=== PATIENT | male | born 1935 | race Caucasian/White ===

== ENCOUNTER 2017-04-03 17:17 | Outpatient (CLI) | payer MEDICARE, OTHER | END 2017-04-03 17:18 | disposition critical access hospital (66) | LOC: EMS 17:17 | PROVIDERS: ATTEND Surgery | DX: R06.02 Shortness of breath (principal) | CPT/HCPCS: A0425; A0427 ==

== ENCOUNTER 2017-04-03 17:25 | Inpatient (IN) | payer MEDICARE, OTHER ==
--- NOTE | 2017-04-03 17:50 | ED Physician Documentation ---
PD HPI DYSPNEA - Stated complaint Stated Complaint: SOA - Chief complaint Chief Complaint: Resp - History obtained from History obtained from: Patient - Additional information Additional information: 81yo on home O2 (not for COPD, new in the last few weeks. Hospitalized in [facility] for PNA a couple of months ago. 3 days increasing dyspnea with dry cough. + MERINO. Does have H/O Afib but denies CHF but this dx is on previous discharge summary. No fevers. No chest pain. Decreased lasix dose from 80mg to 40mg about 3 weeks ago. Weight up 5 lbs in the last few days. Review of Systems Ten Systems: 10 systems reviewed and negative Constitutional: denies: Fever, Chills Cardiac: reports: Pedal edema. denies: Chest pain / pressure GI: reports: Abdominal Pain (RLQ pain x 2 mos) PD PAST MEDICAL HISTORY - Past Medical History Past Medical History: Yes Cardiovascular: Congestive heart failure, Hypertension, High cholesterol, SD, Atrial fibrillation, Valve disorder Respiratory: Pneumonia Neuro: None Endocrine/Autoimmune: Type 2 diabetes GI: Diverticulitis, Other : Renal insuffiency HEENT: None Psych: Depression Musculoskeletal: Osteoarthritis, Osteoporosis, Chronic back pain Derm: None - Past Surgical History Past Surgical History: Yes General: Cholecystectomy, Bowel surgery Ortho: Knee replacement, Spine surgery - Present Medications Home Medications: Ambulatory Orders Medication Instructions Recorded Confirmed Digoxin [Lanoxin] 125 mcg PO DAILY 05/06/14 04/03/17 Fluticasone [Flonase] 50 mcg INH BID 05/06/14 04/03/17 Metformin HCl 500 mg PO BIDWM 05/06/14 04/03/17 Metoprolol Tartrate 75 mg PO BID 05/06/14 04/03/17 Morphine Sulfate [Ms Contin] 15 mg PO BID 05/06/14 04/03/17 Polyethylene Glycol 3350 [Miralax] 17 g PO DAILY 05/06/14 04/03/17 Potassium Chloride [Klor-Con 10] 10 meq PO DAILY 05/06/14 04/03/17 Zolpidem [Ambien] 5 - 10 mg PO DAILY 05/06/14 04/03/17 Cyanocobalamin (Vitamin B-12) 1,000 mcg PO DAILY 02/02/15 04/03/17 [Vitamin B-12 (100mcg tab)] Docusate Sodium 100 mg PO BID PRN 02/02/15 04/03/17 Levothyroxine [Synthroid] 100 mcg PO DAILY 02/02/15 04/03/17 Melatonin 3 mg PO QPM PRN 02/02/15 04/03/17 Menthol [Cough Drops] 5.4 mg MM Q2H PRN 02/02/15 04/03/17 Pantoprazole [Protonix] 40 mg PO BIDAC 02/02/15 04/03/17 Petrolat,Wht/Min Oil/Sod Chl 3.5 gm OP Q1H PRN 02/02/15 04/03/17 [Artificial Tear Ointment] Phenol [Chloraseptic] 1 - 2 sprays MM Q3H PRN 02/02/15 04/03/17 Senna [Senokot] 17.2 mg PO QPM 02/02/15 04/03/17 Thiamine [Vitamin B-1] 100 mg PO DAILY 02/02/15 04/03/17 Aspirin 81 mg PO DAILY 02/09/15 04/03/17 Cholecalciferol (Vitamin D3) 2,000 unit PO DAILY 09/16/16 04/03/17 [Vitamin D3] Ferrous Gluconate 324 mg PO DAILY 09/16/16 04/03/17 Furosemide [Lasix] 40 mg PO DAILY #30 09/16/16 04/03/17 Glipizide 5 mg PO DAILY 09/16/16 04/03/17 Losartan [Cozaar] 50 mg PO DAILY 09/16/16 04/03/17 Multivitamin [Multiple Vitamins] 1 each PO DAILY 09/16/16 04/03/17 Tamsulosin [Flomax] 0.4 mg PO QPM 09/16/16 04/03/17 oxyCODONE/ACET 5/325 [Percocet 5 1 tab PO Q6H PRN 09/16/16 04/03/17 mg/325 mg] - Allergies Allergies/Adverse Reactions: Allergies Allergy/AdvReac Type Severity Reaction Status Date / Time No Known Drug Allergies Allergy Verified 09/15/16 13:58 - Social History Does the pt smoke?: No Smoking Status: Never smoker Does the pt drink ETOH?: Yes Does the pt have substance abuse?: No - Immunizations Immunizations are current?: No Immunizations: TDAP >10years/unknown - POLST Patient has POLST: Yes PD ED PE NORMAL - Vitals Vital signs reviewed: Yes - General General: Alert and oriented X 3, Other (labored breathing) - HEENT HEENT: PERRL, EOMI - Neck Neck: Supple, no meningeal sign, No bony TTP, Other (++JVD) - Cardiac Cardiac: Other (irregular) - Respiratory Respiratory: Other (diminished R base rales bilateral) - Abdomen Abdomen: Soft, Non tender - Back Back: No CVA TTP, No spinal TTP - Derm Derm: Normal color, Warm and dry, No rash - Extremities Extremities: Other (mod B pitting pedal edema) - Neuro Neuro: Alert and oriented X 3, Normal speech - Psych Psych: Normal mood, Normal affect Results - Vitals Vitals: Vital Signs - 24 hr 04/03/17 04/03/17 04/03/17 17:24 17:37 18:29 Temperature 36.9 C Heart Rate 106 H 100 92 Respiratory 22 24 18 Rate Blood Pressure 150/92 H 135/88 H 129/81 H O2 Saturation 86 L 92 96 04/03/17 19:39 Temperature Heart Rate 78 Respiratory 18 Rate Blood Pressure 121/71 O2 Saturation 92 Oxygen O2 Source [] Room air O2 Source [] Room air O2 Source Nasal cannula Oxygen Flow Rate 2 - EKG (time done) 1739 Rate: Rate (enter#) (89) Rhythm: Atrial fibrillation Intervals: LBBB Compare to prior EKG: Unchanged from prior EKG (no sig change from 09/15/16) Computer interpretation: Agree with computer - Labs Labs: Laboratory Tests 04/03/17 04/03/17 04/03/17 17:50 17:50 17:50 WBC 6.0 RBC 3.26 L Hgb 10.2 L Hct 30.6 L MCV 93.9 MCH 31.2 H MCHC 33.2 RDW 15.1 H Plt Count 284 MPV 7.5 Neut # 4.3 Lymph # 1.0 L [place] # 0.7 Eos # 0.1 Baso # 0.0 Absolute Nucleated RBC 0.01 Nucleated RBCs 0.1 Sodium 136 Potassium 5.3 H Chloride 100 L Carbon Dioxide 27 Anion Gap 9.0 BUN 47 H Creatinine 1.7 H Estimated GFR (MDRD) 39 L Glucose 250 H Calcium 9.1 Total Bilirubin 0.9 AST 20 ALT 22 Alkaline Phosphatase 125 H B-Natriuretic Peptide 711 H Total Protein 7.3 Albumin 3.8 Globulin 3.5 Albumin/Globulin Ratio 1.1 Lipase 12 L Urine Color Urine Clarity Urine pH Ur Specific [place] Urine Protein Urine Glucose (UA) Urine Ketones Urine Occult Blood Urine Nitrite Urine Bilirubin Urine Urobilinogen Ur Leukocyte Esterase Ur Microscopic Review Urine Culture Comments Last Dose Date UNKNOWN Last Dose Time UNKNOWN Digoxin 1.0 04/03/17 18:50 WBC RBC Hgb Hct MCV MCH MCHC RDW Plt Count MPV Neut # Lymph # [place] # Eos # Baso # Absolute Nucleated RBC Nucleated RBCs Sodium Potassium Chloride Carbon Dioxide Anion Gap BUN Creatinine Estimated GFR (MDRD) Glucose Calcium Total Bilirubin AST ALT Alkaline Phosphatase B-Natriuretic Peptide Total Protein Albumin Globulin Albumin/Globulin Ratio Lipase Urine Color YELLOW Urine Clarity CLEAR Urine pH 5.0 Ur Specific [place] 1.010 Urine Protein NEGATIVE Urine Glucose (UA) NEGATIVE Urine Ketones NEGATIVE Urine Occult Blood NEGATIVE Urine Nitrite NEGATIVE Urine Bilirubin NEGATIVE Urine Urobilinogen 2 H Ur Leukocyte Esterase NEGATIVE Ur Microscopic Review NOT INDICATED Urine Culture Comments NOT INDICATED Last Dose Date Last Dose Time Digoxin - Rads (name of study) 2v chest Radiology: EMP read contemporaneously (Low lung volumes, some edema on the left , chronic right hemidiaphragmatic elevation, mild cardiomegaly, chronic bibasilar opacity) PD MEDICAL DECISION MAKING - ED course ED course: 81-year-old gentleman who presents with acute on chronic heart failure now with hypoxemia despite being on home oxygen. He is administered Lasix and nitro paste here. Spoke with Dr. Brewer for admission at 740 p.m. Departure - Departure Disposition: 66 [facility] DC/Xfer Clinical Impression: Hypoxemia Congestive heart failure Qualifiers: Congestive heart failure type: diastolic Congestive heart failure chronicity: acute on chronic Qualified Code(s): I50.33 - Acute on chronic diastolic ( congestive) heart failure Condition: Serious
[2017-04-03 17:59] LABS: BASOPHILS % (AUTO) 0.6 %; EOSINOPHILS # (AUTO) 0.1 10^3/uL (0.0-0.7); EOSINOPHILS % (AUTO) 0.9 %; HCT - HEMATOCRIT 30.6 % (42.0-52.0); HGB - HEMOGLOBIN 10.2 g/dL (14.0-18.0); LYMPHOCYTES % (AUTO) 15.9 %; MEAN CORPUSCULAR HEMOGLOBIN 31.2 pg (27.0-31.0); MEAN CORPUSCULAR HGB CONC 33.2 g/dL (32.0-36.0); MEAN CORPUSCULAR VOLUME 93.9 fL (80.0-94.0); MEAN PLATELET VOLUME 7.5 fL (7.4-11.4); MONOCYTES # (AUTO) 0.7 10^3/uL (0.0-1.0); NEUTROPHILS # (AUTO) 4.3 10^3/uL (1.5-6.6); NEUTROPHILS % (AUTO) 71.6 %; NUCLEATED RED BLOOD CELLS AUTO 0.1 /100WBC; RED BLOOD COUNT 3.26 10^6/uL (4.70-6.10); RED CELL DISTRIBUTION WIDTH 15.1 % (12.0-15.0)
[2017-04-03 18:16] LABS: ALBUMIN/GLOBULIN RATIO 1.1 (1.0-2.2); BILIRUBIN,TOTAL 0.9 mg/dL (0.2-1.0); BUN - BLOOD UREA NITROGEN 47 mg/dL (6-20); CALCIUM 9.1 mg/dL (8.5-10.3); CARBON DIOXIDE - CO2 27 mmol/L (21-32); CHLORIDE 100 mmol/L (101-111); CREATININE 1.7 mg/dL (0.6-1.2); GFR - MDRD 39 (>89); GLUCOSE 250 mg/dL (70-100); LIPASE 12 U/L (22-51); POTASSIUM 5.3 mmol/L (3.5-5.0); SODIUM 136 mmol/L (135-145); TOTAL PROTEIN 7.3 g/dL (6.7-8.2)
--- NOTE | 2017-04-03 18:41 | XRAY Preliminary Report ---
Exam: XR Chest 2 View PA/LAT IMPRESSION: 1. Mildly low lung volumes with vascular crowding/congestion, possible small amount of asymmetric lorri ma on the left. 2. Stable mild enlarged cardiac silhouette size. 3. Persistent elevation of the right hemidiaphragm. 4. Small amount of bibasilar opacity again noted, which may be on a chronic basis versus recurrent at electasis or pneumonia in the proper settings. [facility] SITE ID: [id number]
--- NOTE | 2017-04-03 18:43 | XRAY Report ---
EXAM: CHEST RADIOGRAPHY EXAM DATE: 04/03/2017 06:26 PM. CLINICAL HISTORY: Dyspnea. COMPARISON: 02/19/2015. TECHNIQUE: 2 views. FINDINGS: Lungs/Pleura: Persistent elevation of the right hemidiaphragm. Mildly low lung volumes with vascular crowding/congestion. Small amount of bibasilar opacity again noted. No definite pleural effusion. No pneumothorax. Mediastinum: Cardiac silhouette size appears mildly enlarged, stable. Atherosclerotic vascular calcif ication. Other: None. IMPRESSION: 1. Mildly low lung volumes with vascular crowding/congestion, possible small amount of asymmetric lorri ma on the left. 2. Stable mild enlarged cardiac silhouette size. 3. Persistent elevation of the right hemidiaphragm. 4. Small amount of bibasilar opacity again noted, which may be on a chronic basis versus recurrent at electasis or pneumonia in the proper settings. [facility] Referring Provider Line: [phone] SITE ID: [id number]
[2017-04-03 19:04] LABS: BILIRUBIN,URINE NEGATIVE (NEGATIVE)
[2017-04-03 19:05] LABS: UA CHARGE (STRIP ONLY) YES; UR CULTURE IF IND NOT INDICATED
[2017-04-03] MEDS ORDERED: FUROSEMIDE 100 MG/10 ML VIAL IVP STA (19:21)
[2017-04-03] MEDS ORDERED: NITROGLYCERIN 2% PASTE TOP STA (19:21)
[2017-04-03] MEDS ORDERED: FUROSEMIDE 40 MG/4 ML VIAL ONE (19:26)
[2017-04-03] MEDS ORDERED: NITROGLYCERIN 2% PASTE TOP ONE (19:26)
[2017-04-03] MEDS ORDERED: SODIUM CHLORIDE FLUSH 0.9% 10 ML SYRINGE IVP PRN (20:15)
[2017-04-03] MEDS ORDERED: MENTHOL MM PRN (20:18)
[2017-04-03] MEDS ORDERED: PHENOL THROAT SPRAY 177 ML MM PRN (20:18)
[2017-04-03] MEDS ORDERED: NON FORMULARY MED (Melatonin [Melatonin] 3 MG) PO PRN (20:18)
[2017-04-03 20:32] LABS: VBG BASE EXCESS -1.4 mmol/L (-2 - +2); VBG OXYGEN SATURATION 47.2 % (60-80); VBG PH 7.306 (7.31-7.41)
[2017-04-03 21:50] LABS: HEMOGLOBIN A1C 0.61 g/dL
[2017-04-03] MEDS: FUROSEMIDE INJ 100mg VIAL 100 MG in SODIUM CHLORIDE 0.9% 100ML 90 ML IV SCH (22:47)
[2017-04-03] MEDS: INSULIN ASPART 300 UNIT/3 ML PEN SUBQ SCH (23:04)
[2017-04-03] MEDS: PANTOPRAZOLE 40 MG TABLET PO SCH (23:05)
[2017-04-03] MEDS: HEPARIN 5,000 UNIT/ML VIAL SUBQ SCH (23:06)
[2017-04-03] MEDS ORDERED: LIDOCAINE 2% URO-JET 5 ML SYRINGE UR ONE (23:42)
[2017-04-04] MEDS: FLUTICASONE NASAL SPRAY NAS SCH ×3 (00:30→21:25)
[2017-04-04] MEDS: MORPHINE ER 15 MG TABLET PO SCH ×3 (00:35→21:23)
[2017-04-04] MEDS: METOPROLOL TARTRATE 25 MG TABLET PO SCH ×3 (00:35→21:22)
[2017-04-04] MEDS: SENNA 8.6 MG TABLET PO SCH ×2 (00:36→21:24)
[2017-04-04] MEDS: TAMSULOSIN 0.4 MG CAPSULE PO SCH ×2 (00:38→22:32)
[2017-04-04] MEDS: HEPARIN 5,000 UNIT/ML VIAL SUBQ SCH ×3 (00:39→21:26)
[2017-04-04] MEDS: INSULIN ASPART 300 UNIT/3 ML PEN SUBQ SCH ×6 (00:40→21:20)
[2017-04-04] MEDS: SODIUM CHLORIDE FLUSH 0.9% 10 ML SYRINGE IVP SCH ×3 (00:41→12:41)
--- NOTE | 2017-04-04 02:33 | HISTORY & PHYSICAL EXAMINATION ---
DATE OF ADMISSION: 04/03/2017 PRIMARY CARE PROVIDER: Delvin Quigley MD. CHIEF COMPLAINT: Increasing shortness of breath and lower extremity edema. HISTORY OF PRESENT ILLNESS: This is an 81-year-old male who I get a history from him, although is not a great historian, but notes that over the past 2 weeks or so he has been noticing increasing lower extremity edema along with increasing shortness of breath. He denies any chest pain. It does, accordi ng to the old records, show he has a history of congestive heart failure with appears to be diastolic dysfunction. He also has a history of chronic kidney disease and had been on Lasix 80 mg p.o. daily according to his account, but was taken off of it because of worsening kidney function about a month ago and he has not been on diuretics since then. His evaluation in the emergency room is significant for a chest x-ray, mildly low lung volumes with vascular crowding congestion, possible small amount o f asymmetric edema on the left, stable mild enlarged cardiac silhouette size, persistent elevation of the right hemidiaphragm, a small amount of basilar opacity again noted, which may be a chronic basis versus recurrent atelectasis or pneumonia in the proper setting. His EKG shows atrial fibrillation, a rate of 89, left bundle branch block present, unchanged from prior EKG. Troponin is 0.04. PAST MEDICAL HISTORY 1. Type 2 diabetes. 2. History of congestive heart failure, thought to be secondary to diastolic dysfunction. 3. History of myocardial infarction. 4. Chronic kidney disease stage III. 5. History of depression. 6. Osteoarthritis. 7. Chronic pain. 8. History of chronic atrial fibrillation, for which he is on ASA. 9. History of hypertension. 10. History of hyperlipidemia. MEDICATIONS UPON ADMISSION 1. Glipizide 5 mg p.o. daily. 2. Metformin 500 mg p.o. b.i.d. 3. KCl 10 mEq p.o. daily. 4. ASA 81 mg p.o. daily. 5. Vitamin D3 at 2000 units p.o. daily. 6. Cyanocobalamin 1000 mcg p.o. daily. 7. Digoxin 125 mcg p.o. daily. 8. Colace 100 mg p.o. b.i.d. 9. Ferrous gluconate 324 mg p.o. daily. 10. Flonase 1 spray to each nostril b.i.d. 11. Levothyroxine 100 mcg p.o. daily. 12. Losartan 50 mg p.o. daily. 13. Melatonin 3 mg p.o. daily. 14. Metoprolol tartrate 75 mg p.o. b.i.d. 15. MS Contin 15 mg p.o. b.i.d. 16. Multiple vitamin 1 tab p.o. daily. 17. Protonix 40 mg p.o. b.i.d. 18. Flomax 0.4 mg p.o. daily. 19. Thiamine 100 mg p.o. daily. 20. Zolpidem 5-10 mg p.o. daily. 21. Percocet 5/325 one tab p.o. q.6h. p.r.n. pain. ALLERGIES: NO KNOWN DRUG ALLERGIES. SOCIAL HISTORY: Lives with . Smoking, none. Alcohol, none. FAMILY MEDICAL HISTORY: Admits to family history of coronary artery disease. REVIEW OF SYSTEMS: Denies any fevers or chills. Denies cough. All other review of systems reviewed an d are negative except for as in HPI. PHYSICAL EXAMINATION VITAL SIGNS: Temperature is afebrile, heart rate is 92, blood pressure 129/81, respiratory rate is 18 , room air saturation is 96%, initially was 86% upon presentation to the emergency room. CONSTITUTIONAL: Elderly man who appears mildly short of breath. HEAD: Normocephalic, atraumatic. EYES: PERRLA-DC, EOMI. MOUTH: No lesions. NECK: No adenopathy. CHEST: Reveals decreased breath sounds at his bases bilaterally with some scant wheezing posteriorly. COR: Regular rate and rhythm, S1, S2 without murmur. ABDOMEN: Soft, nontender. Bowel sounds present. EXTREMITIES: Reveals 1+ bilateral pedal edema. SKIN: Reveals no rashes. PSYCHIATRIC: Mood and affect are appropriate. NEUROLOGIC: He is alert and oriented x3. Motor strength is intact bilaterally. LABORATORY: As above, also to include white count 6.0, hemoglobin 10.2, hematocrit 30.6, MCV 93.9, pl atelets 284 with neutrophils 4.3. Venous blood gas 7.306, pCO2 52, pO2 28.2, bicarbonate 25.4. Sodium 136, potassium 5.3, chloride 100, bicarbonate 27, BUN 47, creatinine 1.7, calculated GFR 39, glucose 250, calcium 9.1, magnesium 1.9, total bilirubin 0.9, AST 20, ALT 22, alkaline phosphatase 125. Trop onin 0.04. BNP 711, total protein 7.3, albumin 3.8, lipase 12. Urine reveals no acute abnormalities, specific gravity 1.010. Digoxin level 1.0. ASSESSMENT AND PLAN 1. Subacute congestive heart failure, present on admission. We will go ahead and start IV Lasix drip. Monitor kidney function. Monitor potassium. Continue with losartan. Continue with his beta-erick, check echocardiogram complete in the a.m. Consider recurrent doses of nitro paste. The patient had on e placed in the emergency room. Check serial troponins. 2. Type 2 diabetes, chronic, present on admission. We will go ahead and continue with his glipizide a nd hold his metformin. Will proceed with placing on subcu insulin protocol. 3. Hypertension, chronic, present on admission. We will go ahead and continue with his antihypertensi ve medication and monitor blood pressures. 4. Hyperlipidemia, chronic, present on admission. We will go ahead and continue with his statin as pr eviously ordered. 5. Chronic kidney disease, present on admission. The patient had a bump in his BUN and creatinine per patient report on higher dose of Lasix. We will go ahead and need to monitor appropriately. 6. Atrial fibrillation, chronic, present on admission. Currently has a controlled rate and will cary nue with ASA. 7. Deep venous thrombosis prophylaxis. We will use SCDs and place on subcutaneous Lovenox. 8. CODE STATUS: Did discuss with the patient, although defers to his who was not present at the time of admission, hence by default is FULL CODE. TIME SPENT: 60 minutes. JOB #: [id number] EXT JOB #:[id number]
[2017-04-04] MEDS: PANTOPRAZOLE 40 MG TABLET PO SCH ×2 (06:59→16:45)
[2017-04-04] MEDS: LEVOTHYROXINE 100 MCG TABLET PO SCH (06:59)
[2017-04-04] MEDS ORDERED: CARBOXYMETHYLCELLULOSE OPHTH DROPS EACHEYE PRN (07:12)
[2017-04-04 08:13] LABS: BASOPHILS % (AUTO) 0.8 %; EOSINOPHILS # (AUTO) 0.1 10^3/uL (0.0-0.7); EOSINOPHILS % (AUTO) 2.1 %; HCT - HEMATOCRIT 26.5 % (42.0-52.0); HGB - HEMOGLOBIN 9.3 g/dL (14.0-18.0); LYMPHOCYTES % (AUTO) 20.5 %; MEAN CORPUSCULAR HEMOGLOBIN 32.4 pg (27.0-31.0); MEAN CORPUSCULAR HGB CONC 35.1 g/dL (32.0-36.0); MEAN CORPUSCULAR VOLUME 92.4 fL (80.0-94.0); MEAN PLATELET VOLUME 6.9 fL (7.4-11.4); MONOCYTES # (AUTO) 0.6 10^3/uL (0.0-1.0); MONOCYTES % (AUTO) 13.5 %; NEUTROPHILS % (AUTO) 63.1 %; RED BLOOD COUNT 2.87 10^6/uL (4.70-6.10); RED CELL DISTRIBUTION WIDTH 14.9 % (12.0-15.0); UNCORRECTED WHITE BLOOD COUNT 4.7 x10^3/uL; WHITE BLOOD COUNT 4.7 x10^3/uL (4.8-10.8)
[2017-04-04 08:27] LABS: CALCIUM 8.9 mg/dL (8.5-10.3); CREATININE 1.5 mg/dL (0.6-1.2); MAGNESIUM 1.7 mg/dL (1.7-2.8); POTASSIUM 4.4 mmol/L (3.5-5.0); TOTAL PROTEIN 6.5 g/dL (6.7-8.2)
--- NOTE | 2017-04-04 08:39 | PROVIDER PROGRESS NOTE ---
Assessment/Plan - Problem List (1) Congestive heart failure Qualifiers: Congestive heart failure type: diastolic Congestive heart failure chronicity: acute on chronic Qualified Code(s): I50.33 - Acute on chronic diastolic (congestive) heart failure Assessment/Plan: Rodo appears to have a mixed sys/diastolic R and L heart failure. For further delineation an Echo will be done today. He has had a 4 liter output from his lasix drip. He still has a lot of leg edema. He uses 2 liters at home and is on that here presently. Will continue the diuresis. (2) Diabetes mellitus type 2, uncontrolled Assessment/Plan: He has A1C of 7.6 and is on insulin here with QID monitoring of BG. Will give additional instruction for at home diet and activity which clearly is muchreduced. - Current Meds Current Meds: Current Medications Generic Name Dose Route Start Last Admin Trade Name Freq PRN Reason Stop Dose Admin Fluticasone Propionate 0 sprays 04/03/17 21:00 04/04/17 00:30 Flonase RAMIN Not Given BID JULES Heparin Sodium (Porcine) 5,000 unit 04/03/17 21:00 04/04/17 00:39 SUBQ Not Given BID JULES Furosemide 100 mg/ Sodium 100 mls @ 5 mls/hr 04/03/17 21:00 04/03/17 22:47 Chloride IV 5 mls/hr .Q20H JULES Administration 5 MG/HR Insulin Aspart 1 - 5 unit 04/03/17 21:00 04/04/17 00:40 Novolog SUBQ 1 unit 0800,1200,1700,2100 JULES Administration Protocol Levothyroxine Sodium 100 mcg 04/04/17 07:00 04/04/17 06:59 Synthroid PO 100 mcg QDAC JULES Administration Metoprolol Tartrate 75 mg 04/03/17 21:00 04/04/17 00:35 Lopressor PO Not Given BID JULES Morphine Sulfate 15 mg 04/03/17 21:00 04/04/17 00:35 PO Not Given BID JULES Pantoprazole Sodium 40 mg 04/03/17 21:00 04/04/17 06:59 Protonix PO 40 mg BIDAC JULES Administration Senna 17.2 mg 04/03/17 21:00 04/04/17 00:36 Senokot PO Not Given QPM JULES Sodium Chloride 10 ml 04/03/17 22:00 04/04/17 07:00 Normal Saline Flush 0.9% IVP 10 ml Q8HR JULES Administration Tamsulosin HCl 0.4 mg 04/03/17 21:00 04/04/17 00:38 Flomax PO Not Given QPM JULES - Lab Result Fish Bone Diagrams: 04/04/17 08:05 04/04/17 08:05 Subjective - Subjective Patient Reports: Feeling Better, Resting Comfortably Nursing Reports: Shortness of Breath Objective Vital Signs: Vital Signs - 24 hr 04/03/17 04/04/17 04/04/17 21:29 00:00 01:48 Temperature 36.8 C Heart Rate 81 Heart Rate [ 84 78 Monitoring electrodes] Respiratory 20 17 13 Rate Blood Pressure 141/88 H Blood Pressure 143/75 H 114/57 L [Right Brachial artery] O2 Saturation 96 94 93 04/04/17 04/04/17 04/04/17 02:00 03:00 04:00 Temperature 36.8 C Heart Rate Heart Rate [ 77 75 71 Monitoring electrodes] Respiratory 12 11 L 11 L Rate Blood Pressure Blood Pressure 108/63 102/61 100/60 [Right Brachial artery] O2 Saturation 95 97 97 04/04/17 04/04/17 04/04/17 05:00 06:00 07:00 Temperature Heart Rate Heart Rate [ 69 71 73 Monitoring electrodes] Respiratory 13 9 L 11 L Rate Blood Pressure Blood Pressure 115/66 106/60 107/65 [Right Brachial artery] O2 Saturation 97 97 97 04/04/17 07:40 Temperature Heart Rate Heart Rate [ 69 Monitoring electrodes] Respiratory 11 L Rate Blood Pressure Blood Pressure 107/65 [Right Brachial artery] O2 Saturation 97 Oxygen O2 Source Nasal cannula I&O (Last 24 Hrs): Intake and Output Totals x24h 04/02/17 04/03/17 04/04/17 23:59 23:59 23:59 Intake Total 160 Output Total 1125 2140 Balance -1124 General: Oriented x3, Cooperative HEENT: PERRLA, EOMI Neck: No JVD, No thyromegaly Neuro: Alert Cardiovascular: Other ( A fib) Respiratory: Chest non-tender, No respiratory distress, Breath sounds nml Abdomen: Normal bowel sounds, Soft (3+ edema bilateral) Extremities: Other (He has 3+ edema) - Results Results: Laboratory Results WBC 4.7 x10^3/uL (4.8-10.8) L 04/04/17 08:05 RBC 2.87 10^6/uL (4.70-6.10) L 04/04/17 08:05 Hgb 9.3 g/dL (14.0-18.0) L 04/04/17 08:05 Hct 26.5 % (42.0-52.0) L 04/04/17 08:05 MCV 92.4 fL (80.0-94.0) 04/04/17 08:05 MCH 32.4 pg (27.0-31.0) H 04/04/17 08:05 MCHC 35.1 g/dL (32.0-36.0) 04/04/17 08:05 RDW 14.9 % (12.0-15.0) 04/04/17 08:05 Plt Count 244 10^3/uL (130-450) 04/04/17 08:05 MPV 6.9 fL (7.4-11.4) L 04/04/17 08:05 Neut # 3.0 10^3/uL (1.5-6.6) 04/04/17 08:05 Lymph # 1.0 10^3/uL (1.5-3.5) L 04/04/17 08:05 [place] # 0.6 10^3/uL (0.0-1.0) 04/04/17 08:05 Eos # 0.1 10^3/uL (0.0-0.7) 04/04/17 08:05 Baso # 0.0 10^3/uL (0.0-0.1) 04/04/17 08:05 Absolute Nucleated RBC 0.00 x10^3/uL 04/04/17 08:05 Nucleated RBCs 0.0 /100WBC 04/04/17 08:05 VBG pH 7.306 (7.31-7.41) L 04/03/17 20:25 VBG pCO2 52.0 mmHg (41-51) H 04/03/17 20:25 VBG pO2 28.2 mmHg (25-47) 04/03/17 20:25 VBG HCO3 25.4 mmol/L (23-28) 04/03/17 20:25 VBG Total CO2 27.0 mmol/L (24-29) 04/03/17 20:25 VBG O2 Saturation 47.2 % (60-80) L 04/03/17 20:25 VBG Base Excess -1.4 mmol/L (-2 - +2) 04/03/17 20:25 Sodium 139 mmol/L (135-145) 04/04/17 08:05 Potassium 4.4 mmol/L (3.5-5.0) 04/04/17 08:05 Chloride 100 mmol/L (101-111) L 04/04/17 08:05 Carbon Dioxide 30 mmol/L (21-32) 04/04/17 08:05 Anion Gap 9.0 (6-13) 04/04/17 08:05 BUN 43 mg/dL (6-20) H 04/04/17 08:05 Creatinine 1.5 mg/dL (0.6-1.2) H 04/04/17 08:05 Estimated GFR (MDRD) 45 (>89) L 04/04/17 08:05 Glucose 114 mg/dL (70-100) H 04/04/17 08:05 Glycated Hemoglobin 7.6 % (4.6-6.2) H 04/03/17 20:50 Estim Average Glucose 171 (70-100) H 04/03/17 20:50 Calcium 8.9 mg/dL (8.5-10.3) 04/04/17 08:05 Magnesium 1.7 mg/dL (1.7-2.8) 04/04/17 08:05 Total Bilirubin 1.0 mg/dL (0.2-1.0) 04/04/17 08:05 AST 18 IU/L (10-42) 04/04/17 08:05 ALT 20 IU/L (10-60) 04/04/17 08:05 Alkaline Phosphatase 113 IU/L (42-121) 04/04/17 08:05 Troponin I 0.04 ng/mL (<0.49) 04/04/17 08:05 B-Natriuretic Peptide 572 pg/mL (5-100) H 04/04/17 08:05 Total Protein 6.5 g/dL (6.7-8.2) L 04/04/17 08:05 Albumin 3.3 g/dL (3.2-5.5) 04/04/17 08:05 Globulin 3.2 g/dL (2.1-4.2) 04/04/17 08:05 Albumin/Globulin Ratio 1.0 (1.0-2.2) 04/04/17 08:05 Lipase 12 U/L (22-51) L 04/03/17 17:50 Urine Color YELLOW 04/03/17 18:50 Urine Clarity CLEAR (CLEAR) 04/03/17 18:50 Urine pH 5.0 PH (5.0-7.5) 04/03/17 18:50 Ur Specific [place] 1.010 (1.002-1.030) 04/03/17 18:50 Urine Protein NEGATIVE mg/dL (NEGATIVE) 04/03/17 18:50 Urine Glucose (UA) NEGATIVE mg/dL (NEGATIVE) 04/03/17 18:50 Urine Ketones NEGATIVE mg/dL (NEGATIVE) 04/03/17 18:50 Urine Occult Blood NEGATIVE (NEGATIVE) 04/03/17 18:50 Urine Nitrite NEGATIVE (NEGATIVE) 04/03/17 18:50 Urine Bilirubin NEGATIVE (NEGATIVE) 04/03/17 18:50 Urine Urobilinogen 2 E.U./dL (NORMAL) H 04/03/17 18:50 Ur Leukocyte Esterase NEGATIVE (NEGATIVE) 04/03/17 18:50 Ur Microscopic Review NOT INDICATED 04/03/17 18:50 Urine Culture Comments NOT INDICATED 04/03/17 18:50 Last Dose Date UNKNOWN 04/03/17 17:50 Last Dose Time UNKNOWN 04/03/17 17:50 Digoxin 1.0 ng/mL 04/03/17 17:50 - Procedures Procedures: Procedures PACKED CELL TRANSFUSION (02/09/15) PARENTERAL INFUSION OF CONCENTRATED NUT. SUBSTANCE (02/09/15) VENOUS CATHETERIZATION NEC (02/09/15)
[2017-04-04] MEDS: MULTIVITAMIN TABLET PO SCH (08:51)
[2017-04-04] MEDS: CHOLECALCIFEROL 1,000 UNIT TABLET PO SCH (08:51)
[2017-04-04] MEDS: FERROUS GLUCONATE 324 MG TABLET PO SCH (08:51)
[2017-04-04] MEDS: CYANOCOBALAMIN 500 MCG TABLET PO SCH (08:51)
[2017-04-04] MEDS: DIGOXIN 125 MCG TABLET PO SCH (08:52)
[2017-04-04] MEDS: THIAMINE 100 MG TABLET PO SCH (08:52)
[2017-04-04] MEDS: POLYETHYLENE GLYCOL 3350 17 GM PACKET PO SCH (08:52)
[2017-04-04] MEDS: LOSARTAN 50 MG TABLET PO SCH (08:56)
[2017-04-04] MEDS ORDERED: ASPIRIN 325 MG TABLET PO SCH (09:00)
[2017-04-04] MEDS ORDERED: POLYETHYLENE GLYCOL 3350 17 GM PACKET PO SCH (09:00)
[2017-04-04] MEDS ORDERED: ZOLPIDEM 5 MG TABLET PO SCH (09:00)
[2017-04-04] MEDS: FUROSEMIDE INJ 100mg VIAL 100 MG in SODIUM CHLORIDE 0.9% 100ML 90 ML IV SCH ×2 (12:05→17:58)
[2017-04-04] MEDS: ZOLPIDEM 5 MG TABLET PO SCH (21:23)
[2017-04-04] MEDS: DOCUSATE SODIUM 100 MG CAPSULE PO PRN (21:38)
[2017-04-04] MEDS: oxyCOD/ACETAMIN 5 MG/325 MG TABLET PO PRN (21:38)
[2017-04-05] MEDS: LEVOTHYROXINE 100 MCG TABLET PO SCH (06:58)
[2017-04-05] MEDS: SODIUM CHLORIDE FLUSH 0.9% 10 ML SYRINGE IVP SCH ×3 (06:58→21:21)
[2017-04-05] MEDS: PANTOPRAZOLE 40 MG TABLET PO SCH ×2 (06:58→16:42)
[2017-04-05 08:06] LABS: BASOPHILS % (AUTO) 0.6 %; EOSINOPHILS # (AUTO) 0.1 10^3/uL (0.0-0.7); HCT - HEMATOCRIT 27.5 % (42.0-52.0); HGB - HEMOGLOBIN 9.6 g/dL (14.0-18.0); LYMPHOCYTES # (AUTO) 0.9 10^3/uL (1.5-3.5); LYMPHOCYTES % (AUTO) 17.1 %; MEAN CORPUSCULAR HEMOGLOBIN 31.9 pg (27.0-31.0); MEAN CORPUSCULAR HGB CONC 34.9 g/dL (32.0-36.0); MEAN CORPUSCULAR VOLUME 91.4 fL (80.0-94.0); MEAN PLATELET VOLUME 6.9 fL (7.4-11.4); MONOCYTES # (AUTO) 0.6 10^3/uL (0.0-1.0); NEUTROPHILS # (AUTO) 3.5 10^3/uL (1.5-6.6); NEUTROPHILS % (AUTO) 68.3 %; RED BLOOD COUNT 3.01 10^6/uL (4.70-6.10); UNCORRECTED WHITE BLOOD COUNT 5.2 x10^3/uL; WHITE BLOOD COUNT 5.2 x10^3/uL (4.8-10.8)
[2017-04-05 08:16] LABS: ALBUMIN/GLOBULIN RATIO 1.1 (1.0-2.2); BILIRUBIN,TOTAL 1.1 mg/dL (0.2-1.0); CALCIUM 9.3 mg/dL (8.5-10.3); CREATININE 1.4 mg/dL (0.6-1.2); MAGNESIUM 1.5 mg/dL (1.7-2.8); POTASSIUM 4.4 mmol/L (3.5-5.0); TOTAL PROTEIN 6.4 g/dL (6.7-8.2)
[2017-04-05] MEDS: INSULIN ASPART 300 UNIT/3 ML PEN SUBQ SCH ×4 (08:25→21:15)
[2017-04-05] MEDS: CYANOCOBALAMIN 500 MCG TABLET PO SCH (08:27)
[2017-04-05] MEDS: LOSARTAN 50 MG TABLET PO SCH (08:28)
[2017-04-05] MEDS: METOPROLOL TARTRATE 25 MG TABLET PO SCH ×2 (08:29→21:17)
[2017-04-05] MEDS: CHOLECALCIFEROL 1,000 UNIT TABLET PO SCH (08:31)
[2017-04-05] MEDS: MORPHINE ER 15 MG TABLET PO SCH ×3 (08:32→20:13)
[2017-04-05] MEDS: THIAMINE 100 MG TABLET PO SCH (08:32)
[2017-04-05] MEDS: DIGOXIN 125 MCG TABLET PO SCH (08:32)
[2017-04-05] MEDS: FERROUS GLUCONATE 324 MG TABLET PO SCH (08:34)
[2017-04-05] MEDS: ASPIRIN CHEW 81 MG TABLET PO SCH (08:35)
[2017-04-05] MEDS: HEPARIN 5,000 UNIT/ML VIAL SUBQ SCH ×2 (08:36→20:11)
[2017-04-05] MEDS: FLUTICASONE NASAL SPRAY NAS SCH ×2 (08:44→21:14)
[2017-04-05] MEDS: POLYETHYLENE GLYCOL 3350 17 GM PACKET PO SCH (09:07)
[2017-04-05] MEDS: MULTIVITAMIN TABLET PO SCH (09:59)
--- NOTE | 2017-04-05 10:06 | PROVIDER PROGRESS NOTE ---
Assessment/Plan - Problem List (1) Congestive heart failure Qualifiers: Congestive heart failure type: diastolic Congestive heart failure chronicity: acute on chronic Qualified Code(s): I50.33 - Acute on chronic diastolic (congestive) heart failure Assessment/Plan: He is breathing better, his FIO2 is down to 2 liters. sat O2 sat low 90s at rest. Will see how he does with PT. (2) Diabetes mellitus type 2, uncontrolled Assessment/Plan: His sugars better controlled here though in the high 100s -- low 200s His weight is down to 89.4 so good diuresis. - Current Meds Current Meds: Current Medications Generic Name Dose Route Start Last Admin Trade Name Freq PRN Reason Stop Dose Admin Aspirin 81 mg 04/05/17 09:00 04/05/17 08:35 [place] Aspirin PO 81 mg DAILY JULES Administration Cholecalciferol 2,000 unit 04/04/17 09:00 04/05/17 08:31 Vitamin D3 PO 2,000 unit DAILY JULES Administration Cyanocobalamin 1,000 mcg 04/04/17 09:00 04/05/17 08:27 Vitamin B-12 PO 1,000 mcg DAILY JULES Administration Digoxin 125 mcg 04/04/17 09:00 04/05/17 08:32 Lanoxin PO 125 mcg DAILY JULES Administration Docusate Sodium 100 mg 04/03/17 20:18 04/04/17 21:38 Colace 100mg Capsule PO 100 mg BID PRN Administration Constipation Ferrous Gluconate 324 mg 04/04/17 09:00 04/05/17 08:34 Fergon PO 324 mg DAILY JULES Administration Fluticasone Propionate 0 sprays 04/03/17 21:00 04/05/17 08:44 Flonase RAMIN 1 spray BID JULES Administration Heparin Sodium (Porcine) 5,000 unit 04/03/17 21:00 04/05/17 08:36 SUBQ 5,000 unit BID JULES Administration Insulin Aspart 1 - 9 unit 04/04/17 21:00 04/05/17 08:25 Novolog SUBQ 3 unit 0800,1200,1700,2100 JULES Administration Protocol Levothyroxine Sodium 100 mcg 04/04/17 07:00 04/05/17 06:58 Synthroid PO 100 mcg QDAC JULES Administration Losartan Potassium 50 mg 04/04/17 09:00 04/05/17 08:28 Cozaar PO 50 mg DAILY JULES Administration Metoprolol Tartrate 75 mg 04/03/17 21:00 04/05/17 08:29 Lopressor PO 75 mg BID JULES Administration Morphine Sulfate 15 mg 04/03/17 21:00 04/05/17 08:32 PO 15 mg BID JULES Administration Multivitamins 1 tab 04/04/17 09:00 04/05/17 09:59 Theragran PO 1 tab DAILY JULES Administration Oxycodone/Acetaminophen 1 tab 04/03/17 20:18 04/04/17 21:38 Percocet 5 Mg/325 Mg PO 1 tab Q6H PRN Administration PAIN Pantoprazole Sodium 40 mg 04/03/17 21:00 04/05/17 06:58 Protonix PO 40 mg BIDAC JULES Administration Polyethylene Glycol 17 gm 04/04/17 09:00 04/05/17 09:07 Miralax PO 17 gm DAILY JULES Administration Senna 17.2 mg 04/03/17 21:00 04/04/17 21:24 Senokot PO 17.2 mg QPM JULES Administration Sodium Chloride 10 ml 04/03/17 22:00 04/05/17 06:58 Normal Saline Flush 0.9% IVP 10 ml Q8HR JULES Administration Tamsulosin HCl 0.4 mg 04/03/17 21:00 04/04/17 22:32 Flomax PO 0.4 mg QPM JULES Administration Thiamine HCl 100 mg 04/04/17 09:00 04/05/17 08:32 Vitamin B-1 PO 100 mg DAILY JULES Administration Zolpidem Tartrate 5 mg 04/04/17 21:00 04/04/17 21:23 Ambien PO 5 mg QPM JULES Administration - Lab Result Fish Bone Diagrams: 04/05/17 07:56 04/05/17 07:56 - Additional Planning My Orders: My Active Orders 04/04/17 21:00 Insulin Aspart [NovoLOG] 1 - 9 unit SUBQ 0800,1200,1700,2100 04/05/17 Evaluate and Treat OT [OT] Routine Evaluate and Treat PT [PT] Routine 04/05/17 08:29 Admit \ Transfer \ Status [RC] ONCE 04/05/17 10:00 Magnesium Sulfate 2 Gram [Magnesium Sulfate] 50 ml IV ONCE 04/06/17 05:00 CBC - COMP BLD CT W/AUTO DIFF [HEME] DAILYLAB COMPREHENSIVE METABOLIC PANEL [CHEM] DAILYLAB MG [MAGNESIUM] [CHEM] DAILYLAB 04/07/17 05:00 CBC - COMP BLD CT W/AUTO DIFF [HEME] DAILYLAB COMPREHENSIVE METABOLIC PANEL [CHEM] DAILYLAB 04/08/17 05:00 CBC - COMP BLD CT W/AUTO DIFF [HEME] DAILYLAB COMPREHENSIVE METABOLIC PANEL [CHEM] DAILYLAB Subjective - Subjective Patient Reports: Feeling Better, Resting Comfortably Nursing Reports: No Complaints Objective Vital Signs: Vital Signs - 24 hr 04/04/17 04/04/17 04/04/17 10:51 12:00 13:00 Temperature Heart Rate [ 80 77 78 Monitoring electrodes] Respiratory 14 12 16 Rate Blood Pressure Blood Pressure 99/56 L 111/64 110/60 [Right Brachial artery] O2 Saturation 99 98 92 04/04/17 04/04/17 04/04/17 14:00 15:00 16:00 Temperature 98 C H Heart Rate [ 85 85 97 Monitoring electrodes] Respiratory 16 16 16 Rate Blood Pressure Blood Pressure 114/71 126/74 121/71 [Right Brachial artery] O2 Saturation 99 96 95 04/04/17 04/04/17 04/04/17 17:00 18:00 19:00 Temperature 98 C H 37.1 C Heart Rate [ 90 85 83 Monitoring electrodes] Respiratory 20 18 14 Rate Blood Pressure Blood Pressure 121/76 117/65 120/65 [Right Brachial artery] O2 Saturation 96 96 98 04/04/17 04/04/17 04/04/17 20:00 21:00 21:22 Temperature 37.1 C Heart Rate [ 88 92 Monitoring electrodes] Respiratory 20 17 Rate Blood Pressure 121/73 Blood Pressure 131/68 H 121/73 [Right Brachial artery] O2 Saturation 95 17 L 04/04/17 04/04/17 04/05/17 22:00 22:58 00:00 Temperature 36.9 C Heart Rate [ 92 91 86 Monitoring electrodes] Respiratory 18 18 14 Rate Blood Pressure Blood Pressure 123/73 133/70 H 128/72 [Right Brachial artery] O2 Saturation 18 L 98 95 04/05/17 04/05/17 04/05/17 01:00 02:00 03:00 Temperature Heart Rate [ 88 76 73 Monitoring electrodes] Respiratory 13 11 L 11 L Rate Blood Pressure Blood Pressure 126/65 119/62 111/53 L [Right Brachial artery] O2 Saturation 91 L 96 96 04/05/17 04/05/17 04/05/17 04:00 05:00 06:00 Temperature Heart Rate [ 67 78 79 Monitoring electrodes] Respiratory 10 L 17 17 Rate Blood Pressure Blood Pressure 112/63 125/75 129/71 [Right Brachial artery] O2 Saturation 95 98 95 04/05/17 04/05/17 04/05/17 07:00 07:45 08:29 Temperature 36.8 C Heart Rate [ 74 80 Monitoring electrodes] Respiratory 12 22 Rate Blood Pressure 128/74 Blood Pressure 119/67 113/70 [Right Brachial artery] O2 Saturation 96 99 04/05/17 04/05/17 08:35 09:44 Temperature Heart Rate [ 97 88 Monitoring electrodes] Respiratory 22 15 Rate Blood Pressure Blood Pressure 128/76 100/57 L [Right Brachial artery] O2 Saturation 95 91 L Oxygen O2 Source Nasal cannula I&O (Last 24 Hrs): Intake and Output Totals x24h 04/03/17 04/04/17 04/05/17 23:59 23:59 23:59 Intake Total 2260 215 Output Total 1127 0539 256 Balance -112 -4845 -2775 General: Alert, Oriented x3, Cooperative HEENT: PERRLA, EOMI Neck: No JVD, No thyromegaly Neuro: Alert, Oriented Times 3 Cardiovascular: Regular rate, Normal S1 Respiratory: Chest non-tender, No respiratory distress, Breath sounds nml Abdomen: Normal bowel sounds, Soft Skin: No rashes, No breakdown - Results Results: Laboratory Results WBC 5.2 x10^3/uL (4.8-10.8) 04/05/17 07:56 RBC 3.01 10^6/uL (4.70-6.10) L 04/05/17 07:56 Hgb 9.6 g/dL (14.0-18.0) L 04/05/17 07:56 Hct 27.5 % (42.0-52.0) L 04/05/17 07:56 MCV 91.4 fL (80.0-94.0) 04/05/17 07:56 MCH 31.9 pg (27.0-31.0) H 04/05/17 07:56 MCHC 34.9 g/dL (32.0-36.0) 04/05/17 07:56 RDW 15.0 % (12.0-15.0) 04/05/17 07:56 Plt Count 250 10^3/uL (130-450) 04/05/17 07:56 MPV 6.9 fL (7.4-11.4) L 04/05/17 07:56 Neut # 3.5 10^3/uL (1.5-6.6) 04/05/17 07:56 Lymph # 0.9 10^3/uL (1.5-3.5) L 04/05/17 07:56 [place] # 0.6 10^3/uL (0.0-1.0) 04/05/17 07:56 Eos # 0.1 10^3/uL (0.0-0.7) 04/05/17 07:56 Baso # 0.0 10^3/uL (0.0-0.1) 04/05/17 07:56 Absolute Nucleated RBC 0.00 x10^3/uL 04/05/17 07:56 Nucleated RBCs 0.0 /100WBC 04/05/17 07:56 VBG pH 7.306 (7.31-7.41) L 04/03/17 20:25 VBG pCO2 52.0 mmHg (41-51) H 04/03/17 20:25 VBG pO2 28.2 mmHg (25-47) 04/03/17 20:25 VBG HCO3 25.4 mmol/L (23-28) 04/03/17 20:25 VBG Total CO2 27.0 mmol/L (24-29) 04/03/17 20:25 VBG O2 Saturation 47.2 % (60-80) L 04/03/17 20:25 VBG Base Excess -1.4 mmol/L (-2 - +2) 04/03/17 20:25 Sodium 137 mmol/L (135-145) 04/05/17 07:56 Potassium 4.4 mmol/L (3.5-5.0) 04/05/17 07:56 Chloride 94 mmol/L (101-111) L 04/05/17 07:56 Carbon Dioxide 34 mmol/L (21-32) H 04/05/17 07:56 Anion Gap 9.0 (6-13) 04/05/17 07:56 BUN 45 mg/dL (6-20) H 04/05/17 07:56 Creatinine 1.4 mg/dL (0.6-1.2) H 04/05/17 07:56 Estimated GFR (MDRD) 49 (>89) L 04/05/17 07:56 Glucose 211 mg/dL (70-100) H 04/05/17 07:56 POC Whole Bld Glucose 200 mg/dL (70 - 100) H 04/05/17 07:43 Glycated Hemoglobin 7.6 % (4.6-6.2) H 04/03/17 20:50 Estim Average Glucose 171 (70-100) H 04/03/17 20:50 Calcium 9.3 mg/dL (8.5-10.3) 04/05/17 07:56 Magnesium 1.5 mg/dL (1.7-2.8) L 04/05/17 07:56 Total Bilirubin 1.1 mg/dL (0.2-1.0) H 04/05/17 07:56 AST 14 IU/L (10-42) 04/05/17 07:56 ALT 18 IU/L (10-60) 04/05/17 07:56 Alkaline Phosphatase 127 IU/L (42-121) H 04/05/17 07:56 Troponin I 0.04 ng/mL (<0.49) 04/04/17 08:05 B-Natriuretic Peptide 572 pg/mL (5-100) H 04/04/17 08:05 Total Protein 6.4 g/dL (6.7-8.2) L 04/05/17 07:56 Albumin 3.4 g/dL (3.2-5.5) 04/05/17 07:56 Globulin 3.0 g/dL (2.1-4.2) 04/05/17 07:56 Albumin/Globulin Ratio 1.1 (1.0-2.2) 04/05/17 07:56 Lipase 12 U/L (22-51) L 04/03/17 17:50 Urine Color YELLOW 04/03/17 18:50 Urine Clarity CLEAR (CLEAR) 04/03/17 18:50 Urine pH 5.0 PH (5.0-7.5) 04/03/17 18:50 Ur Specific [place] 1.010 (1.002-1.030) 04/03/17 18:50 Urine Protein NEGATIVE mg/dL (NEGATIVE) 04/03/17 18:50 Urine Glucose (UA) NEGATIVE mg/dL (NEGATIVE) 04/03/17 18:50 Urine Ketones NEGATIVE mg/dL (NEGATIVE) 04/03/17 18:50 Urine Occult Blood NEGATIVE (NEGATIVE) 04/03/17 18:50 Urine Nitrite NEGATIVE (NEGATIVE) 04/03/17 18:50 Urine Bilirubin NEGATIVE (NEGATIVE) 04/03/17 18:50 Urine Urobilinogen 2 E.U./dL (NORMAL) H 04/03/17 18:50 Ur Leukocyte Esterase NEGATIVE (NEGATIVE) 04/03/17 18:50 Ur Microscopic Review NOT INDICATED 04/03/17 18:50 Urine Culture Comments NOT INDICATED 04/03/17 18:50 Last Dose Date UNK 04/05/17 07:55 Last Dose Time UNK 04/05/17 07:55 Digoxin 0.7 ng/mL 04/05/17 07:55 - Procedures Procedures: Procedures PACKED CELL TRANSFUSION (02/09/15) PARENTERAL INFUSION OF CONCENTRATED NUT. SUBSTANCE (02/09/15) VENOUS CATHETERIZATION NEC (02/09/15)
[2017-04-05] MEDS ORDERED: MAGNESIUM SULFATE 2 GRAM 50 ML IV ONE (10:30)
[2017-04-05] MEDS: ONDANSETRON 4 MG/2 ML VIAL IVP PRN (19:39)
[2017-04-05] MEDS: TAMSULOSIN 0.4 MG CAPSULE PO SCH (20:12)
[2017-04-05] MEDS: SENNA 8.6 MG TABLET PO SCH (20:13)
[2017-04-05] MEDS: ZOLPIDEM 5 MG TABLET PO SCH (21:14)
[2017-04-05] MEDS: oxyCOD/ACETAMIN 5 MG/325 MG TABLET PO PRN (21:14)
[2017-04-06] MEDS: oxyCOD/ACETAMIN 5 MG/325 MG TABLET PO PRN (03:05)
[2017-04-06] MEDS: ONDANSETRON 4 MG/2 ML VIAL IVP PRN (05:44)
[2017-04-06] MEDS: SODIUM CHLORIDE FLUSH 0.9% 10 ML SYRINGE IVP SCH (05:44)
[2017-04-06 06:04] LABS: BASOPHILS % (AUTO) 0.6 %; EOSINOPHILS # (AUTO) 0.1 10^3/uL (0.0-0.7); HCT - HEMATOCRIT 30.7 % (42.0-52.0); HGB - HEMOGLOBIN 10.3 g/dL (14.0-18.0); MEAN CORPUSCULAR HEMOGLOBIN 31.2 pg (27.0-31.0); MEAN CORPUSCULAR HGB CONC 33.6 g/dL (32.0-36.0); MEAN CORPUSCULAR VOLUME 92.8 fL (80.0-94.0); MEAN PLATELET VOLUME 7.2 fL (7.4-11.4); MONOCYTES # (AUTO) 0.7 10^3/uL (0.0-1.0); MONOCYTES % (AUTO) 12.4 %; NEUTROPHILS # (AUTO) 3.5 10^3/uL (1.5-6.6); NUCLEATED RED BLOOD CELLS AUTO 0.1 /100WBC; RED BLOOD COUNT 3.31 10^6/uL (4.70-6.10); RED CELL DISTRIBUTION WIDTH 15.2 % (12.0-15.0); UNCORRECTED WHITE BLOOD COUNT 5.3 x10^3/uL; WHITE BLOOD COUNT 5.3 x10^3/uL (4.8-10.8)
[2017-04-06 06:17] LABS: ALBUMIN/GLOBULIN RATIO 1.1 (1.0-2.2); BILIRUBIN,TOTAL 1.1 mg/dL (0.2-1.0); CALCIUM 9.2 mg/dL (8.5-10.3); CREATININE 1.4 mg/dL (0.6-1.2); MAGNESIUM 1.9 mg/dL (1.7-2.8); POTASSIUM 4.4 mmol/L (3.5-5.0); TOTAL PROTEIN 6.5 g/dL (6.7-8.2)
[2017-04-06] MEDS: PANTOPRAZOLE 40 MG TABLET PO SCH (06:20)
[2017-04-06] MEDS: LEVOTHYROXINE 100 MCG TABLET PO SCH (06:21)
[2017-04-06 08:06] VITALS: BP 125/88
[2017-04-06] MEDS: INSULIN ASPART 300 UNIT/3 ML PEN SUBQ SCH ×2 (08:21→12:52)
[2017-04-06] MEDS: ASPIRIN CHEW 81 MG TABLET PO SCH (08:22)
[2017-04-06] MEDS: FLUTICASONE NASAL SPRAY NAS SCH (08:23)
[2017-04-06] MEDS: DIGOXIN 125 MCG TABLET PO SCH (08:23)
[2017-04-06] MEDS: CHOLECALCIFEROL 1,000 UNIT TABLET PO SCH (08:23)
[2017-04-06] MEDS: CYANOCOBALAMIN 500 MCG TABLET PO SCH (08:23)
[2017-04-06] MEDS: METOPROLOL TARTRATE 25 MG TABLET PO SCH (08:24)
[2017-04-06] MEDS: MULTIVITAMIN TABLET PO SCH (08:25)
[2017-04-06] MEDS: POLYETHYLENE GLYCOL 3350 17 GM PACKET PO SCH (08:25)
[2017-04-06] MEDS: MORPHINE ER 15 MG TABLET PO SCH (08:25)
[2017-04-06] MEDS: DOCUSATE SODIUM 100 MG CAPSULE PO PRN (08:27)
[2017-04-06] MEDS: HEPARIN 5,000 UNIT/ML VIAL SUBQ SCH (08:33)
[2017-04-06] MEDS ORDERED: FUROSEMIDE 40 MG/4 ML VIAL IVP SCH (09:00)
[2017-04-06] MEDS: FERROUS GLUCONATE 324 MG TABLET PO SCH (09:00)
[2017-04-06] MEDS ORDERED: THIAMINE 100 MG TABLET PO SCH (09:00)
[2017-04-06] MEDS ORDERED: LOSARTAN 50 MG TABLET PO SCH (09:00)
--- NOTE | 2017-04-06 10:09 | Discharge Plan ---
Discharge Plan Disposition: 01 Home, Self Care Condition: Good Diet: Diabetic Activity Restrictions: Activity as Tolerated Shower Restrictions: No Driving Restrictions: No Weight Bearing: Full Weight Additional Instructions or Follow Up instructions: Milly Koehler, Please take your medicine as directed. Weigh yourself every morning. If your weight has increased over the previous day by more than 2 pounds take an extra lasix (furosemide) 40 mgs pill in the afternoon that day. If you continue to gain weight then contact Dr. Morales office for advice. If your weight goes below your base weight by more than two pounds then stop the afternoon pill of Lasix (furosemide) Your base weight upon leaving the hospital is !97 pounds. Thank you, Dr. Arnold No Smoking: If you smoke, Please STOP! Call for help. Follow-up with: Delvin Quigley MD [Primary Care Provider] - 1 Week
--- NOTE | 2017-04-09 07:13 | DISCHARGE SUMMARY ---
DATE OF ADMISSION: 04/03/2017 DATE OF DISCHARGE: 04/06/2017 PRIMARY CARE PHYSICIAN: Delvin Quigley MD. ADMISSION DIAGNOSES 1. Subacute congestive heart failure present on admission. 2. Type 2 diabetes, chronic. 3. Hypertension, chronic. 4. Hyperlipidemia, chronic. 5. Chronic kidney disease. DISCHARGE DIAGNOSES 1. Congestive heart failure exacerbation with right heart failure, with improvement after diuresis. 2. Diabetes type 2. 3. Hypertension. 4. Chronic kidney disease. SPECIAL PROCEDURES Echocardiogram, findings: 1. Overall left ventricular systolic function lower limits of normal with ejection fraction of 50-55% . 2. Moderate right ventricular enlargement. 3. Severe increasing left atrial volume index. 4. Severe right atrial enlargement. 5. Trace mild aortic regurgitation. 6. Mild to moderate mitral regurgitation. 7. Severe abnormal right heart pressure. CONSULTATIONS: None. HOSPITAL COURSE AND MANAGEMENT: The patient is an 81-year-old male who has had increasing leg edema a nd also shortness of breath. The patient has a history of chronic kidney disease, diastolic dysfuncti on. The patient also has a history of myocardial infarction in the past. The patient was found to hav e findings consistent with exacerbation of heart failure with hypoxia, 86% [facility]. The patient was started on diuresis with Lasix. His ARB, specific losartan, was co ntinued. His beta-erick was continued. The patient had serial troponins, which were negative. The p atient was placed on subcutaneous insulin. The patient had improvement of his pedal edema, also impro vement of his respiratory status. The O2 saturation, initially had to have 3 liters nasal cannula and an OxyMask at night. Was then titrated off the oxygen. PHYSICAL EXAMINATION ON DAY OF DISCHARGE VITAL SIGNS: The patient had 36.5 temp, 79 pulse, 125/88, 14 and was ambulated without additional nee d for oxygen. ENT: Eyes, EOMI, normal limits, PERRL, nonicteric. MOUTH AND THROAT: Somewhat dry mucous membranes. Otherwise, no pathology of mouth or pharynx. NECK: Supple. Nontender. No lymphadenopathy. CHEST: Chronic atrial fibrillation, rate in the 80s. LUNGS: Clear. Fair air movement. No wheezes, rales, rhonchi at this time. ABDOMEN: Thick abdominal wall, soft, nontender. EXTREMITIES: 1+ edema above the ankles. NEUROLOGIC: Cognitive intact. Cranial nerves intact. Motor normal. LABORATORY DATA: He has a white count of 5.3, 10 and 30 hemoglobin and hematocrit with 271 platelets. Sodium 136, potassium 4.4, chloride 94, CO2 34, BUN 43, creatinine is 1.4, glucose 246, calcium 9.2. are normal. Albumin is 3.4. The patient is discharged home to resume his usual medications. He is on: 1. Onglyza 2.5 daily. 2. Lantus 10 units in the evening. 3. MiraLax 17 grams daily. 4. Morphine ER 15 mg every 8 hours. 5. Ondansetron 4 mg 3 times a day as needed. 6. Iron 324 daily. 7. B12 1000 mcg IM monthly. 8. Amlodipine 5 mg daily. 9. Metoprolol tartrate 75 mg twice a day. 10. Metformin 500 mg b.i.d. 11. Losartan 50 mg daily. 12. Levoxyl 100 mcg daily. 13. Furosemide 40 mg daily. 14. Digoxin 125 mcg daily. 15. Ambien 5 mg q.p.m. 16. Protonix 40 mg twice a day. 17. Multivitamin daily. The patient is to follow up with Dr. Quigley in the next week. Followup issues are his hyperglycemia w ith diabetes to improve control, management of his heart failure, and the monitoring of his CKD. Time spent in collaboration with case management, nursing, respiratory, education of the patient was 40 minutes. The patient was examined on the day of discharge. JOB #: [id number] EXT JOB #:[id number]
== END 2017-04-06 13:25 | disposition home or self-care (01) | DRG 291 ==
LOC: EDBD → EDUNIT# → ED 17:25 → ICU 21:06 → MS 04-05 10:39
PROVIDERS: ADMIT Specialist; ATTEND Internal Medicine
DX: I11.0 Hypertensive heart disease with heart failure (principal); I13.0 Hypertensive heart and chronic kidney disease with heart failure and stage 1 through stage 4 chronic kidney disease, or unspecified chronic kidney disease; I48.91 Unspecified atrial fibrillation; E11.9 Type 2 diabetes mellitus without complications; I50.33 Acute on chronic diastolic (congestive) heart failure; I25.2 Old myocardial infarction; E11.22 Type 2 diabetes mellitus with diabetic chronic kidney disease; G89.29 Other chronic pain; M54.9 Dorsalgia, unspecified; N18.3 Chronic kidney disease, stage 3 (moderate); I48.2 Chronic atrial fibrillation; E11.65 Type 2 diabetes mellitus with hyperglycemia; Z79.82 Long term (current) use of aspirin; Z99.81 Dependence on supplemental oxygen; Z79.84 Long term (current) use of oral hypoglycemic drugs; Z79.4 Long term (current) use of insulin; Z96.659 Presence of unspecified artificial knee joint
CPT/HCPCS: 36415; 71020; 80053; 80162; 81001; 81003; 82803; 83036; 83690; 83735; 83880; 84484; 85025; 87086; 87150; 93005; 93010; 93306; 96374; 99285

== ENCOUNTER 2017-04-18 11:05 | Outpatient (CLI) | payer MEDICARE, OTHER | END 2017-04-18 11:06 | disposition critical access hospital (66) | LOC: EMS 11:05 | PROVIDERS: ATTEND Surgery | DX: R10.9 Unspecified abdominal pain (principal); W01.10XA Fall on same level from slipping, tripping and stumbling with subsequent striking against unspecified object, initial encounter; Y93.89 Activity, other specified; Y92.013 Bedroom of single-family (private) house as the place of occurrence of the external cause | CPT/HCPCS: A0425; A0429 ==

== ENCOUNTER 2017-04-18 11:19 | Emergency (ER) | payer MEDICARE, OTHER ==
--- NOTE | 2017-04-18 12:34 | ED Physician Documentation ---
PD HPI Fall - Stated complaint Stated Complaint: GLF - Chief complaint Chief Complaint: General - History obtained from History obtained from: Patient, EMS - History of Present Illness Mechanism of injury: Lost balance (he walks with walker due to poor leg muscle strength and back pain. He says he lost balance and fell to the right/back. Pain in back more than baseline. No head injury. His could not get him up and EMS called to assist up, and he came to ED for evaluation. Prior back surgery with fusions at several levels. No focal weakness now but generally weak legs feeling similar to baseline.) Fall distance: Standing position Where injury occurred: Home Timing - onset: Today Injury(ies) location: Back, Right Lower Extremity (back of hip hurting right after injury.) Quality of pain: Pain Associated symptoms: No: LOC, AMS, Neck pain, Paresthesias, Nausea / vomiting Worsens with: Movement Contributing factors: No: Anticoagulated Review of Systems Constitutional: denies: Fever, Chills Nose: denies: Rhinorrhea / runny nose, Congestion Throat: denies: Sore throat Cardiac: denies: Chest pain / pressure, Palpitations Respiratory: denies: Dyspnea, Cough, Wheezing GI: denies: Abdominal Pain, Nausea, Vomiting, Diarrhea, Bloody / black stool : denies: Dysuria, Frequency Skin: denies: Laceration (s) Musculoskeletal: reports: Back pain (chronic) Neurologic: reports: Generalized weakness (from deconditioning per patient, and then both leg weakness from prior back surgery.) PD PAST MEDICAL HISTORY - Past Medical History Cardiovascular: Congestive heart failure, Hypertension, High cholesterol, [place], Atrial fibrillation, Valve disorder Respiratory: Pneumonia Neuro: None Endocrine/Autoimmune: Type 2 diabetes GI: Diverticulitis, Other : Renal insuffiency HEENT: None Psych: Depression Musculoskeletal: Osteoarthritis, Osteoporosis, Chronic back pain Derm: None - Past Surgical History Past Surgical History: Yes General: Cholecystectomy, Bowel surgery Ortho: Knee replacement, Spine surgery - Present Medications Home Medications: Ambulatory Orders Medication Instructions Recorded Confirmed Digoxin [Lanoxin] 125 mcg PO DAILY 05/06/14 04/04/17 Metformin HCl 500 mg PO BIDWM 05/06/14 04/04/17 Metoprolol Tartrate 75 mg PO BID 05/06/14 04/04/17 Polyethylene Glycol 3350 [Miralax] 17 g PO DAILY 05/06/14 04/04/17 Zolpidem [Ambien] 5 mg PO QPM 05/06/14 04/04/17 Levothyroxine [Synthroid] 100 mcg PO DAILY 02/02/15 04/04/17 Pantoprazole [Protonix] 40 mg PO BIDAC 02/02/15 04/04/17 Furosemide [Lasix] 40 mg PO DAILY #30 09/16/16 04/04/17 Losartan [Cozaar] 50 mg PO DAILY 09/16/16 04/04/17 Multivitamin [Multiple Vitamins] 1 each PO DAILY 09/16/16 04/03/17 Cyanocobalamin [Vitamin B-12] 1,000 mcg IM Q28D 04/04/17 04/04/17 Ferrous Gluconate 324 mg PO DAILY 04/04/17 04/04/17 Insulin Glargine [Lantus Solostar] 10 units SUBQ QPM 04/04/17 04/04/17 Morphine ER 15 mg PO Q8H 04/04/17 04/04/17 Ondansetron Odt [Zofran Odt] 4 mg PO TID PRN 04/04/17 04/04/17 amLODIPine [Norvasc] 5 mg PO DAILY 04/04/17 04/04/17 Saxagliptin HCl [Onglyza] 2.5 mg PO DAILY 04/06/17 04/06/17 - Allergies Allergies/Adverse Reactions: Allergies Allergy/AdvReac Type Severity Reaction Status Date / Time No Known Drug Allergies Allergy Verified 04/18/17 11:19 - Social History Does the pt smoke?: No Smoking Status: Never smoker Does the pt drink ETOH?: Yes Does the pt have substance abuse?: No - Immunizations Immunizations are current?: No Immunizations: TDAP >10years/unknown - POLST Patient has POLST: Yes PD ED PE NORMAL - Vitals Vital signs reviewed: Yes - General General: Alert and oriented X 3, No acute distress, Well developed/nourished - HEENT HEENT: Atraumatic - Neck Neck: Supple, no meningeal sign, No bony TTP, No adenopathy - Cardiac Cardiac: RRR, No murmur - Respiratory Respiratory: Clear bilaterally - Abdomen Abdomen: Normal bowel sounds, Soft, Non tender, Non distended - Back Back: Other (some tenderness right lower back muscles. Surgical scar noted midline back. ) - Derm Derm: Normal color, Warm and dry - Extremities Extremities: No tenderness to palpate, Normal ROM s pain (not having pain with rotational movement of hips, nor with impaction nor distraction testing. 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, No motor deficit, No sensory deficit, Normal speech Results - Vitals Vitals: Vital Signs - 24 hr 04/18/17 04/18/17 04/18/17 11:15 12:53 15:56 Temperature 36.7 C Heart Rate 84 92 98 Respiratory 18 20 18 Rate Blood Pressure 150/83 H 134/89 H 118/84 H O2 Saturation 92 98 95 Oxygen O2 Source [Without Activity] Room air O2 Source [With Activity] Room air O2 Source Nasal cannula - Labs Labs: Laboratory Tests 04/18/17 13:20 Urine Color YELLOW Urine Clarity CLEAR Urine pH 6.5 Ur Specific [place] 1.010 Urine Protein NEGATIVE Urine Glucose (UA) NEGATIVE Urine Ketones NEGATIVE Urine Occult Blood NEGATIVE Urine Nitrite NEGATIVE Urine Bilirubin NEGATIVE Urine Urobilinogen 2 H Ur Leukocyte Esterase NEGATIVE Ur Microscopic Review NOT INDICATED Urine Culture Comments NOT INDICATED - Rads (name of study) thoracic and lumbar spine films Radiology: Prelim report reviewed (no acute process seen), EMP read contemporaneously PD MEDICAL DECISION MAKING - ED course Complexity details: reviewed results (plain films without obvious acute process. Patient requested not getting CT nor MRI if I felt it not needed. Plain films did not give me concern to want advanced imaging, so I felt okay with that.), re-evaluated patient (he had not taken his usual morning oxycodone , so given Morphine IV here instead and then another dose to supplement for acute exac of pain. He was feeling reasonably comfortable and down to his baseline pain level. Xray did not show acute process and he has normal neuro. Fall seemed mechanical and he did not feel further assessment of that was needed. ), considered differential, d/w patient Departure - Departure Disposition: 01 Home, Self Care Clinical Impression: Exacerbation of chronic back pain Fall from slip, trip, or stumble Qualifiers: Encounter type: initial encounter Qualified Code(s): W01.0XXA - Fall on same level from slipping, tripping and stumbling without subsequent striking against object, initial encounter Low back pain Qualifiers: Chronicity: acute Back pain laterality: bilateral Sciatica presence: without sciatica Qualified Code(s): M54.5 - Low back pain Condition: Stable Record reviewed to determine appropriate education?: Yes Follow-Up: Delvin Quigley MD [Primary Care Provider] - Comments: There is not any obvious new bony injury to the spine on basic xray. Continue your usual medications, and may need to increase your Oxycodone to three times daily for short term if needed. Discharge Date/Time: 04/18/17 16:03
--- NOTE | 2017-04-18 12:34 | ED Physician Documentation ---
PD HPI OPHTHO - Stated complaint Stated Complaint: GLF - Chief complaint Chief Complaint: General PD PAST MEDICAL HISTORY - Past Medical History Cardiovascular: Congestive heart failure, Hypertension, High cholesterol, [place], Atrial fibrillation, Valve disorder Respiratory: Pneumonia Neuro: None Endocrine/Autoimmune: Type 2 diabetes GI: Diverticulitis, Other : Renal insuffiency HEENT: None Psych: Depression Musculoskeletal: Osteoarthritis, Osteoporosis, Chronic back pain Derm: None - Past Surgical History Past Surgical History: Yes General: Cholecystectomy, Bowel surgery Ortho: Knee replacement, Spine surgery - Present Medications Home Medications: Ambulatory Orders Medication Instructions Recorded Confirmed Digoxin [Lanoxin] 125 mcg PO DAILY 05/06/14 04/04/17 Metformin HCl 500 mg PO BIDWM 05/06/14 04/04/17 Metoprolol Tartrate 75 mg PO BID 05/06/14 04/04/17 Polyethylene Glycol 3350 [Miralax] 17 g PO DAILY 05/06/14 04/04/17 Zolpidem [Ambien] 5 mg PO QPM 05/06/14 04/04/17 Levothyroxine [Synthroid] 100 mcg PO DAILY 02/02/15 04/04/17 Pantoprazole [Protonix] 40 mg PO BIDAC 02/02/15 04/04/17 Furosemide [Lasix] 40 mg PO DAILY #30 09/16/16 04/04/17 Losartan [Cozaar] 50 mg PO DAILY 09/16/16 04/04/17 Multivitamin [Multiple Vitamins] 1 each PO DAILY 09/16/16 04/03/17 Cyanocobalamin [Vitamin B-12] 1,000 mcg IM Q28D 04/04/17 04/04/17 Ferrous Gluconate 324 mg PO DAILY 04/04/17 04/04/17 Insulin Glargine [Lantus Solostar] 10 units SUBQ QPM 04/04/17 04/04/17 Morphine ER 15 mg PO Q8H 04/04/17 04/04/17 Ondansetron Odt [Zofran Odt] 4 mg PO TID PRN 04/04/17 04/04/17 amLODIPine [Norvasc] 5 mg PO DAILY 04/04/17 04/04/17 Saxagliptin HCl [Onglyza] 2.5 mg PO DAILY 04/06/17 04/06/17 - Allergies Allergies/Adverse Reactions: Allergies Allergy/AdvReac Type Severity Reaction Status Date / Time No Known Drug Allergies Allergy Verified 04/18/17 11:19 - Social History Does the pt smoke?: No Smoking Status: Never smoker Does the pt drink ETOH?: Yes Does the pt have substance abuse?: No - Immunizations Immunizations are current?: No Immunizations: TDAP >10years/unknown - POLST Patient has POLST: Yes Results - Vitals Vitals: Vital Signs - 24 hr 04/18/17 11:15 Temperature 36.7 C Heart Rate 84 Respiratory 18 Rate Blood Pressure 150/83 H O2 Saturation 92 Oxygen O2 Source [Without Activity] Room air O2 Source [With Activity] Room air O2 Source Room air
[2017-04-18] MEDS ORDERED: MORPHINE 2 MG/ML SYRINGE IVP STA ×2 (12:55→15:35)
[2017-04-18] MEDS ORDERED: ONDANSETRON 4 MG/2 ML VIAL IVP STA (12:56)
[2017-04-18] MEDS ORDERED: MORPHINE 10 MG/ML VIAL ONE ×2 (13:06→15:39)
[2017-04-18] MEDS ORDERED: ONDANSETRON 4 MG/2 ML VIAL ONE (13:06)
[2017-04-18 13:29] LABS: BILIRUBIN,URINE NEGATIVE (NEGATIVE); PH,URINE 6.5 PH (5.0-7.5)
[2017-04-18 13:30] LABS: UA CHARGE (STRIP ONLY) YES; UR CULTURE IF IND NOT INDICATED
--- NOTE | 2017-04-18 15:05 | XRAY Preliminary Report ---
Exam: XR Thoracic Spine 2 View IMPRESSION: Old T12 compression fracture. No acute fracture. [facility] SITE ID: [id number]
--- NOTE | 2017-04-18 15:07 | XRAY Report ---
EXAM: THORACIC SPINE RADIOGRAPHY EXAM DATE: 04/18/2017 02:39 PM. CLINICAL HISTORY: Fall. COMPARISON: 06/02/2013. TECHNIQUE: 2 views. FINDINGS: Alignment: No subluxation or scoliosis. Bones: There is bony remodeling and flattening of the T12 vertebral body which appears without signif icant interval change. Other vertebral bodies appear intact. There is generalized demineralization. Disks: There is moderate disk osteophyte spurring. Soft Tissues: Normal. The visualized lungs and cardiomediastinal silhouette are normal. IMPRESSION: Old T12 compression fracture. No acute fracture. [facility] Referring Provider Line: [phone] SITE ID: [id number]
--- NOTE | 2017-04-18 15:10 | XRAY Preliminary Report ---
Exam: XR Lumbar Spine 2 View IMPRESSION: 1. Previous L2-S1 posterior fusion. Multilevel degenerative disease 2. Individual disk spaces are not well seen, new since 2012 may reflect bony remodeling and findings of developing fusion. 3. Old wedging of L2 appears similar. [facility] SITE ID: [id number]
--- NOTE | 2017-04-18 15:12 | XRAY Report ---
EXAM: LUMBOSACRAL SPINE RADIOGRAPHY EXAM DATE: 04/18/2017 02:39 PM. CLINICAL HISTORY: Fall, prior back surgery. COMPARISONS: 06/02/2013. TECHNIQUE: 2 views. FINDINGS: Alignment: There is scoliotic curvature apex left. There is mild retrolisthesis L2 over L3 appearing without significant interval change. There is anterior wedging of L2 which is unchanged. There is poo r visualization of T12. Bones: Five bmh-dxo-duyygin lumbar vertebral bodies are present. No definite acute fracture, limited by demineralization. There are posterior pedicle screws at L2, L3, L4, L5, and S1. Disks: Disk spaces from L2-L5 are not well seen. Facets: Not seen. Sacroiliac Joints: Unremarkable. Soft Tissues: Normal. The visualized bowel gas pattern is normal. IMPRESSION: 1. Previous L2-S1 posterior fusion. Multilevel degenerative disease 2. Individual disk spaces are not well seen, new since 2012 may reflect bony remodeling and findings of developing fusion. 3. Old wedging of L2 appears similar. [facility] Referring Provider Line: [phone] SITE ID: [id number]
[2017-04-18] MEDS ORDERED: KETOROLAC 60 MG/2 ML VIAL IVP STA (15:35)
[2017-04-18] MEDS ORDERED: KETOROLAC 30 MG/ML VIAL ONE (15:40)
[2017-04-18 16:00] VITALS: BP 118/84
== END 2017-04-18 16:03 | disposition home or self-care (01) ==
LOC: ED 11:19
DX: M54.5 Low back pain (principal); G89.29 Other chronic pain; M25.551 Pain in right hip; W01.0XXA Fall on same level from slipping, tripping and stumbling without subsequent striking against object, initial encounter; Y92.009 Unspecified place in unspecified non-institutional (private) residence as the place of occurrence of the external cause; M19.90 Unspecified osteoarthritis, unspecified site; M81.0 Age-related osteoporosis without current pathological fracture; Z98.1 Arthrodesis status; I11.0 Hypertensive heart disease with heart failure; I50.9 Heart failure, unspecified; E11.9 Type 2 diabetes mellitus without complications; Z79.4 Long term (current) use of insulin
CPT/HCPCS: 72070; 72100; 81001; 81003; 87086; 96374; 96375; 96376; 99284

== ENCOUNTER 2017-07-13 12:28 | Outpatient (CLI) | payer MEDICARE, OTHER ==
[2017-07-13 13:23] LABS: BUN - BLOOD UREA NITROGEN 40 mg/dL (6-20); CALCIUM 9.5 mg/dL (8.5-10.3); CARBON DIOXIDE - CO2 28 mmol/L (21-32); CHLORIDE 93 mmol/L (101-111); CREATININE 1.6 mg/dL (0.6-1.2); GFR - MDRD 42 (>89); GLUCOSE 185 mg/dL (70-100); POTASSIUM 4.5 mmol/L (3.5-5.0); SODIUM 134 mmol/L (135-145)
== END 2017-07-13 12:29 | disposition home or self-care (01) ==
LOC: LAB 12:28
PROVIDERS: ATTEND Internal Medicine Cardiovascular Disease
DX: I71.2 Thoracic aortic aneurysm, without rupture (principal); I50.32 Chronic diastolic (congestive) heart failure; I25.10 Atherosclerotic heart disease of native coronary artery without angina pectoris
CPT/HCPCS: 36415; 80048; 80162; 83880

== ENCOUNTER 2017-08-02 10:36 | Outpatient (CLI) | payer MEDICARE, OTHER ==
[2017-08-02 11:12] LABS: BASOPHILS % (AUTO) 0.5 %; EOSINOPHILS # (AUTO) 0.1 10^3/uL (0.0-0.7); EOSINOPHILS % (AUTO) 2.3 %; HCT - HEMATOCRIT 31.5 % (42.0-52.0); HGB - HEMOGLOBIN 10.7 g/dL (14.0-18.0); LYMPHOCYTES % (AUTO) 19.6 %; MEAN CORPUSCULAR HGB CONC 33.9 g/dL (32.0-36.0); MEAN CORPUSCULAR VOLUME 91.2 fL (80.0-94.0); MEAN PLATELET VOLUME 6.4 fL (7.4-11.4); MONOCYTES # (AUTO) 0.6 10^3/uL (0.0-1.0); MONOCYTES % (AUTO) 11.9 %; NEUTROPHILS # (AUTO) 3.3 10^3/uL (1.5-6.6); NEUTROPHILS % (AUTO) 65.7 %; NUCLEATED RED BLOOD CELLS AUTO 0.1 /100WBC; RED BLOOD COUNT 3.45 10^6/uL (4.70-6.10); RED CELL DISTRIBUTION WIDTH 15.1 % (12.0-15.0); UNCORRECTED WHITE BLOOD COUNT 5.1 x10^3/uL; WHITE BLOOD COUNT 5.1 x10^3/uL (4.8-10.8)
[2017-08-02 11:26] LABS: ALBUMIN/GLOBULIN RATIO 1.3 (1.0-2.2); BILIRUBIN,TOTAL 0.6 mg/dL (0.2-1.0); BUN - BLOOD UREA NITROGEN 39 mg/dL (6-20); CALCIUM 9.5 mg/dL (8.5-10.3); CARBON DIOXIDE - CO2 30 mmol/L (21-32); CHLORIDE 93 mmol/L (101-111); CHOL/HDL RATIO 4.1 (<5.0); CHOLESTEROL 102 mg/dL; CREATININE 1.3 mg/dL (0.6-1.2); GFR - MDRD 53 (>89); GLUCOSE 150 mg/dL (70-100); HDL CHOLESTEROL 25 mg/dL; LDL/HDL RATIO 1.8 (<3.6); POTASSIUM 4.7 mmol/L (3.5-5.0); SODIUM 135 mmol/L (135-145); TOTAL PROTEIN 6.8 g/dL (6.7-8.2); TRIGLYCERIDES 166 mg/dL; VLDL CHOLESTEROL 33 mg/dL
[2017-08-02 11:37] LABS: HEMOGLOBIN A1C 0.6 g/dL
== END 2017-08-02 10:37 | disposition home or self-care (01) ==
LOC: LAB 10:36
PROVIDERS: ATTEND Internal Medicine Cardiovascular Disease
DX: E11.8 Type 2 diabetes mellitus with unspecified complications (principal); C61 Malignant neoplasm of prostate; K31.84 Gastroparesis; E78.5 Hyperlipidemia, unspecified; I50.22 Chronic systolic (congestive) heart failure
CPT/HCPCS: 80053; 80061; 83036; 83880; 84153; 85025

== ENCOUNTER 2017-08-08 14:20 | Outpatient (CLI) | payer MEDICARE, OTHER | END 2017-08-08 14:21 | disposition critical access hospital (66) | LOC: EMS 14:20 | PROVIDERS: ATTEND Surgery | DX: R07.0 Pain in throat (principal); R06.02 Shortness of breath | CPT/HCPCS: A0425; A0429 ==

== ENCOUNTER 2017-08-08 14:29 | Inpatient (IN) | payer MEDICARE, OTHER ==
[2017-08-08] MEDS ORDERED: IPRATROPIUM/ALBUTEROL 3 ML NEB INH STA (15:00)
--- NOTE | 2017-08-08 15:00 | ED Physician Documentation ---
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 He presents by ambulance for sore throat with difficulty swallowing and a productive cough of the days duration. Per the his temperature has been higher than normal, he usually runs about 95 and it has been 97-1/2, although no measured fevers. He also has had 7 pounds of weight gain recently with mildly increased pedal edema.) Review of Systems Ten Systems: 10 systems reviewed and negative Constitutional: reports: Fatigue. denies: Fever, Chills Nose: reports: Rhinorrhea / runny nose, Congestion, Sinus pressure / pain Throat: reports: Sore throat Respiratory: reports: Dyspnea, Cough GI: denies: Abdominal Pain, Vomiting, Diarrhea PD PAST MEDICAL HISTORY - Past Medical History Past Medical History: Yes Cardiovascular: Congestive heart failure, Hypertension, High cholesterol, [place], Atrial fibrillation, Valve disorder Respiratory: Pneumonia Neuro: None Endocrine/Autoimmune: Type 2 diabetes GI: Diverticulitis, Other : Renal insuffiency HEENT: None Psych: Depression Musculoskeletal: Osteoarthritis, Osteoporosis, Chronic back pain Derm: None - Past Surgical History Past Surgical History: Yes General: Cholecystectomy, Bowel surgery Ortho: Knee replacement, Spine surgery - Present Medications Home Medications: Ambulatory Orders Medication Instructions Recorded Confirmed Digoxin [Lanoxin] 125 mcg PO DAILY 05/06/14 08/08/17 Metformin HCl 500 mg PO BIDWM 05/06/14 08/08/17 Metoprolol Tartrate 75 mg PO BID 05/06/14 08/08/17 Polyethylene Glycol 3350 [Miralax] 17 g PO DAILY 05/06/14 08/08/17 Zolpidem [Ambien] 5 mg PO QPM 05/06/14 08/08/17 Levothyroxine [Synthroid] 100 mcg PO DAILY 02/02/15 08/08/17 Pantoprazole [Protonix] 40 mg PO BIDAC 02/02/15 08/08/17 Furosemide [Lasix] 40 mg PO DAILY #30 09/16/16 08/08/17 Losartan [Cozaar] 50 mg PO DAILY 09/16/16 08/08/17 Multivitamin [Multiple Vitamins] 1 each PO DAILY 09/16/16 08/08/17 Cyanocobalamin [Vitamin B-12] 1,000 mcg IM Q28D 04/04/17 08/08/17 Ferrous Gluconate 324 mg PO DAILY 04/04/17 08/08/17 Insulin Glargine [Lantus Solostar] 10 units SUBQ QPM 04/04/17 08/08/17 Morphine ER 15 mg PO Q8H 04/04/17 08/08/17 Ondansetron Odt [Zofran Odt] 4 mg PO TID PRN 04/04/17 08/08/17 Saxagliptin HCl [Onglyza] 2.5 mg PO DAILY 04/06/17 08/08/17 Aspirin 81 mg PO DAILY 08/08/17 08/08/17 Potassium Chloride 10 meq PO DAILY 08/08/17 08/08/17 Sucralfate [Carafate] 1 gm PO BID 08/08/17 08/08/17 - Allergies Allergies/Adverse Reactions: Allergies Allergy/AdvReac Type Severity Reaction Status Date / Time No Known Drug Allergies Allergy Verified 04/18/17 11:19 - Social History Does the pt smoke?: No Smoking Status: Never smoker Does the pt drink ETOH?: Yes Does the pt have substance abuse?: No - Immunizations Immunizations are current?: No Immunizations: TDAP >10years/unknown - POLST Patient has POLST: Yes PD ED PE NORMAL - Vitals Vital signs reviewed: Yes - General General: Alert and oriented X 3, No acute distress - HEENT HEENT: PERRL, EOMI, Pharynx benign (Status post tonsillectomy, no redness) - Neck Neck: Supple, no meningeal sign, No bony TTP - Cardiac Cardiac: Other (Irregularly irregular without murmur) - Respiratory Respiratory: Other (Nonlabored with rhonchi throughout) - Abdomen Abdomen: Soft, Non tender - Back Back: No CVA TTP, No spinal TTP - Derm Derm: Normal color, Warm and dry - Extremities Extremities: No calf tenderness / cord, Other (Moderate pitting pedal edema) - Neuro Neuro: Alert and oriented X 3, Normal speech - Psych Psych: Normal mood, Normal affect Results - Vitals Vitals: Vital Signs - 24 hr 08/08/17 08/08/17 08/08/17 14:34 14:37 15:10 Temperature 36.6 C Heart Rate 117 H 106 H Respiratory 28 H 14 Rate Blood Pressure 134/83 H O2 Saturation 94 08/08/17 08/08/17 08/08/17 15:40 16:24 16:46 Temperature Heart Rate 138 H 154 H 122 H Respiratory 17 22 16 Rate Blood Pressure 143/81 H 134/83 H O2 Saturation 93 92 100 08/08/17 17:26 Temperature Heart Rate 136 H Respiratory 16 Rate Blood Pressure 142/90 H O2 Saturation 92 Oxygen O2 Source [] Room air O2 Source [] Room air O2 Source Nasal cannula Oxygen Flow Rate 2 - EKG (time done) 1445 Rate: Rate (enter#) (111) Rhythm: Atrial fibrillation Intervals: LBBB (atypical LBBB) Ischemia: No: ST elevation c/w ischemia Compare to prior EKG: Unchanged from prior EKG (similar to 04/03/17) Computer interpretation: Agree with computer - Labs Labs: Laboratory Tests 08/08/17 08/08/17 08/08/17 15:11 15:11 15:11 WBC 8.3 RBC 3.25 L Hgb 10.2 L Hct 29.7 L MCV 91.6 MCH 31.5 H MCHC 34.4 RDW 15.4 H Plt Count 228 MPV 6.6 L Neut # 6.9 H Lymph # 0.6 L [place] # 0.7 Eos # 0.0 Baso # 0.0 Absolute Nucleated RBC 0.00 Nucleated RBC % 0.0 Sodium 134 L Potassium 5.0 Chloride 93 L Carbon Dioxide 28 Anion Gap 13.0 BUN 40 H Creatinine 1.5 H Estimated GFR (MDRD) 45 L Glucose 271 H Calcium 9.2 Total Bilirubin 1.0 AST 33 ALT 32 Alkaline Phosphatase 137 H Troponin I < 0.04 B-Natriuretic Peptide Total Protein 7.0 Albumin 3.6 Globulin 3.4 Albumin/Globulin Ratio 1.1 Lipase 13 L Last Dose Date Last Dose Time Digoxin 08/08/17 08/08/17 15:11 15:11 WBC RBC Hgb Hct MCV MCH MCHC RDW Plt Count MPV Neut # Lymph # [place] # Eos # Baso # Absolute Nucleated RBC Nucleated RBC % Sodium Potassium Chloride Carbon Dioxide Anion Gap BUN Creatinine Estimated GFR (MDRD) Glucose Calcium Total Bilirubin AST ALT Alkaline Phosphatase Troponin I B-Natriuretic Peptide 526 H Total Protein Albumin Globulin Albumin/Globulin Ratio Lipase Last Dose Date UNK Last Dose Time UNK Digoxin 0.9 - Rads (name of study) 2v chest Radiology: EMP read contemporaneously (No significant interval change, moderate elevation of the right hemidiaphragm with interstitial densities in the left lung unchanged.) PD MEDICAL DECISION MAKING - ED course ED course: 81-year-old gentleman presents with acute dyspnea in the setting of A. fib. His heart rate climbs throughout the course of his emergency department stay which was initially treated with metoprolol with no effect and followed with IV diltiazem. He does have evidence of bronchitis and is given Rocephin IV. He did have modest improvement in his dyspnea after breathing treatment here. He seems to have a combination of bronchitis and A. fib with RVR causing his dyspnea. Spoke with Dr. Miles for admission at 5:30 PM Departure - Departure Disposition: 66 [facility] DC/Xfer Clinical Impression: Bronchitis, Atrial fibrillation with RVR Atrial fibrillation Qualifiers: Atrial fibrillation type: chronic Qualified Code(s): I48.2 - Chronic atrial fibrillation Condition: Stable
[2017-08-08] MEDS ORDERED: IPRATROPIUM/ALBUTEROL 3 ML NEB INH ONE (15:08)
[2017-08-08 15:18] LABS: BASOPHILS % (AUTO) 0.3 %; EOSINOPHILS % (AUTO) 0.3 %; HCT - HEMATOCRIT 29.7 % (42.0-52.0); HGB - HEMOGLOBIN 10.2 g/dL (14.0-18.0); LYMPHOCYTES # (AUTO) 0.6 10^3/uL (1.5-3.5); LYMPHOCYTES % (AUTO) 7.1 %; MEAN CORPUSCULAR HEMOGLOBIN 31.5 pg (27.0-31.0); MEAN CORPUSCULAR HGB CONC 34.4 g/dL (32.0-36.0); MEAN CORPUSCULAR VOLUME 91.6 fL (80.0-94.0); MEAN PLATELET VOLUME 6.6 fL (7.4-11.4); MONOCYTES # (AUTO) 0.7 10^3/uL (0.0-1.0); MONOCYTES % (AUTO) 8.7 %; NEUTROPHILS # (AUTO) 6.9 10^3/uL (1.5-6.6); NEUTROPHILS % (AUTO) 83.6 %; RED BLOOD COUNT 3.25 10^6/uL (4.70-6.10); RED CELL DISTRIBUTION WIDTH 15.4 % (12.0-15.0); UNCORRECTED WHITE BLOOD COUNT 8.3 x10^3/uL; WHITE BLOOD COUNT 8.3 x10^3/uL (4.8-10.8)
[2017-08-08 15:31] LABS: ALBUMIN/GLOBULIN RATIO 1.1 (1.0-2.2); CALCIUM 9.2 mg/dL (8.5-10.3); CREATININE 1.5 mg/dL (0.6-1.2)
[2017-08-08] MEDS ORDERED: FUROSEMIDE 40 MG/4 ML VIAL IVP STA (16:18)
--- NOTE | 2017-08-08 16:21 | XRAY Preliminary Report ---
Exam: XR Chest 2 View PA/LAT IMPRESSION: No significant interval change. Moderate elevation of right hemidiaphragm with interstiti al densities in the left lung unchanged. [facility] SITE ID: [id number]
--- NOTE | 2017-08-08 16:24 | XRAY Report ---
EXAM: CHEST RADIOGRAPHY EXAM DATE: 08/08/2017 04:05 PM. CLINICAL HISTORY: Dyspnea cough. COMPARISON: 04/03/2017. TECHNIQUE: 2 views. FINDINGS: Lungs/Pleura: There is moderate elevation of the right hemidiaphragm. There are mild to moderate inte rstitial densities throughout the left lung. These findings appear without significant change. No def inite pleural effusion, limited by hypoventilation. Negative for a pneumothorax. Mediastinum: The heart size is unchanged. There is [id number] aortic atherosclerotic calcificat ion. There is kyphosis at the thoracolumbar junction of the spine. Other: None. IMPRESSION: No significant interval change. Moderate elevation of right hemidiaphragm with interstiti al densities in the left lung unchanged. [facility] Referring Provider Line: [phone] SITE ID: [id number]
[2017-08-08] MEDS ORDERED: METOPROLOL 5 MG/5 ML VIAL IVP STA (16:27)
[2017-08-08] MEDS ORDERED: METOPROLOL 5 MG/5 ML VIAL IVP ONE (16:40)
[2017-08-08] MEDS ORDERED: SODIUM CHLORIDE FLUSH 0.9% 10 ML SYRINGE IVP ONE (16:40)
[2017-08-08] MEDS ORDERED: FUROSEMIDE 40 MG/4 ML VIAL ONE ×2 (16:40→16:43)
[2017-08-08] MEDS ORDERED: diltiaZEM INJ 5 MG/ML VIAL IVP STA (17:29)
[2017-08-08] MEDS ORDERED: cefTRIAXone 1 GM in SODIUM CHLORIDE 0.9% MINIBAG 100 ML IV STA (17:29)
[2017-08-08 17:33] LABS: BILIRUBIN,URINE NEGATIVE (NEGATIVE); PH,URINE 5.5 PH (5.0-7.5); UA CHARGE (STRIP ONLY) YES; UR CULTURE IF IND NOT INDICATED
[2017-08-08] MEDS ORDERED: cefTRIAXone 1 GM VIAL ONE (17:45)
[2017-08-08] MEDS ORDERED: diltiaZEM INJ 5 MG/ML VIAL ONE (17:45)
[2017-08-08] MEDS ORDERED: HYDROmorphone 1 MG/ML CARPUJECT IVP STA (18:15)
[2017-08-08] MEDS ORDERED: HYDROmorphone 1 MG/ML CARPUJECT ONE (18:31)
[2017-08-08] MEDS ORDERED: MORPHINE ER 15 MG TABLET PO SCH (21:00)
[2017-08-08] MEDS ORDERED: ZOLPIDEM 5 MG TABLET PO SCH (21:00)
[2017-08-08] MEDS ORDERED: SUCRALFATE 1 GM PO SCH (21:00)
[2017-08-08] MEDS ORDERED: INSULIN GLARGINE 300 UNIT/3 ML PEN SUBQ SCH (21:00)
[2017-08-08] MEDS ORDERED: METOPROLOL TARTRATE 75 MG PO SCH (21:00)
[2017-08-08] MEDS ORDERED: PROCHLORPERAZINE 10 MG/2 ML VIAL IVP PRN ×2 (21:02→21:14)
[2017-08-08] MEDS ORDERED: ACETAMINOPHEN 325 MG TABLET PO PRN ×2 (21:02→21:14)
[2017-08-08] MEDS ORDERED: oxyCODONE 5 MG TABLET PO PRN ×3 (21:02→21:14)
[2017-08-08] MEDS ORDERED: ONDANSETRON ODT 4 MG TABLET TL PRN ×2 (21:02→21:14)
[2017-08-08] MEDS ORDERED: SODIUM CHLORIDE FLUSH 0.9% 10 ML SYRINGE IVP PRN (21:02)
[2017-08-08] MEDS ORDERED: HYDROmorphone 1 MG/ML CARPUJECT IVP PRN (21:02)
[2017-08-08] MEDS ORDERED: IPRATROPIUM/ALBUTEROL 3 ML NEB INH PRN (21:07)
[2017-08-08] MEDS: SODIUM CHLORIDE FLUSH 0.9% 10 ML SYRINGE IVP SCH (21:46)
[2017-08-08] MEDS: ZOLPIDEM 5 MG TABLET PO SCH (21:50)
[2017-08-08] MEDS: MORPHINE ER 15 MG TABLET PO SCH (21:51)
[2017-08-08] MEDS ORDERED: AZITHROMYCIN 250 MG TABLET PO SCH (22:00)
[2017-08-08] MEDS ORDERED: SODIUM CHLORIDE FLUSH 0.9% 10 ML SYRINGE IVP SCH (22:00)
[2017-08-08] MEDS: oxyCODONE 5 MG TABLET PO PRN (23:52)
[2017-08-09] MEDS: ZOLPIDEM 5 MG TABLET PO SCH ×2 (01:03→22:02)
--- NOTE | 2017-08-09 02:07 | HISTORY & PHYSICAL EXAMINATION ---
Chief Complaint - Chief Complaint Chief Complaint: Shortness of air History of Present Illness - Admitted From Admitted From:: Emergency department - History Obtained From Records Reviewed: Yes History obtained from: Patient and his Exam Limitations: Patient memory is poor and therefore helped a lot in providing history - History of Present Illness HPI Comment/Other: Patient is an 81-year-old gentleman with a past medical history significant for type 2 diabetes, diastolic heart failure on home O2, CKD stage III, depression, osteoarthritis, chronic pain, chronic atrial fibrillation on aspirin, hypertension and hyperlipidemia who presented to the emergency department with a chief complaint of shortness of air. The patient states that over the last 3 days he has noticed that he has had increasing shortness of air, orthopnea, cough, mucus production and wheezing. The patient states that his symptoms initially started with what he thinks was a sinus infection about a week and a half ago he states that that seemed to be improving but then he developed some cough, sore throat and eventually became increasingly short of air. The patient states that he did see his supervisor varnish about 3 weeks ago at which time his Lasix dose was decreased from 80 mg to 40 mg due to worsening kidney function. The patient's notes that the patient has put on 6-7 pounds from his dry weight since that time. The patient also states that about 3 days ago he started noticing that he was having some trouble swallowing and over the last 3 days he has had to bump his home oxygen dose from 2 L up to 3-1/2 L. The patient also admits to increased lower extremity swelling. The patient denies any headaches, blurred vision, runny nose, chest pain, palpitations, abdominal pain, nausea, vomiting, diarrhea, constipation, dysuria , increased urinary urgency, frequency, muscle aches, patient does have chronic back pain but denies any neck stiffness or focal neurologic deficits. On presentation to the emergency department the patient was afebrile, mildly hypertensive and appeared to be quite short of breath. The patient was saturating at 96% on 3 L of oxygen. On examination the patient was found to have crackles, bilateral lower extremity pitting edema and a mildly elevated JVD. The patient's lab work did reveal a BNP of 526 which was not far from his baseline. Patient's troponin was negative and his creatinine was elevated at 1.5 which is near his baseline. The patient's UA was negative he did not have any leukocytosis. The patient's chest x-ray showed no significant interval change. With moderate elevation of the right hemidiaphragm with interstitial densities in the left lung. The patient's heart rate was initially in the 130s with A. fib RVR. The patient did receive some IV metoprolol in the emergency department with which the rate did improve however it continued to be in the 110 -120 range. The patient was admitted to the hospital for CHF exacerbation. History - Past Medical History Cardiovascular: reports: Congestive heart failure (Low normal EF of 50-55%), Hypertension, High cholesterol, [place], Atrial fibrillation (On aspirin for the last 7 years, previously on Coumadin which was stopped due to risk of patient cutting himself and bleeding), Valve disorder (Mitral valve regurgitation) Respiratory: reports: Pneumonia Neuro: reports: None Endocrine/Autoimmune: reports: Type 2 diabetes GI: reports: Diverticulitis, Other : reports: Renal insuffiency (CKD stage III) HEENT: reports: Chronic vision loss, Chronic hearing loss Psych: reports: Depression Musculoskeletal: reports: Osteoarthritis, Osteoporosis, Chronic back pain Derm: reports: None MRSA Hx?: Yes - Past Surgical History General: reports: Cholecystectomy, Bowel surgery Ortho: reports: Knee replacement, Spine surgery - Family & Social History Family History: Mother: , Father: , CAD, Brother: Diabetes, Type 2 Living arrangement: At home Living Situation: With spouse/s.o. Social History Notes: The patient was born in [place], [place]. He moved to [facility] with his and they now live in [place]. They have been for 40 years. They have 5 children. They spend their glover in [facility] however this is become more and more difficult for them to do and they are cutting back on the amount of time they spent in [place]. The patient does not smoke, he rarely drinks alcohol but he does use marijuana at night to help with pain and to help him sleep. - Substance History Use: Uses substance without health or social issues: NONE Abuse: Recurrent use of substance despite neg consequences: NONE Dependence: Experiences withdrawal or developed tolerances: NONE - POLST Patient has POLST: Yes POLST Status: Full Code Meds/Allgy - Home Medications Home Medications: Ambulatory Orders Medication Instructions Recorded Confirmed Digoxin [Lanoxin] 125 mcg PO DAILY 05/06/14 08/08/17 Metformin HCl 500 mg PO BIDWM 05/06/14 08/08/17 Metoprolol Tartrate 75 mg PO BID 05/06/14 08/08/17 Polyethylene Glycol 3350 [Miralax] 17 g PO DAILY 05/06/14 08/08/17 Zolpidem [Ambien] 5 mg PO QPM 05/06/14 08/08/17 Levothyroxine [Synthroid] 100 mcg PO DAILY 02/02/15 08/08/17 Pantoprazole [Protonix] 40 mg PO BIDAC 02/02/15 08/08/17 Furosemide [Lasix] 40 mg PO DAILY #30 09/16/16 08/08/17 Losartan [Cozaar] 50 mg PO DAILY 09/16/16 08/08/17 Multivitamin [Multiple Vitamins] 1 each PO DAILY 09/16/16 08/08/17 Cyanocobalamin [Vitamin B-12] 1,000 mcg IM Q28D 04/04/17 08/08/17 Ferrous Gluconate 324 mg PO DAILY 04/04/17 08/08/17 Insulin Glargine [Lantus Solostar] 10 units SUBQ QPM 04/04/17 08/08/17 Morphine ER 15 mg PO Q8H 04/04/17 08/08/17 Ondansetron Odt [Zofran Odt] 4 mg PO TID PRN 04/04/17 08/08/17 Saxagliptin HCl [Onglyza] 2.5 mg PO DAILY 04/06/17 08/08/17 Aspirin 81 mg PO DAILY 08/08/17 08/08/17 Potassium Chloride 10 meq PO DAILY 08/08/17 08/08/17 Sucralfate [Carafate] 1 gm PO BID 08/08/17 08/08/17 - Allergies Allergies/Adverse Reactions: Allergies Allergy/AdvReac Type Severity Reaction Status Date / Time No Known Drug Allergies Allergy Verified 04/18/17 11:19 Review of Systems - Other Findings Other Findings: A comprehensive review of systems was performed the pertinent positives and negatives are stated above in the HPI and the remainder of the review of systems is negative. Exam - Vital Signs Reviewed Vital Signs: Yes Vital Signs: Vital Signs x48h Temp Pulse Pulse Resp BP Pulse Ox 08/08/17 23:38 37.3 C 96 20 118/76 94 08/08/17 22:39 37.5 C 98 18 141/72 H 96 - Physical Exam General Appearance: positive: Alert, Mild distress (Dyspnea), Other (Poor memory ) Eyes Bilateral: positive: Normal inspection, PERRL, EOMI, No lid inflammation, Conjunctivae nml, No scleral icterus ENT: positive: ENT inspection nml, Pharynx nml, No signs of dehydration. negative: Purulent nasal drainage, Pharyngeal erythema, Oral lesions Neck: positive: Nml inspection, Thyroid nml, Trachea midline, Other (Mildly elevated JVD). negative: Thyromegaly, Lymphadenopathy (R), Lymphadenopathy (L) Respiratory: positive: Chest non-tender, Wheezes (Upper airways), Rales ( Bilateral heard throughout both lung inman, scattered.) Cardiovascular: positive: No murmur, No gallop, Irregularly irregular, Tachycardia Peripheral Pulses: positive: 2+ Abdomen: positive: Non-tender, No organomegaly, Nml bowel sounds, No distention. negative: Guarding, Rebound, Hepatomegaly Back: positive: Nml inspection. negative: CVA tenderness (R), CVA tenderness (L ) Skin: positive: Color nml, No rash, Dry. negative: Cyanosis, Pallor Extremities: positive: Non-tender, Full ROM, Nml appearance, Pedal edema ( Bilateral 3+ pitting edema up to the knees) Neurologic/Psychiatric: positive: CN's nml (2-12), Motor nml, Sensation nml, Mood/affect nml, Disoriented to time Conclusion/Plan - Problem List (1) CHF exacerbation Conclusion/Plan: Patient presents with typical symptoms of CHF exacerbation. Patient had increasing shortness of breath, orthopnea with 6-7 pound weight gain. Patient also had increased oxygen requirement at home. This all occurred after the patient's Lasix dose was decreased to 40 mg daily. The patient is also been having symptoms of bronchitis with cough, sputum production and sore throat. The patient's chest x-ray did appear to show some congestion, he did have crackles on examination and mildly elevated JVD. Patient was given IV Lasix in the emergency department which did help to improve his symptoms but the patient remained hypoxic and was admitted for CHF exacerbation. Looking at patient's echocardiogram from March 2017 the patient had a ejection fraction of 50-55% with moderate right ventricular enlargement moderate mitral regurgitation and severely abnormal right heart pressures suggestive diastolic heart failure. Etiology of patient's congestive heart failure is likely secondary to decreased dose of Lasix, atrial fibrillation with RVR, poorly controlled hypertension and poor compliance with diet. Plan: Place patient on 40 mg IV Lasix twice daily 1800 mL fluid restriction Continue rate control of atrial fibrillation and control of hypertension Daily weights and strict I's and O's Telemetry Supplemental oxygen Qualifiers: Congestive heart failure type: diastolic Qualified Code(s): I50.33 - Acute on chronic diastolic (congestive) heart failure (2) Atrial fibrillation with RVR Conclusion/Plan: Patient has history of chronic atrial fibrillation and is on metoprolol and digoxin for rate control. The patient is also on aspirin but not on any anticoagulation. The patient was previously on anticoagulation but this was stopped 7 or 8 years ago. The patient states that it was stopped because the patient was considered high risk for possible bleeding. On presentation to the emergency department the patient was in atrial fibrillation with RVR heart rate was in the 130s. Patient was given IV metoprolol in the emergency department with which the rate was better controlled. Patient's heart rate remained in the 110-120 range prior to admission. Etiology of patient's CHF exacerbation is likely multifactorial including from A. fib with RVR. Plan: Patient will be continued on home dose of metoprolol and digoxin Patient be placed on telemetry We will monitor his heart rate if patient's heart rate continues to be elevated we will need to make adjustments to his metoprolol dose. Patient's aspirin will be continued (3) Diabetes Conclusion/Plan: Patient has history of diabetes he is on glipizide, metformin and Lantus 10 units at home. On presentation to the emergency department the patient's blood glucose was elevated at 271. Plan: Patient will be continued on home dose of Lantus at 10 units subcu q. nightly Patient be placed on sliding scale insulin Patient will be placed on diabetic diet We will monitor blood glucose before meals at bedtime Qualifiers: Diabetes mellitus type: type 2 Diabetes mellitus complication status: with kidney complications Diabetes mellitus complication detail: with chronic kidney disease Chronic kidney disease stage: stage 3 (moderate) (4) Bronchitis Conclusion/Plan: Patient has been having coughing with sputum production and sore throat for the last several days. The patient does appear to have a bronchitis. In the emergency room the patient was treated with IV ceftriaxone. Plan: Patient will be placed on azithromycin and DuoNeb's while he is hospitalized to treat his bronchitis. (5) Hypertension Conclusion/Plan: Patient's blood pressure was mildly elevated on presentation to the emergency department. Patient has diastolic heart failure and presented with CHF exacerbation. It is possible that the patient's blood pressure likely played a role in his exacerbation. We will need to make sure that blood pressure is well controlled while he is hospitalized. Plan: We will continue his home antihypertensive medications Monitor blood pressure closely Titrate blood pressure medications as needed Qualifiers: Hypertension type: essential hypertension Qualified Code(s): I10 - Essential (primary) hypertension (6) Hypothyroidism Conclusion/Plan: Patient has history of hypothyroidism Continue home dose of Synthroid Stable Check TSH (7) Chronic pain Conclusion/Plan: Patient has history of chronic back pain. The patient uses MS Contin and oxycodone at home. He also uses marijuana at night. Plan: We will continue the patient's home dose of MS Contin and oxycodone. He will also be given Dilaudid as needed for pain (8) Prophylactic use of low molecular weight heparin for venous thromboembolism (VTE) Conclusion/Plan: Patient was placed on Lovenox for DVT prophylaxis. - Lab Results Lab results reviewed: Yes Fish Bones: 08/08/17 15:11 08/08/17 15:11 Other Lab Results: Laboratory Results WBC 8.3 x10^3/uL (4.8-10.8) 08/08/17 15:11 RBC 3.25 10^6/uL (4.70-6.10) L 08/08/17 15:11 Hgb 10.2 g/dL (14.0-18.0) L 08/08/17 15:11 Hct 29.7 % (42.0-52.0) L 08/08/17 15:11 MCV 91.6 fL (80.0-94.0) 08/08/17 15:11 MCH 31.5 pg (27.0-31.0) H 08/08/17 15:11 MCHC 34.4 g/dL (32.0-36.0) 08/08/17 15:11 RDW 15.4 % (12.0-15.0) H 08/08/17 15:11 Plt Count 228 10^3/uL (130-450) 08/08/17 15:11 MPV 6.6 fL (7.4-11.4) L 08/08/17 15:11 Neut # 6.9 10^3/uL (1.5-6.6) H 08/08/17 15:11 Lymph # 0.6 10^3/uL (1.5-3.5) L 08/08/17 15:11 [place] # 0.7 10^3/uL (0.0-1.0) 08/08/17 15:11 Eos # 0.0 10^3/uL (0.0-0.7) 08/08/17 15:11 Baso # 0.0 10^3/uL (0.0-0.1) 08/08/17 15:11 Absolute Nucleated RBC 0.00 x10^3/uL 08/08/17 15:11 Nucleated RBC % 0.0 /100WBC 08/08/17 15:11 Sodium 134 mmol/L (135-145) L 08/08/17 15:11 Potassium 5.0 mmol/L (3.5-5.0) 08/08/17 15:11 Chloride 93 mmol/L (101-111) L 08/08/17 15:11 Carbon Dioxide 28 mmol/L (21-32) 08/08/17 15:11 Anion Gap 13.0 (6-13) 08/08/17 15:11 BUN 40 mg/dL (6-20) H 08/08/17 15:11 Creatinine 1.5 mg/dL (0.6-1.2) H 08/08/17 15:11 Estimated GFR (MDRD) 45 (>89) L 08/08/17 15:11 Glucose 271 mg/dL (70-100) H 08/08/17 15:11 Calcium 9.2 mg/dL (8.5-10.3) 08/08/17 15:11 Total Bilirubin 1.0 mg/dL (0.2-1.0) 08/08/17 15:11 AST 33 IU/L (10-42) 08/08/17 15:11 ALT 32 IU/L (10-60) 08/08/17 15:11 Alkaline Phosphatase 137 IU/L (42-121) H 08/08/17 15:11 Troponin I < 0.04 ng/mL (<0.49) 08/08/17 15:11 B-Natriuretic Peptide 526 pg/mL (5-100) H 08/08/17 15:11 Total Protein 7.0 g/dL (6.7-8.2) 08/08/17 15:11 Albumin 3.6 g/dL (3.2-5.5) 08/08/17 15:11 Globulin 3.4 g/dL (2.1-4.2) 08/08/17 15:11 Albumin/Globulin Ratio 1.1 (1.0-2.2) 08/08/17 15:11 Lipase 13 U/L (22-51) L 08/08/17 15:11 Urine Color YELLOW 08/08/17 16:45 Urine Clarity CLEAR (CLEAR) 08/08/17 16:45 Urine pH 5.5 PH (5.0-7.5) 08/08/17 16:45 Ur Specific [place] 1.010 (1.002-1.030) 08/08/17 16:45 Urine Protein NEGATIVE mg/dL (NEGATIVE) 08/08/17 16:45 Urine Glucose (UA) NEGATIVE mg/dL (NEGATIVE) 08/08/17 16:45 Urine Ketones NEGATIVE mg/dL (NEGATIVE) 08/08/17 16:45 Urine Occult Blood NEGATIVE (NEGATIVE) 08/08/17 16:45 Urine Nitrite NEGATIVE (NEGATIVE) 08/08/17 16:45 Urine Bilirubin NEGATIVE (NEGATIVE) 08/08/17 16:45 Urine Urobilinogen 2 E.U./dL (NORMAL) H 08/08/17 16:45 Ur Leukocyte Esterase NEGATIVE (NEGATIVE) 08/08/17 16:45 Ur Microscopic Review NOT INDICATED 08/08/17 16:45 Urine Culture Comments NOT INDICATED 08/08/17 16:45 Last Dose Date UNK 08/08/17 15:11 Last Dose Time UNK 08/08/17 15:11 Digoxin 0.9 ng/mL 08/08/17 15:11 - Diagnostic Imaging Results Diagnostic Imaging Results: positive: Final report reviewed Diagnostic Imaging Results Comments: Chest x-ray impression: No significant interval change. Moderate elevation of the right and hemidiaphragm with interstitial densities in the left lung unchanged. - EKG Results EKG Interpreted Independently: Yes EKG Findings: Atrial fibrillation with rapid ventricular rate. Issues/Core Measures - Anticipated LOS Anticipated Stay Length: 2 or more midnights - DVT/VTE - Prophylaxis VTE/DVT Device ordered at admit?: Yes
[2017-08-09] MEDS: SODIUM CHLORIDE FLUSH 0.9% 10 ML SYRINGE IVP SCH ×3 (02:57→20:55)
[2017-08-09] MEDS: HYDROmorphone 1 MG/ML CARPUJECT IVP PRN ×2 (02:57→05:06)
[2017-08-09] MEDS: SODIUM CHLORIDE FLUSH 0.9% 10 ML SYRINGE IVP PRN ×2 (05:07→20:47)
[2017-08-09 05:47] LABS: HCT - HEMATOCRIT 27.6 % (42.0-52.0); HGB - HEMOGLOBIN 9.3 g/dL (14.0-18.0); MEAN CORPUSCULAR HEMOGLOBIN 30.9 pg (27.0-31.0); MEAN CORPUSCULAR HGB CONC 33.7 g/dL (32.0-36.0); MEAN CORPUSCULAR VOLUME 91.6 fL (80.0-94.0); MEAN PLATELET VOLUME 6.7 fL (7.4-11.4); RED BLOOD COUNT 3.01 10^6/uL (4.70-6.10); RED CELL DISTRIBUTION WIDTH 15.2 % (12.0-15.0); WHITE BLOOD COUNT 8.9 x10^3/uL (4.8-10.8)
[2017-08-09 06:00] LABS: ALBUMIN/GLOBULIN RATIO 1.1 (1.0-2.2); BUN - BLOOD UREA NITROGEN 37 mg/dL (6-20); CALCIUM 8.7 mg/dL (8.5-10.3); CARBON DIOXIDE - CO2 32 mmol/L (21-32); CHLORIDE 94 mmol/L (101-111); CREATININE 1.4 mg/dL (0.6-1.2); GFR - MDRD 49 (>89); GLUCOSE 186 mg/dL (70-100); MAGNESIUM 1.8 mg/dL (1.7-2.8); POTASSIUM 4.1 mmol/L (3.5-5.0); SODIUM 136 mmol/L (135-145); TOTAL PROTEIN 6.4 g/dL (6.7-8.2)
[2017-08-09] MEDS: LEVOTHYROXINE 100 MCG TABLET PO SCH (06:22)
[2017-08-09] MEDS: PANTOPRAZOLE 40 MG TABLET PO SCH (06:22)
[2017-08-09] MEDS: MORPHINE ER 15 MG TABLET PO SCH ×3 (06:22→22:02)
[2017-08-09] MEDS ORDERED: PANTOPRAZOLE 40 MG TABLET PO SCH (07:00)
[2017-08-09] MEDS: IPRATROPIUM/ALBUTEROL 3 ML NEB INH PRN ×2 (07:25→11:20)
[2017-08-09] MEDS: AZITHROMYCIN 250 MG TABLET PO SCH (08:34)
[2017-08-09] MEDS: MULTIVITAMIN TABLET PO SCH (08:34)
[2017-08-09] MEDS: DIGOXIN 125 MCG TABLET PO SCH (08:34)
[2017-08-09] MEDS: FUROSEMIDE 40 MG/4 ML VIAL IVP SCH ×2 (08:35→20:47)
[2017-08-09] MEDS: METOPROLOL TARTRATE 25 MG TABLET PO SCH ×2 (08:35→20:48)
[2017-08-09] MEDS: ASPIRIN CHEW 81 MG TABLET PO SCH (08:35)
[2017-08-09] MEDS: SUCRALFATE 1 GM/10 ML UDC PO SCH ×2 (08:35→20:51)
[2017-08-09] MEDS: LOSARTAN 50 MG TABLET PO SCH (08:35)
[2017-08-09] MEDS: POTASSIUM CHLORIDE 10 MEQ CAPSULE PO SCH (08:36)
[2017-08-09] MEDS: POLYETHYLENE GLYCOL 3350 17 GM PACKET PO SCH (08:36)
[2017-08-09] MEDS: ENOXAPARIN 40 MG/0.4 ML SYRINGE SUBQ SCH (08:38)
[2017-08-09] MEDS: FERROUS GLUCONATE 324 MG TABLET PO SCH (09:00)
[2017-08-09] MEDS ORDERED: LEVOTHYROXINE 100 MCG TABLET PO SCH (09:00)
[2017-08-09] MEDS ORDERED: ASPIRIN CHEW 81 MG TABLET PO SCH (09:00)
[2017-08-09] MEDS ORDERED: MULTIVITAMIN PO SCH (09:00)
[2017-08-09] MEDS ORDERED: FUROSEMIDE 40 MG/4 ML VIAL IVP SCH (09:00)
[2017-08-09] MEDS ORDERED: ENOXAPARIN 40 MG/0.4 ML SYRINGE SUBQ SCH (09:00)
[2017-08-09] MEDS ORDERED: POLYETHYLENE GLYCOL 3350 17 GM PACKET PO SCH (09:00)
[2017-08-09] MEDS ORDERED: LOSARTAN 50 MG TABLET PO SCH (09:00)
[2017-08-09] MEDS ORDERED: DIGOXIN 125 MCG PO SCH (09:00)
[2017-08-09] MEDS ORDERED: POTASSIUM CHLORIDE 10 MEQ CAPSULE PO SCH (09:00)
[2017-08-09] MEDS ORDERED: FERROUS GLUCONATE 324 MG PO SCH (09:00)
[2017-08-09 09:45] LABS: HEMOGLOBIN A1C 0.51 g/dL
[2017-08-09] MEDS: INSULIN ASPART 300 UNIT/3 ML PEN SUBQ SCH ×3 (11:52→21:32)
--- NOTE | 2017-08-09 13:21 | PROVIDER PROGRESS NOTE ---
Subjective - Prog Note Date Prog Note Date: 08/09/17 - Subjective Pt reports feeling: Improved Objective - Vital Signs/Intake & Output Vital Signs: Vital Signs x48h Temp Pulse Pulse Resp BP Pulse Ox 08/09/17 11:44 36.7 C 63 16 117/76 94 08/09/17 11:20 93 18 08/09/17 07:48 36.9 C 78 12 115/64 91 L 08/09/17 07:25 88 18 08/09/17 06:28 36.4 C L 98 18 107/61 98 Intake & Output: Intake & Output 08/06/17 08/07/17 08/08/17 08/09/17 23:59 23:59 23:59 23:59 Intake Total 236 Output Total 375 1000 Balance -203 -414 - Lab Results Fish Bones: 08/09/17 05:30 08/09/17 05:30 Other Labs: Lab Results x24hrs 08/09/17 08/09/17 08/09/17 Range/Units 05:30 05:30 05:30 WBC (4.8-10.8) x10^3/uL RBC (4.70-6.10) 10^6/uL Hgb (14.0-18.0) g/dL Hct (42.0-52.0) % MCV (80.0-94.0) fL MCH (27.0-31.0) pg MCHC (32.0-36.0) g/dL RDW (12.0-15.0) % Plt Count (130-450) 10^3/uL MPV (7.4-11.4) fL Sodium (135-145) mmol/L Potassium (3.5-5.0) mmol/L Chloride (101-111) mmol/L Carbon Dioxide (21-32) mmol/L Anion Gap (6-13) BUN (6-20) mg/dL Creatinine (0.6-1.2) mg/dL Estimated GFR (MDRD) (>89) Glucose (70-100) mg/dL Glycated Hemoglobin 7.2 H (4.6-6.2) % Estim Average Glucose 160 H (70-100) Calcium (8.5-10.3) mg/dL Ionized Calcium Phosphorus (2.5-4.6) mg/dL Magnesium (1.7-2.8) mg/dL Total Bilirubin (0.2-1.0) mg/dL AST (10-42) IU/L ALT (10-60) IU/L Alkaline Phosphatase (42-121) IU/L B-Natriuretic Peptide 430 H (5-100) pg/mL Total Protein (6.7-8.2) g/dL Albumin (3.2-5.5) g/dL Globulin (2.1-4.2) g/dL Albumin/Globulin Ratio (1.0-2.2) TSH 1.29 (0.34-5.60) uIU/mL 08/09/17 08/09/17 Range/Units 05:30 05:30 WBC 8.9 (4.8-10.8) x10^3/uL RBC 3.01 L (4.70-6.10) 10^6/uL Hgb 9.3 L (14.0-18.0) g/dL Hct 27.6 L (42.0-52.0) % MCV 91.6 (80.0-94.0) fL MCH 30.9 (27.0-31.0) pg MCHC 33.7 (32.0-36.0) g/dL RDW 15.2 H (12.0-15.0) % Plt Count 228 (130-450) 10^3/uL MPV 6.7 L (7.4-11.4) fL Sodium 136 (135-145) mmol/L Potassium 4.1 (3.5-5.0) mmol/L Chloride 94 L (101-111) mmol/L Carbon Dioxide 32 (21-32) mmol/L Anion Gap 10.0 (6-13) BUN 37 H (6-20) mg/dL Creatinine 1.4 H (0.6-1.2) mg/dL Estimated GFR (MDRD) 49 L (>89) Glucose 186 H (70-100) mg/dL Glycated Hemoglobin (4.6-6.2) % Estim Average Glucose (70-100) Calcium 8.7 (8.5-10.3) mg/dL Ionized Calcium NO Phosphorus 5.0 H (2.5-4.6) mg/dL Magnesium 1.8 (1.7-2.8) mg/dL Total Bilirubin 1.0 (0.2-1.0) mg/dL AST 25 (10-42) IU/L ALT 29 (10-60) IU/L Alkaline Phosphatase 143 H (42-121) IU/L B-Natriuretic Peptide (5-100) pg/mL Total Protein 6.4 L (6.7-8.2) g/dL Albumin 3.3 (3.2-5.5) g/dL Globulin 3.1 (2.1-4.2) g/dL Albumin/Globulin Ratio 1.1 (1.0-2.2) TSH (0.34-5.60) uIU/mL Assessment/Plan - Problem List (1) Acute exacerbation of CHF (congestive heart failure) Impression: (1) CHF exacerbation Pt report he feel much better, BNP down from 526 to 430 continue 40 mg IV Lasix twice daily, daily lab test to monitor electrolytic, correct as needed 1800 mL fluid restriction Continue rate control of atrial fibrillation and control of hypertension Daily weights and strict I's and O's Telemetry Supplemental oxygen Qualifiers: Congestive heart failure type: diastolic Qualified Code(s): I50.33 - Acute on chronic diastolic (congestive) heart failure (2) Atrial fibrillation with RVR Conclusion/Plan: pt's heart rate is good controlled now around 70 continue metoprolol and digoxin Patient be placed on telemetry aspirin be continued (3) Diabetes Conclusion/Plan: hold metformin, add slide scale as needed for insulin Plan: Patient will be continued on home dose of Lantus at 10 units subcu q. nightly Patient be placed on sliding scale insulin Patient will be placed on diabetic diet We will monitor blood glucose before meals at bedtime Qualifiers: Diabetes mellitus type: type 2 Diabetes mellitus complication status: with kidney complications Diabetes mellitus complication detail: with chronic kidney disease Chronic kidney disease stage: stage 3 (moderate) (4) Bronchitis Conclusion/Plan: stable, reduced cough, continue azithromycin and DuoNeb's while he is hospitalized to treat his bronchitis. (5) Hypertension Conclusion/Plan: stable, continue his home antihypertensive medications Monitor blood pressure closely Titrate blood pressure medications as needed Qualifiers: Hypertension type: essential hypertension Qualified Code(s): I10 - Essential (primary) hypertension (6) Hypothyroidism Conclusion/Plan: TSH is normal, continue synthroid Patient has history of hypothyroidism Continue home dose of Synthroid Stable Check TSH (7) Chronic pain Conclusion/Plan: Patient has history of chronic back pain. The patient uses MS Contin and oxycodone at home. He also uses marijuana at night. Plan: We will continue the patient's home dose of MS Contin and oxycodone. He will also be given Dilaudid as needed for pain
[2017-08-09] MEDS: BENZOCAINE/MENTHOL LOZENGE MM PRN (20:50)
[2017-08-09] MEDS: oxyCODONE 5 MG TABLET PO PRN (21:03)
[2017-08-09] MEDS: INSULIN GLARGINE 300 UNIT/3 ML PEN SUBQ SCH (21:31)
[2017-08-10] MEDS: ZOLPIDEM 5 MG TABLET PO SCH ×2 (00:33→21:58)
[2017-08-10] MEDS: oxyCODONE 5 MG TABLET PO PRN (00:33)
[2017-08-10] MEDS: LEVOTHYROXINE 100 MCG TABLET PO SCH (06:08)
[2017-08-10] MEDS: SODIUM CHLORIDE FLUSH 0.9% 10 ML SYRINGE IVP SCH ×3 (06:08→21:58)
[2017-08-10] MEDS: BENZOCAINE/MENTHOL LOZENGE MM PRN ×4 (06:08→22:38)
[2017-08-10] MEDS: PANTOPRAZOLE 40 MG TABLET PO SCH (06:08)
[2017-08-10] MEDS: MORPHINE ER 15 MG TABLET PO SCH ×3 (06:08→23:50)
[2017-08-10 06:27] LABS: HCT - HEMATOCRIT 26.4 % (42.0-52.0); MEAN CORPUSCULAR HEMOGLOBIN 31.1 pg (27.0-31.0); MEAN CORPUSCULAR HGB CONC 34.1 g/dL (32.0-36.0); MEAN CORPUSCULAR VOLUME 91.2 fL (80.0-94.0); MEAN PLATELET VOLUME 6.8 fL (7.4-11.4); RED BLOOD COUNT 2.89 10^6/uL (4.70-6.10); WHITE BLOOD COUNT 6.1 x10^3/uL (4.8-10.8)
[2017-08-10 06:36] LABS: BILIRUBIN,TOTAL 0.9 mg/dL (0.2-1.0); BUN - BLOOD UREA NITROGEN 38 mg/dL (6-20); CARBON DIOXIDE - CO2 33 mmol/L (21-32); CHLORIDE 91 mmol/L (101-111); CREATININE 1.5 mg/dL (0.6-1.2); GFR - MDRD 45 (>89); GLUCOSE 199 mg/dL (70-100); MAGNESIUM 1.9 mg/dL (1.7-2.8); POTASSIUM 4.1 mmol/L (3.5-5.0); SODIUM 135 mmol/L (135-145); TOTAL PROTEIN 6.3 g/dL (6.7-8.2)
[2017-08-10] MEDS: INSULIN ASPART 300 UNIT/3 ML PEN SUBQ SCH ×4 (08:17→22:10)
[2017-08-10] MEDS: FUROSEMIDE 40 MG/4 ML VIAL IVP SCH ×2 (08:44→21:57)
[2017-08-10] MEDS: SODIUM CHLORIDE FLUSH 0.9% 10 ML SYRINGE IVP PRN ×2 (08:47→21:58)
[2017-08-10] MEDS: MULTIVITAMIN TABLET PO SCH (08:47)
[2017-08-10] MEDS: LOSARTAN 50 MG TABLET PO SCH (08:48)
[2017-08-10] MEDS: POLYETHYLENE GLYCOL 3350 17 GM PACKET PO SCH (08:53)
[2017-08-10] MEDS: POTASSIUM CHLORIDE 10 MEQ CAPSULE PO SCH (08:53)
[2017-08-10] MEDS: ASPIRIN CHEW 81 MG TABLET PO SCH (08:54)
[2017-08-10] MEDS: AZITHROMYCIN 250 MG TABLET PO SCH (08:55)
[2017-08-10] MEDS: SUCRALFATE 1 GM/10 ML UDC PO SCH ×2 (08:56→21:57)
[2017-08-10] MEDS: DIGOXIN 125 MCG TABLET PO SCH (08:58)
[2017-08-10] MEDS: METOPROLOL TARTRATE 25 MG TABLET PO SCH ×2 (08:59→21:57)
[2017-08-10] MEDS: ENOXAPARIN 40 MG/0.4 ML SYRINGE SUBQ SCH (09:01)
[2017-08-10] MEDS: FERROUS GLUCONATE 324 MG TABLET PO SCH (09:04)
--- NOTE | 2017-08-10 15:18 | PROVIDER PROGRESS NOTE ---
Subjective - Prog Note Date Prog Note Date: 08/10/17 - Subjective Pt reports feeling: Improved Subjective: pt report he feel better. 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 pt denies chest pain, abdominal pain, nausea, vomiting, diarrhea, fever, chill. Current Medications - Current Medications Current Medications: Active Medications Acetaminophen (Tylenol) 650 mg PO Q4HR PRN PRN Reason: Pain 1 to 4 Albuterol/Ipratropium (Duoneb) 3 ml INH Q4HR PRN PRN Reason: Wheezing Last Admin: 08/09/17 11:20 Dose: 3 ml Aspirin ([place] Aspirin) 81 mg PO DAILY [facility] Last Admin: 08/10/17 08:54 Dose: 81 mg Azithromycin (Zithromax) 250 mg PO DAILY [facility] Last Admin: 08/10/17 08:55 Dose: 250 mg Cyanocobalamin (Vitamin B-12) 1,000 mcg IM Q28D [facility] Digoxin (Lanoxin) 125 mcg PO DAILY [facility] Last Admin: 08/10/17 08:58 Dose: 125 mcg Enoxaparin Sodium (Lovenox) 40 mg SUBQ DAILY [facility] Last Admin: 08/10/17 09:01 Dose: 40 mg Ferrous Gluconate (Fergon) 324 mg PO DAILYWM [facility] Last Admin: 08/10/17 09:04 Dose: 324 mg Furosemide (Lasix Inj 40 Mg Vial) 40 mg IVP BID [facility] Last Admin: 08/10/17 08:44 Dose: 40 mg Hydromorphone HCl (Dilaudid Inj Carp) 1 mg IVP Q2HR PRN PRN Reason: Pain 8 to 10 Last Admin: 08/09/17 05:06 Dose: 1 mg Insulin Aspart (Novolog) 1 - 9 unit SUBQ 0800,1200,1700,2100 [facility] PRN Reason: Protocol Last Admin: 08/10/17 08:17 Dose: 3 unit Insulin Glargine (Lantus Solostar) 10 unit SUBQ QPM [facility] Last Admin: 08/09/17 21:31 Dose: 10 unit Levothyroxine Sodium (Synthroid) 100 mcg PO QDAC [facility] Last Admin: 08/10/17 06:08 Dose: 100 mcg Losartan Potassium (Cozaar) 50 mg PO DAILY [facility] Last Admin: 08/10/17 08:48 Dose: 50 mg Metoprolol Tartrate (Lopressor) 75 mg PO BID [facility] Last Admin: 08/10/17 08:59 Dose: 75 mg Morphine Sulfate () 15 mg PO Q8H [facility] Last Admin: 08/10/17 06:08 Dose: 15 mg Multivitamins (Theragran) 1 tab PO DAILYWM [facility] Last Admin: 08/10/17 08:47 Dose: 1 tab Ondansetron HCl (Zofran Odt) 4 mg TL Q6HR PRN PRN Reason: Nausea / Vomiting Oxycodone HCl (Roxicodone) 5 mg PO Q4HR PRN PRN Reason: Pain 5 to 7 Oxycodone HCl (Roxicodone) 10 mg PO Q4HR PRN PRN Reason: Pain 8 to 10 Last Admin: 08/10/17 00:33 Dose: 10 mg Pantoprazole Sodium (Protonix) 40 mg PO QDAC [facility] Last Admin: 08/10/17 06:08 Dose: 40 mg Polyethylene Glycol (Miralax) 17 gm PO DAILY [facility] Last Admin: 08/10/17 08:53 Dose: 17 gm Potassium Chloride (Micro-K) 10 meq PO DAILY [facility] Last Admin: 08/10/17 08:53 Dose: 10 meq Prochlorperazine Edisylate (Compazine Inj) 10 mg IVP Q6HR PRN PRN Reason: Nausea / Vomiting Sitagliptin Phosphate (Januvia) 100 mg PO DAILY [facility] Sodium Chloride (Normal Saline Flush 0.9%) 10 ml IVP PRN PRN PRN Reason: NEEDED PER PROVIDER ORDERS Last Admin: 08/10/17 08:47 Dose: 10 ml Sodium Chloride (Normal Saline Flush 0.9%) 10 ml IVP Q8HR [facility] Last Admin: 08/10/17 06:08 Dose: 10 ml Sucralfate (Carafate) 1 gm PO BID [facility] Last Admin: 08/10/17 08:56 Dose: 1 gm Throat Lozenges (Cepacol) 1 lozenge MM Q2HR PRN PRN Reason: Mouth Sore Pain Last Admin: 08/10/17 16:06 Dose: 1 lozenge Zolpidem Tartrate (Ambien) 5 mg PO QPM [facility] Last Admin: 08/09/17 22:02 Dose: 5 mg Zolpidem Tartrate (Ambien) 5 mg PO 0100 [facility] Last Admin: 08/10/17 00:33 Dose: 5 mg Digoxin [Lanoxin] 125 mcg PO DAILY 05/06/14 Metformin HCl 500 mg PO BIDWM 05/06/14 Metoprolol Tartrate 75 mg PO BID 05/06/14 Polyethylene Glycol 3350 [Miralax] 17 g PO DAILY 05/06/14 Zolpidem [Ambien] 5 mg PO QPM 05/06/14 Levothyroxine [Synthroid] 100 mcg PO DAILY 02/02/15 Pantoprazole [Protonix] 40 mg PO BIDAC 02/02/15 Losartan [Cozaar] 50 mg PO DAILY 09/16/16 Multivitamin [Multiple Vitamins] 1 each PO DAILY 09/16/16 Cyanocobalamin [Vitamin B-12] 1,000 mcg IM Q28D 04/04/17 Ferrous Gluconate 324 mg PO DAILY 04/04/17 Insulin Glargine [Lantus Solostar] 10 units SUBQ QPM 04/04/17 Morphine ER 15 mg PO Q8H 04/04/17 Ondansetron Odt [Zofran Odt] 4 mg PO TID PRN 04/04/17 Saxagliptin HCl [Onglyza] 2.5 mg PO DAILY 04/06/17 Aspirin 81 mg PO DAILY 08/08/17 Potassium Chloride 10 meq PO DAILY 08/08/17 Sucralfate [Carafate] 1 gm PO BID 08/08/17 Objective - Vital Signs/Intake & Output Reviewed Vital Signs: Yes Vital Signs: Vital Signs x48h Temp Pulse Resp BP BP Pulse Ox 08/10/17 08:59 125/82 H 08/10/17 08:24 36.5 C 73 18 125/82 H 97 Intake & Output: Intake & Output 08/07/17 08/08/17 08/09/17 08/10/17 23:59 23:59 23:59 23:59 Intake Total 836 590 Output Total 375 1100 350 Balance -375 -264 240 - Objective General Appearance: positive: No acute distress, Alert. negative: Lethargic Eyes Bilateral: positive: Normal inspection, PERRL, EOMI, No lid inflammation, Conjunctivae nml ENT: positive: ENT inspection nml, Pharynx nml, No signs of dehydration. negative: Purulent nasal drainage, Pharyngeal erythema, Oral lesions Neck: positive: Nml inspection, Thyroid nml, Trachea midline. negative: Thyromegaly, Lymphadenopathy (R), Lymphadenopathy (L), Stiff neck, Swelling/ bruising, Tracheal deviation Respiratory: positive: Chest non-tender, No respiratory distress, Wheezes, Rales , Other (crackes at bilateral lung, improved conpared with yesterday.) Cardiovascular: positive: Regular rate & rhythm, No murmur, No gallop. negative : Irregularly irregular, Extrasystoles, Tachycardia, Bradycardia, Systolic murmur, Diastolic murmur Peripheral Pulses: 2+ Radial (R), 2+ Radial (L), 2+ Dorsalis pedis (R), 2+ Dorsalis pedis (L) Abdomen: positive: Non-tender, No organomegaly, Nml bowel sounds, No distention. negative: Tenderness, Guarding, Rebound Back: positive: Nml inspection. negative: CVA tenderness (R), CVA tenderness (L ) Skin: positive: Color nml, No rash, Warm, Dry. negative: Cyanosis, Diaphoresis , Pallor, Skin rash Extremities: positive: Non-tender, Full ROM, Nml appearance. negative: Calf tenderness, Arvind's sign/cords Neurologic/Psychiatric: positive: Oriented x3, Motor nml, Sensation nml, Mood/ affect nml. negative: Sensory loss, Facial droop, Slurred/abnml speech, Depressed mood/affect - Lab Results Fish Bones: 08/10/17 06:03 08/10/17 06:03 Other Labs: Lab Results x24hrs 08/10/17 08/10/17 08/10/17 Range/Units 06:03 06:03 06:03 WBC 6.1 (4.8-10.8) x10^3/uL RBC 2.89 L (4.70-6.10) 10^6/uL Hgb 9.0 L (14.0-18.0) g/dL Hct 26.4 L (42.0-52.0) % MCV 91.2 (80.0-94.0) fL MCH 31.1 H (27.0-31.0) pg MCHC 34.1 (32.0-36.0) g/dL RDW 15.0 (12.0-15.0) % Plt Count 227 (130-450) 10^3/uL MPV 6.8 L (7.4-11.4) fL Sodium 135 (135-145) mmol/L Potassium 4.1 (3.5-5.0) mmol/L Chloride 91 L (101-111) mmol/L Carbon Dioxide 33 H (21-32) mmol/L Anion Gap 11.0 (6-13) BUN 38 H (6-20) mg/dL Creatinine 1.5 H (0.6-1.2) mg/dL Estimated GFR (MDRD) 45 L (>89) Glucose 199 H (70-100) mg/dL Calcium 9.0 (8.5-10.3) mg/dL Ionized Calcium NO Phosphorus 5.0 H (2.5-4.6) mg/dL Magnesium 1.9 (1.7-2.8) mg/dL Total Bilirubin 0.9 (0.2-1.0) mg/dL AST 16 (10-42) IU/L ALT 24 (10-60) IU/L Alkaline Phosphatase 127 H (42-121) IU/L B-Natriuretic Peptide 918 H (5-100) pg/mL Total Protein 6.3 L (6.7-8.2) g/dL Albumin 3.2 (3.2-5.5) g/dL Globulin 3.1 (2.1-4.2) g/dL Albumin/Globulin Ratio 1.0 (1.0-2.2) Assessment/Plan - Problem List (1) Acute exacerbation of CHF (congestive heart failure) Impression: 1) CHF exacerbation Pt report he feel much better, but BNP went up 913 from 430 discuss with team and nurse, restrict I/O to 1400 continue 40 mg IV Lasix twice daily, daily lab test to monitor electrolytic, correct as needed 1800 mL fluid restriction Continue rate control of atrial fibrillation and control of hypertension Daily weights and strict I's and O's Telemetry Supplemental oxygen Qualifiers: Congestive heart failure type: diastolic Qualified Code(s): I50.33 - Acute on chronic diastolic (congestive) heart failure (2) Atrial fibrillation with RVR Conclusion/Plan: stable pt's heart rate is good controlled now around 70 continue metoprolol and digoxin Patient be placed on telemetry aspirin be continued (3) Diabetes Conclusion/Plan: stable, continue current treatment hold metformin, add slide scale as needed for insulin Plan: Patient will be continued on home dose of Lantus at 10 units subcu q. nightly Patient be placed on sliding scale insulin Patient will be placed on diabetic diet We will monitor blood glucose before meals at bedtime Qualifiers: Diabetes mellitus type: type 2 Diabetes mellitus complication status: with kidney complications Diabetes mellitus complication detail: with chronic kidney disease Chronic kidney disease stage: stage 3 (moderate) (4) Bronchitis Conclusion/Plan: stable, reduced cough, pt is on PO azithyomycin continue azithromycin and DuoNeb's while he is hospitalized to treat his bronchitis. (5) Hypertension Conclusion/Plan: stable, continue his home antihypertensive medications Monitor blood pressure closely Titrate blood pressure medications as needed Qualifiers: Hypertension type: essential hypertension Qualified Code(s): I10 - Essential (primary) hypertension (6) Hypothyroidism Conclusion/Plan: TSH is normal, continue synthroid Patient has history of hypothyroidism Continue home dose of Synthroid Stable Check TSH (7) Chronic pain Conclusion/Plan: pain is well controlled, no new pain complaints. Patient has history of chronic back pain. The patient uses MS Contin and oxycodone at home. He also uses marijuana at night.
[2017-08-10] MEDS ORDERED: CYANOCOBALAMIN 1,000 MCG/ML VIAL IM SCH (16:00)
[2017-08-10] MEDS: INSULIN GLARGINE 300 UNIT/3 ML PEN SUBQ SCH (22:11)
[2017-08-10] MEDS ORDERED: PHENOL THROAT SPRAY 177 ML MM PRN (23:43)
[2017-08-11] MEDS: oxyCODONE 5 MG TABLET PO PRN (00:18)
[2017-08-11] MEDS: ZOLPIDEM 5 MG TABLET PO SCH (00:18)
[2017-08-11] MEDS: SODIUM CHLORIDE FLUSH 0.9% 10 ML SYRINGE IVP SCH (02:10)
[2017-08-11] MEDS: HYDROmorphone 1 MG/ML CARPUJECT IVP PRN (02:10)
[2017-08-11 05:49] LABS: HCT - HEMATOCRIT 28.9 % (42.0-52.0); MEAN CORPUSCULAR HEMOGLOBIN 31.4 pg (27.0-31.0); MEAN CORPUSCULAR HGB CONC 34.4 g/dL (32.0-36.0); MEAN CORPUSCULAR VOLUME 91.3 fL (80.0-94.0); RED BLOOD COUNT 3.17 10^6/uL (4.70-6.10); RED CELL DISTRIBUTION WIDTH 14.5 % (12.0-15.0); WHITE BLOOD COUNT 4.9 x10^3/uL (4.8-10.8)
[2017-08-11 06:04] LABS: BUN - BLOOD UREA NITROGEN 38 mg/dL (6-20); CALCIUM 8.8 mg/dL (8.5-10.3); CARBON DIOXIDE - CO2 33 mmol/L (21-32); CHLORIDE 91 mmol/L (101-111); CREATININE 1.2 mg/dL (0.6-1.2); GFR - MDRD 58 (>89); GLUCOSE 219 mg/dL (70-100); MAGNESIUM 1.8 mg/dL (1.7-2.8); PHOSPHORUS 4.3 mg/dL (2.5-4.6); SODIUM 135 mmol/L (135-145); TOTAL PROTEIN 6.6 g/dL (6.7-8.2)
[2017-08-11] MEDS: LEVOTHYROXINE 100 MCG TABLET PO SCH (06:40)
[2017-08-11] MEDS: MORPHINE ER 15 MG TABLET PO SCH (06:41)
[2017-08-11] MEDS: PANTOPRAZOLE 40 MG TABLET PO SCH (06:41)
[2017-08-11] MEDS: INSULIN ASPART 300 UNIT/3 ML PEN SUBQ SCH ×2 (08:01→12:04)
[2017-08-11 08:18] VITALS: BP 137/86
[2017-08-11] MEDS: POLYETHYLENE GLYCOL 3350 17 GM PACKET PO SCH (08:19)
[2017-08-11] MEDS: METOPROLOL TARTRATE 25 MG TABLET PO SCH (08:19)
[2017-08-11] MEDS: POTASSIUM CHLORIDE 10 MEQ CAPSULE PO SCH (08:20)
[2017-08-11] MEDS: ASPIRIN CHEW 81 MG TABLET PO SCH (08:20)
[2017-08-11] MEDS: MULTIVITAMIN TABLET PO SCH (08:20)
[2017-08-11] MEDS: AZITHROMYCIN 250 MG TABLET PO SCH (08:21)
[2017-08-11] MEDS: DIGOXIN 125 MCG TABLET PO SCH (08:21)
[2017-08-11] MEDS: FERROUS GLUCONATE 324 MG TABLET PO SCH (08:21)
[2017-08-11] MEDS: ENOXAPARIN 40 MG/0.4 ML SYRINGE SUBQ SCH (08:22)
[2017-08-11] MEDS: SUCRALFATE 1 GM/10 ML UDC PO SCH (08:22)
[2017-08-11] MEDS: LOSARTAN 50 MG TABLET PO SCH (08:22)
[2017-08-11] MEDS: SODIUM CHLORIDE FLUSH 0.9% 10 ML SYRINGE IVP PRN (08:23)
[2017-08-11] MEDS: FUROSEMIDE 40 MG/4 ML VIAL IVP SCH (08:23)
--- NOTE | 2017-08-11 09:29 | Discharge Plan ---
Discharge Plan Disposition: 01 Home, Self Care Condition: Stable Prescriptions: Azithromycin 250 mg PO DAILY #3 tablet Diet: Diabetic Activity Restrictions: Activity as Tolerated Shower Restrictions: No Weight Bearing: Full Weight Additional Instructions or Follow Up instructions: May see PCP in one week, and mobile architect in two weeks [facility] Care: [facility], [facility], [facility] No Smoking: If you smoke, Please STOP! Call for help. Follow-up with: Raulito Vines MD [Primary Care Provider] -
--- NOTE | 2017-08-11 10:14 | DISCHARGE SUMMARY ---
Discharge Summary Admit Date: 08/08/17 Discharge Date: 08/11/17 Discharging Provider: JURADO Primary Care Provider: Raulito Llanes Code Status: Attempt Resuscitation Condition at Discharge: Stable Discharge Disposition: 01 Home, Self Care Discharge Facility Name: home - DIAGNOSES Admission Diagnoses: (1) CHF exacerbation (2) Atrial fibrillation with RVR (3) Diabetes (4) Bronchitis (5) Hypertension (6) Hypothyroidism (7) Chronic pain Discharge Diagnoses with Status of Each Condition: (1) CHF exacerbation great improved, managed by PCP and tablet tester. pt state he feel much better, he is ready to go to home. Pt's BNP from 900 down to 300. pt is O2-dependent at home (2) Atrial fibrillation with RVR stable, HR is around middle of 70 (3) Diabetes stable (4) Bronchitis controlled, continue to finish the antibiotics course (5) Hypertension stable (6) Hypothyroidism stable (7) Chronic pain pain is better controlled - HPI History of Present Illness: please refer from Miriam Kendrick's HPI on 08/09/17 as the following: Patient is an 81-year-old gentleman with a past medical history significant for type 2 diabetes, diastolic heart failure on home O2, CKD stage III, depression, osteoarthritis, chronic pain, chronic atrial fibrillation on aspirin, hypertension and hyperlipidemia who presented to the emergency department with a chief complaint of shortness of air. The patient states that over the last 3 days he has noticed that he has had increasing shortness of air, orthopnea, cough, mucus production and wheezing. The patient states that his symptoms initially started with what he thinks was a sinus infection about a week and a half ago he states that that seemed to be improving but then he developed some cough, sore throat and eventually became increasingly short of air. The patient states that he did see his tablet tester about 3 weeks ago at which time his Lasix dose was decreased from 80 mg to 40 mg due to worsening kidney function. The patient's notes that the patient has put on 6-7 pounds from his dry weight since that time. The patient also states that about 3 days ago he started noticing that he was having some trouble swallowing and over the last 3 days he has had to bump his home oxygen dose from 2 L up to 3-1/2 L. The patient also admits to increased lower extremity swelling. The patient denies any headaches, blurred vision, runny nose, chest pain, palpitations, abdominal pain, nausea, vomiting, diarrhea, constipation, dysuria , increased urinary urgency, frequency, muscle aches, patient does have chronic back pain but denies any neck stiffness or focal neurologic deficits. On presentation to the emergency department the patient was afebrile, mildly hypertensive and appeared to be quite short of breath. The patient was saturating at 96% on 3 L of oxygen. On examination the patient was found to have crackles, bilateral lower extremity pitting edema and a mildly elevated JVD. The patient's lab work did reveal a BNP of 526 which was not far from his baseline. Patient's troponin was negative and his creatinine was elevated at 1.5 which is near his baseline. The patient's UA was negative he did not have any leukocytosis. The patient's chest x-ray showed no significant interval change. With moderate elevation of the right hemidiaphragm with interstitial densities in the left lung. The patient's heart rate was initially in the 130s with A. fib RVR. The patient did receive some IV metoprolol in the emergency department with which the rate did improve however it continued to be in the 110 -120 range. The patient was admitted to the hospital for CHF exacerbation. - HOSPITAL COURSE Hospital Course: Pt was admitted for CHF exacerbation, afib with RVR and shortness of breathing. After treatment with IV lasix, breathing treatment, antibiotics for his bronchitis, pt report he feel much better. Pt's BNP is down to 300, SO2 98% on 2 liter O2, Afib RVR is controlled to HR at middle of 70. Pt is O2-dependent at home. - ALLERGIES Allergies/Adverse Reactions: Allergies Allergy/AdvReac Type Severity Reaction Status Date / Time No Known Drug Allergies Allergy Verified 04/18/17 11:19 - MEDICATIONS Home Medications: Ambulatory Orders Medication Instructions Recorded Confirmed Digoxin [Lanoxin] 125 mcg PO DAILY 05/06/14 08/08/17 Metformin HCl 500 mg PO BIDWM 05/06/14 08/08/17 Metoprolol Tartrate 75 mg PO BID 05/06/14 08/08/17 Polyethylene Glycol 3350 [Miralax] 17 g PO DAILY 05/06/14 08/08/17 Zolpidem [Ambien] 5 mg PO QPM 05/06/14 08/08/17 Levothyroxine [Synthroid] 100 mcg PO DAILY 02/02/15 08/08/17 Pantoprazole [Protonix] 40 mg PO BIDAC 02/02/15 08/08/17 Furosemide [Lasix] 40 mg PO DAILY #30 09/16/16 08/08/17 Losartan [Cozaar] 50 mg PO DAILY 09/16/16 08/08/17 Multivitamin [Multiple Vitamins] 1 each PO DAILY 09/16/16 08/08/17 Cyanocobalamin [Vitamin B-12] 1,000 mcg IM Q28D 04/04/17 08/08/17 Ferrous Gluconate 324 mg PO DAILY 04/04/17 08/08/17 Insulin Glargine [Lantus Solostar] 10 units SUBQ QPM 04/04/17 08/08/17 Morphine ER 15 mg PO Q8H 04/04/17 08/08/17 Ondansetron Odt [Zofran Odt] 4 mg PO TID PRN 04/04/17 08/08/17 Saxagliptin HCl [Onglyza] 2.5 mg PO DAILY 04/06/17 08/08/17 Aspirin 81 mg PO DAILY 08/08/17 08/08/17 Potassium Chloride 10 meq PO DAILY 08/08/17 08/08/17 Sucralfate [Carafate] 1 gm PO BID 08/08/17 08/08/17 Azithromycin 250 mg PO DAILY #3 tablet 08/11/17 - PHYSICAL EXAM AT DISCHARGE General Appearance: positive: No acute distress, Alert. negative: Lethargic Eyes Bilateral: positive: Normal inspection, PERRL, EOMI, No lid inflammation, Conjunctivae nml ENT: positive: ENT inspection nml, Pharynx nml, No signs of dehydration. negative: Purulent nasal drainage, Pharyngeal erythema, Oral lesions Neck: positive: Nml inspection, Thyroid nml, Trachea midline. negative: Thyromegaly, Lymphadenopathy (R), Lymphadenopathy (L), Stiff neck, Swelling/ bruising, Tracheal deviation Respiratory: positive: Chest non-tender, No respiratory distress. negative: Wheezes, Rales, Rhonchi Cardiovascular: positive: Regular rate & rhythm, No murmur, JVD present. negative: Irregularly irregular, Extrasystoles, Tachycardia, Bradycardia Peripheral Pulses: positive: 2+ Abdomen: positive: Non-tender, Nml bowel sounds, No distention. negative: Tenderness, Guarding, Rebound Back: positive: Nml inspection. negative: CVA tenderness (R), CVA tenderness (L ) Skin: positive: Color nml, No rash, Warm, Dry. negative: Cyanosis, Diaphoresis , Pallor, Decubitus Extremities: positive: Non-tender, Full ROM, Nml appearance. negative: Calf tenderness, Arvind's sign/cords Neurologic/Psychiatric: positive: Oriented x3, Motor nml, Sensation nml, Mood/ affect nml. negative: Sensory loss, Facial droop, Slurred/abnml speech, Depressed mood/affect - LABS Result Diagrams: 08/11/17 05:23 08/11/17 05:23 - FOLLOW UP Follow Up: pt is advised to follow up PCP in one week, and tablet tester in two weeks. pt is prescribed antibiotics for finishing the antibiotics course.
== END 2017-08-11 13:01 | disposition home or self-care (01) | DRG 291 ==
LOC: EDUNIT# → ED 14:29 → MS3 21:02 → ED 21:08
PROVIDERS: ADMIT Internal Medicine; ATTEND Nurse Practitioner Gerontology
DX: I13.0 Hypertensive heart and chronic kidney disease with heart failure and stage 1 through stage 4 chronic kidney disease, or unspecified chronic kidney disease (principal); I50.33 Acute on chronic diastolic (congestive) heart failure; I38 Endocarditis, valve unspecified; I50.9 Heart failure, unspecified; E78.00 Pure hypercholesterolemia, unspecified; E11.22 Type 2 diabetes mellitus with diabetic chronic kidney disease; N18.3 Chronic kidney disease, stage 3 (moderate); N28.9 Disorder of kidney and ureter, unspecified; I48.2 Chronic atrial fibrillation; E11.9 Type 2 diabetes mellitus without complications; J40 Bronchitis, not specified as acute or chronic; E03.9 Hypothyroidism, unspecified; M54.9 Dorsalgia, unspecified; G89.29 Other chronic pain; Z99.81 Dependence on supplemental oxygen; F32.9 Major depressive disorder, single episode, unspecified; E78.5 Hyperlipidemia, unspecified; M19.90 Unspecified osteoarthritis, unspecified site; M81.0 Age-related osteoporosis without current pathological fracture; I34.0 Nonrheumatic mitral (valve) insufficiency; Z91.11 Patient's noncompliance with dietary regimen; Z96.659 Presence of unspecified artificial knee joint; Z87.01 Personal history of pneumonia (recurrent); I25.2 Old myocardial infarction; Z79.4 Long term (current) use of insulin; Z79.891 Long term (current) use of opiate analgesic; Z79.82 Long term (current) use of aspirin; Z79.899 Other long term (current) drug therapy; Z79.84 Long term (current) use of oral hypoglycemic drugs
CPT/HCPCS: 36415; 71020; 80053; 80162; 81001; 81003; 83036; 83690; 83735; 83880; 84100; 84443; 84484; 85025; 87086; 94640; 94664; 96374; 96375; 99285

== ENCOUNTER 2017-09-07 15:48 | Outpatient (CLI) | payer MEDICARE, OTHER ==
[2017-09-07 16:24] LABS: BASOPHILS % (AUTO) 0.6 %; EOSINOPHILS # (AUTO) 0.1 10^3/uL (0.0-0.7); EOSINOPHILS % (AUTO) 2.2 %; HCT - HEMATOCRIT 35.1 % (42.0-52.0); HGB - HEMOGLOBIN 12.3 g/dL (14.0-18.0); LYMPHOCYTES # (AUTO) 1.3 10^3/uL (1.5-3.5); LYMPHOCYTES % (AUTO) 21.1 %; MEAN CORPUSCULAR HEMOGLOBIN 31.9 pg (27.0-31.0); MEAN CORPUSCULAR VOLUME 91.1 fL (80.0-94.0); MEAN PLATELET VOLUME 6.6 fL (7.4-11.4); MONOCYTES # (AUTO) 0.7 10^3/uL (0.0-1.0); MONOCYTES % (AUTO) 10.4 %; NEUTROPHILS # (AUTO) 4.2 10^3/uL (1.5-6.6); NEUTROPHILS % (AUTO) 65.7 %; RED BLOOD COUNT 3.85 10^6/uL (4.70-6.10); RED CELL DISTRIBUTION WIDTH 15.6 % (12.0-15.0); UNCORRECTED WHITE BLOOD COUNT 6.4 x10^3/uL; WHITE BLOOD COUNT 6.4 x10^3/uL (4.8-10.8)
[2017-09-07 16:30] LABS: PT - PROTHROMBIN TIME 11.2 secs (9.9-12.6)
== END 2017-09-07 15:49 | disposition home or self-care (01) ==
LOC: LAB 15:48
PROVIDERS: ATTEND Orthopaedic Surgery
DX: Z01.818 Encounter for other preprocedural examination (principal); I50.22 Chronic systolic (congestive) heart failure
CPT/HCPCS: 36415; 85025; 85610

== ENCOUNTER 2018-05-10 13:56 | Outpatient (CLI) | payer MEDICARE, OTHER | END 2018-05-10 13:57 | disposition home or self-care (01) | LOC: DI 13:56 | PROVIDERS: ATTEND Internal Medicine Cardiovascular Disease | DX: I48.2 Chronic atrial fibrillation (principal); I51.7 Cardiomegaly; I34.0 Nonrheumatic mitral (valve) insufficiency; I50.9 Heart failure, unspecified | CPT/HCPCS: 93306 ==

== ENCOUNTER 2018-09-16 12:27 | Outpatient (CLI) | payer MEDICARE, OTHER ==
[2018-09-16 13:09] LABS: CREATININE 1.4 mg/dL (0.6-1.2)
== END 2018-09-16 12:28 | disposition home or self-care (01) ==
LOC: LAB 12:27
PROVIDERS: ATTEND Internal Medicine Cardiovascular Disease
DX: I50.9 Heart failure, unspecified (principal)
CPT/HCPCS: 36415; 80048

== ENCOUNTER 2018-10-09 16:37 | Outpatient (CLI) | payer MEDICARE, OTHER ==
[2018-10-09 17:24] LABS: CALCIUM 9.1 mg/dL (8.5-10.3); CREATININE 1.4 mg/dL (0.6-1.2)
[2018-10-09 18:28] LABS: PSA FREE 0.65 ng/mL (0.16-2.81)
[2018-10-09 18:29] LABS: PSA TOTAL 7.07 ng/mL (0.000-2.000)
== END 2018-10-09 16:38 | disposition home or self-care (01) ==
LOC: LAB 16:37
PROVIDERS: ATTEND Internal Medicine Cardiovascular Disease
DX: C61 Malignant neoplasm of prostate (principal); I50.9 Heart failure, unspecified; I15.9 Secondary hypertension, unspecified
CPT/HCPCS: 36415; 80048; 84153; 84154

== ENCOUNTER 2019-04-08 09:04 | Outpatient (CLI) | payer MEDICARE, OTHER | END 2019-04-08 09:05 | disposition EMS.NT | LOC: EMS 09:04 | PROVIDERS: ATTEND Surgery | DX: Z03.89 Encounter for observation for other suspected diseases and conditions ruled out (principal) ==

== ENCOUNTER 2019-05-22 14:21 | Outpatient (CLI) | payer MEDICARE, OTHER ==
[2019-05-22 15:19] LABS: BASOPHILS % (AUTO) 0.7 %; EOSINOPHILS # (AUTO) 0.1 10^3/uL (0.0-0.7); EOSINOPHILS % (AUTO) 1.3 %; HGB - HEMOGLOBIN 11.3 g/dL (14.0-18.0); LYMPHOCYTES # (AUTO) 1.6 10^3/uL (1.5-3.5); MEAN CORPUSCULAR HEMOGLOBIN 32.6 pg (27.0-31.0); MEAN CORPUSCULAR HGB CONC 34.1 g/dL (32.0-36.0); MEAN CORPUSCULAR VOLUME 95.4 fL (80.0-94.0); MEAN PLATELET VOLUME 8.5 fL (7.4-11.4); MONOCYTES # (AUTO) 0.7 10^3/uL (0.0-1.0); MONOCYTES % (AUTO) 11.3 %; NEUTROPHILS # (AUTO) 3.6 10^3/uL (1.5-6.6); NEUTROPHILS % (AUTO) 59.5 %; PLT - PLATELET COUNT 234 10^3/uL (130-450); RED BLOOD COUNT 3.47 10^6/uL (4.70-6.10); RED CELL DISTRIBUTION WIDTH 13.9 % (12.0-15.0)
[2019-05-22 15:21] LABS: ALBUMIN 4.1 g/dL (3.2-5.5); ALBUMIN/GLOBULIN RATIO 1.4 (1.0-2.2); ALKALINE PHOSPHATASE 96 IU/L (42-121); ALT ALANINE AMINOTRANSFERASE 18 IU/L (10-60); AST ASPARTATE AMINOTRANSFERASE 21 IU/L (10-42); BILIRUBIN,TOTAL 1.2 mg/dL (0.2-1.0); BUN - BLOOD UREA NITROGEN 34 mg/dL (6-20); CALCIUM 9.6 mg/dL (8.5-10.3); CARBON DIOXIDE - CO2 30 mmol/L (21-32); CHLORIDE 89 mmol/L (101-111); CREATININE 1.7 mg/dL (0.6-1.2); DIGOXIN 1.2 ng/mL; GFR - MDRD 39 (>89); GLUCOSE 138 mg/dL (70-100); SODIUM 135 mmol/L (135-145); TOTAL PROTEIN 7.1 g/dL (6.7-8.2)
[2019-05-22 20:21] LABS: PSA FREE 0.79 ng/mL (0.16-2.81)
[2019-05-22 20:23] LABS: PSA TOTAL 8.07 ng/mL (0.000-2.000)
== END 2019-05-22 14:22 | disposition home or self-care (01) ==
LOC: LAB 14:21
PROVIDERS: ATTEND Internal Medicine Cardiovascular Disease
DX: I50.9 Heart failure, unspecified (principal); R35.1 Nocturia
CPT/HCPCS: 36415; 80053; 80162; 84153; 84154; 85025

== ENCOUNTER 2019-07-23 13:45 | Outpatient (CLI) | payer MEDICARE, OTHER ==
[2019-07-23 14:38] LABS: CALCIUM 9.4 mg/dL (8.5-10.3); CREATININE 1.6 mg/dL (0.6-1.2)
== END 2019-07-23 13:46 | disposition home or self-care (01) ==
LOC: LAB 13:45
PROVIDERS: ATTEND Internal Medicine Cardiovascular Disease
DX: I48.2 Chronic atrial fibrillation (principal)
CPT/HCPCS: 36415; 80048

== ENCOUNTER 2019-11-14 12:30 | Outpatient (CLI) | payer MEDICARE, OTHER ==
[2019-11-14 13:16] LABS: BASOPHILS % (AUTO) 0.5 %; EOSINOPHILS # (AUTO) 0.1 10^3/uL (0.0-0.7); EOSINOPHILS % (AUTO) 1.5 %; HGB - HEMOGLOBIN 10.8 g/dL (14.0-18.0); LYMPHOCYTES # (AUTO) 1.1 10^3/uL (1.5-3.5); LYMPHOCYTES % (AUTO) 16.2 %; MEAN CORPUSCULAR HEMOGLOBIN 31.6 pg (27.0-31.0); MEAN CORPUSCULAR HGB CONC 33.3 g/dL (32.0-36.0); MEAN CORPUSCULAR VOLUME 94.7 fL (80.0-94.0); MEAN PLATELET VOLUME 9.6 fL (7.4-11.4); MONOCYTES # (AUTO) 0.8 10^3/uL (0.0-1.0); MONOCYTES % (AUTO) 12.5 %; NEUTROPHILS # (AUTO) 4.5 10^3/uL (1.5-6.6); NEUTROPHILS % (AUTO) 68.7 %; PLT - PLATELET COUNT 173 10^3/uL (130-450); RED BLOOD COUNT 3.42 10^6/uL (4.70-6.10); RED CELL DISTRIBUTION WIDTH 13.8 % (12.0-15.0); WHITE BLOOD COUNT 6.5 x10^3/uL (4.8-10.8)
[2019-11-14 13:45] LABS: ALBUMIN/GLOBULIN RATIO 1.3 (1.0-2.2); BILIRUBIN,TOTAL 1.5 mg/dL (0.2-1.0); CALCIUM 8.9 mg/dL (8.5-10.3); CREATININE 1.9 mg/dL (0.6-1.2); TOTAL PROTEIN 7.1 g/dL (6.7-8.2)
[2019-11-14 13:55] LABS: THYROID STIMULATING HORMONE 1.84 uIU/mL (0.34-5.60)
[2019-11-14 14:01] LABS: FERRITIN 94.4 ng/mL (23.9-336.2)
[2019-11-14 14:04] LABS: PSA FREE 1.42 ng/mL (0.16-2.81)
[2019-11-14 14:05] LABS: PSA TOTAL 8.65 ng/mL (0.000-2.000)
== END 2019-11-14 12:31 | disposition home or self-care (01) ==
LOC: LAB 12:30
PROVIDERS: ATTEND Internal Medicine Cardiovascular Disease
DX: R53.83 Other fatigue (principal); I42.8 Other cardiomyopathies; C61 Malignant neoplasm of prostate
CPT/HCPCS: 36415; 80053; 82607; 82728; 83540; 84153; 84154; 84443; 84466; 85025

== ENCOUNTER 2019-12-02 11:49 | Outpatient (CLI) | payer MEDICARE, OTHER ==
[2019-12-02 12:47] LABS: DIGOXIN 1.4 ng/mL
== END 2019-12-02 11:50 | disposition home or self-care (01) ==
LOC: LAB 11:49
PROVIDERS: ATTEND Internal Medicine Cardiovascular Disease
DX: I48.21 Permanent atrial fibrillation (principal)
CPT/HCPCS: 36415; 80162

== ENCOUNTER 2020-02-16 19:49 | Outpatient (CLI) | payer MEDICARE, OTHER | END 2020-02-16 19:50 | disposition critical access hospital (66) | LOC: EMS 19:49 | PROVIDERS: ATTEND Surgery | DX: R50.9 Fever, unspecified (principal); R53.1 Weakness; R11.0 Nausea; R19.7 Diarrhea, unspecified | CPT/HCPCS: A0425; A0429 ==

== ENCOUNTER 2020-02-16 20:02 | Emergency (ER) | payer MEDICARE, OTHER ==
--- NOTE | 2020-02-16 20:24 | ED Physician Documentation ---
History of Present Illness - Stated complaint Stated Complaint: WEAKNESS/ SOA - History obtained from History obtained from: Patient, EMS - History of Present Illness Pain level max: 0 Pain level now: 0 - Additonal information Additional information: Patient lives at home with his , his is normally on 2 L of oxygen at home. Patient is a very poor historian is unclear as to why he is here. He states he is always short of breath. Per EMS he is more short of breath than usual and weaker than usual. His doctor recently increased his Lasix. He denies any chest pain. No coughing. No fevers. Worse with walking and better with rest. No abdominal pain. No nausea or vomiting. Review of Systems Ten Systems: 10 systems reviewed and negative Constitutional: denies: Fever, Chills Ears: denies: Ear pain Nose: denies: Rhinorrhea / runny nose, Congestion Throat: denies: Sore throat Cardiac: denies: Chest pain / pressure Respiratory: reports: Dyspnea. denies: Cough GI: denies: Vomiting, Diarrhea : denies: Dysuria Skin: denies: Rash Musculoskeletal: denies: Neck pain, Back pain Neurologic: denies: Headache PD PAST MEDICAL HISTORY - Past Medical History Cardiovascular: Congestive heart failure, Hypertension, High cholesterol, [place], Atrial fibrillation, Valve disorder Respiratory: Pneumonia Endocrine/Autoimmune: Type 2 diabetes GI: Diverticulitis, Other : Renal insuffiency HEENT: Chronic vision loss, Chronic hearing loss Psych: Depression Musculoskeletal: Osteoarthritis, Osteoporosis, Chronic back pain Derm: None - Past Surgical History Past Surgical History: Yes General: Cholecystectomy, Bowel surgery Ortho: Knee replacement, Spine surgery, Other - Present Medications Home Medications: Ambulatory Orders Medication Instructions Recorded Confirmed Digoxin [Lanoxin] 125 mcg PO DAILY 05/06/14 07/12/18 Metformin HCl 500 mg PO BIDWM 05/06/14 07/12/18 Metoprolol Tartrate 75 mg PO BID 05/06/14 07/12/18 Zolpidem [Ambien] 5 mg PO QPM 05/06/14 07/12/18 polyethylene glycoL 3350 [Miralax] 17 g PO DAILY 05/06/14 07/12/18 Levothyroxine [Synthroid] 100 mcg PO DAILY 02/02/15 07/12/18 Pantoprazole [Protonix] 40 mg PO BIDAC 02/02/15 07/12/18 Furosemide [Lasix] 40 mg PO DAILY #30 09/16/16 07/12/18 Losartan [Cozaar] 50 mg PO DAILY 09/16/16 07/12/18 Multivitamin [Multiple Vitamins] 1 each PO DAILY 09/16/16 07/12/18 Cyanocobalamin [Vitamin B-12] 1,000 mcg IM Q28D 04/04/17 07/12/18 Ferrous Gluconate 324 mg PO DAILY 04/04/17 07/12/18 Morphine ER 15 mg PO Q8H 04/04/17 07/12/18 Ondansetron Odt [Zofran Odt] 4 mg PO TID PRN 04/04/17 07/12/18 Aspirin 81 mg PO DAILY 08/08/17 07/12/18 Potassium Chloride 10 meq PO DAILY 08/08/17 07/12/18 Sucralfate [Carafate] 1 gm PO BID 08/08/17 07/12/18 Docusate Sodium [Dulcolax Stool 100 mg PO BID 07/12/18 07/12/18 Softener] Fluticasone [Flonase] 1 spray RAMIN BID 07/12/18 07/12/18 Insulin Glargine [Lantus Solostar] 10 units SQ DAILY PM 07/12/18 07/12/18 Lactobacillus Acidophilus 1 cap PO DAILY 07/12/18 07/12/18 [Digestive Probiotic] Miconazole Nitrate [Micro-Guard] 85 gm TP BID 07/12/18 07/12/18 Mineral Oil/Petrolatum,White 1 applic EACHEYE Q1HR PRN 07/12/18 07/12/18 [Artificial Tears Eye Ointment] Senna [Senokot] 2 tab PO DAILY PM 07/12/18 07/12/18 Thiamine [Vitamin B-1] 1 tab PO DAILY 07/12/18 07/12/18 Vitamin E (Dl,Tocopheryl Acet) 1 cap PO DAILY 07/12/18 07/12/18 [Vitamin E-200] oxyCODONE/ACET 5/325 [Percocet 5 1 - 2 tab PO Q4HR PRN 07/12/18 07/12/18 mg/325 mg] - Allergies Allergies/Adverse Reactions: Allergies Allergy/AdvReac Type Severity Reaction Status Date / Time clonidine Allergy Unknown Verified 07/12/18 13:10 diltiazem Allergy Unknown Verified 07/12/18 13:10 - Social History Does the pt smoke?: No Smoking Status: Never smoker Does the pt drink ETOH?: Yes Does the pt have substance abuse?: No - Immunizations Immunizations are current?: No Immunizations: TDAP >10years/unknown - POLST Patient has POLST: Yes POLST Status: Full Code PD ED PE NORMAL - Vitals Vital signs reviewed: Yes - General General: Alert and oriented X 3, No acute distress, Well developed/nourished - HEENT HEENT: Moist mucous membranes - Neck Neck: Supple, no meningeal sign - Cardiac Cardiac: RRR, Strong equal pulses - Respiratory Respiratory: No respiratory distress, Other (Crackles bilaterally) - Abdomen Abdomen: Soft, Non tender, Non distended - Derm Derm: Warm and dry - Extremities Extremities: Other (2+ pitting edema bilaterally to the mid shins) - Neuro Neuro: Alert and oriented X 3 - Psych Psych: Normal mood, Normal affect Results - Vitals Vitals: Vital Signs - 24 hr 02/16/20 02/16/20 20:45 20:48 Temperature 36.8 C Heart Rate 90 103 H Respiratory 18 20 Rate Blood Pressure 137/85 H O2 Saturation 93 98 Oxygen O2 Source [] Room air O2 Source [] Room air O2 Source Room air - EKG (time done) 2020 Rate: Rate (enter#) (99) Rhythm: Atrial fibrillation Intervals: LBBB Compare to prior EKG: Unchanged from prior EKG - Labs Labs: Laboratory Tests 02/16/20 02/16/20 02/16/20 20:30 20:30 20:30 WBC 6.4 RBC 3.15 L Hgb 9.8 L Hct 29.8 L MCV 94.6 H MCH 31.1 H MCHC 32.9 RDW 13.7 Plt Count 127 L MPV 10.7 Neut # (Auto) 4.6 Lymph # (Auto) 0.8 L [place] # (Auto) 0.8 Eos # (Auto) 0.2 Baso # (Auto) 0.0 Absolute Nucleated RBC 0.00 Nucleated RBC % 0.0 Sodium 127 L Potassium 4.1 Chloride 90 L Carbon Dioxide 28 Anion Gap 9.0 BUN 53 H Creatinine 2.0 H Estimated GFR (MDRD) 32 L Glucose 165 H Calcium 8.6 Phosphorus Magnesium Total Bilirubin 1.7 H AST 20 ALT 18 Alkaline Phosphatase 172 H Troponin I High Sens 24.1 H* B-Natriuretic Peptide Total Protein 7.3 Albumin 3.7 Globulin 3.6 Albumin/Globulin Ratio 1.0 Lipase 18 L Last Dose Date Last Dose Time Digoxin 02/16/20 02/16/20 20:30 20:30 WBC RBC Hgb Hct MCV MCH MCHC RDW Plt Count MPV Neut # (Auto) Lymph # (Auto) [place] # (Auto) Eos # (Auto) Baso # (Auto) Absolute Nucleated RBC Nucleated RBC % Sodium Potassium Chloride Carbon Dioxide Anion Gap BUN Creatinine Estimated GFR (MDRD) Glucose Calcium Phosphorus 3.6 Magnesium 2.0 Total Bilirubin AST ALT Alkaline Phosphatase Troponin I High Sens B-Natriuretic Peptide 307 H Total Protein Albumin Globulin Albumin/Globulin Ratio Lipase Last Dose Date Not Reportable Last Dose Time Not Reportable Digoxin 0.8 - Rads (name of study) cxr Radiology: Prelim report reviewed, EMP read contemporaneously, See rad report (Findings most consistent with chronic pulmonary edema. No focal opacity) PD MEDICAL DECISION MAKING - ED course Complexity details: reviewed results, re-evaluated patient, considered differential, d/w patient ED course: 84-year-old male with what appears to be mild overdiuresis. Given IV fluids here. Mild hyponatremia. His BN P is actually lower than usual. High- sensitivity troponin is not significantly elevated. No evidence of acute coronary syndrome. EKG is unchanged. We will have him resume his normal home dose of Lasix, his doctor apparently increased this about a week ago. Patient is not requiring any more oxygen than usual. He is 98% on his normal home O2 of 2L. Patient counseled regarding signs and symptoms for which I believe and urgent re-evaluation would be necessary. Patient with good understanding of and agreement to plan and is comfortable going home at this time This document was made in part using voice recognition software. While efforts are made to proofread this document, sound alike and grammatical errors may occur. Departure - Departure Disposition: 01 Home, Self Care Clinical Impression: Dehydration, Hyponatremia Atrial fibrillation Qualifiers: Atrial fibrillation type: unspecified Qualified Code(s): I48.91 - Unspecified atrial fibrillation Anemia Qualifiers: Anemia type: unspecified type Qualified Code(s): D64.9 - Anemia, unspecified Condition: Good Instructions: ED Afib, ED CHF General Follow-Up: Clay Figueredo MD [Primary Care Provider] - Within 1 week Comments: Please resume your normal Lasix dose at home. Return if he worsens. Follow-up with your doctor for further care.
[2020-02-16 20:41] LABS: BASOPHILS % (AUTO) 0.3 %; EOSINOPHILS # (AUTO) 0.2 10^3/uL (0.0-0.7); EOSINOPHILS % (AUTO) 2.5 %; HGB - HEMOGLOBIN 9.8 g/dL (14.0-18.0); LYMPHOCYTES # (AUTO) 0.8 10^3/uL (1.5-3.5); LYMPHOCYTES % (AUTO) 13.2 %; MEAN CORPUSCULAR HEMOGLOBIN 31.1 pg (27.0-31.0); MEAN CORPUSCULAR HGB CONC 32.9 g/dL (32.0-36.0); MEAN CORPUSCULAR VOLUME 94.6 fL (80.0-94.0); MEAN PLATELET VOLUME 10.7 fL (7.4-11.4); MONOCYTES # (AUTO) 0.8 10^3/uL (0.0-1.0); MONOCYTES % (AUTO) 12.1 %; NEUTROPHILS # (AUTO) 4.6 10^3/uL (1.5-6.6); NEUTROPHILS % (AUTO) 71.7 %; PLT - PLATELET COUNT 127 10^3/uL (130-450); RED BLOOD COUNT 3.15 10^6/uL (4.70-6.10); RED CELL DISTRIBUTION WIDTH 13.7 % (12.0-15.0); WHITE BLOOD COUNT 6.4 x10^3/uL (4.8-10.8)
[2020-02-16 20:57] LABS: ALBUMIN 3.7 g/dL (3.2-5.5); BILIRUBIN,TOTAL 1.7 mg/dL (0.2-1.0); CALCIUM 8.6 mg/dL (8.5-10.3); TOTAL PROTEIN 7.3 g/dL (6.7-8.2)
[2020-02-16] MEDS ORDERED: FUROSEMIDE 40 MG/4 ML VIAL IVP STA (21:01)
[2020-02-16 21:04] LABS: DIGOXIN 0.8 ng/mL; PHOSPHORUS 3.6 mg/dL (2.5-4.6)
--- NOTE | 2020-02-16 21:13 | XRAY Report ---
Reason: dyspnea Procedure Date: 02/16/2020 Accession Number: [id number] / [id number] Procedure: XR - Chest 1 View X-Ray CPT Code: 04197 Final Report FULL RESULT: EXAM: CHEST RADIOGRAPHY EXAM DATE: 02/16/2020 08:43 PM. CLINICAL HISTORY: Dyspnea. COMPARISON: CHEST 2 VIEW PA/LAT 08/08/2017 3:39 PM. TECHNIQUE: 1 view. FINDINGS: Lungs/Pleura: Prominent bilateral perihilar vascularity and interstitium, most consistent with chronic pulmonary edema. No focal opacities evident. No pleural effusion. No pneumothorax. Mediastinum: Within exam limitations, the cardiomediastinal contour is normal. Other: None. IMPRESSION: Findings most consistent with chronic pulmonary edema. No focal opacity. RADIA
[2020-02-16] MEDS ORDERED: SODIUM CHLORIDE 0.9% 500 ML IV ONE (21:20)
[2020-02-16 21:45] LABS: BILIRUBIN,URINE NEGATIVE (NEGATIVE); GLUCOSE, URINE (UA) NEGATIVE (NEGATIVE); KETONES,URINE (UA) NEGATIVE (NEGATIVE); LEUKOCYTE ESTERASE, URINE NEGATIVE (NEGATIVE); NITRITE,URINE NEGATIVE (NEGATIVE); OCCULT BLOOD,URINE NEGATIVE (NEGATIVE); PH,URINE 5.5 PH (5.0-7.5); PROTEIN,URINE NEGATIVE (NEGATIVE); UROBILINOGEN,URINE 1 (NORMAL) E.U./dL (NORMAL)
[2020-02-16 21:46] LABS: CLARITY,URINE CLEAR (CLEAR)
[2020-02-16 22:26] VITALS: BP 124/78
== END 2020-02-16 22:24 | disposition home or self-care (01) ==
LOC: EDUNIT# → ED 20:02
DX: E86.0 Dehydration (principal); E87.0 Hyperosmolality and hypernatremia; I48.91 Unspecified atrial fibrillation; D64.9 Anemia, unspecified; I10 Essential (primary) hypertension; E11.9 Type 2 diabetes mellitus without complications; Z79.4 Long term (current) use of insulin
CPT/HCPCS: 36415; 71045; 80053; 80162; 81001; 81003; 83690; 83735; 83880; 84100; 84484; 85025; 87086; 93005; 96374; 99284

== ENCOUNTER 2020-02-29 17:26 | Outpatient (CLI) | payer MEDICARE, OTHER | END 2020-02-29 17:27 | disposition critical access hospital (66) | LOC: EMS 17:26 | PROVIDERS: ATTEND Surgery | DX: R07.9 Chest pain, unspecified (principal); R06.09 Other forms of dyspnea; R53.1 Weakness; R53.83 Other fatigue; M54.5 Low back pain | CPT/HCPCS: A0425; A0429 ==

== ENCOUNTER 2020-02-29 17:33 | Inpatient (IN) | payer MEDICARE, OTHER ==
--- NOTE | 2020-02-29 17:52 | ED Physician Documentation ---
History of Present Illness - Stated complaint Stated Complaint: WEAKNESS - Chief complaint Chief Complaint: General - History obtained from History obtained from: Patient, EMS - History of Present Illness Timing: Other (84-year-old gentleman with history of atrial fibrillation presents the emergency department with about a day and a half of intermittent chest pains. He is a vague historian and seems somewhat disoriented. He was seen here a little over 2 weeks ago with mild exacerbation of CHF with worsening renal failure and modest hyponatremia.) Associated symptoms: Further history obtained from the who arrived at the bedside a little later. He has been really complaining of chest pain more today. He is currently on 80 mg of Lasix. He had been on 80 earlier this month and then we dropped it. He was having more problems so was increased about 5 days ago. Despite that there is really no change in his lower extremity edema. Maybe the left is a little better, but the right is not better. He is a little more confused than normal. He has not been ambulatory for the last 2 weeks independently. Prior to that he was ambulatory with a walker and for the most part managed his ADLs despite his underlying dementia. Now he is completely dependent. - Additonal information Additional information: Last echocardiogram on our chart was from April 2018. At that time he was in A. fib with an EF of 40 to 45%. Mild global hypokinesis. Mild RV enlargement. Mild to moderate mitral regurgitation. Mild tricuspid regurgitation Review of Systems Unable to obtain: Confused PD PAST MEDICAL HISTORY - Past Medical History Cardiovascular: Congestive heart failure, Hypertension, High cholesterol, [place], Atrial fibrillation, Valve disorder Respiratory: Pneumonia Endocrine/Autoimmune: Type 2 diabetes GI: Diverticulitis, Other : Renal insuffiency HEENT: Chronic vision loss, Chronic hearing loss Psych: Depression Musculoskeletal: Osteoarthritis, Osteoporosis, Chronic back pain Derm: None - Past Surgical History Past Surgical History: Yes General: Cholecystectomy, Bowel surgery Ortho: Knee replacement, Spine surgery, Other - Present Medications Home Medications: Ambulatory Orders Medication Instructions Recorded Confirmed Digoxin [Lanoxin] 125 mcg PO DAILY 05/06/14 07/12/18 Metformin HCl 500 mg PO BIDWM 05/06/14 07/12/18 Metoprolol Tartrate 75 mg PO BID 05/06/14 07/12/18 Zolpidem [Ambien] 5 mg PO QPM 05/06/14 07/12/18 polyethylene glycoL 3350 [Miralax] 17 g PO DAILY 05/06/14 07/12/18 Levothyroxine [Synthroid] 100 mcg PO DAILY 02/02/15 07/12/18 Pantoprazole [Protonix] 40 mg PO BIDAC 02/02/15 07/12/18 Furosemide [Lasix] 40 mg PO DAILY #30 09/16/16 07/12/18 Losartan [Cozaar] 50 mg PO DAILY 09/16/16 07/12/18 Multivitamin [Multiple Vitamins] 1 each PO DAILY 09/16/16 07/12/18 Cyanocobalamin [Vitamin B-12] 1,000 mcg IM Q28D 04/04/17 07/12/18 Ferrous Gluconate 324 mg PO DAILY 04/04/17 07/12/18 Morphine ER 15 mg PO Q8H 04/04/17 07/12/18 Ondansetron Odt [Zofran Odt] 4 mg PO TID PRN 04/04/17 07/12/18 Aspirin 81 mg PO DAILY 08/08/17 07/12/18 Potassium Chloride 10 meq PO DAILY 08/08/17 07/12/18 Sucralfate [Carafate] 1 gm PO BID 08/08/17 07/12/18 Docusate Sodium [Dulcolax Stool 100 mg PO BID 07/12/18 07/12/18 Softener] Fluticasone [Flonase] 1 spray RAMIN BID 07/12/18 07/12/18 Insulin Glargine [Lantus Solostar] 10 units SQ DAILY PM 07/12/18 07/12/18 Lactobacillus Acidophilus 1 cap PO DAILY 07/12/18 07/12/18 [Digestive Probiotic] Miconazole Nitrate [Micro-Guard] 85 gm TP BID 07/12/18 07/12/18 Mineral Oil/Petrolatum,White 1 applic EACHEYE Q1HR PRN 07/12/18 07/12/18 [Artificial Tears Eye Ointment] Senna [Senokot] 2 tab PO DAILY PM 07/12/18 07/12/18 Thiamine [Vitamin B-1] 1 tab PO DAILY 07/12/18 07/12/18 Vitamin E (Dl,Tocopheryl Acet) 1 cap PO DAILY 07/12/18 07/12/18 [Vitamin E-200] oxyCODONE/ACET 5/325 [Percocet 5 1 - 2 tab PO Q4HR PRN 07/12/18 07/12/18 mg/325 mg] - Allergies Allergies/Adverse Reactions: Allergies Allergy/AdvReac Type Severity Reaction Status Date / Time clonidine Allergy Unknown Verified 02/29/20 17:43 diltiazem Allergy Unknown Verified 02/29/20 17:43 - Social History Does the pt smoke?: No Smoking Status: Never smoker Does the pt drink ETOH?: Yes Does the pt have substance abuse?: No - Immunizations Immunizations are current?: No Immunizations: TDAP >10years/unknown - POLST Patient has POLST: Yes POLST Status: Full Code PD ED PE NORMAL - Vitals Vital signs reviewed: Yes - General General: Other (He is alert and oriented to person and place but not time or events. He cannot come up with the year. He can state his address.) - HEENT HEENT: PERRL, EOMI - Neck Neck: Supple, no meningeal sign, No bony TTP - Cardiac Cardiac: Other (Irregularly irregular without murmur) - Respiratory Respiratory: Other (Diminished at the right base and with rales mcfp up) - Abdomen Abdomen: Soft, Non tender - Back Back: No CVA TTP, No spinal TTP - Derm Derm: Normal color, Warm and dry - Extremities Extremities: Other (Significant bilateral pitting pedal edema, somewhat worse on the right without calf tenderness.) - Neuro Neuro: No motor deficit, No sensory deficit Eye Opening: Spontaneous Motor: Obeys Commands Verbal: Confused GCS Score: 14 Results - Vitals Vitals: Vital Signs - 24 hr 02/29/20 02/29/20 17:44 18:57 Temperature 36.8 C Heart Rate 78 78 Respiratory 15 16 Rate Blood Pressure 148/80 H 139/78 H O2 Saturation 98 98 Oxygen O2 Source [Without Activity] Room air O2 Source [With Activity] Room air O2 Source Nasal cannula Oxygen Flow Rate 2 - EKG (time done) 2525 Rate: Rate (enter#) (89) Rhythm: Atrial fibrillation Intervals: LBBB Compare to prior EKG: Changed from prior EKG (Compared with the last EKG done on the sixth of this month, he has less ST depression now in V5 and V6 but that certainly could be due to lead placement.) - Labs Labs: Laboratory Tests 02/29/20 02/29/20 02/29/20 17:50 17:50 17:50 WBC 7.7 RBC 2.90 L Hgb 8.9 L Hct 27.3 L MCV 94.1 H MCH 30.7 MCHC 32.6 RDW 13.3 Plt Count 199 MPV 10.4 Neut # (Auto) 5.3 Lymph # (Auto) 1.0 L [place] # (Auto) 0.9 Eos # (Auto) 0.4 Baso # (Auto) 0.0 Absolute Nucleated RBC 0.00 Nucleated RBC % 0.0 Sodium 128 L Potassium 4.6 Chloride 83 L Carbon Dioxide 34 H Anion Gap 11.0 BUN 46 H Creatinine 1.5 H Estimated GFR (MDRD) 45 L Glucose 121 H Calcium 8.6 Total Bilirubin 1.7 H AST 26 ALT 27 Alkaline Phosphatase 205 H Troponin I High Sens 33.9 H* B-Natriuretic Peptide Total Protein 6.5 L Albumin 3.0 L Globulin 3.5 Albumin/Globulin Ratio 0.9 L Lipase 20 L Last Dose Date Last Dose Time Digoxin Blood Type Antibody Screen Crossmatch IS Only 02/29/20 02/29/20 02/29/20 17:50 17:50 18:45 WBC RBC Hgb Hct MCV MCH MCHC RDW Plt Count MPV Neut # (Auto) Lymph # (Auto) [place] # (Auto) Eos # (Auto) Baso # (Auto) Absolute Nucleated RBC Nucleated RBC % Sodium Potassium Chloride Carbon Dioxide Anion Gap BUN Creatinine Estimated GFR (MDRD) Glucose Calcium Total Bilirubin AST ALT Alkaline Phosphatase Troponin I High Sens B-Natriuretic Peptide 442 H Total Protein Albumin Globulin Albumin/Globulin Ratio Lipase Last Dose Date UNKNOWN Last Dose Time UNKNOWN Digoxin 1.6 Blood Type A POSITIVE Antibody Screen NEGATIVE Crossmatch IS Only See Detail - Rads (name of study) 1v chest Radiology: EMP read contemporaneously (Right hemidiaphragm elevation, increased pulmonary edema.) PD MEDICAL DECISION MAKING - ED course ED course: 84-year-old gentleman with an acute exacerbation of chronic heart failure, he is symptomatic at rest. His BNP has increased. His renal function has improved rizzo ggesting now he is under diuresed. Troponin only modestly elevated. EKG nonischemic. Dr. Murphy will admit for further diuresis. Blood was readied given worsening symptomatic anemia and borderline functional status and he was given 160 mg of Lasix IV and some Nitropaste in the department. Departure - Departure Disposition: 66 [facility] DC/Xfer Clinical Impression: CHF (NYHA class IV, ACC/AHA stage D) Anemia Qualifiers: Anemia type: unspecified type Qualified Code(s): D64.9 - Anemia, unspecified Fluid overload Qualifiers: Hypervolemia type: unspecified Qualified Code(s): E87.70 - Fluid overload, unspecified Condition: Serious Discharge Date/Time: 02/29/20 20:35
[2020-02-29 17:55] LABS: BASOPHILS % (AUTO) 0.5 %; EOSINOPHILS # (AUTO) 0.4 10^3/uL (0.0-0.7); EOSINOPHILS % (AUTO) 5.3 %; HGB - HEMOGLOBIN 8.9 g/dL (14.0-18.0); LYMPHOCYTES % (AUTO) 13.4 %; MEAN CORPUSCULAR HEMOGLOBIN 30.7 pg (27.0-31.0); MEAN CORPUSCULAR HGB CONC 32.6 g/dL (32.0-36.0); MEAN CORPUSCULAR VOLUME 94.1 fL (80.0-94.0); MEAN PLATELET VOLUME 10.4 fL (7.4-11.4); MONOCYTES # (AUTO) 0.9 10^3/uL (0.0-1.0); MONOCYTES % (AUTO) 11.4 %; NEUTROPHILS # (AUTO) 5.3 10^3/uL (1.5-6.6); NEUTROPHILS % (AUTO) 68.8 %; PLT - PLATELET COUNT 199 10^3/uL (130-450); RED CELL DISTRIBUTION WIDTH 13.3 % (12.0-15.0); WHITE BLOOD COUNT 7.7 x10^3/uL (4.8-10.8)
[2020-02-29 18:10] LABS: ALBUMIN/GLOBULIN RATIO 0.9 (1.0-2.2); BILIRUBIN,TOTAL 1.7 mg/dL (0.2-1.0); CALCIUM 8.6 mg/dL (8.5-10.3); CREATININE 1.5 mg/dL (0.6-1.2); TOTAL PROTEIN 6.5 g/dL (6.7-8.2)
[2020-02-29 18:14] LABS: DIGOXIN 1.6 ng/mL
--- NOTE | 2020-02-29 18:18 | XRAY Report ---
Reason: chest pain Procedure Date: 02/29/2020 Accession Number: [id number] / [id number] Procedure: XR - Chest 1 View X-Ray CPT Code: 38002 Final Report FULL RESULT: EXAM: CHEST RADIOGRAPHY EXAM DATE: 02/29/2020 05:39 PM. CLINICAL HISTORY: Chest pain. COMPARISON: CHEST 1 VIEW 02/16/2020 8:24 PM. TECHNIQUE: 1 view. FINDINGS IMPRESSION: Unchanged elevation of the right hemidiaphragm. Stable heart size. There are increased bilateral hazy pulmonary opacities with interstitial prominence, suspicious for edema. No focal consolidation. No pleural effusion or pneumothorax visualized.
[2020-02-29] MEDS ORDERED: FUROSEMIDE 100 MG/10 ML VIAL IVP STA (18:23)
[2020-02-29] MEDS ORDERED: ASPIRIN CHEW 81 MG TABLET PO STA (18:24)
[2020-02-29] MEDS ORDERED: NITROGLYCERIN 2% PASTE TOP STA (18:25)
[2020-02-29] MEDS ORDERED: SODIUM CHLORIDE FLUSH 0.9% 10 ML SYRINGE IVP PRN (19:51)
[2020-02-29] MEDS ORDERED: MORPHINE 2 MG/ML CARPUJECT IVP PRN (19:51)
[2020-02-29] MEDS ORDERED: ACETAMINOPHEN 325 MG TABLET PO PRN (19:51)
[2020-02-29] MEDS ORDERED: MINERAL OIL/PETROLAT OPHTH OINT EACHEYE PRN (19:59)
[2020-02-29] MEDS ORDERED: ONDANSETRON ODT 4 MG TABLET PO PRN (19:59)
[2020-02-29] MEDS ORDERED: CYANOCOBALAMIN 1,000 MCG/ML VIAL IM SCH (20:00)
--- NOTE | 2020-02-29 20:26 | Ultrasound Report ---
Reason: R > L edema Procedure Date: 02/29/2020 Accession Number: [id number] / [id number] Procedure: US - Duplex Ext Veins Bilateral CPT Code: Final Report FULL RESULT: EXAM: BILATERAL LOWER EXTREMITY VENOUS ULTRASOUND EXAM DATE: 02/29/2020 07:51 PM. CLINICAL HISTORY: R L edema. COMPARISON: None. TECHNIQUE: Real-time sonographic vascular imaging was performed by the lean manufacturing engineer through the lower extremities utilizing both color-flow and Doppler spectral analysis. Multiple public service representative static images were saved for review. FINDINGS: Right: Common Femoral Vein (CFV): Normal. CFV-GSV Junction: Normal. Profunda Femoral Vein (PFV): Normal. Femoral Vein (FV) Prox: Normal. Femoral Vein (FV) Mid: Normal. Femoral Vein (FV) Dist: Normal. Popliteal Vein: Normal. Posterior Tibial Veins: Normal. Peroneal Veins: Normal. Left: Common Femoral Vein (CFV): Normal. CFV-GSV Junction: Normal. Profunda Femoral Vein (PFV): Normal. Femoral Vein (FV) Prox: Normal. Femoral Vein (FV) Mid: Normal. Femoral Vein (FV) Dist: Normal. Popliteal Vein: Normal. Posterior Tibial Veins: Normal. Peroneal Veins: Normal. Other: Bilateral subcutaneous lower extremity edema, right great than left. IMPRESSION: No DVT in either lower extremity. Bilateral subcutaneous lower extremity edema, right great than left. RADIA
--- NOTE | 2020-02-29 20:49 | HISTORY & PHYSICAL EXAMINATION ---
Chief Complaint - Chief Complaint Chief Complaint: Weakness, leg swelling History of Present Illness - Admitted From Admitted From:: ED - History Obtained From Records Reviewed: ED, clinic notes, and previous hospital stays History obtained from: Patient, , ED physician Exam Limitations: None - History of Present Illness HPI Comment/Other: Mr. Nieves is an 84-year-old male with a known past medical history consisti ng of CHF, atrial fibrillation, type 2 diabetes on insulin, chronic pain secondary to osteoarthritis of the spine and status post bilateral knee replacement who presents to the emergency room after complaining of 2 weeks duration of progressive dyspnea on exertion, bilateral lower extremity edema, a nd profound weakness. He is also had on and off episodes of chest pain that seem to be without any precipitating factors and are self-limiting. In addition, he adds that he has been having profuse night sweats for the last several nights, waking up soaking. He adds a history of anosmia over the last 2 weeks. Patient was in the emergency room approximately 2 weeks ago On 02/16/2020, and at the time he presented with dyspnea on exertion. He had previously been on 40 mg of p.o. Lasix but prior to the ED visit had been increased to 80 mg daily, and in the ER it was decided he was likely being over diuresed and so his discharge plan was to reduce his dose back to 40 mg of Lasix p.o. Since then, he has had a phone visit as well as a actual clinic visit with his flake drier.Apparently he was told to increase his dose of Lasix to 80 mg again. In the emergency department, he was evaluated with labs and x-rays.He initially presented with dyspnea, bilateral lower extremity edema, and a 2 L oxygen requirement which is apparently his home oxygen requirement. His labs showed A mild hyponatremia, mild ROSA with BUN of 46 and creatinine of 1.5.His BNP was slightly increased from the last ER visit at 442 compared to 307. His troponin was only mildly elevated at 33.9. At the time of exam, he was denying any chest pain.Chest x-ray showedBilateral hazy pulmonary opacities with interstitial prominence with suspicion for edema without pleural effusion or pneumothorax. There is also no focal consolidation. This is relatively stable from the previous ER visit. In addition, a right lower extremity Doppler was performed to rule out a DVT given that the patient was complaining of asymmetric swelling of the right leg versus the left leg. Ultrasound is negative for DVT. History - Past Medical History Cardiovascular: reports: Congestive heart failure, Hypertension, High cholesterol, [place], Atrial fibrillation, Valve disorder Respiratory: reports: Pneumonia Endocrine/Autoimmune: reports: Type 2 diabetes GI: reports: Diverticulitis, Other : reports: Renal insuffiency HEENT: reports: Chronic vision loss, Chronic hearing loss Psych: reports: Depression Musculoskeletal: reports: Osteoarthritis, Osteoporosis, Chronic back pain Derm: reports: None MRSA Hx?: No - Past Surgical History General: reports: Cholecystectomy, Bowel surgery Ortho: reports: Knee replacement, Spine surgery, Other - Family & Social History Family History Comment/Other: Family history is non-contributory Living arrangement: At home Living Situation: With spouse/s.o. Social History Notes: The patient was born in [place], [place]. He moved to [facility] with his and they now live in [place]. They have been for 40 years. They have 5 children. They spend their glover in [facility] however this is become more and more difficult for them to do and they are cutting back on the amount of time they spent in [place]. The patient does not smoke, he rarely drinks alcohol but he does use marijuana at night to help with pain and to help him sleep. - Substance History Use: Uses substance without health or social issues: NONE Abuse: Recurrent use of substance despite neg consequences: NONE Dependence: Experiences withdrawal or developed tolerances: NONE - POLST Patient has POLST: Yes POLST Status: Full Code Meds/Allgy - Home Medications Home Medications: Ambulatory Orders Medication Instructions Recorded Confirmed Digoxin [Lanoxin] 125 mcg PO DAILY 05/06/14 07/12/18 Metformin HCl 500 mg PO BIDWM 05/06/14 07/12/18 Metoprolol Tartrate 75 mg PO BID 05/06/14 07/12/18 Zolpidem [Ambien] 5 mg PO QPM 05/06/14 07/12/18 polyethylene glycoL 3350 [Miralax] 17 g PO DAILY 05/06/14 07/12/18 Levothyroxine [Synthroid] 100 mcg PO DAILY 02/02/15 07/12/18 Pantoprazole [Protonix] 40 mg PO BIDAC 02/02/15 07/12/18 Furosemide [Lasix] 40 mg PO DAILY #30 09/16/16 07/12/18 Losartan [Cozaar] 50 mg PO DAILY 09/16/16 07/12/18 Multivitamin [Multiple Vitamins] 1 each PO DAILY 09/16/16 07/12/18 Cyanocobalamin [Vitamin B-12] 1,000 mcg IM Q28D 04/04/17 07/12/18 Ferrous Gluconate 324 mg PO DAILY 04/04/17 07/12/18 Morphine ER 15 mg PO Q8H 04/04/17 07/12/18 Ondansetron Odt [Zofran Odt] 4 mg PO TID PRN 04/04/17 07/12/18 Aspirin 81 mg PO DAILY 08/08/17 07/12/18 Potassium Chloride 10 meq PO DAILY 08/08/17 07/12/18 Sucralfate [Carafate] 1 gm PO BID 08/08/17 07/12/18 Docusate Sodium [Dulcolax Stool 100 mg PO BID 07/12/18 07/12/18 Softener] Fluticasone [Flonase] 1 spray RAMIN BID 07/12/18 07/12/18 Insulin Glargine [Lantus Solostar] 10 units SQ DAILY PM 07/12/18 07/12/18 Lactobacillus Acidophilus 1 cap PO DAILY 07/12/18 07/12/18 [Digestive Probiotic] Miconazole Nitrate [Micro-Guard] 85 gm TP BID 07/12/18 07/12/18 Mineral Oil/Petrolatum,White 1 applic EACHEYE Q1HR PRN 07/12/18 07/12/18 [Artificial Tears Eye Ointment] Senna [Senokot] 2 tab PO DAILY PM 07/12/18 07/12/18 Thiamine [Vitamin B-1] 1 tab PO DAILY 07/12/18 07/12/18 Vitamin E (Dl,Tocopheryl Acet) 1 cap PO DAILY 07/12/18 07/12/18 [Vitamin E-200] oxyCODONE/ACET 5/325 [Percocet 5 1 - 2 tab PO Q4HR PRN 07/12/18 07/12/18 mg/325 mg] - Allergies Allergies/Adverse Reactions: Allergies Allergy/AdvReac Type Severity Reaction Status Date / Time clonidine Allergy Unknown Verified 04/19/20 17:43 diltiazem Allergy Unknown Verified 02/29/20 17:43 Review of Systems - Constitutional Constitutional: reports: Fatigue, Fever, Chills, Malaise, Weakness, Poor appetite, Diaphoresis, Night sweats, Weight loss. denies: Weight gain - Ears, Nose & Throat Ears, Nose & Throat: reports: Nasal discharge, Nasal congestion, Postnasal drainage. denies: Nasal obstruction - Cardiovascular Cariovascular: reports: Irregular heart rate, Chest pain, Edema - Respiratory Respiratory: reports: Cough, Sputum production, Hemoptysis (Tiny trace blood after coughing x 1). denies: Wheezing - Gastrointestinal Gastrointestinal: denies: Abdominal pain, Abdominal distention, Constipation - Genitourinary Genitourinary: reports: Frequency. denies: Dysuria - Musculoskeletal Musculoskeletal: reports: Back pain - Neurological Neurological: reports: General weakness. denies: Focal weakness - All Other Systems All Other Systems: reports: Reviewed and negative Prior Level of Functionality: Patient lives alone with his and typically is able to ambulate relatively well with a walker but over the last 2 weeks has declined and is now unable to even go a short distance from bed to bathroom without help. Exam - Vital Signs Reviewed Vital Signs: Yes Vital Signs: Vital Signs x48h Temp Pulse Resp BP Pulse Ox 02/29/20 20:20 77 18 141/87 H 100 02/29/20 18:57 78 16 139/78 H 98 02/29/20 17:44 36.8 C 78 15 148/80 H 98 - Physical Exam General Appearance: positive: No acute distress Eyes Bilateral: positive: Normal inspection ENT: positive: ENT inspection nml, Pharynx nml, No signs of dehydration Neck: positive: Nml inspection, Thyroid nml, No JVD Respiratory: positive: No respiratory distress, Breath sounds nml (Breath sounds are diminished bilateral). negative: Chest non-tender, Wheezes Cardiovascular: positive: Irregularly irregular, Systolic murmur. negative: Tachycardia, PMI displaced laterally, JVD present, Friction rub Abdomen: positive: Non-tender, No organomegaly, Nml bowel sounds, No distention Skin: positive: Color nml Extremities: positive: Pedal edema (Bilateral pedal edema, right worse than left. The right is +4-5 up to the proximal tibia, left is +3 up to the mid tibia) Neurologic/Psychiatric: positive: Oriented x3, CN's nml (2-12) Sepsis Event Note (H) - Evaluation Current Stage of Sepsis: Ruled out Conclusion/Plan - Problem List (1) Acute exacerbation of CHF (congestive heart failure) Conclusion/Plan: Patient presents with clinical signs and symptoms suggestive of an acute exacerbation of congestive heart failure. This includes bilateral pedal edema, on and off chest pain, dyspnea on exertion, generalized weakness as well as elevated BNP and troponin level. What is not quite as clear is that he apparently has not put on any weight and according to his , he is actually been losing weight. In addition, symptoms did not improve after increasing the dose of his Lasix. So definitive diagnosis of CHF exacerbation at least as the underlying etiology, is not yet clear. We will trial him on increased doses of Lasix, starting at 60 mg IV twice daily and following clinically. Will obtain an echocardiogram as the last 1 was done in 2018. Monitor clinical response and adjust accordingly. (2) Generalized weakness Conclusion/Plan: Given the symptoms laid out above, in addition including anosmia, weight loss rather than weight gain, decreased appetite, profound generalized weakness, night sweats, and a single episode of subjective fever, cannot rule out a novel coronavirus infection. Although his presentation is not classic presentation for this, chest x-ray findings also do not show pleural effusion, which I would have expected with a CHF exacerbation, and again given that he did not improve with increasing Lasix, I think it is warranted to obtain a swab and rule out at least.Patient will be placed on isolation airborne precautions. In addition, I have ordered PT and OT evaluations as patient will not do well home alone in his current state. (3) Anosmia Conclusion/Plan: See above, possibe Covid-19 infection (4) Night sweats Conclusion/Plan: See above, possible Covid-19 infection (5) Pedal edema Conclusion/Plan: Likely 2/2 to CHF, start Lasix 60 mg BID. In addition, may be related to decreased ambulation from weakness, which itself may be related to either CHF exacerbation alone, versus viral illness. (6) Type 2 diabetes mellitus with insulin therapy Conclusion/Plan: Unclear if his diabetes is controlled, hold metformin, start with Lantus 10 units per home medication and provide corrective per sliding scale. (7) Atrial fibrillation Conclusion/Plan: Currently he is rate controlled. Patient does not appear to be anticoagulated, so for now we will start with DVT prophylaxis with Lovenox, And if ambulation improves decreasing the fall risk, could consider anticoagulation prior to discharge. Qualifiers: Atrial fibrillation type: paroxysmal Qualified Code(s): I48.0 - Paroxysmal atrial fibrillation (8) Hypothyroidism Conclusion/Plan: We will add TSH to a.m. labs, continue current home dose of levothyroxine - Lab Results Lab results reviewed: Yes Pancho Bones: 02/29/20 17:50 02/29/20 17:50 - Diagnostic Imaging Results Diagnostic Imaging Results: positive: Final report reviewed - EKG Results EKG Interpreted Independently: Yes Core Measures - Anticipated LOS I expect patient to be DC'd or transferred within 96 hours.: Yes - DVT/VTE - Prophylaxis VTE/DVT Device ordered at admit?: Yes
[2020-02-29] MEDS: SENNA 8.6 MG TABLET PO SCH ×2 (21:10→21:14)
[2020-02-29] MEDS: SODIUM CHLORIDE FLUSH 0.9% 10 ML SYRINGE IVP SCH (21:10)
[2020-02-29] MEDS: MORPHINE ER 15 MG TABLET PO SCH (21:11)
[2020-02-29] MEDS: ZOLPIDEM 5 MG TABLET PO SCH (21:11)
[2020-02-29] MEDS: DOCUSATE SODIUM 100 MG CAPSULE PO SCH (21:11)
[2020-02-29] MEDS: FLUTICASONE NASAL SPRAY NAS SCH (21:12)
[2020-02-29] MEDS: METOPROLOL TARTRATE 25 MG TABLET PO SCH (21:12)
[2020-02-29] MEDS: INSULIN GLARGINE 300 UNIT/3 ML PEN SUBQ SCH (21:21)
[2020-02-29] MEDS: SUCRALFATE 1 GM/10 ML UDC PO SCH (21:21)
[2020-02-29] MEDS: PANTOPRAZOLE 40 MG TABLET PO SCH (21:21)
[2020-02-29] MEDS: MICONAZOLE CREAM 118 ML TUBE TOP SCH (21:22)
[2020-02-29 21:49] LABS: INR 1.3 (0.8-1.2); PT - PROTHROMBIN TIME 14.2 secs (9.9-12.6)
[2020-03-01] MEDS: SODIUM CHLORIDE FLUSH 0.9% 10 ML SYRINGE IVP SCH ×3 (00:52→16:58)
[2020-03-01] MEDS: HYDROcod/ACETAM 5/325 MG TABLET PO PRN (01:10)
[2020-03-01 05:06] LABS: HGB - HEMOGLOBIN 8.6 g/dL (14.0-18.0); MEAN CORPUSCULAR HEMOGLOBIN 30.4 pg (27.0-31.0); MEAN CORPUSCULAR HGB CONC 32.5 g/dL (32.0-36.0); MEAN CORPUSCULAR VOLUME 93.6 fL (80.0-94.0); MEAN PLATELET VOLUME 11.3 fL (7.4-11.4); RED BLOOD COUNT 2.83 10^6/uL (4.70-6.10); RED CELL DISTRIBUTION WIDTH 13.4 % (12.0-15.0); WHITE BLOOD COUNT 7.4 x10^3/uL (4.8-10.8)
[2020-03-01 05:14] LABS: CALCIUM 8.4 mg/dL (8.5-10.3); CREATININE 1.5 mg/dL (0.6-1.2)
[2020-03-01] MEDS: MORPHINE ER 15 MG TABLET PO SCH ×3 (05:25→21:34)
[2020-03-01 05:35] LABS: THYROID STIMULATING HORMONE 0.28 uIU/mL (0.34-5.60)
[2020-03-01 05:37] LABS: FREE T4 (FREE THYROXINE) 1.31 ng/dL (0.58-1.64)
[2020-03-01 05:39] LABS: HB2 TOTAL 9.1 g/dL; HEMOGLOBIN A1C 0.44 g/dL; HEMOGLOBIN A1C % 6.6 % (4.6-6.2)
[2020-03-01] MEDS: PANTOPRAZOLE 40 MG TABLET PO SCH ×2 (06:23→16:58)
[2020-03-01] MEDS ORDERED: ENOXAPARIN 40 MG/0.4 ML SYRINGE SUBQ SCH (09:00)
[2020-03-01] MEDS ORDERED: LEVOTHYROXINE 100 MCG TABLET PO SCH (09:00)
[2020-03-01] MEDS ORDERED: TOCOPHERYL 400 UNIT CAPSULE PO SCH (09:00)
--- NOTE | 2020-03-01 09:17 | PROVIDER PROGRESS NOTE ---
Assessment/Plan - Problem List (1) Acute exacerbation of CHF (congestive heart failure) Assessment/Plan: 2D echocardiogram done today March 09, 2020 showed an ejection fraction of 65 to 70% with overall normal left ventricular systolic function. Right heart pressures were moderately abnormal. While this does not directly support an acute exacerbation of CHF, in light of patient's significant lower extremity edema, generalized weakness and history of CHF will continue aggressive diuresis with Lasix 60 mg IV twice daily. Patient is on metoprolol tartrate 75 mg p.o. twice daily. Continue losartan 50 mg p.o. daily (2) Generalized weakness Assessment/Plan: Likely multifactorial. Secondary to underlying medical conditions which include CHF and de-conditioning. PT/OT consulted to evaluate and treat. Patient would likely need to go to a rehab facility upon discharge. Also ruling out COVID-19 infection (3) Pedal edema Assessment/Plan: Likely related to CHF. Patient being diuresed with Lasix 60 mg twice daily (4) Diabetes mellitus type 2, uncontrolled Assessment/Plan: On Aijgde48 units subcu nightly. Sliding scale insulin. Accu-Cheks. (5) Atrial fibrillation Qualifiers: Atrial fibrillation type: paroxysmal Qualified Code(s): I48.0 - Paroxysmal atrial fibrillation Assessment/Plan: Currently rate controlled. On metoprolol tartrate 75 mg p.o. twice daily. Patient is not on an anticoagulant. It is unclear the reason for no anticoagulation to this point. However he currently is a significant fall risk. (6) Hypothyroidism Assessment/Plan: Continue levothyroxine 100 mcg daily. (7) Thrombocytopenia Assessment/Plan: Patient's platelet dropped from 1 99-87. Etiology is undetermined at the moment. However Lovenox has been discontinued. Will recheck CBC in the morning. If any further drop will do a work-up to include d-dimer, fibrinogen level, PT/INR, PTT. - Current Meds Current Meds: Current Medications Generic Name Dose Route Start Last Admin Trade Name Freq PRN Reason Stop Dose Admin Hydrocodone Bitart/Acetaminophen 1 tab 02/29/20 19:51 03/01/20 01:10 Carter 5/325 PO 1 tab Q4HR PRN Administration Pain 5 to 7 Cyanocobalamin 1,000 mcg 02/29/20 20:00 02/29/20 21:10 Vitamin B-12 IM 1,000 mcg Q28D JULES Administration Docusate Sodium 100 mg 02/29/20 21:00 02/29/20 21:11 Colace 100mg Capsule PO 100 mg BID JULES Administration Fluticasone Propionate 1 sprays 02/29/20 21:00 02/29/20 21:12 Flonase RAMIN 1 applic BID JULES Administration Insulin Glargine 10 unit 02/29/20 21:00 02/29/20 21:21 Lantus Solostar SUBQ 10 unit HS JULES Administration Metoprolol Tartrate 75 mg 02/29/20 21:00 02/29/20 21:12 Lopressor PO 75 mg BID JULES Administration Miconazole Nitrate 1 applic 02/29/20 21:00 02/29/20 21:22 Remedy Antifungal TOP Not Given BID JULES Morphine Sulfate 15 mg 02/29/20 20:00 03/01/20 05:25 PO 15 mg Q8H JULES Administration Pantoprazole Sodium 40 mg 02/29/20 21:00 03/01/20 06:23 Protonix PO 40 mg BIDAC JULES Administration Senna 17.2 mg 02/29/20 20:00 02/29/20 21:14 Senokot PO Not Given HS JULES Sodium Chloride 10 ml 03/01/20 01:00 03/01/20 00:52 Normal Saline Flush 0.9% IVP 10 ml 0100,0900,1700 JULES Administration Sucralfate 1 gm 02/29/20 22:00 02/29/20 21:21 Carafate PO 1 gm BID JULES Administration Zolpidem Tartrate 5 mg 02/29/20 21:00 02/29/20 21:11 Ambien PO 5 mg QPM JULES Administration - Lab Result Fish Bone Diagrams: 03/01/20 04:51 03/01/20 04:51 - Additional Planning Condition/Complexity: Stable My Orders: My Active Orders 03/01/20 09:13 TROPONIN I HIGH SENSITIVITY [IAI] Stat Consult/Specialty: OT, PT Plan Discussed with:: Patient Time Spent: 15-30 minutes Subjective - Subjective Patient Reports: Other (Patient seen and examined this morning. He was awake and appeared to be comfortable in bed. He appears significantly weak. He expla ins that his weakness has been progressing over the past 2 weeks. He used to be able to ambulate to the bathroom on his own. However currently he requires a walker and the assistance of his . It is becoming more difficult for him to feed himself. His helps with grooming as well. He denies chest pain, dyspnea, abdominal pain nausea, vomiting, fever or chills.) Objective Vital Signs: Vital Signs - 24 hr 02/29/20 02/29/20 02/29/20 17:44 18:57 20:20 Temperature 36.8 C Heart Rate 78 78 77 Heart Rate [ Brachial] Respiratory 15 16 18 Rate Blood Pressure 148/80 H 139/78 H 141/87 H Blood Pressure [Right Brachial artery] O2 Saturation 98 98 100 02/29/20 02/29/20 03/01/20 21:00 21:12 01:00 Temperature 37.0 C 36.6 C Heart Rate Heart Rate [ 63 96 Brachial] Respiratory 17 18 Rate Blood Pressure 143/73 H Blood Pressure 143/73 H 128/60 [Right Brachial artery] O2 Saturation 97 96 03/01/20 03/01/20 03/01/20 05:00 07:58 08:16 Temperature 36.6 C 36.5 C Heart Rate Heart Rate [ 71 81 Brachial] Respiratory 24 16 Rate Blood Pressure Blood Pressure 134/72 H 121/66 [Right Brachial artery] O2 Saturation 99 100 Oxygen O2 Source [Without Activity] Room air O2 Source [With Activity] Room air O2 Source Room air Oxygen Flow Rate 2 I&O (Last 24 Hrs): Intake and Output Totals x24h 02/28/20 02/29/20 03/01/20 23:59 23:59 23:59 Intake Total 850 Output Total 1300 1200 Balance -1300 -350 General: Alert, Oriented x3, Other (very weak/ deconditioned) HEENT: Atraumatic, PERRLA, EOMI Neck: Supple, No JVD Neuro: Alert, Oriented Times 3 Cardiovascular: Other (irregular rhythm. regulare rate) Respiratory: Chest non-tender, No respiratory distress, Other (coarse breath sounds) Abdomen: Normal bowel sounds, Soft, No tenderness Extremities: Other (3+ bilateral lower extremity edema) Skin: No rashes - Results Results: Laboratory Results WBC 7.4 x10^3/uL (4.8-10.8) 03/01/20 04:51 RBC 2.83 10^6/uL (4.70-6.10) L 03/01/20 04:51 Hgb 8.6 g/dL (14.0-18.0) L 03/01/20 04:51 Hct 26.5 % (42.0-52.0) L 03/01/20 04:51 MCV 93.6 fL (80.0-94.0) 03/01/20 04:51 MCH 30.4 pg (27.0-31.0) 03/01/20 04:51 MCHC 32.5 g/dL (32.0-36.0) 03/01/20 04:51 RDW 13.4 % (12.0-15.0) 03/01/20 04:51 Plt Count 87 10^3/uL (130-450) L 03/01/20 04:51 MPV 11.3 fL (7.4-11.4) 03/01/20 04:51 Neut # (Auto) 5.3 10^3/uL (1.5-6.6) 02/29/20 17:50 Lymph # (Auto) 1.0 10^3/uL (1.5-3.5) L 02/29/20 17:50 Dupage # (Auto) 0.9 10^3/uL (0.0-1.0) 02/29/20 17:50 Eos # (Auto) 0.4 10^3/uL (0.0-0.7) 02/29/20 17:50 Baso # (Auto) 0.0 10^3/uL (0.0-0.1) 02/29/20 17:50 Absolute Nucleated RBC 0.00 x10^3/uL 02/29/20 17:50 Nucleated RBC % 0.0 /100WBC 02/29/20 17:50 PT 14.2 secs (9.9-12.6) H 02/29/20 17:50 INR 1.3 (0.8-1.2) H 02/29/20 17:50 Sodium 130 mmol/L (135-145) L 03/01/20 04:51 Potassium 3.7 mmol/L (3.5-5.0) 03/01/20 04:51 Chloride 84 mmol/L (101-111) L 03/01/20 04:51 Carbon Dioxide 36 mmol/L (21-32) H 03/01/20 04:51 Anion Gap 10.0 (6-13) 03/01/20 04:51 BUN 45 mg/dL (6-20) H 03/01/20 04:51 Creatinine 1.5 mg/dL (0.6-1.2) H 03/01/20 04:51 Estimated GFR (MDRD) 45 (>89) L 03/01/20 04:51 Glucose 146 mg/dL (70-100) H 03/01/20 04:51 Glycated Hemoglobin 6.6 % (4.6-6.2) H 03/01/20 04:51 Estim Average Glucose 143 (70-100) H 03/01/20 04:51 Calcium 8.4 mg/dL (8.5-10.3) L 03/01/20 04:51 Total Bilirubin 1.7 mg/dL (0.2-1.0) H 02/29/20 17:50 AST 26 IU/L (10-42) 02/29/20 17:50 ALT 27 IU/L (10-60) 02/29/20 17:50 Alkaline Phosphatase 205 IU/L (42-121) H 02/29/20 17:50 Troponin I High Sens 33.9 ng/L (2.3-19.7) H* 02/29/20 17:50 B-Natriuretic Peptide 442 pg/mL (5-100) H 02/29/20 17:50 Total Protein 6.5 g/dL (6.7-8.2) L 02/29/20 17:50 Albumin 3.0 g/dL (3.2-5.5) L 02/29/20 17:50 Globulin 3.5 g/dL (2.1-4.2) 02/29/20 17:50 Albumin/Globulin Ratio 0.9 (1.0-2.2) L 02/29/20 17:50 Lipase 20 U/L (22-51) L 02/29/20 17:50 TSH 0.28 uIU/mL (0.34-5.60) L 03/01/20 04:51 Free T4 1.31 ng/dL (0.58-1.64) 03/01/20 04:51 Last Dose Date UNKNOWN 02/29/20 17:50 Last Dose Time UNKNOWN 02/29/20 17:50 Digoxin 1.6 ng/mL 02/29/20 17:50 Blood Type A POSITIVE 02/29/20 18:45 Antibody Screen NEGATIVE 02/29/20 18:45 Crossmatch IS Only See Detail 02/29/20 18:45 - Procedures Procedures: Procedures PACKED CELL TRANSFUSION (02/09/15) PARENTERAL INFUSION OF CONCENTRATED NUT. SUBSTANCE (02/09/15) VENOUS CATHETERIZATION NEC (02/09/15) Sepsis Event Note (H) - Evaluation Current Stage of Sepsis: Ruled out
[2020-03-01] MEDS: SUCRALFATE 1 GM/10 ML UDC PO SCH ×2 (09:20→21:35)
[2020-03-01] MEDS: MULTIVITAMIN TABLET PO SCH (09:22)
[2020-03-01] MEDS: FERROUS GLUCONATE 324 MG TABLET PO SCH (09:22)
[2020-03-01] MEDS: DIGOXIN 125 MCG TABLET PO SCH (09:22)
[2020-03-01] MEDS: METOPROLOL TARTRATE 25 MG TABLET PO SCH ×2 (09:22→21:34)
[2020-03-01] MEDS: DOCUSATE SODIUM 100 MG CAPSULE PO SCH ×2 (09:22→21:34)
[2020-03-01] MEDS: polyethylene glycoL 3350 17 GM PACKET PO SCH (09:23)
[2020-03-01] MEDS: FUROSEMIDE 40 MG/4 ML VIAL IVP SCH ×2 (09:23→21:33)
[2020-03-01] MEDS: LOSARTAN 50 MG TABLET PO SCH (09:23)
[2020-03-01] MEDS: LACTOBACILLUS RHAMNOSUS GG CAPSULE PO SCH (09:23)
[2020-03-01] MEDS: POTASSIUM CHLORIDE 10 MEQ CAPSULE PO SCH (09:23)
[2020-03-01] MEDS: THIAMINE 100 MG TABLET PO SCH (09:23)
[2020-03-01] MEDS: MICONAZOLE CREAM 118 ML TUBE TOP SCH ×2 (09:30→21:42)
[2020-03-01] MEDS: FLUTICASONE NASAL SPRAY NAS SCH ×2 (09:30→21:42)
[2020-03-01] MEDS: ASPIRIN CHEW 81 MG TABLET PO SCH (12:07)
[2020-03-01] MEDS: SENNA 8.6 MG TABLET PO SCH (21:33)
[2020-03-01] MEDS: ZOLPIDEM 5 MG TABLET PO SCH (21:34)
[2020-03-01] MEDS: INSULIN GLARGINE 300 UNIT/3 ML PEN SUBQ SCH (21:35)
[2020-03-02] MEDS: SODIUM CHLORIDE FLUSH 0.9% 10 ML SYRINGE IVP SCH ×3 (04:23→17:28)
[2020-03-02] MEDS: MORPHINE ER 15 MG TABLET PO SCH ×3 (04:34→20:56)
[2020-03-02 06:03] LABS: MEAN CORPUSCULAR HEMOGLOBIN 30.6 pg (27.0-31.0); MEAN CORPUSCULAR HGB CONC 32.6 g/dL (32.0-36.0); MEAN CORPUSCULAR VOLUME 93.9 fL (80.0-94.0); MEAN PLATELET VOLUME 11.5 fL (7.4-11.4); RED BLOOD COUNT 2.94 10^6/uL (4.70-6.10); RED CELL DISTRIBUTION WIDTH 13.3 % (12.0-15.0); WHITE BLOOD COUNT 7.6 x10^3/uL (4.8-10.8)
[2020-03-02 06:20] LABS: CALCIUM 8.4 mg/dL (8.5-10.3); CREATININE 1.5 mg/dL (0.6-1.2)
[2020-03-02] MEDS: HYDROcod/ACETAM 5/325 MG TABLET PO PRN ×2 (06:27→10:30)
[2020-03-02] MEDS: PANTOPRAZOLE 40 MG TABLET PO SCH (06:28)
[2020-03-02] MEDS: polyethylene glycoL 3350 17 GM PACKET PO SCH (08:30)
[2020-03-02] MEDS: POTASSIUM CHLORIDE 10 MEQ CAPSULE PO SCH (08:31)
[2020-03-02] MEDS: METOPROLOL TARTRATE 25 MG TABLET PO SCH ×2 (08:31→20:57)
[2020-03-02] MEDS: SUCRALFATE 1 GM/10 ML UDC PO SCH (08:31)
[2020-03-02] MEDS: ASPIRIN CHEW 81 MG TABLET PO SCH (08:32)
[2020-03-02] MEDS: LOSARTAN 50 MG TABLET PO SCH (08:32)
[2020-03-02] MEDS: DOCUSATE SODIUM 100 MG CAPSULE PO SCH (08:32)
[2020-03-02] MEDS: FERROUS GLUCONATE 324 MG TABLET PO SCH ×2 (08:32→17:28)
[2020-03-02] MEDS: DIGOXIN 125 MCG TABLET PO SCH (08:32)
[2020-03-02] MEDS: LACTOBACILLUS RHAMNOSUS GG CAPSULE PO SCH (08:32)
[2020-03-02] MEDS: THIAMINE 100 MG TABLET PO SCH (08:32)
[2020-03-02] MEDS: MICONAZOLE CREAM 118 ML TUBE TOP SCH ×2 (08:33→20:55)
[2020-03-02] MEDS: MULTIVITAMIN TABLET PO SCH (08:33)
[2020-03-02] MEDS: FLUTICASONE NASAL SPRAY NAS SCH ×2 (08:33→20:55)
[2020-03-02] MEDS ORDERED: oxyCODONE 5 MG TABLET PO PRN (10:09)
[2020-03-02] MEDS: FUROSEMIDE 40 MG/4 ML VIAL IVP SCH ×2 (10:30→20:54)
--- NOTE | 2020-03-02 11:31 | PHARMACY PROGRESS NOTE ---
- Best Possible Medication History Admit Date and Time: 02/29/201950 Processed by: Pharmacy Medication History completed: Yes Patient Interview: Completed Secondary Source(s): Caregiver, Insurance records (PATIENT'S BRE IS HIS CAREGIVER, SHE HAS DETAILS ON THE SPECIF MEDICATIONS) As the person ultimately responsible for medication therapy, providers are able to order a medication from an existing home medication list in [facility] via the "Reconcile Routine" prior to Confirmation of that medication by production support developer. Such practice is discouraged except when the physician, in their clinical judgment, deems that a medical need exists for a medication without regard to previous use.
[2020-03-02] MEDS ORDERED: DOCUSATE SODIUM 100 MG CAPSULE PO PRN (11:47)
[2020-03-02] MEDS: INSULIN ASPART 300 UNIT/3 ML PEN SUBQ SCH ×3 (11:53→20:58)
--- NOTE | 2020-03-02 14:22 | PROVIDER PROGRESS NOTE ---
Subjective - Prog Note Date Prog Note Date: 03/02/20 - Subjective Pt reports feeling: Improved Subjective: pt report he feel better today. pt report to eat about 50% of his diet. he denies fever, chill, chest pain, shortness of breath. but he is still bed-bound and weakness. Encourage pt ambulate out-of bed safely Current Medications - Current Medications Current Medications: Active Medications Acetaminophen (Tylenol) 650 mg PO Q4HR PRN PRN Reason: Pain 1 to 4 Aspirin ([place] Chase Aspirin) 81 mg PO DAILY [facility] Last Admin: 03/02/20 08:32 Dose: 81 mg Cyanocobalamin (Vitamin B-12) 1,000 mcg IM Q28D [facility] Last Admin: 02/29/20 21:10 Dose: 1,000 mcg Digoxin (Lanoxin) 125 mcg PO DAILY [facility] Last Admin: 03/02/20 08:32 Dose: 125 mcg Docusate Sodium (Colace 100mg Capsule) 100 mg PO BID PRN PRN Reason: Bowel Protocol Duloxetine HCl (Cymbalta) 30 mg PO QPM [facility] Ferrous Gluconate (Fergon) 324 mg PO BIDWM [facility] Fluticasone Propionate (Flonase) 1 sprays RAMIN BID [facility] Last Admin: 03/02/20 08:33 Dose: 1 applic Furosemide (Lasix Inj 40 Mg Vial) 60 mg IVP BID [facility] Last Admin: 03/02/20 10:30 Dose: 60 mg Insulin Aspart (Novolog) 1 - 5 unit SUBQ 0800,1200,1700,2100 [facility]; Protocol Last Admin: 03/02/20 11:53 Dose: Not Given Insulin Glargine (Lantus Solostar) 10 unit SUBQ HS [facility] Last Admin: 03/01/20 21:35 Dose: 10 unit Lactobacillus Rhamnosus (Culturelle) 1 cap PO DAILY [facility] Last Admin: 03/02/20 08:32 Dose: 1 cap Levothyroxine Sodium (Synthroid) 88 mcg PO QDAC [facility] Losartan Potassium (Cozaar) 25 mg PO DAILY [facility] Metoprolol Tartrate (Lopressor) 50 mg PO BID [facility] Miconazole Nitrate (Remedy Antifungal) 1 applic TOP BID [facility] Last Admin: 03/02/20 08:33 Dose: 1 applic Morphine Sulfate () 15 mg PO Q8H [facility] Last Admin: 03/02/20 11:52 Dose: 15 mg Multi-Ingred Cream/Lotion/Oil/Oint (Lubrifresh Pm Ophth Oint) 1 applic EACHEYE Q1HR PRN PRN Reason: Dry Eye Multivitamins (Theragran) 1 tab PO DAILYWM [facility] Last Admin: 03/02/20 08:33 Dose: 1 tab Ondansetron HCl (Zofran Odt) 4 mg TL Q6HR PRN PRN Reason: Nausea / Vomiting Oxycodone HCl (Roxicodone) 5 - 10 mg PO Q6HR PRN PRN Reason: PAIN Pantoprazole Sodium (Protonix) 40 mg PO DAILY [facility] Polyethylene Glycol (Miralax) 17 gm PO DAILY [facility] Last Admin: 03/02/20 08:30 Dose: 17 gm Potassium Chloride (Micro-K) 10 meq PO DAILY [facility] Last Admin: 03/02/20 08:31 Dose: 10 meq Senna (Senokot) 8.6 mg PO HS [facility] Sodium Chloride (Normal Saline Flush 0.9%) 10 ml IVP PRN PRN PRN Reason: NEEDED PER PROVIDER ORDERS Sodium Chloride (Normal Saline Flush 0.9%) 10 ml IVP 0100,0900,1700 [facility] Last Admin: 03/02/20 08:33 Dose: Not Given Tamsulosin HCl (Flomax) 0.4 mg PO Q24H [facility] Zolpidem Tartrate (Ambien) 5 mg PO QPM [facility] Last Admin: 03/01/20 21:34 Dose: 5 mg Zolpidem [Ambien] 5 mg PO QPM PRN 05/06/14 polyethylene glycoL 3350 [Miralax] 17 g PO DAILY 05/06/14 Levothyroxine [Synthroid] 100 mcg PO DAILY 02/02/15 Pantoprazole [Protonix] 40 mg PO DAILY 02/02/15 Losartan [Cozaar] 25 mg PO DAILY 09/16/16 Ferrous Gluconate 324 mg PO BIDWM 04/04/17 Morphine ER 15 mg PO BID 04/04/17 Ondansetron Odt [Zofran Odt] 4 mg PO TID PRN 04/04/17 Aspirin 81 mg PO DAILY 08/08/17 Potassium Chloride 10 meq PO DAILY 08/08/17 Docusate Sodium [Dulcolax Stool Softener] 100 mg PO BID PRN 07/12/18 Fluticasone [Flonase] 1 spray RAMIN BID 07/12/18 Insulin Glargine [Lantus Solostar] 10 units SQ DAILY PM 07/12/18 Miconazole Nitrate [Micro-Guard] 85 gm TP BID 07/12/18 Senna [Senokot] 1 tab PO DAILY PM 07/12/18 oxyCODONE/ACET 5/325 [Percocet 5 mg/325 mg] 2 tab PO Q6H PRN 07/12/18 Cyanocobalamin (Vitamin B-12) [Vitamin B-12] 1,000 mcg PO DAILY 03/02/20 DULoxetine [Cymbalta] 30 mg PO QPM 03/02/20 Digoxin 125 mcg PO DAILY 03/02/20 Hydrochlorothiazide 12.5 mg PO DAILY 03/02/20 Metoprolol Tartrate 50 mg PO BID 03/02/20 Mupirocin 2% Oint [Bactroban 2% Oint] 1 applic TOP BID 03/02/20 Objective - Vital Signs/Intake & Output Vital Signs: Vital Signs x48h Temp Pulse Resp BP BP Pulse Ox 03/02/20 13:00 36.7 C 80 18 112/62 95 03/02/20 08:31 140/80 H 03/02/20 08:29 36.9 C 91 16 140/80 H 98 Intake & Output: Intake & Output 02/28/20 02/29/20 03/01/20 03/02/20 23:59 23:59 23:59 23:59 Intake Total 1830 250 Output Total 1300 5295 1850 Balance -0307 -945 1600 - Objective General Appearance: positive: No acute distress, Alert. negative: Lethargic Eyes Bilateral: positive: Normal inspection, PERRL, No lid inflammation ENT: positive: ENT inspection nml, No signs of dehydration. negative: Purulent nasal drainage Neck: positive: Nml inspection, Thyroid nml, No JVD, Trachea midline. negative: Thyromegaly, Stiff neck, Tracheal deviation Respiratory: positive: Chest non-tender, No respiratory distress. negative: Wheezes, Rales, Rhonchi Cardiovascular: positive: No murmur, No gallop, Irregularly irregular. negative: Regular rate & rhythm, Extrasystoles, Tachycardia, Bradycardia, JVD present, Systolic murmur, Diastolic murmur Peripheral Pulses: 2+ Radial (R), 2+ Radial (L) Abdomen: positive: Non-tender, No organomegaly, Nml bowel sounds, No distention. negative: Tenderness, Guarding, Rebound Back: positive: Nml inspection. negative: CVA tenderness (R), CVA tenderness (L) Skin: positive: Color nml, No rash, Warm, Dry. negative: Cyanosis, Diaphoresis, Pallor Extremities: positive: Non-tender, Nml appearance. negative: Calf tenderness, Arvind's sign/cords Neurologic/Psychiatric: positive: Oriented x3, Sensation nml. negative: Weakness, Sensory loss, Facial droop, Slurred/abnml speech - Lab Results Fish Bones: 03/02/20 05:48 03/02/20 05:48 Other Labs: Lab Results x24hrs 03/02/20 03/02/20 03/02/20 Range/Units 05:48 05:48 05:48 WBC 7.6 (4.8-10.8) x10^3/uL RBC 2.94 L (4.70-6.10) 10^6/uL Hgb 9.0 L (14.0-18.0) g/dL Hct 27.6 L (42.0-52.0) % MCV 93.9 (80.0-94.0) fL MCH 30.6 (27.0-31.0) pg MCHC 32.6 (32.0-36.0) g/dL RDW 13.3 (12.0-15.0) % Plt Count 131 (130-450) 10^3/uL MPV 11.5 H (7.4-11.4) fL Sodium 133 L (135-145) mmol/L Potassium 3.8 (3.5-5.0) mmol/L Chloride 82 L (101-111) mmol/L Carbon Dioxide 37 H (21-32) mmol/L Anion Gap 14.0 H (6-13) BUN 41 H (6-20) mg/dL Creatinine 1.5 H (0.6-1.2) mg/dL Estimated GFR (MDRD) 45 L (>89) Glucose 116 H (70-100) mg/dL Calcium 8.4 L (8.5-10.3) mg/dL B-Natriuretic Peptide 492 H (5-100) pg/mL Coronavirus (PCR) 02/29/20 Range/Units 21:15 WBC (4.8-10.8) x10^3/uL RBC (4.70-6.10) 10^6/uL Hgb (14.0-18.0) g/dL Hct (42.0-52.0) % MCV (80.0-94.0) fL MCH (27.0-31.0) pg MCHC (32.0-36.0) g/dL RDW (12.0-15.0) % Plt Count (130-450) 10^3/uL MPV (7.4-11.4) fL Sodium (135-145) mmol/L Potassium (3.5-5.0) mmol/L Chloride (101-111) mmol/L Carbon Dioxide (21-32) mmol/L Anion Gap (6-13) BUN (6-20) mg/dL Creatinine (0.6-1.2) mg/dL Estimated GFR (MDRD) (>89) Glucose (70-100) mg/dL Calcium (8.5-10.3) mg/dL B-Natriuretic Peptide (5-100) pg/mL Coronavirus (PCR) NEGATIVE ABX Reporting Has patient been on IV antibiotics over the past 48 hours?: No Sepsis Event Note (H) - Evaluation Current Stage of Sepsis: Ruled out Assessment/Plan - Problem List (1) Acute exacerbation of CHF (congestive heart failure) Impression: 03/02 pt has 98% on 2 liter of O2, improved. BNP is still elevated. ECHO reveals diastolic moderate CHF. fluid restrict, continue daily weight, lower sodium diet continue Lasix, lab monitor (2) Generalized weakness Conclusion/Plan: pt still present generalized weakness, his HGB is 9.0 today. it is likely from pt's physical deconditioning. continue PT/OT evaluation and treatment (3) Anosmia Conclusion/Plan: pt report he is better, Covid-19 infection is negative (4) Night sweats Conclusion/Plan: stable/better, and no more night sweats in hospital (5) Pedal edema Conclusion/Plan: 03/02 significant improved. continue Lasix (6) Type 2 diabetes mellitus with insulin therapy Conclusion/Plan: A1C is 6.6, continue on Lantus 10 units per home medication and provide corrective per sliding scale. (7) Atrial fibrillation Conclusion/Plan: stable and Currently he is rate controlled. Patient did not have anticoagulated in his home meds. we will continue Aspirin, lovenox of DVT (8) Hypothyroidism Conclusion/Plan: 03/02 pt's TSH is low, reduced Levothyroxine to 88 mcg from 100 mcg daily We will add TSH to a.m. labs, continue current home dose of levothyroxine
[2020-03-02] MEDS: TAMSULOSIN 0.4 MG CAPSULE PO SCH (17:28)
[2020-03-02] MEDS: SENNA 8.6 MG TABLET PO SCH (20:55)
[2020-03-02] MEDS: ZOLPIDEM 5 MG TABLET PO SCH (20:56)
[2020-03-02] MEDS: DULoxetine 30 MG CAPSULE PO SCH (20:56)
[2020-03-02] MEDS: INSULIN GLARGINE 300 UNIT/3 ML PEN SUBQ SCH (20:58)
[2020-03-02] MEDS: ONDANSETRON ODT 4 MG TABLET TL PRN (22:59)
[2020-03-03] MEDS: SODIUM CHLORIDE FLUSH 0.9% 10 ML SYRINGE IVP SCH ×3 (00:05→17:13)
[2020-03-03] MEDS: MORPHINE ER 15 MG TABLET PO SCH ×3 (04:38→20:30)
[2020-03-03 04:55] LABS: HGB - HEMOGLOBIN 9.2 g/dL (14.0-18.0); MEAN CORPUSCULAR HEMOGLOBIN 30.1 pg (27.0-31.0); MEAN CORPUSCULAR HGB CONC 31.5 g/dL (32.0-36.0); MEAN CORPUSCULAR VOLUME 95.4 fL (80.0-94.0); MEAN PLATELET VOLUME 12.1 fL (7.4-11.4); RED BLOOD COUNT 3.06 10^6/uL (4.70-6.10); RED CELL DISTRIBUTION WIDTH 13.5 % (12.0-15.0)
[2020-03-03 05:06] LABS: CALCIUM 8.9 mg/dL (8.5-10.3); CREATININE 1.4 mg/dL (0.6-1.2)
[2020-03-03] MEDS: LEVOTHYROXINE 88 MCG TABLET PO SCH (06:38)
[2020-03-03] MEDS: LACTOBACILLUS RHAMNOSUS GG CAPSULE PO SCH (08:03)
[2020-03-03] MEDS: MULTIVITAMIN TABLET PO SCH (08:04)
[2020-03-03] MEDS: DIGOXIN 125 MCG TABLET PO SCH (08:04)
[2020-03-03] MEDS: ASPIRIN CHEW 81 MG TABLET PO SCH (08:04)
[2020-03-03] MEDS: FUROSEMIDE 40 MG/4 ML VIAL IVP SCH (08:05)
[2020-03-03] MEDS: POTASSIUM CHLORIDE 10 MEQ CAPSULE PO SCH (08:05)
[2020-03-03] MEDS: FERROUS GLUCONATE 324 MG TABLET PO SCH ×2 (08:05→17:12)
[2020-03-03] MEDS: PANTOPRAZOLE 40 MG TABLET PO SCH (08:05)
[2020-03-03] MEDS: polyethylene glycoL 3350 17 GM PACKET PO SCH (08:06)
[2020-03-03] MEDS: FLUTICASONE NASAL SPRAY NAS SCH ×2 (08:06→20:31)
[2020-03-03] MEDS: LOSARTAN 50 MG TABLET PO SCH (08:14)
[2020-03-03] MEDS: INSULIN ASPART 300 UNIT/3 ML PEN SUBQ SCH ×4 (08:48→20:37)
[2020-03-03 09:15] LABS: ABG HCO3 42.4 mmol/L (22.0-26.0); ABG OXYGEN SATURATION 97 % (94-98); ABG PH 7.45 (7.35-7.45); ABG PO2 88 mmHg (80-100)
[2020-03-03 09:16] LABS: ALLEN TEST POSITIVE
[2020-03-03 09:20] LABS: ABG PCO2 63 mmHg (34-45); ABG TCO2 44.3 MMOL/L (21.0-29.0)
--- NOTE | 2020-03-03 11:15 | PROVIDER PROGRESS NOTE ---
Subjective - Prog Note Date Prog Note Date: 03/03/20 - Subjective Pt reports feeling: Improved Subjective: pt is alert and oriented today. he report he feel better than yesterday. he report he took 2 liter of O2 at home. he denies fever, chill, chest pain. I encourage pt ambulate safely and hope he could enhance his appetite. pt agree to do that. lab test reveals pt has high serum CO2. ABG reveal normal pH, and normal PO2, but high serum CO2 and high HCO3. 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 it is likely the side effect of overly diuretics. Current Medications - Current Medications Current Medications: Active Medications Acetaminophen (Tylenol) 650 mg PO Q4HR PRN PRN Reason: Pain 1 to 4 Aspirin (St Chase Aspirin) 81 mg PO DAILY [facility] Last Admin: 03/03/20 08:04 Dose: 81 mg Cyanocobalamin (Vitamin B-12) 1,000 mcg IM Q28D [facility] Last Admin: 02/29/20 21:10 Dose: 1,000 mcg Digoxin (Lanoxin) 125 mcg PO DAILY [facility] Last Admin: 03/03/20 08:04 Dose: 125 mcg Docusate Sodium (Colace 100mg Capsule) 100 mg PO BID PRN PRN Reason: Bowel Protocol Duloxetine HCl (Cymbalta) 30 mg PO QPM [facility] Last Admin: 03/02/20 20:56 Dose: 30 mg Ferrous Gluconate (Fergon) 324 mg PO BIDWM [facility] Last Admin: 03/03/20 08:05 Dose: 324 mg Fluticasone Propionate (Flonase) 1 sprays RAMIN BID [facility] Last Admin: 03/03/20 08:06 Dose: 1 applic Furosemide (Lasix Inj 40 Mg Vial) 20 mg IVP BID [facility] Insulin Aspart (Novolog) 1 - 5 unit SUBQ 0800,1200,1700,2100 [facility]; Protocol Last Admin: 03/03/20 08:48 Dose: 1 unit Insulin Glargine (Lantus Solostar) 10 unit SUBQ HS [facility] Last Admin: 03/02/20 20:58 Dose: 10 unit Lactobacillus Rhamnosus (Culturelle) 1 cap PO DAILY [facility] Last Admin: 03/03/20 08:03 Dose: 1 cap Levothyroxine Sodium (Synthroid) 88 mcg PO QDAC [facility] Last Admin: 03/03/20 06:38 Dose: 88 mcg Losartan Potassium (Cozaar) 25 mg PO DAILY [facility] Last Admin: 03/03/20 08:14 Dose: 25 mg Metoprolol Tartrate (Lopressor) 50 mg PO BID [facility] Last Admin: 03/02/20 20:57 Dose: 50 mg Miconazole Nitrate (Remedy Antifungal) 1 applic TOP BID [facility] Last Admin: 03/02/20 20:55 Dose: 1 applic Morphine Sulfate () 15 mg PO Q8H [facility] Last Admin: 03/03/20 04:38 Dose: 15 mg Multi-Ingred Cream/Lotion/Oil/Oint (Lubrifresh Pm Ophth Oint) 1 applic EACHEYE Q1HR PRN PRN Reason: Dry Eye Multivitamins (Theragran) 1 tab PO DAILYWM [facility] Last Admin: 03/03/20 08:04 Dose: 1 tab Ondansetron HCl (Zofran Odt) 4 mg TL Q6HR PRN PRN Reason: Nausea / Vomiting Last Admin: 03/02/20 22:59 Dose: 4 mg Oxycodone HCl (Roxicodone) 5 - 10 mg PO Q6HR PRN PRN Reason: PAIN Pantoprazole Sodium (Protonix) 40 mg PO DAILY [facility] Last Admin: 03/03/20 08:05 Dose: 40 mg Polyethylene Glycol (Miralax) 17 gm PO DAILY [facility] Last Admin: 03/03/20 08:06 Dose: Not Given Potassium Chloride (Micro-K) 10 meq PO DAILY [facility] Last Admin: 03/03/20 08:05 Dose: 10 meq Senna (Senokot) 8.6 mg PO HS [facility] Last Admin: 03/02/20 20:55 Dose: 8.6 mg Sodium Chloride (Normal Saline Flush 0.9%) 10 ml IVP PRN PRN PRN Reason: NEEDED PER PROVIDER ORDERS Sodium Chloride (Normal Saline Flush 0.9%) 10 ml IVP 0100,0900,1700 [facility] Last Admin: 03/03/20 08:07 Dose: 10 ml Tamsulosin HCl (Flomax) 0.4 mg PO Q24H [facility] Last Admin: 03/02/20 17:28 Dose: 0.4 mg Zolpidem Tartrate (Ambien) 5 mg PO QPM [facility] Last Admin: 03/02/20 20:56 Dose: 5 mg Zolpidem [Ambien] 5 mg PO QPM PRN 05/06/14 polyethylene glycoL 3350 [Miralax] 17 g PO DAILY 05/06/14 Levothyroxine [Synthroid] 100 mcg PO DAILY 02/02/15 Pantoprazole [Protonix] 40 mg PO DAILY 02/02/15 Losartan [Cozaar] 25 mg PO DAILY 09/16/16 Ferrous Gluconate 324 mg PO BIDWM 04/04/17 Morphine ER 15 mg PO BID 04/04/17 Ondansetron Odt [Zofran Odt] 4 mg PO TID PRN 04/04/17 Aspirin 81 mg PO DAILY 08/08/17 Potassium Chloride 10 meq PO DAILY 08/08/17 Docusate Sodium [Dulcolax Stool Softener] 100 mg PO BID PRN 07/12/18 Fluticasone [Flonase] 1 spray RAMIN BID 07/12/18 Insulin Glargine [Lantus Solostar] 10 units SQ DAILY PM 07/12/18 Miconazole Nitrate [Micro-Guard] 85 gm TP BID 07/12/18 Senna [Senokot] 1 tab PO DAILY PM 07/12/18 oxyCODONE/ACET 5/325 [Percocet 5 mg/325 mg] 2 tab PO Q6H PRN 07/12/18 Cyanocobalamin (Vitamin B-12) [Vitamin B-12] 1,000 mcg PO DAILY 03/02/20 DULoxetine [Cymbalta] 30 mg PO QPM 03/02/20 Digoxin 125 mcg PO DAILY 03/02/20 Hydrochlorothiazide 12.5 mg PO DAILY 03/02/20 Metoprolol Tartrate 50 mg PO BID 03/02/20 Mupirocin 2% Oint [Bactroban 2% Oint] 1 applic TOP BID 03/02/20 Objective - Vital Signs/Intake & Output Vital Signs: Vital Signs x48h Temp Pulse Resp BP BP Pulse Ox 03/03/20 08:19 86 108/61 03/03/20 07:25 36.9 C 97 20 125/80 95 03/03/20 05:20 95 03/03/20 05:19 16 93 03/03/20 04:50 36.5 C 91 16 112/57 L 100 Intake & Output: Intake & Output 02/29/20 03/01/20 03/02/20 03/03/20 23:59 23:59 23:59 23:59 Intake Total 1830 724 100 Output Total 0454 0298 3780 300 [facility] -0798 -945 -3056 -200 - Objective General Appearance: positive: No acute distress, Alert. negative: Lethargic Eyes Bilateral: positive: Normal inspection, PERRL, No lid inflammation ENT: positive: ENT inspection nml, No signs of dehydration. negative: Purulent nasal drainage Neck: positive: Nml inspection, Thyroid nml, No JVD, Trachea midline. negative: Thyromegaly, Lymphadenopathy (R), Lymphadenopathy (L), Stiff neck, Tracheal deviation Respiratory: positive: Chest non-tender, No respiratory distress. negative: Wheezes, Rales Cardiovascular: positive: No murmur, No gallop, Irregularly irregular. negative: Extrasystoles, Tachycardia, Bradycardia, Systolic murmur, Diastolic murmur Peripheral Pulses: 2+ Radial (R), 2+ Radial (L) Abdomen: positive: Non-tender, No organomegaly, Nml bowel sounds, No distention. negative: Tenderness, Guarding, Rebound Back: positive: Nml inspection. negative: CVA tenderness (R), CVA tenderness (L) Skin: positive: Color nml, No rash, Warm, Dry. negative: Cyanosis, Diaphoresis, Pallor Extremities: positive: Non-tender, Nml appearance. negative: Calf tenderness, Arvind's sign/cords Neurologic/Psychiatric: positive: Oriented x3, Sensation nml, Mood/affect nml. negative: Weakness, Sensory loss, Facial droop, Slurred/abnml speech, Depressed mood/affect - Lab Results Fish Bones: 03/03/20 04:35 03/03/20 04:35 Other Labs: Lab Results x24hrs 03/03/20 03/03/20 03/03/20 Range/Units 09:10 07:30 04:35 WBC (4.8-10.8) x10^3/uL RBC (4.70-6.10) 10^6/uL Hgb (14.0-18.0) g/dL Hct (42.0-52.0) % MCV (80.0-94.0) fL MCH (27.0-31.0) pg MCHC (32.0-36.0) g/dL RDW (12.0-15.0) % Plt Count (130-450) 10^3/uL MPV (7.4-11.4) fL Bld Gas Analysis Time 09:10 Sample Site LEFT RADIAL ABG pH 7.45 (7.35-7.45) ABG pCO2 63 H* (34-45) mmHg ABG pO2 88 (80-100) mmHg ABG HCO3 42.4 H (22.0-26.0) mmol/L ABG Total CO2 44.3 H* (21.0-29.0) MMOL/L ABG O2 Saturation 97 (94-98) % ABG Base Excess 16.0 H (-2.0-3.0) mmol/L Ruddy Test POSITIVE O2 Delivery Device NASAL CANNULA O2 Liters/Min 2.00 LPM Sodium (135-145) mmol/L Potassium (3.5-5.0) mmol/L Chloride (101-111) mmol/L Carbon Dioxide (21-32) mmol/L Anion Gap (6-13) BUN (6-20) mg/dL Creatinine (0.6-1.2) mg/dL Estimated GFR (MDRD) (>89) Glucose (70-100) mg/dL POC Whole Bld Glucose 158 H (70 - 100) mg/dL Calcium (8.5-10.3) mg/dL B-Natriuretic Peptide 467 H (5-100) pg/mL Coronavirus (PCR) 03/03/20 03/03/20 03/03/20 Range/Units 04:35 04:35 01:57 WBC 7.0 (4.8-10.8) x10^3/uL RBC 3.06 L (4.70-6.10) 10^6/uL Hgb 9.2 L (14.0-18.0) g/dL Hct 29.2 L (42.0-52.0) % MCV 95.4 H (80.0-94.0) fL MCH 30.1 (27.0-31.0) pg MCHC 31.5 L (32.0-36.0) g/dL RDW 13.5 (12.0-15.0) % Plt Count 89 L (130-450) 10^3/uL MPV 12.1 H (7.4-11.4) fL Bld Gas Analysis Time Sample Site ABG pH (7.35-7.45) ABG pCO2 (34-45) mmHg ABG pO2 (80-100) mmHg ABG HCO3 (22.0-26.0) mmol/L ABG Total CO2 (21.0-29.0) MMOL/L ABG O2 Saturation (94-98) % ABG Base Excess (-2.0-3.0) mmol/L Ruddy Test O2 Delivery Device O2 Liters/Min LPM Sodium 136 (135-145) mmol/L Potassium 3.7 (3.5-5.0) mmol/L Chloride 83 L (101-111) mmol/L Carbon Dioxide 43 H* (21-32) mmol/L Anion Gap 10.0 (6-13) BUN 41 H (6-20) mg/dL Creatinine 1.4 H (0.6-1.2) mg/dL Estimated GFR (MDRD) 48 L (>89) Glucose 153 H (70-100) mg/dL POC Whole Bld Glucose 152 H (70 - 100) mg/dL Calcium 8.9 (8.5-10.3) mg/dL B-Natriuretic Peptide (5-100) pg/mL Coronavirus (PCR) 03/02/20 03/02/20 03/02/20 Range/Units 20:30 16:37 11:42 WBC (4.8-10.8) x10^3/uL RBC (4.70-6.10) 10^6/uL Hgb (14.0-18.0) g/dL Hct (42.0-52.0) % MCV (80.0-94.0) fL MCH (27.0-31.0) pg MCHC (32.0-36.0) g/dL RDW (12.0-15.0) % Plt Count (130-450) 10^3/uL MPV (7.4-11.4) fL Bld Gas Analysis Time Sample Site ABG pH (7.35-7.45) ABG pCO2 (34-45) mmHg ABG pO2 (80-100) mmHg ABG HCO3 (22.0-26.0) mmol/L ABG Total CO2 (21.0-29.0) MMOL/L ABG O2 Saturation (94-98) % ABG Base Excess (-2.0-3.0) mmol/L Ruddy Test O2 Delivery Device O2 Liters/Min LPM Sodium (135-145) mmol/L Potassium (3.5-5.0) mmol/L Chloride (101-111) mmol/L Carbon Dioxide (21-32) mmol/L Anion Gap (6-13) BUN (6-20) mg/dL Creatinine (0.6-1.2) mg/dL Estimated GFR (MDRD) (>89) Glucose (70-100) mg/dL POC Whole Bld Glucose 170 H 110 H 124 H (70 - 100) mg/dL Calcium (8.5-10.3) mg/dL B-Natriuretic Peptide (5-100) pg/mL Coronavirus (PCR) 03/02/20 03/01/20 03/01/20 Range/Units 07:51 20:42 16:43 WBC (4.8-10.8) x10^3/uL RBC (4.70-6.10) 10^6/uL Hgb (14.0-18.0) g/dL Hct (42.0-52.0) % MCV (80.0-94.0) fL MCH (27.0-31.0) pg MCHC (32.0-36.0) g/dL RDW (12.0-15.0) % Plt Count (130-450) 10^3/uL MPV (7.4-11.4) fL Bld Gas Analysis Time Sample Site ABG pH (7.35-7.45) ABG pCO2 (34-45) mmHg ABG pO2 (80-100) mmHg ABG HCO3 (22.0-26.0) mmol/L ABG Total CO2 (21.0-29.0) MMOL/L ABG O2 Saturation (94-98) % ABG Base Excess (-2.0-3.0) mmol/L Ruddy Test O2 Delivery Device O2 Liters/Min LPM Sodium (135-145) mmol/L Potassium (3.5-5.0) mmol/L Chloride (101-111) mmol/L Carbon Dioxide (21-32) mmol/L Anion Gap (6-13) BUN (6-20) mg/dL Creatinine (0.6-1.2) mg/dL Estimated GFR (MDRD) (>89) Glucose (70-100) mg/dL POC Whole Bld Glucose 102 H 202 H 149 H (70 - 100) mg/dL Calcium (8.5-10.3) mg/dL B-Natriuretic Peptide (5-100) pg/mL Coronavirus (PCR) 03/01/20 03/01/20 02/29/20 Range/Units 11:52 07:54 21:15 WBC (4.8-10.8) x10^3/uL RBC (4.70-6.10) 10^6/uL Hgb (14.0-18.0) g/dL Hct (42.0-52.0) % MCV (80.0-94.0) fL MCH (27.0-31.0) pg MCHC (32.0-36.0) g/dL RDW (12.0-15.0) % Plt Count (130-450) 10^3/uL MPV (7.4-11.4) fL Bld Gas Analysis Time Sample Site ABG pH (7.35-7.45) ABG pCO2 (34-45) mmHg ABG pO2 (80-100) mmHg ABG HCO3 (22.0-26.0) mmol/L ABG Total CO2 (21.0-29.0) MMOL/L ABG O2 Saturation (94-98) % ABG Base Excess (-2.0-3.0) mmol/L Ruddy Test O2 Delivery Device O2 Liters/Min LPM Sodium (135-145) mmol/L Potassium (3.5-5.0) mmol/L Chloride (101-111) mmol/L Carbon Dioxide (21-32) mmol/L Anion Gap (6-13) BUN (6-20) mg/dL Creatinine (0.6-1.2) mg/dL Estimated GFR (MDRD) (>89) Glucose (70-100) mg/dL POC Whole Bld Glucose 178 H 136 H (70 - 100) mg/dL Calcium (8.5-10.3) mg/dL B-Natriuretic Peptide (5-100) pg/mL Coronavirus (PCR) NEGATIVE ABX Reporting Has patient been on IV antibiotics over the past 48 hours?: No Sepsis Event Note (H) - Evaluation Current Stage of Sepsis: Ruled out Assessment/Plan - Problem List (1) Hypercapnia Impression: 03/03 lab test reveals pt has high serum CO2. ABG reveal normal pH, and normal PO2, but high serum CO2 and high HCO3. 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 it is likely the side effect of overly diuretics. reduce Lasix 60 bid to 20 bid, hold fluid restriction now, lab monitor pt is alert and oriented now. neuro check pt's mental status because of hy percapnia. (2) Acute exacerbation of CHF (congestive heart failure) Impression: 03/03 pt's BNP is slight down, and pt has 95% sat on 0.5 liter of O2, and he is b maya. reduce lasix dosage, and lab and vital monitor 03/02 pt has 98% on 2 liter of O2, improved. BNP is still elevated. ECHO reveals diastolic moderate CHF. fluid restrict, continue daily weight, lower sodium diet continue Lasix, lab monitor (2) Generalized weakness Conclusion/Plan: 03/03 slight better, HGB is 9.2 today. continue PT/OT evaluation and treatment. pt still present generalized weakness, his HGB is 9.0 today. it is likely from pt's physical deconditioning. continue PT/OT evaluation and treatment (3) Anosmia Conclusion/Plan: pt report he is better, Covid-19 infection is negative (4) Night sweats Conclusion/Plan: stable/better, and no more night sweats in hospital (5) Pedal edema Conclusion/Plan: 03/03 improved, and reduced pedal edema. 03/02 significant improved. continue Lasix (6) Type 2 diabetes mellitus with insulin therapy Conclusion/Plan: A1C is 6.6, continue on Lantus 10 units per home medication and provide corrective per sliding scale. (7) Atrial fibrillation Conclusion/Plan: stable and Currently he is rate controlled. Patient did not have anticoagulated in his home meds. we will continue Aspirin, lovenox of DVT (8) Hypothyroidism Conclusion/Plan: 03/02 pt's TSH is low, reduced Levothyroxine to 88 mcg from 100 mcg daily We will add TSH to a.m. labs, continue current home dose of levothyroxine
[2020-03-03] MEDS: METOPROLOL TARTRATE 25 MG TABLET PO SCH ×2 (11:47→20:30)
[2020-03-03] MEDS: MICONAZOLE CREAM 118 ML TUBE TOP SCH ×2 (11:49→20:31)
--- NOTE | 2020-03-03 14:46 | ADVANCE CARE PLANNING NOTE ---
Advance Care Planning - Planning Encounter Date: 03/03/20 Time: 14:45 Purpose: advance care plan for pt Parties in Attendance: pt, pt's , and me Decisional Capacity of the Patient: pt is alert and oriented. pt has capacity to make his own decision. - Encounter Subjective/Patient's Story: Patient lives alone with his . pt's report he was able to ambulate relatively well with a walker before. But over the last 2 weeks pt has declined and is now unable to even go a short distance from bed to bathroom without help. he is very weak. she called pt's PCP in telemedicine because of Covid 19, and change pt's meds. pt developed edema on bilateral lower extremities. now the edema is resolved. Discussed with pt and his about the quality of life, the code status, explain the meaning of Full Code and DNR/DNI. pt persist as he told to another provider, he want everything to be done including, but not limited, he need CPR and incubation. Objective/Medical Story: pt has a past medical history significant for consisting of CHF, atrial fibrillation, type 2 diabetes on insulin, chronic pain secondary to osteoarthritis of the spine and status post bilateral knee replacement, 2 weeks duration of progressive dyspnea on exertion, bilateral lower extremity edema, and profound weakness. Goals of Care: stable and improved his medical conditions Plan: continue treatment in hospital, continue keep full code status Code Status: Attempt Resuscitation Time spent on advance care plannin
[2020-03-03] MEDS: ONDANSETRON ODT 4 MG TABLET TL PRN (17:12)
[2020-03-03] MEDS: TAMSULOSIN 0.4 MG CAPSULE PO SCH (17:12)
[2020-03-03] MEDS ORDERED: METOPROLOL 5 MG/5 ML VIAL IVP PRN (17:15)
[2020-03-03 18:11] LABS: MAGNESIUM 1.8 mg/dL (1.7-2.8); PHOSPHORUS 4.9 mg/dL (2.5-4.6)
[2020-03-03] MEDS: DULoxetine 30 MG CAPSULE PO SCH (20:30)
[2020-03-03] MEDS: INSULIN GLARGINE 300 UNIT/3 ML PEN SUBQ SCH (20:38)
[2020-03-03] MEDS: HEPARIN 5,000 UNIT/ML VIAL SUBQ SCH (20:40)
[2020-03-03] MEDS ORDERED: FUROSEMIDE 40 MG/4 ML VIAL IVP SCH ×2 (21:00)
[2020-03-03] MEDS: SENNA 8.6 MG TABLET PO SCH (22:21)
[2020-03-03] MEDS: ZOLPIDEM 5 MG TABLET PO SCH (22:21)
[2020-03-04] MEDS: SODIUM CHLORIDE FLUSH 0.9% 10 ML SYRINGE IVP SCH ×3 (00:05→17:07)
[2020-03-04 05:35] LABS: BASOPHILS % (AUTO) 0.4 %; EOSINOPHILS # (AUTO) 0.2 10^3/uL (0.0-0.7); EOSINOPHILS % (AUTO) 3.2 %; LYMPHOCYTES # (AUTO) 1.2 10^3/uL (1.5-3.5); LYMPHOCYTES % (AUTO) 15.8 %; MEAN CORPUSCULAR HEMOGLOBIN 29.2 pg (27.0-31.0); MEAN CORPUSCULAR HGB CONC 30.5 g/dL (32.0-36.0); MEAN CORPUSCULAR VOLUME 95.8 fL (80.0-94.0); MEAN PLATELET VOLUME 10.8 fL (7.4-11.4); MONOCYTES # (AUTO) 0.9 10^3/uL (0.0-1.0); MONOCYTES % (AUTO) 11.9 %; NEUTROPHILS # (AUTO) 5.1 10^3/uL (1.5-6.6); PLT - PLATELET COUNT 173 10^3/uL (130-450); RED BLOOD COUNT 3.08 10^6/uL (4.70-6.10); RED CELL DISTRIBUTION WIDTH 13.7 % (12.0-15.0); WHITE BLOOD COUNT 7.6 x10^3/uL (4.8-10.8)
[2020-03-04 05:44] LABS: CALCIUM 8.9 mg/dL (8.5-10.3); CREATININE 1.7 mg/dL (0.6-1.2); MAGNESIUM 1.9 mg/dL (1.7-2.8); PHOSPHORUS 4.4 mg/dL (2.5-4.6)
[2020-03-04] MEDS: LEVOTHYROXINE 88 MCG TABLET PO SCH (06:43)
[2020-03-04] MEDS: polyethylene glycoL 3350 17 GM PACKET PO SCH (09:01)
[2020-03-04] MEDS: POTASSIUM CHLORIDE 10 MEQ CAPSULE PO SCH (09:02)
[2020-03-04] MEDS: LOSARTAN 50 MG TABLET PO SCH (09:02)
[2020-03-04] MEDS: MULTIVITAMIN TABLET PO SCH (09:03)
[2020-03-04] MEDS: ASPIRIN CHEW 81 MG TABLET PO SCH (09:03)
[2020-03-04] MEDS: MORPHINE ER 15 MG TABLET PO SCH ×2 (09:03→21:28)
[2020-03-04] MEDS: FERROUS GLUCONATE 324 MG TABLET PO SCH ×2 (09:03→17:06)
[2020-03-04] MEDS: PANTOPRAZOLE 40 MG TABLET PO SCH (09:03)
[2020-03-04] MEDS: DIGOXIN 125 MCG TABLET PO SCH (09:03)
[2020-03-04] MEDS: LACTOBACILLUS RHAMNOSUS GG CAPSULE PO SCH (09:04)
[2020-03-04] MEDS: METOPROLOL TARTRATE 25 MG TABLET PO SCH ×2 (09:04→21:27)
[2020-03-04] MEDS: HEPARIN 5,000 UNIT/ML VIAL SUBQ SCH ×2 (09:05→21:36)
[2020-03-04] MEDS: INSULIN ASPART 300 UNIT/3 ML PEN SUBQ SCH ×4 (09:07→21:33)
[2020-03-04] MEDS: FLUTICASONE NASAL SPRAY NAS SCH ×2 (09:10→21:28)
[2020-03-04] MEDS: MICONAZOLE CREAM 118 ML TUBE TOP SCH ×2 (09:12→21:29)
[2020-03-04] MEDS ORDERED: FUROSEMIDE 20 MG TABLET PO SCH (14:00)
[2020-03-04 14:51] LABS: CALCIUM 9.2 mg/dL (8.5-10.3); CREATININE 1.7 mg/dL (0.6-1.2)
--- NOTE | 2020-03-04 15:24 | PROVIDER PROGRESS NOTE ---
Subjective - Prog Note Date Prog Note Date: 03/04/20 - Subjective Pt reports feeling: Improved Subjective: pt want to go home but pt's chrolide, carbon dioxide and BUN continue to rise. I called Dr. Rosenberg Acid Mixer. he recommend to hold Lasix and lab monitor pt, then followup him after discharged. pt agree to stay hospital to be monitored overnight. pt also report he has some nausea but it is better now. Current Medications - Current Medications Current Medications: Active Medications Acetaminophen (Tylenol) 650 mg PO Q4HR PRN PRN Reason: Pain 1 to 4 Aspirin ([place] Aspirin) 81 mg PO DAILY [facility] Last Admin: 03/04/20 09:03 Dose: 81 mg Cyanocobalamin (Vitamin B-12) 1,000 mcg IM Q28D [facility] Last Admin: 02/29/20 21:10 Dose: 1,000 mcg Digoxin (Lanoxin) 125 mcg PO DAILY [facility] Last Admin: 03/04/20 09:03 Dose: 125 mcg Docusate Sodium (Colace 100mg Capsule) 100 mg PO BID PRN PRN Reason: Bowel Protocol Duloxetine HCl (Cymbalta) 30 mg PO QPM [facility] Last Admin: 03/03/20 20:30 Dose: 30 mg Ferrous Gluconate (Fergon) 324 mg PO BIDWM [facility] Last Admin: 03/04/20 09:03 Dose: 324 mg Fluticasone Propionate (Flonase) 1 sprays RAMIN BID [facility] Last Admin: 03/04/20 09:10 Dose: 1 applic Heparin Sodium (Porcine) () 5,000 unit SUBQ BID [facility] Last Admin: 03/04/20 09:05 Dose: 5,000 unit Insulin Aspart (Novolog) 1 - 5 unit SUBQ 0800,1200,1700,2100 [facility]; Protocol Last Admin: 03/04/20 12:42 Dose: 2 unit Insulin Glargine (Lantus Solostar) 10 unit SUBQ HS [facility] Last Admin: 03/03/20 20:38 Dose: 10 unit Lactobacillus Rhamnosus (Culturelle) 1 cap PO DAILY [facility] Last Admin: 03/04/20 09:04 Dose: 1 cap Levothyroxine Sodium (Synthroid) 88 mcg PO QDAC [facility] Last Admin: 03/04/20 06:43 Dose: 88 mcg Losartan Potassium (Cozaar) 25 mg PO DAILY [facility] Last Admin: 03/04/20 09:02 Dose: 25 mg Metoprolol Tartrate (Lopressor) 75 mg PO BID [facility] Last Admin: 03/04/20 09:04 Dose: 75 mg Metoprolol Tartrate (Lopressor Inj) 5 mg IVP Q6H PRN PRN Reason: Tachycardia Miconazole Nitrate (Remedy Antifungal) 1 applic TOP BID [facility] Last Admin: 03/04/20 09:12 Dose: 1 applic Morphine Sulfate () 15 mg PO BID [facility] Last Admin: 03/04/20 09:03 Dose: 15 mg Multi-Ingred Cream/Lotion/Oil/Oint (Lubrifresh Pm Ophth Oint) 1 applic EACHEYE Q1HR PRN PRN Reason: Dry Eye Multivitamins (Theragran) 1 tab PO DAILYWM [facility] Last Admin: 03/04/20 09:03 Dose: 1 tab Ondansetron HCl (Zofran Odt) 4 mg TL Q6HR PRN PRN Reason: Nausea / Vomiting Last Admin: 03/03/20 17:12 Dose: 4 mg Oxycodone HCl (Roxicodone) 5 - 10 mg PO Q6HR PRN PRN Reason: PAIN Pantoprazole Sodium (Protonix) 40 mg PO DAILY [facility] Last Admin: 03/04/20 09:03 Dose: 40 mg Polyethylene Glycol (Miralax) 17 gm PO DAILY [facility] Last Admin: 03/04/20 09:01 Dose: 17 gm Potassium Chloride (Micro-K) 10 meq PO DAILY [facility] Last Admin: 03/04/20 09:02 Dose: 10 meq Senna (Senokot) 8.6 mg PO HS [facility] Last Admin: 03/03/20 22:21 Dose: Not Given Sodium Chloride (Normal Saline Flush 0.9%) 10 ml IVP PRN PRN PRN Reason: NEEDED PER PROVIDER ORDERS Sodium Chloride (Normal Saline Flush 0.9%) 10 ml IVP 0100,0900,1700 [facility] Last Admin: 03/04/20 09:10 Dose: 10 ml Tamsulosin HCl (Flomax) 0.4 mg PO Q24H [facility] Last Admin: 03/03/20 17:12 Dose: 0.4 mg Zolpidem Tartrate (Ambien) 5 mg PO QPM [facility] Last Admin: 03/03/20 22:21 Dose: 5 mg Zolpidem [Ambien] 5 mg PO QPM PRN 05/06/14 polyethylene glycoL 3350 [Miralax] 17 g PO DAILY 05/06/14 Levothyroxine [Synthroid] 100 mcg PO DAILY 02/02/15 Pantoprazole [Protonix] 40 mg PO DAILY 02/02/15 Losartan [Cozaar] 25 mg PO DAILY 09/16/16 Ferrous Gluconate 324 mg PO BIDWM 04/04/17 Morphine ER 15 mg PO BID 04/04/17 Ondansetron Odt [Zofran Odt] 4 mg PO TID PRN 04/04/17 Aspirin 81 mg PO DAILY 08/08/17 Potassium Chloride 10 meq PO DAILY 08/08/17 Docusate Sodium [Dulcolax Stool Softener] 100 mg PO BID PRN 07/12/18 Fluticasone [Flonase] 1 spray RAMIN BID 07/12/18 Insulin Glargine [Lantus Solostar] 10 units SQ DAILY PM 07/12/18 Miconazole Nitrate [Micro-Guard] 85 gm TP BID 07/12/18 Senna [Senokot] 1 tab PO DAILY PM 07/12/18 oxyCODONE/ACET 5/325 [Percocet 5 mg/325 mg] 2 tab PO Q6H PRN 07/12/18 Cyanocobalamin (Vitamin B-12) [Vitamin B-12] 1,000 mcg PO DAILY 03/02/20 DULoxetine [Cymbalta] 30 mg PO QPM 03/02/20 Digoxin 125 mcg PO DAILY 03/02/20 Hydrochlorothiazide 12.5 mg PO DAILY 03/02/20 Metoprolol Tartrate 50 mg PO BID 03/02/20 Mupirocin 2% Oint [Bactroban 2% Oint] 1 applic TOP BID 03/02/20 Objective - Vital Signs/Intake & Output Vital Signs: Vital Signs x48h Temp Pulse Resp BP BP Pulse Ox 03/04/20 13:00 36.8 C 73 17 104/54 L 99 03/04/20 09:04 113/55 L 03/04/20 07:41 36.8 C 75 16 113/55 L 98 Intake & Output: Intake & Output 03/01/20 03/02/20 03/03/20 03/04/20 23:59 23:59 23:59 23:59 Intake Total 1830 724 670 590 Output Total 2775 3780 1275 400 [facility] [phone] 190 - Objective General Appearance: positive: No acute distress, Alert. negative: Lethargic Eyes Bilateral: positive: Normal inspection, PERRL, No lid inflammation ENT: positive: ENT inspection nml, Pharynx nml. negative: Purulent nasal dr ainage Neck: positive: Nml inspection, Thyroid nml, No JVD, Trachea midline. negative: Thyromegaly, Lymphadenopathy (R), Lymphadenopathy (L), Stiff neck Respiratory: positive: Chest non-tender, No respiratory distress, Breath sounds nml. negative: Wheezes, Rales Cardiovascular: positive: No murmur, No gallop, Irregularly irregular. negative: Extrasystoles, Tachycardia, Bradycardia, JVD present, Systolic murmur, Diastolic murmur Peripheral Pulses: 2+ Radial (R), 2+ Radial (L) Abdomen: positive: Non-tender, No organomegaly, Nml bowel sounds, No distention. negative: Tenderness, Guarding, Rebound Back: positive: Nml inspection. negative: CVA tenderness (R), CVA tenderness (L) Skin: positive: No rash, Warm, Dry. negative: Cyanosis, Diaphoresis, Pallor Extremities: positive: Non-tender, Nml appearance. negative: Calf tenderness, Arvind's sign/cords Neurologic/Psychiatric: positive: Oriented x3, Sensation nml. negative: Weakness, Sensory loss, Facial droop, Slurred/abnml speech - Lab Results Fish Bones: 03/04/20 04:55 03/04/20 14:28 Other Labs: Lab Results x24hrs 03/04/20 03/04/20 03/04/20 Range/Units 14:28 11:32 07:34 WBC (4.8-10.8) x10^3/uL RBC (4.70-6.10) 10^6/uL Hgb (14.0-18.0) g/dL Hct (42.0-52.0) % MCV (80.0-94.0) fL MCH (27.0-31.0) pg MCHC (32.0-36.0) g/dL RDW (12.0-15.0) % Plt Count (130-450) 10^3/uL MPV (7.4-11.4) fL Neut # (Auto) (1.5-6.6) 10^3/uL Lymph # (Auto) (1.5-3.5) 10^3/uL [place] # (Auto) (0.0-1.0) 10^3/uL Eos # (Auto) (0.0-0.7) 10^3/uL Baso # (Auto) (0.0-0.1) 10^3/uL Absolute Nucleated RBC x10^3/uL Nucleated RBC % /100WBC D-Dimer (200.0-255.0) ng/mL Sodium 134 L (135-145) mmol/L Potassium 4.8 (3.5-5.0) mmol/L Chloride 80 L* (101-111) mmol/L Carbon Dioxide 41 H* (21-32) mmol/L Anion Gap 13.0 (6-13) BUN 55 H (6-20) mg/dL Creatinine 1.7 H (0.6-1.2) mg/dL Estimated GFR (MDRD) 39 L (>89) Glucose 168 H (70-100) mg/dL POC Whole Bld Glucose 181 H 130 H (70 - 100) mg/dL Calcium 9.2 (8.5-10.3) mg/dL Phosphorus (2.5-4.6) mg/dL Magnesium (1.7-2.8) mg/dL Troponin I High Sens (2.3-19.7) ng/L B-Natriuretic Peptide (5-100) pg/mL Crossmatch IS Only 03/04/20 03/04/20 03/04/20 Range/Units 04:55 04:55 04:55 WBC 7.6 (4.8-10.8) x10^3/uL RBC 3.08 L (4.70-6.10) 10^6/uL Hgb 9.0 L (14.0-18.0) g/dL Hct 29.5 L (42.0-52.0) % MCV 95.8 H (80.0-94.0) fL MCH 29.2 (27.0-31.0) pg MCHC 30.5 L (32.0-36.0) g/dL RDW 13.7 (12.0-15.0) % Plt Count 173 (130-450) 10^3/uL MPV 10.8 (7.4-11.4) fL Neut # (Auto) 5.1 (1.5-6.6) 10^3/uL Lymph # (Auto) 1.2 L (1.5-3.5) 10^3/uL [place] # (Auto) 0.9 (0.0-1.0) 10^3/uL Eos # (Auto) 0.2 (0.0-0.7) 10^3/uL Baso # (Auto) 0.0 (0.0-0.1) 10^3/uL Absolute Nucleated RBC 0.00 x10^3/uL Nucleated RBC % 0.0 /100WBC D-Dimer (200.0-255.0) ng/mL Sodium 134 L (135-145) mmol/L Potassium 4.4 (3.5-5.0) mmol/L Chloride 82 L (101-111) mmol/L Carbon Dioxide 42 H* (21-32) mmol/L Anion Gap 10.0 (6-13) BUN 48 H (6-20) mg/dL Creatinine 1.7 H (0.6-1.2) mg/dL Estimated GFR (MDRD) 39 L (>89) Glucose 142 H (70-100) mg/dL POC Whole Bld Glucose (70 - 100) mg/dL Calcium 8.9 (8.5-10.3) mg/dL Phosphorus 4.4 (2.5-4.6) mg/dL Magnesium 1.9 (1.7-2.8) mg/dL Troponin I High Sens (2.3-19.7) ng/L B-Natriuretic Peptide 340 H (5-100) pg/mL Crossmatch IS Only 03/03/20 03/03/20 03/03/20 Range/Units 20:21 18:51 17:45 WBC (4.8-10.8) x10^3/uL RBC (4.70-6.10) 10^6/uL Hgb (14.0-18.0) g/dL Hct (42.0-52.0) % MCV (80.0-94.0) fL MCH (27.0-31.0) pg MCHC (32.0-36.0) g/dL RDW (12.0-15.0) % Plt Count (130-450) 10^3/uL MPV (7.4-11.4) fL Neut # (Auto) (1.5-6.6) 10^3/uL Lymph # (Auto) (1.5-3.5) 10^3/uL [place] # (Auto) (0.0-1.0) 10^3/uL Eos # (Auto) (0.0-0.7) 10^3/uL Baso # (Auto) (0.0-0.1) 10^3/uL Absolute Nucleated RBC x10^3/uL Nucleated RBC % /100WBC D-Dimer 800.5 H (200.0-255.0) ng/mL Sodium (135-145) mmol/L Potassium (3.5-5.0) mmol/L Chloride (101-111) mmol/L Carbon Dioxide (21-32) mmol/L Anion Gap (6-13) BUN (6-20) mg/dL Creatinine (0.6-1.2) mg/dL Estimated GFR (MDRD) (>89) Glucose (70-100) mg/dL POC Whole Bld Glucose 227 H (70 - 100) mg/dL Calcium (8.5-10.3) mg/dL Phosphorus 4.9 H (2.5-4.6) mg/dL Magnesium 1.8 (1.7-2.8) mg/dL Troponin I High Sens (2.3-19.7) ng/L B-Natriuretic Peptide (5-100) pg/mL Crossmatch IS Only 03/03/20 03/03/20 02/29/20 Range/Units 17:45 16:48 18:45 WBC (4.8-10.8) x10^3/uL RBC (4.70-6.10) 10^6/uL Hgb (14.0-18.0) g/dL Hct (42.0-52.0) % MCV (80.0-94.0) fL MCH (27.0-31.0) pg MCHC (32.0-36.0) g/dL RDW (12.0-15.0) % Plt Count (130-450) 10^3/uL MPV (7.4-11.4) fL Neut # (Auto) (1.5-6.6) 10^3/uL Lymph # (Auto) (1.5-3.5) 10^3/uL [place] # (Auto) (0.0-1.0) 10^3/uL Eos # (Auto) (0.0-0.7) 10^3/uL Baso # (Auto) (0.0-0.1) 10^3/uL Absolute Nucleated RBC x10^3/uL Nucleated RBC % /100WBC D-Dimer (200.0-255.0) ng/mL Sodium (135-145) mmol/L Potassium (3.5-5.0) mmol/L Chloride (101-111) mmol/L Carbon Dioxide (21-32) mmol/L Anion Gap (6-13) BUN (6-20) mg/dL Creatinine (0.6-1.2) mg/dL Estimated GFR (MDRD) (>89) Glucose (70-100) mg/dL POC Whole Bld Glucose 155 H (70 - 100) mg/dL Calcium (8.5-10.3) mg/dL Phosphorus (2.5-4.6) mg/dL Magnesium (1.7-2.8) mg/dL Troponin I High Sens 38.8 H* (2.3-19.7) ng/L B-Natriuretic Peptide (5-100) pg/mL Crossmatch IS Only See Detail ABX Reporting Has patient been on IV antibiotics over the past 48 hours?: No Sepsis Event Note (H) - Evaluation Current Stage of Sepsis: Ruled out Assessment/Plan - Problem List (1) Hypercapnia Impression: 03/04 slight improved to 41 from 43. called piano instructor, recommend to hold Lasix, continue lab monitor, it is likely over-dry by Lasix per piano instructor's advise. hold Lasix, continue regular diet without fluid restriction 03/03 lab test reveals pt has high serum CO2. ABG reveal normal pH, and normal PO2, but high serum CO2 and high HCO3. 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 it is likely the side effect of overly diuretics. reduce Lasix 60 bid to 20 bid, hold fluid restriction now, lab monitor pt is alert and oriented now. neuro check pt's mental status because of hypercapnia. (2) hypochloremia pt has 80 chloride lower. t is likely over-dry by Lasix per piano instructor's advise. hold Lasix, continue regular diet without fluid restriction (3) Acute exacerbation of CHF (congestive heart failure) Impression: 03/04 improved. BNP is down to 300. continue tele and lab monitor 03/03 pt's BNP is slight down, and pt has 95% sat on 0.5 liter of O2, and he is better. reduce lasix dosage, and lab and vital monitor 03/02 pt has 98% on 2 liter of O2, improved. BNP is still elevated. ECHO reveals diastolic moderate CHF. fluid restrict, continue daily weight, lower sodium diet continue Lasix, lab monitor (4) Generalized weakness Conclusion/Plan: 03/04, improved. pt state he feel better. 03/03 slight better, HGB is 9.2 today. continue PT/OT evaluation and treatment. pt still present generalized weakness, his HGB is 9.0 today. it is likely from pt's physical deconditioning. continue PT/OT evaluation and treatment (5) Anosmia Conclusion/Plan: pt report he is better, Covid-19 infection is negative (6) Night sweats Conclusion/Plan: stable/better, and no more night sweats in hospital (7) Pedal edema Conclusion/Plan: 03/04 resolved 03/03 improved, and reduced pedal edema. 03/02 significant improved. continue Lasix (8) Type 2 diabetes mellitus with insulin therapy Conclusion/Plan: A1C is 6.6, continue on Lantus 10 units per home medication and provide corrective per sliding scale. (9) Atrial fibrillation Conclusion/Plan: stable and Currently he is rate controlled. Patient did not have anticoagulated in his home meds. we will continue Aspirin, lovenox of DVT (10) Hypothyroidism Conclusion/Plan: 03/02 pt's TSH is low, reduced Levothyroxine to 88 mcg from 100 mcg daily We will add TSH to a.m. labs, continue current home dose of levothyroxine
[2020-03-04] MEDS: TAMSULOSIN 0.4 MG CAPSULE PO SCH (17:06)
[2020-03-04] MEDS: ONDANSETRON ODT 4 MG TABLET TL PRN (17:08)
[2020-03-04] MEDS ORDERED: MIN OIL/DIMETHICON/COCONUT OIL 92 GM TUBE TOP PRN (19:24)
[2020-03-04] MEDS: oxyCODONE 5 MG TABLET PO PRN (20:43)
[2020-03-04] MEDS: SENNA 8.6 MG TABLET PO SCH (21:28)
[2020-03-04] MEDS: DULoxetine 30 MG CAPSULE PO SCH (21:28)
[2020-03-04] MEDS: ZOLPIDEM 5 MG TABLET PO SCH (21:28)
[2020-03-04] MEDS: INSULIN GLARGINE 300 UNIT/3 ML PEN SUBQ SCH (21:34)
[2020-03-05] MEDS: SODIUM CHLORIDE FLUSH 0.9% 10 ML SYRINGE IVP SCH ×2 (00:35→09:08)
[2020-03-05] MEDS: oxyCODONE 5 MG TABLET PO PRN (00:46)
[2020-03-05 05:34] LABS: BASOPHILS % (AUTO) 0.5 %; EOSINOPHILS # (AUTO) 0.4 10^3/uL (0.0-0.7); EOSINOPHILS % (AUTO) 5.8 %; HGB - HEMOGLOBIN 8.7 g/dL (14.0-18.0); MEAN CORPUSCULAR HGB CONC 31.6 g/dL (32.0-36.0); MEAN CORPUSCULAR VOLUME 94.8 fL (80.0-94.0); MEAN PLATELET VOLUME 12.1 fL (7.4-11.4); MONOCYTES # (AUTO) 0.7 10^3/uL (0.0-1.0); MONOCYTES % (AUTO) 10.9 %; NEUTROPHILS # (AUTO) 4.4 10^3/uL (1.5-6.6); NEUTROPHILS % (AUTO) 67.3 %; PLT - PLATELET COUNT 81 10^3/uL (130-450); RED CELL DISTRIBUTION WIDTH 13.5 % (12.0-15.0); WHITE BLOOD COUNT 6.5 x10^3/uL (4.8-10.8)
[2020-03-05 05:50] LABS: CALCIUM 8.8 mg/dL (8.5-10.3); CREATININE 1.6 mg/dL (0.6-1.2)
[2020-03-05] MEDS: LEVOTHYROXINE 88 MCG TABLET PO SCH (06:29)
[2020-03-05] MEDS: PANTOPRAZOLE 40 MG TABLET PO SCH (09:02)
[2020-03-05] MEDS: LACTOBACILLUS RHAMNOSUS GG CAPSULE PO SCH (09:02)
[2020-03-05] MEDS: POTASSIUM CHLORIDE 10 MEQ CAPSULE PO SCH (09:02)
[2020-03-05] MEDS: ASPIRIN CHEW 81 MG TABLET PO SCH (09:02)
[2020-03-05] MEDS: FERROUS GLUCONATE 324 MG TABLET PO SCH (09:02)
[2020-03-05] MEDS: METOPROLOL TARTRATE 25 MG TABLET PO SCH (09:02)
[2020-03-05] MEDS: DIGOXIN 125 MCG TABLET PO SCH (09:02)
[2020-03-05] MEDS: MULTIVITAMIN TABLET PO SCH (09:02)
[2020-03-05] MEDS: INSULIN ASPART 300 UNIT/3 ML PEN SUBQ SCH ×2 (09:03→12:04)
[2020-03-05] MEDS: HEPARIN 5,000 UNIT/ML VIAL SUBQ SCH (09:03)
[2020-03-05] MEDS: LOSARTAN 50 MG TABLET PO SCH (09:04)
[2020-03-05] MEDS: polyethylene glycoL 3350 17 GM PACKET PO SCH (09:04)
[2020-03-05 09:07] VITALS: BP 117/65
[2020-03-05] MEDS: FLUTICASONE NASAL SPRAY NAS SCH (09:07)
[2020-03-05] MEDS: MORPHINE ER 15 MG TABLET PO SCH (09:07)
[2020-03-05] MEDS: MICONAZOLE CREAM 118 ML TUBE TOP SCH (09:07)
--- NOTE | 2020-03-05 12:55 | Discharge Plan ---
Discharge Plan Problem Reviewed?: Yes Disposition: Home Health Service Condition: Poor Prescriptions: Levothyroxine [Synthroid] 88 mcg PO QDAC #10 tablet Metoprolol Tartrate [Lopressor] 75 mg PO BID #20 tablet Diet: Diabetic Activity Restrictions: Activity as Tolerated Shower Restrictions: No (fall precaution, caregiver closely monitor) Instruction Topics: Levothyroxine tablets, Metoprolol tablets, Heart Failure, Heart Failure Diet Changes, Injury Acute Kidney Dc, Diet Low Salt Dc, Atrial Fibrillation Health Concerns: heart failure, CKD. Plan of Treatment: New ECHO reveals you have moderate diastolic heart failure with moderate pulmonary hypertension, your Metoprolol is slightly increased to your previous dosage 75 mg bid, your HCTZ is hold because of hyponatremia at the admission. You may followup your human machine interface engineer in one to two weeks as out-pt. Your Levothyroxine dosage is slightly decreased to 88 mcg daily due to low TSH value. Your kidney function is stable for chronic kidney disease. you may followup DR. Schulte, iv therapy nurse, at [phone] as out-pt. Care Goals: stabilization and improvement of your medical conditions Assessment: discussed with you and your for care plan, you and your understood and agreed. Additional Instructions or Follow Up instructions: You may followup your PCP in one week, followup your human machine interface engineer in one to two weeks, followup Dr Schulte iv therapy nurse, at [phone], as out-pt. Should your symptoms return or worsen, you may present ER or call 911 for help. Follow-Up Care: Home Health - PT, Home Health - OT No Smoking: If you smoke, Please STOP! Call for help.
--- NOTE | 2020-03-05 13:34 | DISCHARGE SUMMARY ---
Discharge Summary Admit Date: 02/29/20 Discharge Date: 03/05/20 Discharging Provider: Delfino Blanco Primary Care Provider: Clay Anderson Condition at Discharge: Poor Discharge Disposition: Home Health Service Discharge Facility Name: home - DIAGNOSES Admission Diagnoses: (1) Acute exacerbation of CHF (congestive heart failure) (2) Generalized weakness (3) Anosmia (4) Night sweats (5) Pedal edema (6) Type 2 diabetes mellitus with insulin therapy (7) Atrial fibrillation (8) Hypothyroidism Discharge Diagnoses with Status of Each Condition: (1) Hypercapnia chronic. pt is alert and oriented. pt is clinic O2 usage and has hx of chronic elevated CO2 level but it is compensated and his pH is normal. (2) hypochloremia improved. advise pt followup leather tooler. pt is given Dr Schulte, leather tooler information for him to followup (3) Acute exacerbation of CHF (congestive heart failure) stable, BNP is stable and BNP is down. pt has 100% sats on 1 liter of O2. pt's metoprolol resume his previous 75 mg bid. pt had twice 8 beats and 13 beats VT in hospital, but pt was asymptomatic, VT was not persistent. now it is resolved. I discussed this medical condition,twice VT, with Pt and pt's , explained the risk to them and advise pt followup aquatics coordinator closely. They state understanding and agree to the care plan. (4) profound weakness pt is arranged to have home health PT/OT for continuing training (5) Anosmia Conclusion/Plan: resolved, Covid-19 infection is negative (6) Night sweats Conclusion/Plan: resolved (7) Pedal edema Conclusion/Plan: resolved (8) Type 2 diabetes mellitus with insulin therapy Conclusion/Plan: stable (9) Atrial fibrillation stable. pt's metoprolol is resume as his previous dosage 75mg bid. pt has no anticoagulation meds in his home meds list. pt's state it was removed by his PCP. she agreed to be removed in the previous. she understood the benefit and risk of without anticoagulation meds (10) Hypothyroidism TSH is low, home levothyroxine is reduced to 88mcg daily. (11) hyponatremia resolved. pt's home meds HCTZ is hold now (12)BPH pt is prescribed Flomax - HPI History of Present Illness: refer from 's HPI on 02/29/2020 Mr. 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 He is also had on and off episodes of chest pain that seem to be without any precipitating factors and are self-limiting. In addition, he adds that he has been having profuse night sweats for the last several nights, waking up soaking. He adds a history of anosmia over the last 2 weeks. Patient was in the emergency room approximately 2 weeks ago On 02/16/2020, and at the time he presented with dyspnea on exertion. He had previously been on 40 mg of p.o. Lasix but prior to the ED visit had been increased to 80 mg daily, and in the ER it was decided he was likely being over diuresed and so his discharge plan was to reduce his dose back to 40 mg of Lasix p.o. Since then, he has had a phone visit as well as a actual clinic visit with his aquatics coordinator.Apparently he was told to increase his dose of Lasix to 80 mg again. In the emergency department, he was evaluated with labs and x-rays.He initially presented with dyspnea, bilateral lower extremity edema, and a 2 L oxygen requirement which is apparently his home oxygen requirement. His labs showed A mild hyponatremia, mild ROSA with BUN of 46 and creatinine of 1.5.His BNP was slightly increased from the last ER visit at 442 compared to 307. His troponin was only mildly elevated at 33.9. At the time of exam, he was denying any chest pain.Chest x-ray showedBilateral hazy pulmonary opacities with interstitial prominence with suspicion for edema without pleural effusion or pneumothorax. There is also no focal consolidation. This is relatively stable from the previous ER visit. In addition, a right lower extremity Doppler was performed to rule out a DVT given that the patient was complaining of asymmetric swelling of the right leg versus the left leg. Ultrasound is negative for DVT. - HOSPITAL COURSE Hospital Course: pt was admitted for profound weakness and bilateral leg edema. pt was found to have CHF exacerbation and diastolic heart failure. pt was treated with diuretics. after treatment, pt's leg edema is resolved. pt has 100% sat on one liter of O2. pt usually took 2 liter of O2 at home. pt had PT/OT evaluation and treatment in hospital. The home health PT/OT was arranged. The detail hospital course is as the below. (1) Hypercapnia chronic. pt is alert and oriented. pt is clinic O2 usage and has hx of chronic elevated CO2 level but it is compensated and his pH is normal. (2) hypochloremia improved. advise pt followup leather tooler. pt is given Dr Schulte, leather tooler information for him to followup (3) Acute exacerbation of CHF (congestive heart failure) stable, BNP is stable and BNP is down. pt has 100% sats on 1 liter of O2. pt's metoprolol resume his previous 75 mg bid. pt had twice 8 beats and 13 beats VT in hospital, but pt was asymptomatic, VT was not persistent. now it is resolved. I discussed this medical condition,twice VT, with Pt and pt's , explained the risk to them and advise pt followup aquatics coordinator closely. They state understanding and agree to the care plan. (4) profound weakness pt is arranged to have home health PT/OT for continuing training (5) Anosmia Conclusion/Plan: resolved, Covid-19 infection is negative (6) Night sweats Conclusion/Plan: resolved (7) Pedal edema Conclusion/Plan: resolved (8) Type 2 diabetes mellitus with insulin therapy Conclusion/Plan: stable (9) Atrial fibrillation stable. pt's metoprolol is resume as his previous dosage 75mg bid. pt has no anticoagulation meds in his home meds list. pt's state it was removed by his PCP. she agreed to be removed in the previous. she understood the benefit and risk of without anticoagulation meds (10) Hypothyroidism TSH is low, home levothyroxine is reduced to 88mcg daily. (11) hyponatremia resolved. pt's home meds HCTZ is hold now (12)BPH pt is prescribed Flomax - ALLERGIES Allergies/Adverse Reactions: Allergies Allergy/AdvReac Type Severity Reaction Status Date / Time clonidine Allergy Unknown Verified 02/29/20 17:43 diltiazem Allergy Unknown Verified 02/29/20 17:43 - MEDICATIONS Home Medications: Ambulatory Orders Medication Instructions Recorded Confirmed Zolpidem [Ambien] 5 mg PO QPM PRN 05/06/14 03/02/20 polyethylene glycoL 3350 [Miralax] 17 g PO DAILY 05/06/14 03/02/20 Pantoprazole [Protonix] 40 mg PO DAILY 02/02/15 03/02/20 Furosemide [Lasix] 40 mg PO DAILY #30 09/16/16 03/02/20 Losartan [Cozaar] 25 mg PO DAILY 09/16/16 03/02/20 Ferrous Gluconate 324 mg PO BIDWM 04/04/17 03/02/20 Morphine ER 15 mg PO BID 04/04/17 03/02/20 Ondansetron Odt [Zofran Odt] 4 mg PO TID PRN 04/04/17 03/02/20 Aspirin 81 mg PO DAILY 08/08/17 03/02/20 Potassium Chloride 10 meq PO DAILY 08/08/17 03/02/20 Docusate Sodium [Dulcolax Stool 100 mg PO BID PRN 07/12/18 03/02/20 Softener] Fluticasone [Flonase] 1 spray RAMIN BID 07/12/18 03/02/20 Insulin Glargine [Lantus Solostar] 10 units SQ DAILY PM 07/12/18 03/02/20 Miconazole Nitrate [Micro-Guard] 85 gm TP BID 07/12/18 03/02/20 Senna [Senokot] 1 tab PO DAILY PM 07/12/18 03/02/20 oxyCODONE/ACET 5/325 [Percocet 5 2 tab PO Q6H PRN 07/12/18 03/02/20 mg/325 mg] Cyanocobalamin (Vitamin B-12) 1,000 mcg PO DAILY 03/02/20 03/02/20 [Vitamin B-12] DULoxetine [Cymbalta] 30 mg PO QPM 03/02/20 03/02/20 Digoxin 125 mcg PO DAILY 03/02/20 03/02/20 Mupirocin 2% Oint [Bactroban 2% 1 applic TOP BID 03/02/20 03/02/20 Oint] Levothyroxine [Synthroid] 88 mcg PO QDAC #10 tablet 03/05/20 Metoprolol Tartrate [Lopressor] 75 mg PO BID #20 tablet 03/05/20 Tamsulosin [Flomax] 0.4 mg PO DAILY #10 capsule 03/05/20 - PHYSICAL EXAM AT DISCHARGE General Appearance: positive: No acute distress, Alert. negative: Lethargic Eyes Bilateral: positive: Normal inspection, PERRL, No lid inflammation ENT: positive: ENT inspection nml, Pharynx nml, No signs of dehydration. negative: Purulent nasal drainage Neck: positive: Nml inspection, Thyroid nml, No JVD, Trachea midline. negative: Thyromegaly, Stiff neck, Tracheal deviation Respiratory: positive: Chest non-tender, No respiratory distress. negative: Wheezes, Rales, Rhonchi Cardiovascular: positive: No murmur, No gallop, Irregularly irregular. negative: Extrasystoles, Tachycardia, Bradycardia, Systolic murmur, Diastolic murmur Peripheral Pulses: positive: 2+ Abdomen: positive: Non-tender, No organomegaly, Nml bowel sounds, No distention. negative: Tenderness, Guarding, Rebound Back: positive: Nml inspection. negative: CVA tenderness (R), CVA tenderness (L) Skin: positive: Color nml, No rash, Warm, Dry. negative: Cyanosis, Diaphoresis, Pallor Extremities: positive: Non-tender, Nml appearance. negative: Calf tenderness, Arvind's sign/cords Neurologic/Psychiatric: positive: Oriented x3, Sensation nml. negative: Weakness, Sensory loss, Facial droop, Slurred/abnml speech - LABS Result Diagrams: 03/05/20 05:10 03/05/20 05:10 - SEPSIS Current Stage of Sepsis: Ruled out - FOLLOW UP Follow Up: New ECHO reveals you have moderate diastolic heart failure with moderate pulmonary hypertension, your Metoprolol is slightly increased to your previous dosage 75 mg bid, your HCTZ is hold because of hyponatremia at the admission. You may followup your aquatics coordinator in one to two weeks as out-pt. Your Levothyroxine dosage is slightly decreased to 88 mcg daily due to low TSH value. Your kidney function is stable for chronic kidney disease. you may followup DR. Schulte, leather tooler, at [phone] as out-pt. You may followup your PCP in one week, followup your aquatics coordinator in one to two weeks, followup Dr Schulte, leather tooler, at [phone], as out-pt. Should your symptoms return or worsen, you may present ER or call 911 for help. - TIME SPENT Time Spent in Discharge (Minutes): 40
== END 2020-03-05 15:24 | disposition home health service (06) | DRG 291 ==
LOC: EDUNIT# → ED 17:33 → MS2 19:51
PROVIDERS: ADMIT Family Medicine Sports Medicine; ATTEND Nurse Practitioner Gerontology
DX: I13.0 Hypertensive heart and chronic kidney disease with heart failure and stage 1 through stage 4 chronic kidney disease, or unspecified chronic kidney disease (principal); I50.9 Heart failure, unspecified; D64.9 Anemia, unspecified; I50.31 Acute diastolic (congestive) heart failure; N17.9 Acute kidney failure, unspecified; I48.91 Unspecified atrial fibrillation; F03.90 Unspecified dementia, unspecified severity, without behavioral disturbance, psychotic disturbance, mood disturbance, and anxiety; I08.1 Rheumatic disorders of both mitral and tricuspid valves; E87.1 Hypo-osmolality and hyponatremia; I47.2 Ventricular tachycardia; E11.22 Type 2 diabetes mellitus with diabetic chronic kidney disease; N18.9 Chronic kidney disease, unspecified; I48.0 Paroxysmal atrial fibrillation; E03.9 Hypothyroidism, unspecified; D69.6 Thrombocytopenia, unspecified; R43.0 Anosmia; R06.89 Other abnormalities of breathing; T50.2X5A Adverse effect of carbonic-anhydrase inhibitors, benzothiadiazides and other diuretics, initial encounter; Y92.009 Unspecified place in unspecified non-institutional (private) residence as the place of occurrence of the external cause; E87.8 Other disorders of electrolyte and fluid balance, not elsewhere classified; E78.00 Pure hypercholesterolemia, unspecified; R53.1 Weakness; R63.4 Abnormal weight loss; Z68.21 Body mass index [BMI] 21.0-21.9, adult; M81.0 Age-related osteoporosis without current pathological fracture; R61 Generalized hyperhidrosis; M19.90 Unspecified osteoarthritis, unspecified site; G89.29 Other chronic pain; M54.9 Dorsalgia, unspecified; N40.0 Benign prostatic hyperplasia without lower urinary tract symptoms; H54.7 Unspecified visual loss; H91.90 Unspecified hearing loss, unspecified ear; Z99.81 Dependence on supplemental oxygen; Z79.891 Long term (current) use of opiate analgesic; Z79.82 Long term (current) use of aspirin; Z79.4 Long term (current) use of insulin; I25.2 Old myocardial infarction; Z96.653 Presence of artificial knee joint, bilateral; Z87.01 Personal history of pneumonia (recurrent); Z72.89 Other problems related to lifestyle
CPT/HCPCS: 36415; 36600; 51702; 71045; 80048; 80053; 80162; 82803; 83036; 83690; 83735; 83880; 84100; 84439; 84443; 84484; 85025; 85027; 85379; 85610; 86850; 86900; 86901; 86920; 93005; 93306; 93970; 96374; 97161; 97166; 97530; 99285; A6250; A9270; J1650; J1815; J1940; Q0162; U0002; 81599

== ENCOUNTER 2020-03-23 13:09 | Outpatient (CLI) | payer MEDICARE, OTHER ==
--- NOTE | 2020-03-24 09:51 | Ultrasound Report ---
Reason: BLADDER NECK OBSTRUCTION, CHRONIC KIDNEY DIS Procedure Date: 03/23/2020 Accession Number: [id number] / [id number] Procedure: US - Retroperitoneal CPT Code: Final Report FULL RESULT: EXAM: RENAL ULTRASOUND EXAM DATE: 03/23/2020 02:13 PM. CLINICAL HISTORY: Bladder neck obstruction, chronic kidney disease. COMPARISON: ABDOMEN/PELVIS W/ 09/15/2016. TECHNIQUE: Real-time scanning was performed with static images obtained. FINDINGS: Right Kidney: 9.8 cm. Scattered cysts are seen, the largest measuring 1.5 x 1.5 x 1.5 cm in the midpole. No hydronephrosis or nephrolithiasis detected. Left Kidney: 11.1 cm. Midpole cyst measuring 1.1 x 1.4 x 1.5 cm. No hydronephrosis or nephrolithiasis detected. Bladder: Bilateral jets seen. The prevoid bladder volume was 217 cc. The postvoid bladder volume was 70 cc. Other: None. IMPRESSION: No hydronephrosis identified. Moderate postvoid residual. RADIA
== END 2020-03-23 13:10 | disposition home or self-care (01) ==
LOC: DI 13:09
PROVIDERS: ATTEND Internal Medicine Nephrology
DX: N18.3 Chronic kidney disease, stage 3 (moderate) (principal); N32.0 Bladder-neck obstruction; N17.9 Acute kidney failure, unspecified; D70.9 Neutropenia, unspecified; D63.1 Anemia in chronic kidney disease; D50.0 Iron deficiency anemia secondary to blood loss (chronic); D64.9 Anemia, unspecified
CPT/HCPCS: 36415; 76770; 80048; 82607; 82728; 82746; 83540; 84466; 85027

== ENCOUNTER 2020-03-23 14:16 | Outpatient (CLI) | payer MEDICARE, OTHER ==
[2020-03-23 14:42] LABS: HGB - HEMOGLOBIN 9.3 g/dL (14.0-18.0); MEAN CORPUSCULAR HEMOGLOBIN 30.5 pg (27.0-31.0); MEAN CORPUSCULAR HGB CONC 33.9 g/dL (32.0-36.0); MEAN CORPUSCULAR VOLUME 89.8 fL (80.0-94.0); MEAN PLATELET VOLUME 11.4 fL (7.4-11.4); RED BLOOD COUNT 3.05 10^6/uL (4.70-6.10); RED CELL DISTRIBUTION WIDTH 14.6 % (12.0-15.0); WHITE BLOOD COUNT 7.1 x10^3/uL (4.8-10.8)
[2020-03-23 15:00] LABS: CALCIUM 8.7 mg/dL (8.5-10.3); CREATININE 1.4 mg/dL (0.6-1.2)
[2020-03-23 15:18] LABS: FERRITIN 130.4 ng/mL (23.9-336.2)
[2020-03-23 15:22] LABS: FOLATE 11.6 ng/mL (5.90 - >24.8)
== END 2020-03-23 14:17 | disposition home or self-care (01) ==
LOC: LAB 14:16
PROVIDERS: ATTEND Internal Medicine Nephrology
DX: N05.9 Unspecified nephritic syndrome with unspecified morphologic changes (principal); D70.9 Neutropenia, unspecified; D63.1 Anemia in chronic kidney disease; D50.0 Iron deficiency anemia secondary to blood loss (chronic); D64.9 Anemia, unspecified
CPT/HCPCS: 36415; 80048; 82607; 82728; 82746; 83540; 84466; 85027

== ENCOUNTER 2020-04-30 15:54 | Outpatient (CLI) | payer MEDICARE, OTHER ==
[2020-04-30 16:15] LABS: BASOPHILS % (AUTO) 0.5 %; EOSINOPHILS # (AUTO) 0.1 10^3/uL (0.0-0.7); EOSINOPHILS % (AUTO) 2.1 %; HGB - HEMOGLOBIN 9.3 g/dL (14.0-18.0); LYMPHOCYTES # (AUTO) 1.3 10^3/uL (1.5-3.5); LYMPHOCYTES % (AUTO) 23.1 %; MEAN CORPUSCULAR HEMOGLOBIN 30.4 pg (27.0-31.0); MEAN CORPUSCULAR VOLUME 92.2 fL (80.0-94.0); MONOCYTES # (AUTO) 0.7 10^3/uL (0.0-1.0); MONOCYTES % (AUTO) 12.4 %; NEUTROPHILS # (AUTO) 3.6 10^3/uL (1.5-6.6); NEUTROPHILS % (AUTO) 61.4 %; PLT - PLATELET COUNT 75 10^3/uL (130-450); RED BLOOD COUNT 3.06 10^6/uL (4.70-6.10); RED CELL DISTRIBUTION WIDTH 15.7 % (12.0-15.0); WHITE BLOOD COUNT 5.8 x10^3/uL (4.8-10.8)
[2020-04-30 16:21] LABS: CALCIUM 8.9 mg/dL (8.5-10.3); CREATININE 1.6 mg/dL (0.6-1.2)
== END 2020-04-30 15:55 | disposition home or self-care (01) ==
LOC: LAB 15:54
PROVIDERS: ATTEND Internal Medicine Nephrology
DX: N05.9 Unspecified nephritic syndrome with unspecified morphologic changes (principal); D70.9 Neutropenia, unspecified; D63.1 Anemia in chronic kidney disease
CPT/HCPCS: 36415; 80048; 85025

== ENCOUNTER 2020-05-27 13:17 | Outpatient (CLI) | payer MEDICARE, OTHER ==
[2020-05-27 13:31] LABS: BASOPHILS % (AUTO) 0.5 %; EOSINOPHILS # (AUTO) 0.1 10^3/uL (0.0-0.7); EOSINOPHILS % (AUTO) 2.1 %; HGB - HEMOGLOBIN 10.1 g/dL (14.0-18.0); LYMPHOCYTES # (AUTO) 1.4 10^3/uL (1.5-3.5); LYMPHOCYTES % (AUTO) 22.3 %; MEAN CORPUSCULAR HEMOGLOBIN 30.6 pg (27.0-31.0); MEAN CORPUSCULAR HGB CONC 32.7 g/dL (32.0-36.0); MEAN CORPUSCULAR VOLUME 93.6 fL (80.0-94.0); MEAN PLATELET VOLUME 11.8 fL (7.4-11.4); MONOCYTES # (AUTO) 0.7 10^3/uL (0.0-1.0); MONOCYTES % (AUTO) 10.8 %; NEUTROPHILS # (AUTO) 3.9 10^3/uL (1.5-6.6); NEUTROPHILS % (AUTO) 63.8 %; PLT - PLATELET COUNT 60 10^3/uL (130-450); RED CELL DISTRIBUTION WIDTH 14.8 % (12.0-15.0); WHITE BLOOD COUNT 6.2 x10^3/uL (4.8-10.8)
[2020-05-27 13:41] LABS: CALCIUM 8.9 mg/dL (8.5-10.3); CREATININE 1.5 mg/dL (0.6-1.2)
== END 2020-05-27 13:18 | disposition home or self-care (01) ==
LOC: LAB 13:17
PROVIDERS: ATTEND Internal Medicine Nephrology
DX: N05.9 Unspecified nephritic syndrome with unspecified morphologic changes (principal); D70.9 Neutropenia, unspecified; D63.1 Anemia in chronic kidney disease
CPT/HCPCS: 36415; 80048; 85025

== ENCOUNTER 2020-06-21 14:25 | Outpatient (CLI) | payer MEDICARE, OTHER ==
[2020-06-21 14:51] LABS: CALCIUM 9.2 mg/dL (8.5-10.3); CREATININE 1.7 mg/dL (0.6-1.2)
== END 2020-06-21 14:26 | disposition home or self-care (01) ==
LOC: LAB 14:25
PROVIDERS: ATTEND Internal Medicine Cardiovascular Disease
DX: I50.813 Acute on chronic right heart failure (principal)
CPT/HCPCS: 36415; 80048

== ENCOUNTER 2020-11-15 16:09 | Outpatient (CLI) | payer MEDICARE, OTHER | END 2020-11-15 16:10 | disposition critical access hospital (66) | LOC: EMS 16:09 | PROVIDERS: ATTEND Surgery | DX: R53.1 Weakness (principal) | CPT/HCPCS: A0425; A0429 ==

== ENCOUNTER 2020-11-15 16:19 | Inpatient (IN) | payer MEDICARE, OTHER ==
--- NOTE | 2020-11-15 16:38 | ED Physician Documentation ---
History of Present Illness - Stated complaint Stated Complaint: WEAKNESS - Chief complaint Chief Complaint: General - History obtained from History obtained from: Patient, EMS - Additonal information Additional information: This is an 81-year-old gentleman with history of atrial fibrillation, not anticoagulated. Also history of chronic renal insufficiency, type 2 diabetes. He presents by ambulance today, patient is a vague historian and much of the history initially is from the paramedics. I did call the shortly after my initial evaluation and she is on her way to the hospital to get further history. Reportedly maybe for 5 days ago slipped and fell. He says he just caught his foot on the rug and went down. Reportedly a lift assist was done at the time but was not evaluated otherwise. Since then he has developed anasarca despite increasing doses of Lasix, was on 80 mg in the morning, now 80 mg in the morning and 40 at night. Recently discontinued metoprolol due to hypotension. Patient denies any new pain. Says he is always in pain but his baseline pain is not worse than normal. Also there is a report that a couple of days ago developed brown urine, without specific evaluation he was called in a prescription for Bactrim for same. He has been on that for about 2 days. Review of Systems Ten Systems: 10 systems reviewed and negative Constitutional: reports: Reviewed and negative Nose: reports: Reviewed and negative Throat: reports: Reviewed and negative Cardiac: reports: Reviewed and negative Respiratory: reports: Reviewed and negative PD PAST MEDICAL HISTORY - Past Medical History Cardiovascular: Congestive heart failure, Hypertension, High cholesterol, MS, Atrial fibrillation, Valve disorder Respiratory: Pneumonia Endocrine/Autoimmune: Type 2 diabetes GI: Diverticulitis, Other : Renal insuffiency HEENT: Chronic vision loss, Chronic hearing loss Psych: Depression Musculoskeletal: Osteoarthritis, Osteoporosis, Chronic back pain Derm: None - Past Surgical History Past Surgical History: Yes General: Cholecystectomy, Bowel surgery Ortho: Knee replacement, Spine surgery, Other - Present Medications Home Medications: Ambulatory Orders Medication Instructions Recorded Confirmed Zolpidem [Ambien] 5 mg PO QPM PRN 05/06/14 03/02/20 polyethylene glycoL 3350 [Miralax] 17 g PO DAILY 05/06/14 03/02/20 Pantoprazole [Protonix] 40 mg PO DAILY 02/02/15 03/02/20 Furosemide [Lasix] 40 mg PO DAILY #30 09/16/16 03/02/20 Losartan [Cozaar] 25 mg PO DAILY 09/16/16 03/02/20 Ferrous Gluconate 324 mg PO BIDWM 04/04/17 03/02/20 Morphine ER 15 mg PO BID 04/04/17 03/02/20 Ondansetron Odt [Zofran Odt] 4 mg PO TID PRN 04/04/17 03/02/20 Aspirin 81 mg PO DAILY 08/08/17 03/02/20 Potassium Chloride 10 meq PO DAILY 08/08/17 03/02/20 Docusate Sodium [Dulcolax Stool 100 mg PO BID PRN 07/12/18 03/02/20 Softener] Fluticasone [Flonase] 1 spray RAMIN BID 07/12/18 03/02/20 Insulin Glargine [Lantus Solostar] 10 units SQ DAILY PM 07/12/18 03/02/20 Miconazole Nitrate [Micro-Guard] 85 gm TP BID 07/12/18 03/02/20 Senna [Senokot] 1 tab PO DAILY PM 07/12/18 03/02/20 oxyCODONE/ACET 5/325 [Percocet 5 2 tab PO Q6H PRN 07/12/18 03/02/20 mg/325 mg] Cyanocobalamin (Vitamin B-12) 1,000 mcg PO DAILY 03/02/20 03/02/20 [Vitamin B-12] DULoxetine [Cymbalta] 30 mg PO QPM 03/02/20 03/02/20 Digoxin 125 mcg PO DAILY 03/02/20 03/02/20 Mupirocin 2% Oint [Bactroban 2% 1 applic TOP BID 03/02/20 03/02/20 Oint] Levothyroxine [Synthroid] 88 mcg PO QDAC #10 tablet 03/05/20 Metoprolol Tartrate [Lopressor] 75 mg PO BID #20 tablet 03/05/20 Tamsulosin [Flomax] 0.4 mg PO DAILY #10 capsule 03/05/20 - Allergies Allergies/Adverse Reactions: Allergies Allergy/AdvReac Type Severity Reaction Status Date / Time clonidine Allergy Unknown Verified 02/29/20 17:43 diltiazem Allergy Unknown Verified 02/29/20 17:43 - Social History Does the pt smoke?: No Smoking Status: Never smoker Does the pt drink ETOH?: Yes Does the pt have substance abuse?: No - Immunizations Immunizations are current?: No Immunizations: TDAP >10years/unknown - POLST Patient has POLST: Yes POLST Status: Full Code PD ED PE NORMAL - Vitals Vital signs reviewed: Yes - General General: No acute distress, Well developed/nourished, Other (He is alert and oriented to person and place but not time, very vague on events.) - HEENT HEENT: PERRL, EOMI - Neck Neck: Supple, no meningeal sign, No bony TTP - Cardiac Cardiac: Other (Irregularly irregular without murmur) - Respiratory Respiratory: No respiratory distress, Clear bilaterally - Abdomen Abdomen: Normal bowel sounds, Soft, Non tender - Back Back: No spinal TTP (With significant scoliosis) - Extremities Extremities: Other (4+ pitting pedal edema with CHON hose on, symmetric, nontender) - Neuro Neuro: shredding machine tender 2-12 intact, No motor deficit, No sensory deficit Eye Opening: Spontaneous Motor: Obeys Commands Verbal: Confused GCS Score: 14 Results - Vitals Vitals: Vital Signs - 24 hr 11/15/20 11/15/20 16:20 17:15 Temperature 37.4 C Heart Rate 111 H 86 Respiratory 18 18 Rate Blood Pressure 109/72 103/76 O2 Saturation 100 99 Oxygen O2 Source [] Room air O2 Source [] Room air O2 Source Room air - EKG (time done) 1640 Rate: Rate (enter#) (90) Rhythm: NSR (with v freq pvcs) [place]: Normal Intervals: LBBB Computer interpretation: Agree with computer - Labs Labs: Laboratory Tests 11/15/20 11/15/20 11/15/20 16:50 17:35 17:35 WBC 6.3 RBC 2.97 L Hgb 8.7 L Hct 27.2 L MCV 91.6 MCH 29.3 MCHC 32.0 RDW 13.9 Plt Count 86 L MPV 13.9 H Neut # (Auto) 4.4 Lymph # (Auto) 1.3 L [place] # (Auto) 0.5 Eos # (Auto) 0.0 Baso # (Auto) 0.0 Absolute Nucleated RBC 0.00 Nucleated RBC % 0.0 PT 12.3 INR 1.1 Sodium Potassium Chloride Carbon Dioxide Anion Gap BUN Creatinine Estimated GFR (MDRD) Glucose Calcium Magnesium Total Bilirubin AST ALT Alkaline Phosphatase Troponin I High Sens B-Natriuretic Peptide Total Protein Albumin Globulin Albumin/Globulin Ratio Urine Color YELLOW Urine Clarity CLEAR Urine pH 6.0 Ur Specific [place] 1.010 Urine Protein NEGATIVE Urine Glucose (UA) NEGATIVE Urine Ketones NEGATIVE Urine Occult Blood NEGATIVE Urine Nitrite NEGATIVE Urine Bilirubin NEGATIVE Urine Urobilinogen 2 H Ur Leukocyte Esterase NEGATIVE Ur Microscopic Review NOT INDICATED Urine Culture Comments NOT INDICATED Last Dose Date Last Dose Time Digoxin 11/15/20 11/15/20 11/15/20 17:35 17:35 17:35 WBC RBC Hgb Hct MCV MCH MCHC RDW Plt Count MPV Neut # (Auto) Lymph # (Auto) [place] # (Auto) Eos # (Auto) Baso # (Auto) Absolute Nucleated RBC Nucleated RBC % PT INR Sodium 127 L Potassium 4.9 Chloride 80 L* Carbon Dioxide 30 Anion Gap 17.0 H BUN 41 H Creatinine 1.8 H Estimated GFR (MDRD) 36 L Glucose 128 H Calcium 8.5 Magnesium 1.4 L Total Bilirubin 0.8 AST 20 ALT 16 Alkaline Phosphatase 186 H Troponin I High Sens 24.8 H* B-Natriuretic Peptide 321 H Total Protein 5.8 L Albumin 2.7 L Globulin 3.1 Albumin/Globulin Ratio 0.9 L Urine Color Urine Clarity Urine pH Ur Specific [place] Urine Protein Urine Glucose (UA) Urine Ketones Urine Occult Blood Urine Nitrite Urine Bilirubin Urine Urobilinogen Ur Leukocyte Esterase Ur Microscopic Review Urine Culture Comments Last Dose Date UNKNOWN Last Dose Time UNKNOWN Digoxin 1.4 PD MEDICAL DECISION MAKING - ED course ED course: This is an 85-year-old gentleman with history of atrial fibrillation, CHF who presents with anasarca and worsening generalized weakness of a week or 2's duration resulting in a fall a few days ago without injury and today his now at the bedside said he cannot get up cannot ambulate. He does appear to have anasarca and mild confusion. Work-up notable for H&H close to his baseline, chemistries most notable for worse than normal hyponatremia, significant hypochloremia, creatinine is at his baseline, but BUN is lower than his baseline. Troponin is borderline. BNP is generally lower than he usually runs. Digoxin level therapeutic. This constellation of findings suggests under diuresis despite the fact that he has already increased his Lasix from 80 mg a day to 80 mg in the day and 40 mg at night recently. Spoke with Dr. Frye for admit at 756 for admission. Departure - Departure Disposition: [facility] DC/Xfer Clinical Impression: Hyponatremia Anemia Qualifiers: Anemia type: unspecified type Qualified Code(s): D64.9 - Anemia, unspecified Atrial fibrillation Qualifiers: Atrial fibrillation type: permanent Qualified Code(s): I48.21 - Permanent atrial fibrillation Fluid overload Qualifiers: Hypervolemia type: other Qualified Code(s): E87.79 - Other fluid overload Condition: Serious
[2020-11-15 17:12] LABS: BILIRUBIN,URINE NEGATIVE (NEGATIVE); GLUCOSE, URINE (UA) NEGATIVE (NEGATIVE); KETONES,URINE (UA) NEGATIVE (NEGATIVE); LEUKOCYTE ESTERASE, URINE NEGATIVE (NEGATIVE); NITRITE,URINE NEGATIVE (NEGATIVE); OCCULT BLOOD,URINE NEGATIVE (NEGATIVE); PROTEIN,URINE NEGATIVE (NEGATIVE); UROBILINOGEN,URINE 2 E.U./dL (NORMAL)
[2020-11-15 17:14] LABS: CLARITY,URINE CLEAR (CLEAR)
[2020-11-15 17:44] LABS: BASOPHILS % (AUTO) 0.3 %; EOSINOPHILS % (AUTO) 0.5 %; HGB - HEMOGLOBIN 8.7 g/dL (14.0-18.0); LYMPHOCYTES # (AUTO) 1.3 10^3/uL (1.5-3.5); LYMPHOCYTES % (AUTO) 20.6 %; MEAN CORPUSCULAR HEMOGLOBIN 29.3 pg (27.0-31.0); MEAN CORPUSCULAR VOLUME 91.6 fL (80.0-94.0); MEAN PLATELET VOLUME 13.9 fL (7.4-11.4); MONOCYTES # (AUTO) 0.5 10^3/uL (0.0-1.0); MONOCYTES % (AUTO) 7.4 %; NEUTROPHILS # (AUTO) 4.4 10^3/uL (1.5-6.6); NEUTROPHILS % (AUTO) 70.7 %; PLT - PLATELET COUNT 86 10^3/uL (130-450); RED BLOOD COUNT 2.97 10^6/uL (4.70-6.10); RED CELL DISTRIBUTION WIDTH 13.9 % (12.0-15.0); WHITE BLOOD COUNT 6.3 x10^3/uL (4.8-10.8)
[2020-11-15 17:47] LABS: INR 1.1 (0.8-1.2); PT - PROTHROMBIN TIME 12.3 secs (9.9-12.6)
[2020-11-15 18:02] LABS: ALBUMIN 2.7 g/dL (3.2-5.5); ALBUMIN/GLOBULIN RATIO 0.9 (1.0-2.2); ALKALINE PHOSPHATASE 186 IU/L (42-121); ALT ALANINE AMINOTRANSFERASE 16 IU/L (10-60); AST ASPARTATE AMINOTRANSFERASE 20 IU/L (10-42); BILIRUBIN,TOTAL 0.8 mg/dL (0.2-1.0); BUN - BLOOD UREA NITROGEN 41 mg/dL (6-20); CALCIUM 8.5 mg/dL (8.5-10.3); CARBON DIOXIDE - CO2 30 mmol/L (21-32); CREATININE 1.8 mg/dL (0.6-1.2); DIGOXIN 1.4 ng/mL; GLUCOSE 128 mg/dL (70-100); MAGNESIUM 1.4 mg/dL (1.7-2.8); SODIUM 127 mmol/L (135-145); TOTAL PROTEIN 5.8 g/dL (6.7-8.2)
[2020-11-15 18:03] LABS: CHLORIDE 80 mmol/L (101-111)
[2020-11-15] MEDS ORDERED: FUROSEMIDE 100 MG/10 ML VIAL IVP STA (18:15)
--- NOTE | 2020-11-15 20:04 | HISTORY & PHYSICAL EXAMINATION ---
Chief Complaint - Chief Complaint Chief Complaint: anasarca History of Present Illness - Admitted From Admitted From:: [facility] ED - History Obtained From Records Reviewed: yes History obtained from: ED physician and patient Exam Limitations: patient is not a very good historian - History of Present Illness HPI Comment/Other: Patient is 85-year-old male with history significant for atrial fibrillation not anticoagulated, CHF and diabetes mellitus who presented to the ED with complaint of worsening generalized weakness and anasarca. He normally gets around with the aid of a walker. About 5 days ago he fell and required a lift assist. Despite that his has been able to assist him with ambulation however today he was unable to get up or ambulate due to his weakness as a result he was brought to the ED for evaluation. On evaluation in the ED his sodium level was 123 with a chloride of 80. He was thought to have anasarca as well. Consequently he was presented for admission for further treatment. He was given 100 mg Lasix IV x1 in the ED. At bedside he is resting comfortably. He is not a very reliable historian. However subjectively he denies chest pain, dyspnea, abdominal pain, nausea, vomiting, fever or chills. He has significant bruising on his upper extremities. History - Past Medical History Cardiovascular: reports: Congestive heart failure, Hypertension, High cholesterol, [place], Atrial fibrillation, Valve disorder Respiratory: reports: Pneumonia Endocrine/Autoimmune: reports: Type 2 diabetes GI: reports: Diverticulitis, Other : reports: Renal insuffiency HEENT: reports: Chronic vision loss, Chronic hearing loss Psych: reports: Depression Musculoskeletal: reports: Osteoarthritis, Osteoporosis, Chronic back pain Derm: reports: None MRSA Hx?: No - Past Surgical History General: reports: Cholecystectomy, Bowel surgery Ortho: reports: Knee replacement, Spine surgery, Other - Family & Social History Family History Comment/Other: Family history is non-contributory Social History Notes: The patient was born in [place], [place]. He moved to [facility] with his and they now live in [place]. They have been for 40 years. They have 5 children. They spend their glover in [facility] however this is become more and more difficult for them to do and they are cutting back on the amount of time they spent in [place]. The patient does not smoke, he rarely drinks alcohol but he does use marijuana at night to help with pain and to help him sleep. - Substance History Use: Uses substance without health or social issues: NONE - POLST Patient has POLST: Yes POLST Status: Full Code Meds/Allgy - Home Medications Home Medications: Ambulatory Orders Medication Instructions Recorded Confirmed Zolpidem [Ambien] 5 mg PO QPM PRN 05/06/14 03/02/20 polyethylene glycoL 3350 [Miralax] 17 g PO DAILY 05/06/14 03/02/20 Pantoprazole [Protonix] 40 mg PO DAILY 02/02/15 03/02/20 Furosemide [Lasix] 40 mg PO DAILY #30 09/16/16 03/02/20 Losartan [Cozaar] 25 mg PO DAILY 09/16/16 03/02/20 Ferrous Gluconate 324 mg PO BIDWM 04/04/17 03/02/20 Morphine ER 15 mg PO BID 04/04/17 03/02/20 Ondansetron Odt [Zofran Odt] 4 mg PO TID PRN 04/04/17 03/02/20 Aspirin 81 mg PO DAILY 08/08/17 03/02/20 Potassium Chloride 10 meq PO DAILY 08/08/17 03/02/20 Docusate Sodium [Dulcolax Stool 100 mg PO BID PRN 07/12/18 03/02/20 Softener] Fluticasone [Flonase] 1 spray RAMIN BID 07/12/18 03/02/20 Insulin Glargine [Lantus Solostar] 10 units SQ DAILY PM 07/12/18 03/02/20 Miconazole Nitrate [Micro-Guard] 85 gm TP BID 07/12/18 03/02/20 Senna [Senokot] 1 tab PO DAILY PM 07/12/18 03/02/20 oxyCODONE/ACET 5/325 [Percocet 5 2 tab PO Q6H PRN 07/12/18 03/02/20 mg/325 mg] Cyanocobalamin (Vitamin B-12) 1,000 mcg PO DAILY 03/02/20 03/02/20 [Vitamin B-12] DULoxetine [Cymbalta] 30 mg PO QPM 03/02/20 03/02/20 Digoxin 125 mcg PO DAILY 03/02/20 03/02/20 Mupirocin 2% Oint [Bactroban 2% 1 applic TOP BID 03/02/20 03/02/20 Oint] Levothyroxine [Synthroid] 88 mcg PO QDAC #10 tablet 03/05/20 Metoprolol Tartrate [Lopressor] 75 mg PO BID #20 tablet 03/05/20 Tamsulosin [Flomax] 0.4 mg PO DAILY #10 capsule 03/05/20 - Allergies Allergies/Adverse Reactions: Allergies Allergy/AdvReac Type Severity Reaction Status Date / Time clonidine Allergy Unknown Verified 02/29/20 17:43 diltiazem Allergy Unknown Verified 02/29/20 17:43 Review of Systems - Constitutional Constitutional: reports: Fatigue, Weakness. denies: Fever, Chills - Eyes Eyes: denies: Pain, Vision loss, Dipolpia - Ears, Nose & Throat Ears, Nose & Throat: denies: Ear pain, Sore throat - Cardiovascular Cariovascular: reports: Irregular heart rate, Edema (+1). denies: Chest pain, Exertional dyspnea - Respiratory Respiratory: denies: Cough, Wheezing, SOB at rest, SOB with exertion - Gastrointestinal Gastrointestinal: denies: Abdominal pain, Abdominal distention, Nausea, Vomiting, Reflux/heartburn - Genitourinary Genitourinary: denies: Dysuria, Frequency, Urgency, Hematuria, Incontinence, Flank pain - Musculoskeletal Musculoskeletal: reports: Back pain. denies: Muscle pain - Integumentary Integumentary: denies: Rash, Pruritis - Neurological Neurological: reports: General weakness. denies: Focal weakness, Headache - Psychiatric Psychiatric: denies: Depression, Anxiety - Endocrine Endocrine: denies: Polyuria, Polydypsia - Hematologic/Lymphatic Hematologic/Lymphatic: reports: Bruising. denies: Anemia, Petechiae Prior Level of Functionality: Patient normally gets around using a walker with some assistance from his . However lately he has become progressively weaker and is not able to ambulate Exam - Vital Signs Vital Signs: Vital Signs x48h Temp Pulse Resp BP Pulse Ox 11/15/20 17:15 86 18 103/76 99 11/15/20 16:20 37.4 C 111 H 18 109/72 100 - Physical Exam General Appearance: positive: No acute distress, Alert Eyes Bilateral: positive: PERRL, EOMI ENT: positive: No signs of dehydration Neck: positive: No JVD, Trachea midline Respiratory: positive: Chest non-tender, No respiratory distress, Breath sounds nml. negative: Wheezes, Rales, Rhonchi Cardiovascular: positive: Regular rate & rhythm, No murmur Abdomen: positive: Non-tender, No organomegaly, Nml bowel sounds, No distention. negative: Guarding, Rebound Back: positive: Nml inspection Skin: positive: Warm, Dry, Other (bruises on upper extremities) Extremities: positive: Pedal edema (+1) Neurologic/Psychiatric: positive: Oriented x3, Mood/affect nml Conclusion/Plan - Problem List (1) Fluid overload Conclusion/Plan: Mainly lower extremity edema. Patient was given Lasix 100 mg IV x1 in the ED. Patient's sodium level was 123 with chloride of 80. We will reevaluate electrolytes in the morning . Qualifiers: Hypervolemia type: other Qualified Code(s): E87.79 - Other fluid overload (2) Congestive heart failure Conclusion/Plan: Not in exacerbation. Patient's BNP was 321 which is the lowest it has been. Patient is currently on Lasix 80 mg p.o. in the morning and 40 mg every afternoon at home. Patient was given Lasix 100 mg IV x1 in the ED. We will reevaluate patient's electrolytes in the morning. Patient's metoprolol had been held recently by his because she reported an episode of hypotension. We will resume his metoprolol tartrate 75 mg p.o. twice daily once verified. Continue losartan 25 mg p.o. daily. Continue digoxin. Qualifiers: Qualified Code(s): I50.33 - Acute on chronic diastolic (congestive) heart failure (3) Atrial fibrillation Conclusion/Plan: Not anticoagulated. Patient has a platelet count of 86. Patient is on digoxin. Will continue. Digoxin levels are therapeutic currently. Continue metoprolol tartrate 75 mg p.o. twice daily. Qualifiers: Atrial fibrillation type: permanent Qualified Code(s): I48.21 - Permanent atrial fibrillation (4) Chronic renal disease Conclusion/Plan: Patient's renal function is at baseline with a creatinine of 1.8 and estimated GFR of 36. (5) Diabetes Qualifiers: Diabetes mellitus type: type 2 Diabetes mellitus complication status: with kidney complications Diabetes mellitus complication detail: with chronic kidney disease Chronic kidney disease stage: stage 3 (moderate) (6) Generalized weakness Conclusion/Plan: Possibly secondary to patient's chronic illnesses. Will work on correcting patient's electrolyte imbalances. PT OT to evaluate And treat patient. Also give further recommendations. (7) Hypertension Qualifiers: Hypertension type: essential hypertension Qualified Code(s): I10 - Essential (primary) hypertension (8) Hypothyroidism Conclusion/Plan: On Synthroid 88 mcg p.o. every morning. Will continue. We will also check TSH level. - Lab Results Fish Bones: 11/15/20 17:35 11/15/20 17:35 Core Measures - Anticipated LOS I expect patient to be DC'd or transferred within 96 hours.: Yes - DVT/VTE - Prophylaxis VTE/DVT Device ordered at admit?: Yes VTE/DVT Prophylaxis med ordered at admit?: Yes
[2020-11-16] MEDS: SODIUM CHLORIDE FLUSH 0.9% 10 ML SYRINGE IVP SCH ×3 (00:08→17:10)
[2020-11-16] MEDS: MIN OIL/DIMETHICON/COCONUT OIL 92 GM TUBE TOP PRN ×2 (00:14→17:11)
[2020-11-16 05:48] LABS: BASOPHILS % (AUTO) 0.2 %; EOSINOPHILS # (AUTO) 0.1 10^3/uL (0.0-0.7); EOSINOPHILS % (AUTO) 1.1 %; LYMPHOCYTES # (AUTO) 1.3 10^3/uL (1.5-3.5); MEAN CORPUSCULAR HEMOGLOBIN 30.4 pg (27.0-31.0); MEAN CORPUSCULAR HGB CONC 33.5 g/dL (32.0-36.0); MEAN CORPUSCULAR VOLUME 90.9 fL (80.0-94.0); MEAN PLATELET VOLUME 12.3 fL (7.4-11.4); MONOCYTES # (AUTO) 0.6 10^3/uL (0.0-1.0); MONOCYTES % (AUTO) 10.4 %; NEUTROPHILS # (AUTO) 3.6 10^3/uL (1.5-6.6); NEUTROPHILS % (AUTO) 65.1 %; PLT - PLATELET COUNT 64 10^3/uL (130-450); RED BLOOD COUNT 2.96 10^6/uL (4.70-6.10); RED CELL DISTRIBUTION WIDTH 13.7 % (12.0-15.0); WHITE BLOOD COUNT 5.5 x10^3/uL (4.8-10.8)
[2020-11-16 05:58] LABS: CALCIUM 8.4 mg/dL (8.5-10.3); CREATININE 1.7 mg/dL (0.6-1.2)
[2020-11-16] MEDS ORDERED: FUROSEMIDE 40 MG/4 ML VIAL IVP SCH ×2 (06:00)
[2020-11-16] MEDS: PANTOPRAZOLE 40 MG TABLET PO SCH (06:55)
[2020-11-16] MEDS ORDERED: MAGNESIUM SULFATE 2 GRAM 2 GM/50 ML BAG IV ONE (08:45)
[2020-11-16] MEDS ORDERED: ENOXAPARIN 40 MG/0.4 ML SYRINGE SUBQ SCH (09:00)
[2020-11-16] MEDS ORDERED: METOPROLOL TARTRATE 50 MG TABLET PO SCH (09:20)
[2020-11-16] MEDS: INSULIN ASPART 300 UNIT/3 ML PEN SUBQ SCH ×4 (09:39→21:09)
[2020-11-16] MEDS: DIGOXIN 125 MCG TABLET PO SCH (10:24)
[2020-11-16] MEDS: FUROSEMIDE 40 MG/4 ML VIAL IVP SCH ×2 (10:24→13:47)
[2020-11-16] MEDS: ASPIRIN CHEW 81 MG TABLET PO SCH (10:25)
[2020-11-16 14:03] LABS: HEMOGLOBIN A1c% 6.2 % (4.27-6.07)
--- NOTE | 2020-11-16 16:07 | PROVIDER PROGRESS NOTE ---
Assessment/Plan - Problem List (1) Acute on chronic diastolic heart failure Assessment/Plan: Patient feels slightly better. Patient Echo show preserved EF with diastolic heart failure, elevated BNP. 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 (2) edema, lower extremities Conclusion/Plan: Improved. Sodium 129 today slightly increases from 127. Acute on chronic, likely combination of patient diastolic heart failure with chronic kidney disease, (3) Atrial fibrillation Heart rate is controlled, Resume home digoxin and Metoprolol, Continue telemetry. Patient is full code. Patient had slightly elevated heart rate In the beginning, after the resume patient home medication digoxin and metoprolol, his heart rate is controlled. Patient has no anticoagulation medication at home medication list. [place] [id number] today, Skin has bruise in many location. Patient had Baby aspirin in home medication, Will resume now. We will closely monitor. (4) Chronic renal disease Conclusion/Plan: Slightly elevated, creatinine 1.7 today. Patient's renal function is at baseline with a creatinine of 1.8 and estimated GFR of 36. (5) Diabetes Patient has A1c 6.2. Sugar is good control. We will stop Lantus in the night. Continue sliding-scale on tomorrow. If sugar continues stable we may stop glucose check and start Slide scale (6) Generalized weakness Possibly secondary to patient's chronic illnesses. Will work on correcting patient's electrolyte imbalances. PT/OT to evaluate And treat patient. Follow-up recommendation. Patient might need SNF. (7) Hypothyroidism Conclusion/Plan: TSH is normal, we will continue home Synthroid 88 mcg p.o. (8)hyponatremia Improved. Sodium 129 today slightly improved from 127. It is likely hypervolumia with hyponatremia. 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 - Current Meds Current Meds: Current Medications Generic Name Dose Route Start Last Admin Trade Name Freq PRN Reason Stop Dose Admin Aspirin 81 mg 11/16/20 09:00 11/16/20 10:25 Aspirin Chew 81 Mg Tablet PO 81 mg DAILY JULES Administration Digoxin 125 mcg 11/16/20 09:00 11/16/20 10:24 Digoxin 125 Mcg Tablet PO 125 mcg DAILY JULES Administration Furosemide 40 mg 11/16/20 08:00 11/16/20 13:47 Furosemide 40 Mg/4 Ml Vial IVP 40 mg BIDDIURETIC JULES Administration Insulin Aspart 1 - 5 unit 11/16/20 08:00 11/16/20 13:18 Insulin Aspart 300 Unit/3 Ml Pen SUBQ Not Given 0800,1200,1700,2100 [facility] Protocol Mineral Oil 1 applic 11/15/20 21:25 11/16/20 00:14 Min Oil/Dimethicon/Coconut Oil 92 Gm Tube TOP 1 applic PRN PRN Administration Skin Care Pantoprazole Sodium 40 mg 11/16/20 07:00 11/16/20 06:55 Pantoprazole 40 Mg Tablet PO 40 mg QDAC JULES Administration Sodium Chloride 10 ml 11/16/20 01:00 11/16/20 10:24 Sodium Chloride Flush 0.9% 10 Ml Syringe IVP 10 ml 0100,0900,1700 [facility] Administration - Lab Result Fish Bone Diagrams: 11/16/20 05:15 11/16/20 05:15 - Additional Planning My Orders: My Active Orders 11/16/20 08:23 Echo Transthoracic Complete [ECHO] Routine 11/16/20 09:00 Aspirin Chewable [[place] Aspirin] 81 mg PO DAILY Digoxin [Lanoxin] 125 mcg PO DAILY 11/16/20 09:18 Telemetry- [RC] Q4HR 11/16/20 09:22 Out of bed 3+ hours today [RC] TID 11/16/20 21:00 Metoprolol Tartrate [Lopressor] 25 mg PO BID 11/17/20 05:00 BNP - B-NATRIURETIC PEPTIDE [IAI] DAILYLAB CMP [COMPREHENSIVE METABOLIC PANEL] [CHEM] DAILYLAB MAGNESIUM [CHEM] DAILYLAB 11/17/20 08:00 Magnesium Oxide [Mag Ox] 400 mg PO DAILYWM 11/18/20 05:00 BNP - B-NATRIURETIC PEPTIDE [IAI] DAILYLAB CMP [COMPREHENSIVE METABOLIC PANEL] [CHEM] DAILYLAB MAGNESIUM [CHEM] DAILYLAB 11/19/20 05:00 BNP - B-NATRIURETIC PEPTIDE [IAI] DAILYLAB CMP [COMPREHENSIVE METABOLIC PANEL] [CHEM] DAILYLAB 11/20/20 05:00 BNP - B-NATRIURETIC PEPTIDE [IAI] DAILYLAB CMP [COMPREHENSIVE METABOLIC PANEL] [CHEM] DAILYLAB 11/21/20 05:00 BNP - B-NATRIURETIC PEPTIDE [IAI] DAILYLAB CMP [COMPREHENSIVE METABOLIC PANEL] [CHEM] DAILYLAB Subjective - Subjective Patient Reports: Feeling Better Objective Vital Signs: Vital Signs - 24 hr 11/15/20 11/15/20 11/15/20 16:20 17:15 19:00 Temperature 37.4 C Heart Rate 111 H 86 102 H Heart Rate [ Brachial] Heart Rate [ Sitting] Heart Rate [ Supine] Respiratory 18 18 18 Rate Blood Pressure 109/72 103/76 118/70 Blood Pressure [Right Brachial artery] Blood Pressure [Sitting] Blood Pressure [Supine] O2 Saturation 100 99 96 11/15/20 11/15/20 11/15/20 19:30 20:00 21:02 Temperature 36.3 C L Heart Rate 90 89 Heart Rate [ 89 Brachial] Heart Rate [ Sitting] Heart Rate [ Supine] Respiratory 18 16 17 Rate Blood Pressure 102/64 105/57 L Blood Pressure 114/72 [Right Brachial artery] Blood Pressure [Sitting] Blood Pressure [Supine] O2 Saturation 100 100 100 11/16/20 11/16/20 11/16/20 00:20 07:30 10:25 Temperature 36.6 C 36.7 C Heart Rate Heart Rate [ 86 96 Brachial] Heart Rate [ Sitting] Heart Rate [ Supine] Respiratory 18 Rate Blood Pressure 105/58 L Blood Pressure 130/86 H 110/59 L [Right Brachial artery] Blood Pressure [Sitting] Blood Pressure [Supine] O2 Saturation 100 98 11/16/20 11/16/20 11/16/20 11:08 11:25 11:30 Temperature 36.9 C Heart Rate Heart Rate [ 94 Brachial] Heart Rate [ 87 87 Sitting] Heart Rate [ 62 62 Supine] Respiratory 18 Rate Blood Pressure Blood Pressure 105/62 [Right Brachial artery] Blood Pressure 103/55 L 103/55 L [Sitting] Blood Pressure 96/49 L 96/49 L [Supine] O2 Saturation 100 11/16/20 15:44 Temperature 36.6 C Heart Rate Heart Rate [ 85 Brachial] Heart Rate [ Sitting] Heart Rate [ Supine] Respiratory 16 Rate Blood Pressure Blood Pressure 107/57 L [Right Brachial artery] Blood Pressure [Sitting] Blood Pressure [Supine] O2 Saturation 99 Oxygen O2 Source [Without Activity] Room air O2 Source [With Activity] Room air O2 Source Nasal cannula I&O (Last 24 Hrs): Intake and Output Totals x24h 11/14/20 11/15/20 11/16/20 23:59 23:59 23:59 Intake Total 2030 Output Total 250 2350 Balance -250 -320 General: Alert, Oriented x3, Cooperative, No acute distress HEENT: Atraumatic Neck: Supple Lymphatic: no adenopathy Neuro: Alert, Non Focal, Oriented Times 3 Cardiovascular: Regular rate, Normal S1, Normal S2 Respiratory: Chest non-tender, No respiratory distress Abdomen: Normal bowel sounds, Soft, No tenderness Extremities: Normal pulses - Results Results: Laboratory Results WBC 5.5 x10^3/uL (4.8-10.8) 11/16/20 05:15 RBC 2.96 10^6/uL (4.70-6.10) L 11/16/20 05:15 Hgb 9.0 g/dL (14.0-18.0) L 11/16/20 05:15 Hct 26.9 % (42.0-52.0) L 11/16/20 05:15 MCV 90.9 fL (80.0-94.0) 11/16/20 05:15 MCH 30.4 pg (27.0-31.0) 11/16/20 05:15 MCHC 33.5 g/dL (32.0-36.0) 11/16/20 05:15 RDW 13.7 % (12.0-15.0) 11/16/20 05:15 Plt Count 64 10^3/uL (130-450) L 11/16/20 05:15 MPV 12.3 fL (7.4-11.4) H 11/16/20 05:15 Neut # (Auto) 3.6 10^3/uL (1.5-6.6) 11/16/20 05:15 Lymph # (Auto) 1.3 10^3/uL (1.5-3.5) L 11/16/20 05:15 [place] # (Auto) 0.6 10^3/uL (0.0-1.0) 11/16/20 05:15 Eos # (Auto) 0.1 10^3/uL (0.0-0.7) 11/16/20 05:15 Baso # (Auto) 0.0 10^3/uL (0.0-0.1) 11/16/20 05:15 Absolute Nucleated RBC 0.00 x10^3/uL 11/16/20 05:15 Nucleated RBC % 0.0 /100WBC 11/16/20 05:15 PT 12.3 secs (9.9-12.6) 11/15/20 17:35 INR 1.1 (0.8-1.2) 11/15/20 17:35 Sodium 129 mmol/L (135-145) L 11/16/20 05:15 Potassium 4.0 mmol/L (3.5-5.0) 11/16/20 05:15 Chloride 86 mmol/L (101-111) L 11/16/20 05:15 Carbon Dioxide 31 mmol/L (21-32) 11/16/20 05:15 Anion Gap 12.0 (6-13) 11/16/20 05:15 BUN 40 mg/dL (6-20) H 11/16/20 05:15 Creatinine 1.7 mg/dL (0.6-1.2) H 11/16/20 05:15 Estimated GFR (MDRD) 38 (>89) L 11/16/20 05:15 Glucose 104 mg/dL (70-100) H 11/16/20 05:15 POC Whole Bld Glucose 118 mg/dL (70 - 100) H 11/16/20 11:08 Estimat Average Glucose 131 mg/dL (70-100) H 11/15/20 17:35 Hemoglobin A1c % 6.2 % (4.27-6.07) H 11/15/20 17:35 Calcium 8.4 mg/dL (8.5-10.3) L 11/16/20 05:15 Magnesium 1.4 mg/dL (1.7-2.8) L 11/15/20 17:35 Total Bilirubin 0.8 mg/dL (0.2-1.0) 11/15/20 17:35 AST 20 IU/L (10-42) 11/15/20 17:35 ALT 16 IU/L (10-60) 11/15/20 17:35 Alkaline Phosphatase 186 IU/L (42-121) H 11/15/20 17:35 Troponin I High Sens 24.8 ng/L (2.3-19.7) H* 11/15/20 17:35 B-Natriuretic Peptide 335 pg/mL (5-100) H 11/16/20 05:15 Total Protein 5.8 g/dL (6.7-8.2) L 11/15/20 17:35 Albumin 2.7 g/dL (3.2-5.5) L 11/15/20 17:35 Globulin 3.1 g/dL (2.1-4.2) 11/15/20 17:35 Albumin/Globulin Ratio 0.9 (1.0-2.2) L 11/15/20 17:35 TSH 1.03 uIU/mL (0.34-5.60) 11/16/20 05:15 Urine Color YELLOW 11/15/20 16:50 Urine Clarity CLEAR (CLEAR) 11/15/20 16:50 Urine pH 6.0 PH (5.0-7.5) 11/15/20 16:50 Ur Specific [place] 1.010 (1.002-1.030) 11/15/20 16:50 Urine Protein NEGATIVE mg/dL (NEGATIVE) 11/15/20 16:50 Urine Glucose (UA) NEGATIVE mg/dL (NEGATIVE) 11/15/20 16:50 Urine Ketones NEGATIVE mg/dL (NEGATIVE) 11/15/20 16:50 Urine Occult Blood NEGATIVE (NEGATIVE) 11/15/20 16:50 Urine Nitrite NEGATIVE (NEGATIVE) 11/15/20 16:50 Urine Bilirubin NEGATIVE (NEGATIVE) 11/15/20 16:50 Urine Urobilinogen 2 E.U./dL (NORMAL) H 11/15/20 16:50 Ur Leukocyte Esterase NEGATIVE (NEGATIVE) 11/15/20 16:50 Ur Microscopic Review NOT INDICATED 11/15/20 16:50 Urine Culture Comments NOT INDICATED 11/15/20 16:50 Last Dose Date UNKNOWN 11/15/20 17:35 Last Dose Time UNKNOWN 11/15/20 17:35 Digoxin 1.4 ng/mL 11/15/20 17:35 - Procedures Procedures: Procedures PACKED CELL TRANSFUSION (02/09/15) PARENTERAL INFUSION OF CONCENTRATED NUT. SUBSTANCE (02/09/15) VENOUS CATHETERIZATION NEC (02/09/15) Sepsis Event Note (H) - Evaluation Current Stage of Sepsis: Ruled out ABX Reporting Has patient been on IV antibiotics over the past 48 hours?: No Current Medications - Current Medications Current Medications: Active Medications Aspirin (Aspirin Chew 81 Mg Tablet) 81 mg PO DAILY [facility] Last Admin: 11/16/20 10:25 Dose: 81 mg Documented by: Digoxin (Digoxin 125 Mcg Tablet) 125 mcg PO DAILY [facility] Last Admin: 11/16/20 10:24 Dose: 125 mcg Documented by: Furosemide (Furosemide 40 Mg/4 Ml Vial) 40 mg IVP BIDDIURETIC [facility] Last Admin: 11/16/20 13:47 Dose: 40 mg Documented by: Insulin Aspart (Insulin Aspart 300 Unit/3 Ml Pen) 1 - 5 unit SUBQ 0800,1200,1700,2100 [facility]; Protocol Last Admin: 11/16/20 16:55 Dose: Not Given Documented by: Lidocaine (Lidocaine Patch 5%) 1 patch TOP DAILY PRN PRN Reason: PAIN Last Admin: 11/16/20 20:00 Dose: 1 patch Documented by: Magnesium Oxide (Magnesium Oxide 400 Mg Tablet) 400 mg PO DAILYWM [facility] Metoprolol Tartrate (Metoprolol Tartrate 50 Mg Tablet) 25 mg PO BID [facility] Mineral Oil (Min Oil/Dimethicon/Coconut Oil 92 Gm Tube) 1 applic TOP PRN PRN PRN Reason: Skin Care Last Admin: 11/16/20 17:11 Dose: 1 applic Documented by: Pantoprazole Sodium (Pantoprazole 40 Mg Tablet) 40 mg PO QDAC [facility] Last Admin: 11/16/20 06:55 Dose: 40 mg Documented by: Sodium Chloride (Sodium Chloride Flush 0.9% 10 Ml Syringe) 10 ml IVP PRN PRN PRN Reason: NEEDED PER PROVIDER ORDERS Sodium Chloride (Sodium Chloride Flush 0.9% 10 Ml Syringe) 10 ml IVP 0100,0900,1700 [facility] Last Admin: 11/16/20 17:10 Dose: 10 ml Documented by: polyethylene glycoL 3350 [Miralax] 17 g PO DAILY PRN 05/06/14 Pantoprazole [Protonix] 40 mg PO DAILY 02/02/15 Ferrous Gluconate 324 mg PO BIDWM 04/04/17 Morphine ER 15 mg PO BID 04/04/17 Ondansetron Odt [Zofran Odt] 4 mg PO TID PRN 04/04/17 Potassium Chloride 10 meq PO DAILY 08/08/17 Fluticasone [Flonase] 1 spray RAMIN BID 07/12/18 oxyCODONE/ACET 5/325 [Percocet 5 mg/325 mg] 2 tab PO Q6H PRN 07/12/18 Cyanocobalamin (Vitamin B-12) [Vitamin B-12] 1,000 mcg PO DAILY 03/02/20 Digoxin 125 mcg PO DAILY 03/02/20 Mupirocin 2% Oint [Bactroban 2% Oint] 1 applic TOP BID 03/02/20 Aspirin EC [Ecotrin] 81 mg PO DAILY 11/16/20 Azelastine HCl 2 sprays RAMIN BID 11/16/20 Furosemide [Lasix] 80 mg PO DAILY 11/16/20 Metoprolol Tartrate [Lopressor] 25 mg PO BID 11/16/20 Tamsulosin [Flomax] 2 cap PO DAILY 11/16/20
--- NOTE | 2020-11-16 19:53 | XRAY Report ---
PROCEDURE: Chest 1 View X-Ray INDICATIONS: SOB TECHNIQUE: One view of the chest was acquired. COMPARISON: None FINDINGS: Surgical changes and devices: None. Lungs and pleura: No pleural effusions or pneumothorax. Lungs are clear. There is elevation of the right hemidiaphragm. Mediastinum: Mediastinal contours appear normal. Heart size is normal. Bones and chest wall: No suspicious bony lesions. Overlying soft tissues appear unremarkable. IMPRESSION: 1. Right basilar atelectasis versus early pneumonia. 2. Chronic elevation of right hemidiaphragm unchanged. Reviewed by: Xavier Le on 11/16/2020 7:52 PM [facility] Approved by: Xavier Le on 11/16/2020 7:52 PM [facility] Station ID: [id number]
[2020-11-16] MEDS: LIDOCAINE PATCH 5% TOP PRN (20:00)
[2020-11-16] MEDS ORDERED: INSULIN GLARGINE 300 UNIT/3 ML PEN SUBQ SCH (21:00)
[2020-11-16] MEDS: METOPROLOL TARTRATE 50 MG TABLET PO SCH (21:08)
[2020-11-17] MEDS: SODIUM CHLORIDE FLUSH 0.9% 10 ML SYRINGE IVP SCH ×3 (02:29→17:02)
[2020-11-17] MEDS: oxyCODONE 5 MG TABLET PO PRN ×2 (04:21→23:56)
[2020-11-17] MEDS: ACETAMINOPHEN 325 MG TABLET PO PRN ×2 (04:21→23:56)
[2020-11-17 06:30] LABS: BASOPHILS % (AUTO) 0.3 %; EOSINOPHILS # (AUTO) 0.1 10^3/uL (0.0-0.7); HGB - HEMOGLOBIN 8.9 g/dL (14.0-18.0); LYMPHOCYTES # (AUTO) 1.4 10^3/uL (1.5-3.5); LYMPHOCYTES % (AUTO) 22.8 %; MEAN CORPUSCULAR HEMOGLOBIN 30.1 pg (27.0-31.0); MEAN CORPUSCULAR HGB CONC 33.2 g/dL (32.0-36.0); MEAN CORPUSCULAR VOLUME 90.5 fL (80.0-94.0); MONOCYTES # (AUTO) 0.7 10^3/uL (0.0-1.0); MONOCYTES % (AUTO) 10.5 %; NEUTROPHILS % (AUTO) 64.9 %; PLT - PLATELET COUNT 100 10^3/uL (130-450); RED BLOOD COUNT 2.96 10^6/uL (4.70-6.10); RED CELL DISTRIBUTION WIDTH 13.7 % (12.0-15.0); WHITE BLOOD COUNT 6.2 x10^3/uL (4.8-10.8)
[2020-11-17] MEDS: FUROSEMIDE 40 MG/4 ML VIAL IVP SCH ×2 (06:36→14:00)
[2020-11-17] MEDS: PANTOPRAZOLE 40 MG TABLET PO SCH (06:36)
[2020-11-17 06:43] LABS: ALBUMIN 2.5 g/dL (3.2-5.5); ALBUMIN/GLOBULIN RATIO 0.9 (1.0-2.2); BILIRUBIN,TOTAL 0.9 mg/dL (0.2-1.0); CALCIUM 8.5 mg/dL (8.5-10.3); CREATININE 1.7 mg/dL (0.6-1.2); MAGNESIUM 1.9 mg/dL (1.7-2.8); TOTAL PROTEIN 5.3 g/dL (6.7-8.2)
[2020-11-17] MEDS: INSULIN ASPART 300 UNIT/3 ML PEN SUBQ SCH ×2 (08:55→12:19)
[2020-11-17] MEDS ORDERED: ZOLPIDEM 5 MG TABLET PO PRN (08:55)
[2020-11-17] MEDS: LIDOCAINE PATCH 5% TOP PRN (08:56)
[2020-11-17] MEDS: MAGNESIUM OXIDE 400 MG TABLET PO SCH (08:57)
[2020-11-17] MEDS: METOPROLOL TARTRATE 50 MG TABLET PO SCH ×2 (08:58→21:57)
[2020-11-17] MEDS: DIGOXIN 125 MCG TABLET PO SCH (08:58)
[2020-11-17] MEDS: ASPIRIN CHEW 81 MG TABLET PO SCH (08:58)
[2020-11-17] MEDS ORDERED: AZELASTINE HCL 137 MCG/0.137 ML NAS SCH (09:00)
[2020-11-17] MEDS ORDERED: MORPHINE ER 15 MG TABLET PO SCH (09:00)
[2020-11-17] MEDS ORDERED: PUMP NAS SCH (09:00)
[2020-11-17] MEDS: FLUTICASONE NASAL SPRAY NAS SCH ×2 (09:17→22:04)
[2020-11-17] MEDS: SODIUM CHLORIDE FLUSH 0.9% 10 ML SYRINGE IVP PRN (14:01)
--- NOTE | 2020-11-17 14:46 | PROVIDER PROGRESS NOTE ---
Subjective - Prog Note Date Prog Note Date: 11/17/20 - Subjective Pt reports feeling: Improved Subjective: In the morning Patient reported he did not get good sleep last night, He ask Sleep Medication to Help Him Sleep. He denies fever, he report no cough Or wheezing. He denies chest pain, Or shortness of breathing. Current Medications - Current Medications Current Medications: Active Medications Acetaminophen (Acetaminophen 325 Mg Tablet) 325 mg PO Q6H PRN PRN Reason: PAIN Last Admin: 11/17/20 04:21 Dose: 325 mg Documented by: Aspirin (Aspirin Chew 81 Mg Tablet) 81 mg PO DAILY [facility] Last Admin: 11/17/20 08:58 Dose: 81 mg Documented by: Digoxin (Digoxin 125 Mcg Tablet) 125 mcg PO DAILY [facility] Last Admin: 11/17/20 08:58 Dose: 125 mcg Documented by: Ferrous Gluconate (Ferrous Gluconate 324 Mg Tablet) 324 mg PO BIDWM [facility] Fluticasone Propionate (Fluticasone Nasal [place]) 1 sprays RAMIN BID [facility] Last Admin: 11/17/20 09:17 Dose: 1 sprays Documented by: Furosemide (Furosemide 40 Mg/4 Ml Vial) 40 mg IVP BIDDIURETIC [facility] Last Admin: 11/17/20 14:00 Dose: 40 mg Documented by: Levothyroxine Sodium (Levothyroxine 88 Mcg Tablet) 88 mcg PO QDAC [facility] Lidocaine (Lidocaine Patch 5%) 1 patch TOP DAILY PRN PRN Reason: PAIN Last Admin: 11/16/20 20:00 Dose: 1 patch Documented by: Magnesium Oxide (Magnesium Oxide 400 Mg Tablet) 400 mg PO DAILYWM [facility] Last Admin: 11/17/20 08:57 Dose: 400 mg Documented by: Metoprolol Tartrate (Metoprolol Tartrate 50 Mg Tablet) 25 mg PO BID [facility] Last Admin: 11/17/20 08:58 Dose: 25 mg Documented by: Mineral Oil (Min Oil/Dimethicon/Coconut Oil 92 Gm Tube) 1 applic TOP PRN PRN PRN Reason: Skin Care Last Admin: 11/16/20 17:11 Dose: 1 applic Documented by: Oxycodone HCl (Oxycodone 5 Mg Tablet) 5 mg PO Q6H PRN PRN Reason: PAIN Last Admin: 11/17/20 04:21 Dose: 5 mg Documented by: Pantoprazole Sodium (Pantoprazole 40 Mg Tablet) 40 mg PO QDAC [facility] Last Admin: 11/17/20 06:36 Dose: 40 mg Documented by: Sodium Chloride (Sodium Chloride Flush 0.9% 10 Ml Syringe) 10 ml IVP PRN PRN PRN Reason: NEEDED PER PROVIDER ORDERS Last Admin: 11/17/20 14:01 Dose: 10 ml Documented by: Sodium Chloride (Sodium Chloride Flush 0.9% 10 Ml Syringe) 10 ml IVP 0100,0900,1700 [facility] Last Admin: 11/17/20 08:58 Dose: 10 ml Documented by: Tamsulosin HCl (Tamsulosin 0.4 Mg Capsule) 0.8 mg PO DAILY [facility] Zolpidem Tartrate (Zolpidem 5 Mg Tablet) 5 mg PO QPM PRN PRN Reason: Insomnia polyethylene glycoL 3350 [Miralax] 17 g PO DAILY PRN 05/06/14 Pantoprazole [Protonix] 40 mg PO DAILY 02/02/15 Ferrous Gluconate 324 mg PO BIDWM 04/04/17 Morphine ER 15 mg PO BID 04/04/17 Ondansetron Odt [Zofran Odt] 4 mg PO TID PRN 04/04/17 Potassium Chloride 10 meq PO DAILY 08/08/17 Fluticasone [Flonase] 1 spray RAMIN BID 07/12/18 oxyCODONE/ACET 5/325 [Percocet 5 mg/325 mg] 2 tab PO Q6H PRN 07/12/18 Cyanocobalamin (Vitamin B-12) [Vitamin B-12] 1,000 mcg PO DAILY 03/02/20 Digoxin 125 mcg PO DAILY 03/02/20 Mupirocin 2% Oint [Bactroban 2% Oint] 1 applic TOP BID 03/02/20 Aspirin EC [Ecotrin] 81 mg PO DAILY 11/16/20 Azelastine HCl 2 sprays RAMIN BID 11/16/20 Furosemide [Lasix] 80 mg PO DAILY 11/16/20 Metoprolol Tartrate [Lopressor] 25 mg PO BID 11/16/20 Tamsulosin [Flomax] 2 cap PO DAILY 11/16/20 Objective - Vital Signs/Intake & Output Vital Signs: Vital Signs x48h Temp Pulse Pulse Resp BP Pulse Ox 11/17/20 13:20 36.8 C 89 16 100 11/17/20 08:00 36.8 C 89 17 114/68 100 Intake & Output: Intake & Output 11/14/20 11/15/20 11/16/20 11/17/20 23:59 23:59 23:59 23:59 Intake Total 2370 1030 Output Total 250 2350 Balance -108 44 2978 - Objective General Appearance: positive: No acute distress, Alert. negative: Lethargic Eyes Bilateral: positive: Normal inspection, PERRL, No lid inflammation ENT: positive: ENT inspection nml, No signs of dehydration. negative: Purulent nasal drainage Neck: positive: Nml inspection, Trachea midline. negative: Thyromegaly, Tracheal deviation Respiratory: positive: Chest non-tender, No respiratory distress. negative: Wheezes, Rales Cardiovascular: positive: Regular rate & rhythm, No murmur. negative: Tachycardia, Bradycardia, Systolic murmur, Diastolic murmur Peripheral Pulses: 2+ Radial (R), 2+ Radial (L) Abdomen: positive: Non-tender, Nml bowel sounds, No distention. negative: Tende rness, Guarding, Rebound Back: positive: Nml inspection. negative: CVA tenderness (R), CVA tenderness (L) Skin: positive: Warm, Dry. negative: Color nml, Cyanosis, Diaphoresis, Pallor Extremities: positive: Non-tender, Full ROM, Nml appearance. negative: Calf tenderness Neurologic/Psychiatric: positive: Motor nml, Sensation nml. negative: Weakness, Sensory loss, Facial droop, Slurred/abnml speech, Depressed mood/affect - Lab Results Fish Bones: 11/17/20 06:05 11/17/20 06:05 Other Labs: Lab Results x24hrs 11/17/20 11/17/20 11/17/20 Range/Units 11:59 07:56 06:05 WBC (4.8-10.8) x10^3/uL RBC (4.70-6.10) 10^6/uL Hgb (14.0-18.0) g/dL Hct (42.0-52.0) % MCV (80.0-94.0) fL MCH (27.0-31.0) pg MCHC (32.0-36.0) g/dL RDW (12.0-15.0) % Plt Count (130-450) 10^3/uL MPV (7.4-11.4) fL Neut # (Auto) (1.5-6.6) 10^3/uL Lymph # (Auto) (1.5-3.5) 10^3/uL [place] # (Auto) (0.0-1.0) 10^3/uL Eos # (Auto) (0.0-0.7) 10^3/uL Baso # (Auto) (0.0-0.1) 10^3/uL Absolute Nucleated RBC x10^3/uL Nucleated RBC % /100WBC Sodium (135-145) mmol/L Potassium (3.5-5.0) mmol/L Chloride (101-111) mmol/L Carbon Dioxide (21-32) mmol/L Anion Gap (6-13) BUN (6-20) mg/dL Creatinine (0.6-1.2) mg/dL Estimated GFR (MDRD) (>89) Glucose (70-100) mg/dL POC Whole Bld Glucose 120 H 106 H (70 - 100) mg/dL Estimat Average Glucose (70-100) mg/dL Hemoglobin A1c % (4.27-6.07) % Calcium (8.5-10.3) mg/dL Magnesium (1.7-2.8) mg/dL Total Bilirubin (0.2-1.0) mg/dL AST (10-42) IU/L ALT (10-60) IU/L Alkaline Phosphatase (42-121) IU/L B-Natriuretic Peptide 521 H (5-100) pg/mL Total Protein (6.7-8.2) g/dL Albumin (3.2-5.5) g/dL Globulin (2.1-4.2) g/dL Albumin/Globulin Ratio (1.0-2.2) 11/17/20 11/17/20 11/16/20 Range/Units 06:05 06:05 20:17 WBC 6.2 (4.8-10.8) x10^3/uL RBC 2.96 L (4.70-6.10) 10^6/uL Hgb 8.9 L (14.0-18.0) g/dL Hct 26.8 L (42.0-52.0) % MCV 90.5 (80.0-94.0) fL MCH 30.1 (27.0-31.0) pg MCHC 33.2 (32.0-36.0) g/dL RDW 13.7 (12.0-15.0) % Plt Count 100 L (130-450) 10^3/uL MPV 13.0 H (7.4-11.4) fL Neut # (Auto) 4.0 (1.5-6.6) 10^3/uL Lymph # (Auto) 1.4 L (1.5-3.5) 10^3/uL [place] # (Auto) 0.7 (0.0-1.0) 10^3/uL Eos # (Auto) 0.1 (0.0-0.7) 10^3/uL Baso # (Auto) 0.0 (0.0-0.1) 10^3/uL Absolute Nucleated RBC 0.00 x10^3/uL Nucleated RBC % 0.0 /100WBC Sodium 130 L (135-145) mmol/L Potassium 3.7 (3.5-5.0) mmol/L Chloride 87 L (101-111) mmol/L Carbon Dioxide 31 (21-32) mmol/L Anion Gap 12.0 (6-13) BUN 43 H (6-20) mg/dL Creatinine 1.7 H (0.6-1.2) mg/dL Estimated GFR (MDRD) 38 L (>89) Glucose 118 H (70-100) mg/dL POC Whole Bld Glucose 209 H (70 - 100) mg/dL Estimat Average Glucose (70-100) mg/dL Hemoglobin A1c % (4.27-6.07) % Calcium 8.5 (8.5-10.3) mg/dL Magnesium 1.9 (1.7-2.8) mg/dL Total Bilirubin 0.9 (0.2-1.0) mg/dL AST 16 (10-42) IU/L ALT 14 (10-60) IU/L Alkaline Phosphatase 154 H (42-121) IU/L B-Natriuretic Peptide (5-100) pg/mL Total Protein 5.3 L (6.7-8.2) g/dL Albumin 2.5 L (3.2-5.5) g/dL Globulin 2.8 (2.1-4.2) g/dL Albumin/Globulin Ratio 0.9 L (1.0-2.2) 11/16/20 11/15/20 Range/Units 16:51 17:35 WBC (4.8-10.8) x10^3/uL RBC (4.70-6.10) 10^6/uL Hgb (14.0-18.0) g/dL Hct (42.0-52.0) % MCV (80.0-94.0) fL MCH (27.0-31.0) pg MCHC (32.0-36.0) g/dL RDW (12.0-15.0) % Plt Count (130-450) 10^3/uL MPV (7.4-11.4) fL Neut # (Auto) (1.5-6.6) 10^3/uL Lymph # (Auto) (1.5-3.5) 10^3/uL [place] # (Auto) (0.0-1.0) 10^3/uL Eos # (Auto) (0.0-0.7) 10^3/uL Baso # (Auto) (0.0-0.1) 10^3/uL Absolute Nucleated RBC x10^3/uL Nucleated RBC % /100WBC Sodium (135-145) mmol/L Potassium (3.5-5.0) mmol/L Chloride (101-111) mmol/L Carbon Dioxide (21-32) mmol/L Anion Gap (6-13) BUN (6-20) mg/dL Creatinine (0.6-1.2) mg/dL Estimated GFR (MDRD) (>89) Glucose (70-100) mg/dL POC Whole Bld Glucose 115 H (70 - 100) mg/dL Estimat Average Glucose 131 H (70-100) mg/dL Hemoglobin A1c % 6.2 H (4.27-6.07) % Calcium (8.5-10.3) mg/dL Magnesium (1.7-2.8) mg/dL Total Bilirubin (0.2-1.0) mg/dL AST (10-42) IU/L ALT (10-60) IU/L Alkaline Phosphatase (42-121) IU/L B-Natriuretic Peptide (5-100) pg/mL Total Protein (6.7-8.2) g/dL Albumin (3.2-5.5) g/dL Globulin (2.1-4.2) g/dL Albumin/Globulin Ratio (1.0-2.2) ABX Reporting Has patient been on IV antibiotics over the past 48 hours?: No Sepsis Event Note (H) - Evaluation Current Stage of Sepsis: Ruled out Assessment/Plan - Problem List (1) Acute on chronic diastolic heart failure Impression: 11/17 Per PT report patient walk with help to the chair. Patient has 100% sats with 1.5 L of O2, will try wane off O2. Patient's BNP continue elevated, Continue intravenous Lasix, Fluid restriction, Daily weight, I&O, Continue PT/OT Patient feels slightly better. Patient Echo show preserved EF with diastolic heart failure, elevated BNP. We will continue give patient intravenous diuretics, Continue blood bank laboratory technician. (2) edema, lower extremities Conclusion/Plan: 11/17 Slightly improved, We will continue PT OT, patient out of the bed, Continue diuretics. Improved. Sodium 129 today slightly increases from 127. Acute on chronic, likely combination of patient diastolic heart failure with chronic kidney disease, (3) Atrial fibrillation Heart rate is controlled, Resume home digoxin and Metoprolol, Continue telemetry. Patient is full code. Patient had slightly elevated heart rate In the beginning, after the resume patient home medication digoxin and metoprolol, his heart rate is controlled. Patient has no anticoagulation medication at home medication list. Patient platelets only [id number] today, Skin has bruise in many location. Patient had Baby aspirin in home medication, Will resume now. We will closely monitor. (4) Chronic renal disease Conclusion/Plan: 11/17 Stable, creatinine 1.7, We will continue diuretics help improved perfusion, Continue blood bank laboratory technician Slightly elevated, creatinine 1.7 today. Patient's renal function is at baseline with a creatinine of 1.8 and estimated GFR of 36. (5) Diabetes 11/17 Patient had A1c 6.2, Patient is not a diabetic yet, glucose is good control. Patient reported he has no good sleep in the night. We will D/C glucose, Hold sliding-scale Patient has A1c 6.2. Sugar is good control. We will stop Lantus in the night. Continue sliding-scale on tomorrow. If sugar continues stable we may stop glucose check and start Slide scale (6) Generalized weakness 11/17 PT recommended patient DC to SNF for strength training But patient declined. We will try to order home health for patient Possibly secondary to patient's chronic illnesses. Will work on correcting patient's electrolyte imbalances. PT/OT to evaluate And treat patient. Follow-up recommendation. Patient might need SNF. (7) Hypothyroidism Conclusion/Plan: TSH is normal, we will continue home Synthroid 88 mcg p.o. (8)hyponatremia 11/17 Improved, sodium 130, Continue diuretics, Continue blood bank laboratory technician Improved. Sodium 129 today slightly improved from 127. It is likely hypervolumia with hyponatremia. We will continue diuretics, Continue blood bank laboratory technician
[2020-11-17] MEDS: FERROUS GLUCONATE 324 MG TABLET PO SCH (17:02)
[2020-11-17] MEDS ORDERED: GLYCERIN TOP PRN (18:26)
[2020-11-17] MEDS ORDERED: PRAMOXINE TOP PRN (18:26)
[2020-11-17] MEDS ORDERED: [UNRECOGNIZED DRUG - OTHER] TOP PRN (18:26)
[2020-11-17] MEDS ORDERED: PHENYLEPHRINE TOP PRN (18:26)
[2020-11-17] MEDS ORDERED: WHITE PETROLATUM TOP PRN (18:26)
[2020-11-17] MEDS: MUPIROCIN 2% OINT 22 GM TUBE TOP SCH (22:24)
[2020-11-18] MEDS: FUROSEMIDE 40 MG/4 ML VIAL IVP SCH ×2 (06:04→14:03)
[2020-11-18] MEDS: oxyCODONE 5 MG TABLET PO PRN (06:04)
[2020-11-18] MEDS: PANTOPRAZOLE 40 MG TABLET PO SCH (06:04)
[2020-11-18] MEDS: LEVOTHYROXINE 88 MCG TABLET PO SCH (06:04)
[2020-11-18] MEDS: ACETAMINOPHEN 325 MG TABLET PO PRN (06:04)
[2020-11-18] MEDS: SODIUM CHLORIDE FLUSH 0.9% 10 ML SYRINGE IVP PRN ×2 (06:05→14:04)
[2020-11-18 06:06] LABS: BASOPHILS % (AUTO) 0.3 %; EOSINOPHILS # (AUTO) 0.1 10^3/uL (0.0-0.7); EOSINOPHILS % (AUTO) 0.8 %; HGB - HEMOGLOBIN 9.2 g/dL (14.0-18.0); LYMPHOCYTES # (AUTO) 1.6 10^3/uL (1.5-3.5); LYMPHOCYTES % (AUTO) 22.2 %; MEAN CORPUSCULAR HGB CONC 34.1 g/dL (32.0-36.0); MEAN CORPUSCULAR VOLUME 90.9 fL (80.0-94.0); MONOCYTES # (AUTO) 0.8 10^3/uL (0.0-1.0); MONOCYTES % (AUTO) 10.5 %; NEUTROPHILS # (AUTO) 4.7 10^3/uL (1.5-6.6); NEUTROPHILS % (AUTO) 65.6 %; PLT - PLATELET COUNT 99 10^3/uL (130-450); RED BLOOD COUNT 2.97 10^6/uL (4.70-6.10); RED CELL DISTRIBUTION WIDTH 13.8 % (12.0-15.0); WHITE BLOOD COUNT 7.2 x10^3/uL (4.8-10.8)
[2020-11-18 06:14] LABS: ALBUMIN 2.6 g/dL (3.2-5.5); BILIRUBIN,TOTAL 0.9 mg/dL (0.2-1.0); CALCIUM 8.4 mg/dL (8.5-10.3); CREATININE 1.7 mg/dL (0.6-1.2); MAGNESIUM 1.8 mg/dL (1.7-2.8); TOTAL PROTEIN 5.2 g/dL (6.7-8.2)
[2020-11-18 08:59] LABS: ABSOLUTE RETICS # AUTO 0.06 10^6/uL (0.020-0.110); RED BLOOD COUNT 3.09 10^6/uL (4.70-6.10)
[2020-11-18 09:19] LABS: % IRON SATURATION 19 % (20-50); IRON 54 ug/dL (45-182); TOTAL IRON BINDING CAPACITY 290 ug/dL (250-450); TRANSFERRIN 207 mg/dL (180-329)
[2020-11-18] MEDS: MAGNESIUM OXIDE 400 MG TABLET PO SCH (09:22)
[2020-11-18] MEDS: METOPROLOL TARTRATE 50 MG TABLET PO SCH ×2 (09:22→21:20)
[2020-11-18] MEDS: DIGOXIN 125 MCG TABLET PO SCH (09:22)
[2020-11-18] MEDS: ASPIRIN CHEW 81 MG TABLET PO SCH (09:22)
[2020-11-18] MEDS: FERROUS GLUCONATE 324 MG TABLET PO SCH ×2 (09:22→17:27)
[2020-11-18] MEDS: FLUTICASONE NASAL SPRAY NAS SCH ×2 (09:31→21:21)
[2020-11-18] MEDS: MUPIROCIN 2% OINT 22 GM TUBE TOP SCH ×2 (09:32→21:21)
[2020-11-18] MEDS: MORPHINE ER 15 MG TABLET PO SCH ×2 (09:38→21:20)
[2020-11-18] MEDS: SODIUM CHLORIDE FLUSH 0.9% 10 ML SYRINGE IVP SCH ×4 (09:38→23:45)
[2020-11-18] MEDS: TAMSULOSIN 0.4 MG CAPSULE PO SCH (09:43)
[2020-11-18] MEDS: MIN OIL/DIMETHICON/COCONUT OIL 92 GM TUBE TOP PRN (14:04)
[2020-11-18] MEDS: LIDOCAINE PATCH 5% TOP PRN (14:42)
--- NOTE | 2020-11-18 15:21 | PROVIDER PROGRESS NOTE ---
Assessment/Plan - Problem List (1) Acute on chronic diastolic heart failure Assessment/Plan: 11/18 Patient reported he take oxygen in the home "I had everything in the home." Today patient had 96% sat in 1 L of oxygen. Patient's BNP is slightly reduced. Continue intravenous Lasix, Fluid restriction, Daily weight, I&O, Continue PT/OT 11/17 Per PT report patient walk with help to the chair. Patient has 100% sats with 1.5 L of O2, will try wane off O2. Patient's BNP continue elevated, Continue intravenous Lasix, Fluid restriction, Daily weight, I&O, Continue PT/OT Patient feels slightly better. Patient Echo show preserved EF with diastolic heart failure, elevated BNP. We will continue give patient intravenous diuretics, Continue animal laboratory helper. (2) edema, lower extremities Conclusion/Plan: 11/17 Slightly improved, We will continue PT OT, patient out of the bed, Continue diuretics. Improved. Sodium 129 today slightly increases from 127. Acute on chronic, likely combination of patient diastolic heart failure with chronic kidney disease, (3) Atrial fibrillation Heart rate is controlled, Resume home digoxin and Metoprolol, Continue telemetry. Patient is full code. Patient had slightly elevated heart rate In the beginning, after the resume patient home medication digoxin and metoprolol, his heart rate is controlled. Patient has no anticoagulation medication at home medication list. Patient platelets only [id number] today, Skin has bruise in many location. Patient had Baby aspirin in home medication, Will resume now. We will closely monitor. (4) Chronic renal disease Conclusion/Plan: 11/17 creatinine 1.7 stable, continue IV diuretics help improved perfusion, Continue animal laboratory helper 11/17 Stable, creatinine 1.7, We will continue diuretics help improved perfusion, Continue animal laboratory helper Slightly elevated, creatinine 1.7 today. Patient's renal function is at baseline with a creatinine of 1.8 and estimated GFR of 36. (5) Diabetes 11/17 Patient had A1c 6.2, Patient is not a diabetic yet, glucose is good control. Patient reported he has no good sleep in the night. We will D/C glucose, Hold sliding-scale Patient has A1c 6.2. Sugar is good control. We will stop Lantus in the night. Continue sliding-scale on tomorrow. If sugar continues stable we may stop glucose check and start Slide scale (6) Generalized weakness 11/18 Patient still present weakness, Patient declined to be d/c to SNF, He want to go home. Home health PT/OT/RN, home health aide order for pt. 11/17 PT recommended patient DC to SNF for strength training But patient declined. We will try to order home health for patient Possibly secondary to patient's chronic illnesses. Will work on correcting patient's electrolyte imbalances. PT/OT to evaluate And treat patient. Follow-up recommendation. Patient might need SNF. (7) Hypothyroidism Conclusion/Plan: TSH is normal, we will continue home Synthroid 88 mcg p.o. (8)hyponatremia 11/17 Improved, sodium 130, Continue diuretics, Continue animal laboratory helper Improved. Sodium 129 today slightly improved from 127. It is likely hypervolumia with hyponatremia. We will continue diuretics, Continue animal laboratory helper - Current Meds Current Meds: Current Medications Generic Name Dose Route Start Last Admin Trade Name Freq PRN Reason Stop Dose Admin Acetaminophen 325 mg 11/17/20 03:34 11/18/20 06:04 Acetaminophen 325 Mg Tablet PO 325 mg Q6H PRN Administration PAIN Aspirin 81 mg 11/16/20 09:00 11/18/20 09:22 Aspirin Chew 81 Mg Tablet PO 81 mg DAILY JULES Administration Digoxin 125 mcg 11/16/20 09:00 11/18/20 09:22 Digoxin 125 Mcg Tablet PO 125 mcg DAILY JULES Administration Ferrous Gluconate 324 mg 11/17/20 17:00 11/18/20 09:22 Ferrous Gluconate 324 Mg Tablet PO 324 mg BIDWM JULES Administration Fluticasone Propionate 1 sprays 11/17/20 09:00 11/18/20 09:31 Fluticasone Nasal [place] RAMIN 1 sprays BID JULES Administration Furosemide 40 mg 11/16/20 08:00 11/18/20 14:03 Furosemide 40 Mg/4 Ml Vial IVP 40 mg BIDDIURETIC JULES Administration Levothyroxine Sodium 88 mcg 11/18/20 07:00 11/18/20 06:04 Levothyroxine 88 Mcg Tablet PO 88 mcg QDAC JULES Administration Lidocaine 1 patch 11/16/20 16:50 11/18/20 14:42 Lidocaine Patch 5% TOP 1 patch DAILY PRN Administration PAIN Magnesium Oxide 400 mg 11/17/20 08:00 11/18/20 09:22 Magnesium Oxide 400 Mg Tablet PO 400 mg DAILYWM JULES Administration Metoprolol Tartrate 25 mg 11/16/20 21:00 11/18/20 09:22 Metoprolol Tartrate 50 Mg Tablet PO 25 mg BID JULES Administration Mineral Oil 1 applic 11/15/20 21:25 11/18/20 14:04 Min Oil/Dimethicon/Coconut Oil 92 Gm Tube TOP 1 applic PRN PRN Administration Skin Care Morphine Sulfate 15 mg 11/18/20 09:00 11/18/20 09:38 Morphine Er 15 Mg Tablet PO 15 mg BID JULES Administration Mupirocin 1 applic 11/17/20 21:00 11/18/20 09:32 Mupirocin 2% Oint 22 Gm Tube TOP 1 applic BID JULES Administration Pantoprazole Sodium 40 mg 11/16/20 07:00 11/18/20 06:04 Pantoprazole 40 Mg Tablet PO 40 mg QDAC JULES Administration Sodium Chloride 10 ml 11/15/20 19:57 11/18/20 14:04 Sodium Chloride Flush 0.9% 10 Ml Syringe IVP 10 ml PRN PRN Administration NEEDED PER PROVIDER ORDERS Sodium Chloride 10 ml 11/16/20 01:00 11/18/20 09:38 Sodium Chloride Flush 0.9% 10 Ml Syringe IVP 10 ml 0100,0900,1700 JULES Administration Tamsulosin HCl 0.8 mg 11/18/20 09:00 11/18/20 09:43 Tamsulosin 0.4 Mg Capsule PO 0.8 mg DAILY JULES Administration - Lab Result Fish Bone Diagrams: 11/18/20 05:40 11/18/20 05:40 - Additional Planning My Orders: My Active Orders 11/17/20 15:06 Miscellaenous Nursing Order [RC] DAILY 11/17/20 17:00 Ferrous Gluconate [Fergon] 324 mg PO BIDWM 11/17/20 18:26 Phenyleph/Pramoxin/Glycr/W.pet [Preparation H Cream] 1 appful TOP PRN PRN 11/17/20 21:00 Mupirocin 2% Oint [Bactroban 2% Oint] 1 applic TOP BID 11/18/20 07:00 Levothyroxine [Synthroid] 88 mcg PO QDAC 11/18/20 09:00 Morphine ER 15 mg PO BID Tamsulosin [Flomax] 0.8 mg PO DAILY 11/19/20 05:00 BNP - B-NATRIURETIC PEPTIDE [IAI] DAILYLAB CMP [COMPREHENSIVE METABOLIC PANEL] [CHEM] DAILYLAB 11/20/20 05:00 BNP - B-NATRIURETIC PEPTIDE [IAI] DAILYLAB CMP [COMPREHENSIVE METABOLIC PANEL] [CHEM] DAILYLAB 11/21/20 05:00 BNP - B-NATRIURETIC PEPTIDE [IAI] DAILYLAB CMP [COMPREHENSIVE METABOLIC PANEL] [CHEM] DAILYLAB Subjective - Subjective Patient Reports: Feeling Better Objective Vital Signs: Vital Signs - 24 hr 11/17/20 11/17/20 11/17/20 15:53 20:14 21:57 Temperature 36.7 C 36.7 C Heart Rate [ 90 96 Brachial] Heart Rate [ Monitoring electrodes] Respiratory 16 16 Rate Blood Pressure 118/70 Blood Pressure 96/63 118/70 [Right Brachial artery] O2 Saturation 94 93 11/18/20 11/18/20 11/18/20 00:00 05:00 08:27 Temperature 36.7 C 36.5 C 36.6 C Heart Rate [ 83 81 Brachial] Heart Rate [ 80 Monitoring electrodes] Respiratory 18 15 20 Rate Blood Pressure Blood Pressure 115/60 111/65 110/57 L [Right Brachial artery] O2 Saturation 98 99 99 11/18/20 14:51 Temperature 36.6 C Heart Rate [ 86 Brachial] Heart Rate [ Monitoring electrodes] Respiratory 18 Rate Blood Pressure Blood Pressure 106/61 [Right Brachial artery] O2 Saturation 96 Oxygen O2 Source [Without Activity] Room air O2 Source [With Activity] Room air O2 Source Nasal cannula I&O (Last 24 Hrs): Intake and Output Totals x24h 11/16/20 11/17/20 11/18/20 23:59 23:59 23:59 Intake Total 2370 1578 450 Output Total 2350 160 Balance 20 1578 290 General: Alert, Cooperative, No acute distress HEENT: Atraumatic Neck: Supple Lymphatic: no adenopathy Neuro: Alert, Non Focal Cardiovascular: Regular rate, Normal S1, Normal S2 Respiratory: Chest non-tender, No respiratory distress Abdomen: Normal bowel sounds, Soft Extremities: Normal pulses - Results Results: Laboratory Results WBC 7.2 x10^3/uL (4.8-10.8) 11/18/20 05:40 RBC 3.09 10^6/uL (4.70-6.10) L 11/18/20 08:40 Hgb 9.2 g/dL (14.0-18.0) L 11/18/20 05:40 Hct 27.0 % (42.0-52.0) L 11/18/20 05:40 MCV 90.9 fL (80.0-94.0) 11/18/20 05:40 MCH 31.0 pg (27.0-31.0) 11/18/20 05:40 MCHC 34.1 g/dL (32.0-36.0) 11/18/20 05:40 RDW 13.8 % (12.0-15.0) 11/18/20 05:40 Plt Count 99 10^3/uL (130-450) L 11/18/20 05:40 MPV 12.0 fL (7.4-11.4) H 11/18/20 05:40 Reticulocyte % (Auto) 1.93 % (0.5-2.3) 11/18/20 08:40 Neut # (Auto) 4.7 10^3/uL (1.5-6.6) 11/18/20 05:40 Lymph # (Auto) 1.6 10^3/uL (1.5-3.5) 11/18/20 05:40 [place] # (Auto) 0.8 10^3/uL (0.0-1.0) 11/18/20 05:40 Eos # (Auto) 0.1 10^3/uL (0.0-0.7) 11/18/20 05:40 Baso # (Auto) 0.0 10^3/uL (0.0-0.1) 11/18/20 05:40 Absolute Nucleated RBC 0.00 x10^3/uL 11/18/20 05:40 Nucleated RBC % 0.0 /100WBC 11/18/20 05:40 Absolute Retic 0.060 10^6/uL (0.020-0.110) 11/18/20 08:40 PT 12.3 secs (9.9-12.6) 11/15/20 17:35 INR 1.1 (0.8-1.2) 11/15/20 17:35 Sodium 128 mmol/L (135-145) L 11/18/20 05:40 Potassium 3.7 mmol/L (3.5-5.0) 11/18/20 05:40 Chloride 86 mmol/L (101-111) L 11/18/20 05:40 Carbon Dioxide 32 mmol/L (21-32) 11/18/20 05:40 Anion Gap 10.0 (6-13) 11/18/20 05:40 BUN 44 mg/dL (6-20) H 11/18/20 05:40 Creatinine 1.7 mg/dL (0.6-1.2) H 11/18/20 05:40 Estimated GFR (MDRD) 38 (>89) L 11/18/20 05:40 Glucose 128 mg/dL (70-100) H 11/18/20 05:40 POC Whole Bld Glucose 146 mg/dL (70 - 100) H 11/18/20 12:20 Estimat Average Glucose 131 mg/dL (70-100) H 11/15/20 17:35 Hemoglobin A1c % 6.2 % (4.27-6.07) H 11/15/20 17:35 Calcium 8.4 mg/dL (8.5-10.3) L 11/18/20 05:40 Magnesium 1.8 mg/dL (1.7-2.8) 11/18/20 05:40 Iron 54 ug/dL (45-182) 11/18/20 08:40 TIBC 290 ug/dL (250-450) 11/18/20 08:40 % Saturation 19 % (20-50) L 11/18/20 08:40 Transferrin 207 mg/dL (180-329) 11/18/20 08:40 Ferritin 108.0 ng/mL (23.9-336.2) 11/18/20 08:40 Total Bilirubin 0.9 mg/dL (0.2-1.0) 11/18/20 05:40 AST 19 IU/L (10-42) 11/18/20 05:40 ALT 15 IU/L (10-60) 11/18/20 05:40 Alkaline Phosphatase 165 IU/L (42-121) H 11/18/20 05:40 Lactate Dehydrogenase 144 IU/L (91-225) 11/18/20 08:40 Troponin I High Sens 24.8 ng/L (2.3-19.7) H* 11/15/20 17:35 B-Natriuretic Peptide 508 pg/mL (5-100) H 11/18/20 05:40 Total Protein 5.2 g/dL (6.7-8.2) L 11/18/20 05:40 Albumin 2.6 g/dL (3.2-5.5) L 11/18/20 05:40 Globulin 2.6 g/dL (2.1-4.2) 11/18/20 05:40 Albumin/Globulin Ratio 1.0 (1.0-2.2) 11/18/20 05:40 Vitamin B12 4289 pg/mL (180-914) H 11/18/20 08:40 TSH 1.03 uIU/mL (0.34-5.60) 11/16/20 05:15 Urine Color YELLOW 11/15/20 16:50 Urine Clarity CLEAR (CLEAR) 11/15/20 16:50 Urine pH 6.0 PH (5.0-7.5) 11/15/20 16:50 Ur Specific [place] 1.010 (1.002-1.030) 11/15/20 16:50 Urine Protein NEGATIVE mg/dL (NEGATIVE) 11/15/20 16:50 Urine Glucose (UA) NEGATIVE mg/dL (NEGATIVE) 11/15/20 16:50 Urine Ketones NEGATIVE mg/dL (NEGATIVE) 11/15/20 16:50 Urine Occult Blood NEGATIVE (NEGATIVE) 11/15/20 16:50 Urine Nitrite NEGATIVE (NEGATIVE) 11/15/20 16:50 Urine Bilirubin NEGATIVE (NEGATIVE) 11/15/20 16:50 Urine Urobilinogen 2 E.U./dL (NORMAL) H 11/15/20 16:50 Ur Leukocyte Esterase NEGATIVE (NEGATIVE) 11/15/20 16:50 Ur Microscopic Review NOT INDICATED 11/15/20 16:50 Urine Culture Comments NOT INDICATED 11/15/20 16:50 Last Dose Date UNKNOWN 11/15/20 17:35 Last Dose Time UNKNOWN 11/15/20 17:35 Digoxin 1.4 ng/mL 11/15/20 17:35 Coronavirus (PCR) NEGATIVE 11/15/20 18:35 - Procedures Procedures: Procedures PACKED CELL TRANSFUSION (02/09/15) PARENTERAL INFUSION OF CONCENTRATED NUT. SUBSTANCE (02/09/15) VENOUS CATHETERIZATION NEC (02/09/15) Sepsis Event Note (H) - Evaluation Current Stage of Sepsis: Ruled out ABX Reporting Has patient been on IV antibiotics over the past 48 hours?: No Current Medications - Current Medications Current Medications: Active Medications Acetaminophen (Acetaminophen 325 Mg Tablet) 325 mg PO Q6H PRN PRN Reason: PAIN Last Admin: 11/18/20 06:04 Dose: 325 mg Documented by: Aspirin (Aspirin Chew 81 Mg Tablet) 81 mg PO DAILY [facility] Last Admin: 11/18/20 09:22 Dose: 81 mg Documented by: Digoxin (Digoxin 125 Mcg Tablet) 125 mcg PO DAILY [facility] Last Admin: 11/18/20 09:22 Dose: 125 mcg Documented by: Ferrous Gluconate (Ferrous Gluconate 324 Mg Tablet) 324 mg PO BIDWM [facility] Last Admin: 11/18/20 09:22 Dose: 324 mg Documented by: Fluticasone Propionate (Fluticasone Nasal [place]) 1 sprays RAMIN BID [facility] Last Admin: 11/18/20 09:31 Dose: 1 sprays Documented by: Furosemide (Furosemide 40 Mg/4 Ml Vial) 40 mg IVP BIDDIURETIC [facility] Last Admin: 11/18/20 14:03 Dose: 40 mg Documented by: Levothyroxine Sodium (Levothyroxine 88 Mcg Tablet) 88 mcg PO QDAC [facility] Last Admin: 11/18/20 06:04 Dose: 88 mcg Documented by: Lidocaine (Lidocaine Patch 5%) 1 patch TOP DAILY PRN PRN Reason: PAIN Last Admin: 11/18/20 14:42 Dose: 1 patch Documented by: Magnesium Oxide (Magnesium Oxide 400 Mg Tablet) 400 mg PO DAILYWM [facility] Last Admin: 11/18/20 09:22 Dose: 400 mg Documented by: Metoprolol Tartrate (Metoprolol Tartrate 50 Mg Tablet) 25 mg PO BID [facility] Last Admin: 11/18/20 09:22 Dose: 25 mg Documented by: Mineral Oil (Min Oil/Dimethicon/Coconut Oil 92 Gm Tube) 1 applic TOP PRN PRN PRN Reason: Skin Care Last Admin: 11/18/20 14:04 Dose: 1 applic Documented by: Morphine Sulfate (Morphine Er 15 Mg Tablet) 15 mg PO BID [facility] Last Admin: 11/18/20 09:38 Dose: 15 mg Documented by: Mupirocin (Mupirocin 2% Oint 22 Gm Tube) 1 applic TOP BID [facility] Last Admin: 11/18/20 09:32 Dose: 1 applic Documented by: Non-Formulary Medication (Phenyleph/Pramoxin/Glycr/W.Pet [Preparation H Cream]) 1 appful TOP PRN PRN PRN Reason: Hemorrhoids Pantoprazole Sodium (Pantoprazole 40 Mg Tablet) 40 mg PO QDAC [facility] Last Admin: 11/18/20 06:04 Dose: 40 mg Documented by: Sodium Chloride (Sodium Chloride Flush 0.9% 10 Ml Syringe) 10 ml IVP PRN PRN PRN Reason: NEEDED PER PROVIDER ORDERS Last Admin: 11/18/20 14:04 Dose: 10 ml Documented by: Sodium Chloride (Sodium Chloride Flush 0.9% 10 Ml Syringe) 10 ml IVP 0100,0900,1700 [facility] Last Admin: 11/18/20 09:38 Dose: 10 ml Documented by: Tamsulosin HCl (Tamsulosin 0.4 Mg Capsule) 0.8 mg PO DAILY [facility] Last Admin: 11/18/20 09:43 Dose: 0.8 mg Documented by: Zolpidem Tartrate (Zolpidem 5 Mg Tablet) 5 mg PO QPM PRN PRN Reason: Insomnia polyethylene glycoL 3350 [Miralax] 17 g PO DAILY PRN 05/06/14 Pantoprazole [Protonix] 40 mg PO DAILY 02/02/15 Ferrous Gluconate 324 mg PO BIDWM 04/04/17 Morphine ER 15 mg PO BID 04/04/17 Ondansetron Odt [Zofran Odt] 4 mg PO TID PRN 04/04/17 Potassium Chloride 10 meq PO DAILY 08/08/17 Fluticasone [Flonase] 1 spray RAMIN BID 07/12/18 oxyCODONE/ACET 5/325 [Percocet 5 mg/325 mg] 2 tab PO Q6H PRN 07/12/18 Cyanocobalamin (Vitamin B-12) [Vitamin B-12] 1,000 mcg PO DAILY 03/02/20 Digoxin 125 mcg PO DAILY 03/02/20 Mupirocin 2% Oint [Bactroban 2% Oint] 1 applic TOP BID 03/02/20 Aspirin EC [Ecotrin] 81 mg PO DAILY 11/16/20 Azelastine HCl 2 sprays RAMIN BID 11/16/20 Furosemide [Lasix] 80 mg PO DAILY 11/16/20 Metoprolol Tartrate [Lopressor] 25 mg PO BID 11/16/20 Tamsulosin [Flomax] 2 cap PO DAILY 11/16/20 Phenyleph/Pramoxin/Glycr/W.pet [Preparation H Cream] 1 appful TOP PRN PRN 11/17/20
[2020-11-19] MEDS: LEVOTHYROXINE 88 MCG TABLET PO SCH (06:51)
[2020-11-19] MEDS: PANTOPRAZOLE 40 MG TABLET PO SCH (06:51)
[2020-11-19] MEDS: SODIUM CHLORIDE FLUSH 0.9% 10 ML SYRINGE IVP PRN ×2 (06:52→14:05)
[2020-11-19] MEDS: FUROSEMIDE 40 MG/4 ML VIAL IVP SCH (06:52)
[2020-11-19 06:59] LABS: BASOPHILS % (AUTO) 0.1 %; EOSINOPHILS % (AUTO) 0.6 %; HGB - HEMOGLOBIN 9.1 g/dL (14.0-18.0); LYMPHOCYTES # (AUTO) 1.3 10^3/uL (1.5-3.5); LYMPHOCYTES % (AUTO) 18.7 %; MEAN CORPUSCULAR HEMOGLOBIN 30.4 pg (27.0-31.0); MEAN CORPUSCULAR HGB CONC 32.9 g/dL (32.0-36.0); MEAN CORPUSCULAR VOLUME 92.6 fL (80.0-94.0); MONOCYTES # (AUTO) 0.7 10^3/uL (0.0-1.0); MONOCYTES % (AUTO) 10.1 %; NEUTROPHILS # (AUTO) 4.9 10^3/uL (1.5-6.6); NEUTROPHILS % (AUTO) 69.9 %; PLT - PLATELET COUNT 100 10^3/uL (130-450); RED BLOOD COUNT 2.99 10^6/uL (4.70-6.10); RED CELL DISTRIBUTION WIDTH 13.7 % (12.0-15.0)
[2020-11-19 07:11] LABS: ALBUMIN 2.7 g/dL (3.2-5.5); BILIRUBIN,TOTAL 1.3 mg/dL (0.2-1.0); CALCIUM 8.4 mg/dL (8.5-10.3); CREATININE 1.7 mg/dL (0.6-1.2); TOTAL PROTEIN 5.5 g/dL (6.7-8.2)
[2020-11-19] MEDS: FLUTICASONE NASAL SPRAY NAS SCH (08:24)
[2020-11-19] MEDS: MAGNESIUM OXIDE 400 MG TABLET PO SCH (08:25)
[2020-11-19] MEDS: DIGOXIN 125 MCG TABLET PO SCH (08:25)
[2020-11-19] MEDS: METOPROLOL TARTRATE 50 MG TABLET PO SCH (08:25)
[2020-11-19] MEDS: TAMSULOSIN 0.4 MG CAPSULE PO SCH (08:26)
[2020-11-19] MEDS: MORPHINE ER 15 MG TABLET PO SCH (08:26)
[2020-11-19] MEDS: ASPIRIN CHEW 81 MG TABLET PO SCH (08:27)
[2020-11-19] MEDS: FERROUS GLUCONATE 324 MG TABLET PO SCH (08:27)
[2020-11-19] MEDS: MUPIROCIN 2% OINT 22 GM TUBE TOP SCH (08:31)
[2020-11-19] MEDS: SODIUM CHLORIDE FLUSH 0.9% 10 ML SYRINGE IVP SCH (08:32)
[2020-11-19] MEDS: LIDOCAINE PATCH 5% TOP PRN (13:02)
[2020-11-19] MEDS ORDERED: ONDANSETRON 4 MG/2 ML VIAL IVP PRN (13:51)
[2020-11-19] MEDS ORDERED: FUROSEMIDE 40 MG TABLET PO SCH (14:00)
[2020-11-19] MEDS ORDERED: SODIUM CHLORIDE 0.9% 500 ML IV ONE (14:27)
[2020-11-19 15:38] VITALS: BP 108/64
--- NOTE | 2020-11-19 15:46 | Discharge Plan ---
Discharge Plan Problem Reviewed?: Yes Disposition: Home, Self Care Condition: Poor Diet: Cardiac Activity Restrictions: Activity as Tolerated Shower Restrictions: No (fall precaution, caregiver closely monitor) Instruction Topics: Hyponatremia Dc, Heart Failure, Digoxin, Heart Failure Coping, Heart Failure Congestive Ch Health Concerns: heart failure Plan of Treatment: you are found to have fluid overloaded in the admission, resume your home medication, watch your daily weight, followup with your bevel gear generator operator and cardiac wellness rehab, arranged home health for you. Care Goals: stabilization and improvement of your medical condition Assessment: discuss the care plan with you and your , answer your questions, you understood. Additional Instructions or Follow Up instructions: you may followup with your PCP in one week, followup with your bevel gear generator operator as out-pt. Should your symptoms return or worsen, you may present ER or call 911 for help. Follow-Up Care: [facility], [facility] No Smoking: If you smoke, Please STOP! Call for help. Follow-up with: Clay Figueredo MD [Primary Care Provider] -
--- NOTE | 2020-11-19 15:58 | DISCHARGE SUMMARY ---
Discharge Summary Admit Date: 11/15/20 Discharge Date: 11/19/20 Discharging Provider: Delfino Blanco Primary Care Provider: Dr. Clay Figueredo Condition at Discharge: Poor Discharge Disposition: Home, Self Care Discharge Facility Name: home - DIAGNOSES Discharge Diagnoses with Status of Each Condition: (1) Acute on chronic diastolic heart failure improved and stable. pt's BNP is reduced as his baseline. pt took home oxygen. pt has 95% on 2 liter of O2. Patient has no acute respiratory distress. Patient was evaluated and treated by physical therapist, patient was arranged for home health, Patient declined to discharge to SNF. patient was referral to cardiac wellness center For cardiac rehab. Patient may follow-up with his paring machine operator as outpatient Patient may resume his home medication (2) edema, lower extremities improved, Patient may resume his home medication, patient was Arranged for home health. (3) Atrial fibrillation Patient's heart rate is controlled and stable, Patient may resume his home medication (4) Chronic renal disease stable (5) Generalized weakness Patient was evaluated and treated by physical therapist, patient declined to be discharged to SNF, home health was referred to patient. (6) Hypothyroidism TSH is normal, Resume home medication (7)hyponatremia Stable. Patient has history of hyponatremia (8)Physical deconditioning Discussed with the patient and his for care plan, Advised patient may have outpatient palliative care. - [facility] History of Present Illness: refer from Dr. Frye's HPI on 11/15/20 Patient is 85-year-old male with history significant for atrial fibrillation not anticoagulated, CHF and diabetes mellitus who presented to the ED with complaint of worsening generalized weakness and anasarca. He normally gets around with the aid of a walker. About 5 days ago he fell and required a lift assist. Despite that his has been able to assist him with ambulation however today he was unable to get up or ambulate due to his weakness as a result he was brought to the ED for evaluation. On evaluation in the ED his sodium level was 123 with a chloride of 80. He was thought to have anasarca as well. Consequently he was presented for admission for further treatment. He was given 100 mg Lasix IV x1 in the ED. At bedside he is resting comfortably. He is not a very reliable historian. However subjectively he denies chest pain, dyspnea, abdominal pain, nausea, vomiting, fever or chills. He has significant bruising on his upper extremities. - HOSPITAL COURSE Hospital Course: Patient was admitted for generalized weakness and fluid overloaded. Patient has a history of diastolic heart failure. Patient was treated with intravenous diuretic Lasix. Physical therapist Evaluated and treated to patient, patient was recommended to discharge to SNF for continued strength and fall prevention. Patient declined to discharge to SNF. Home health was arranged for patient. also patient was referral to cardiac rehab. After treatment, BNP was reduced as patient baseline. Patient had 95% sats on 2 L oxygen. Patient's anasarca and lower extremity edema is improved. Patient has no respiratory distress. Patient was discharged in hemodynamically stable condition - ALLERGIES Allergies/Adverse Reactions: Allergies Allergy/AdvReac Type Severity Reaction Status Date / Time clonidine Allergy Unknown Verified 02/29/20 17:43 diltiazem Allergy Unknown Verified 02/29/20 17:43 - MEDICATIONS Home Medications: Ambulatory Orders Medication Instructions Recorded Confirmed polyethylene glycoL 3350 [Miralax] 17 g PO DAILY PRN 05/06/14 11/16/20 Pantoprazole [Protonix] 40 mg PO DAILY 02/02/15 11/16/20 Ferrous Gluconate 324 mg PO BIDWM 04/04/17 11/16/20 Morphine ER 15 mg PO BID 04/04/17 11/16/20 Ondansetron Odt [Zofran Odt] 4 mg PO TID PRN 04/04/17 11/16/20 Potassium Chloride 10 meq PO DAILY 08/08/17 11/16/20 Fluticasone [Flonase] 1 spray RAMIN BID 07/12/18 11/16/20 oxyCODONE/ACET 5/325 [Percocet 5 2 tab PO Q6H PRN 07/12/18 11/16/20 mg/325 mg] Digoxin 125 mcg PO DAILY 03/02/20 11/16/20 Mupirocin 2% Oint [Bactroban 2% 1 applic TOP BID 03/02/20 11/16/20 Oint] Levothyroxine [Synthroid] 88 mcg PO QDAC #10 tablet 03/05/20 11/16/20 Aspirin EC [Ecotrin] 81 mg PO DAILY 11/16/20 11/16/20 Azelastine HCl 2 sprays RAMIN BID 11/16/20 11/16/20 Furosemide [Lasix] 80 mg PO DAILY 11/16/20 11/16/20 Metoprolol Tartrate [Lopressor] 25 mg PO BID 11/16/20 11/16/20 Tamsulosin [Flomax] 2 cap PO DAILY 11/16/20 11/16/20 Phenyleph/Pramoxin/Glycr/W.pet 1 appful TOP PRN PRN 11/17/20 11/17/20 [Preparation H Cream] - PHYSICAL EXAM AT DISCHARGE General Appearance: positive: No acute distress, Alert. negative: Lethargic Eyes Bilateral: positive: Normal inspection, PERRL, No lid inflammation ENT: positive: ENT inspection nml, No signs of dehydration. negative: Purulent nasal drainage Neck: positive: Nml inspection, Trachea midline. negative: Thyromegaly, Tracheal deviation Respiratory: positive: Chest non-tender, No respiratory distress. negative: Wheezes, Rhonchi Cardiovascular: positive: Regular rate & rhythm, No murmur. negative: Tachycardia, Bradycardia, Systolic murmur, Diastolic murmur Peripheral Pulses: positive: 2+ Abdomen: positive: Non-tender, Nml bowel sounds, No distention. negative: Tenderness, Guarding Back: positive: Nml inspection Skin: positive: Color nml, No rash, Warm, Dry. negative: Cyanosis, Pallor Extremities: positive: Non-tender, Full ROM, Nml appearance. negative: Calf tenderness Neurologic/Psychiatric: positive: Oriented x3, Motor nml, Sensation nml. negative: Weakness, Sensory loss, Facial droop, Slurred/abnml speech, Depressed mood/affect - LABS Result Diagrams: 11/19/20 06:38 11/19/20 06:38 - SEPSIS Current Stage of Sepsis: Ruled out - FOLLOW UP Follow Up: you are found to have fluid overloaded in the admission, resume your home medication, watch your daily weight, followup with your paring machine operator and cardiac wellness rehab, arranged home health for you. you may followup with your PCP in one week, followup with your paring machine operator as out-pt. Should your symptoms return or worsen, you may present ER or call 911 for help. - TIME SPENT Time Spent in Discharge (Minutes): 30
== END 2020-11-19 17:36 | disposition home or self-care (01) | DRG 291 ==
LOC: EDBD → EDUNIT# → ED 16:19 → MS2 19:57
PROVIDERS: ADMIT Internal Medicine; ATTEND Nurse Practitioner Gerontology
DX: I13.0 Hypertensive heart and chronic kidney disease with heart failure and stage 1 through stage 4 chronic kidney disease, or unspecified chronic kidney disease (principal); D64.9 Anemia, unspecified; I50.33 Acute on chronic diastolic (congestive) heart failure; E87.70 Fluid overload, unspecified; E87.8 Other disorders of electrolyte and fluid balance, not elsewhere classified; R41.0 Disorientation, unspecified; I48.21 Permanent atrial fibrillation; E87.1 Hypo-osmolality and hyponatremia; N18.30 Chronic kidney disease, stage 3 unspecified; N18.9 Chronic kidney disease, unspecified; I50.9 Heart failure, unspecified; E11.22 Type 2 diabetes mellitus with diabetic chronic kidney disease; Z79.4 Long term (current) use of insulin; R60.0 Localized edema; R53.1 Weakness; E03.9 Hypothyroidism, unspecified; Z91.81 History of falling; R58 Hemorrhage, not elsewhere classified; Z79.82 Long term (current) use of aspirin; Z79.899 Other long term (current) drug therapy
CPT/HCPCS: 36415; 71045; 80048; 80053; 80162; 81003; 82607; 82728; 83036; 83540; 83615; 83735; 83880; 84443; 84466; 84484; 85025; 85045; 85610; 93005; 93306; 97116; 97161; 97166; 97530; 99284; 99285; A6250; A9270; J1940; U0004; 81001; 87086

== ENCOUNTER 2020-11-30 08:00 | Outpatient (CLI) | payer MEDICARE, OTHER ==
[2020-11-30 11:38] LABS: BASOPHILS % (AUTO) 0.5 %; EOSINOPHILS # (AUTO) 0.1 10^3/uL (0.0-0.7); EOSINOPHILS % (AUTO) 1.4 %; HGB - HEMOGLOBIN 8.5 g/dL (14.0-18.0); LYMPHOCYTES # (AUTO) 1.4 10^3/uL (1.5-3.5); LYMPHOCYTES % (AUTO) 23.2 %; MEAN CORPUSCULAR HEMOGLOBIN 30.9 pg (27.0-31.0); MEAN CORPUSCULAR HGB CONC 33.7 g/dL (32.0-36.0); MEAN CORPUSCULAR VOLUME 91.6 fL (80.0-94.0); MEAN PLATELET VOLUME 13.4 fL (7.4-11.4); MONOCYTES # (AUTO) 0.6 10^3/uL (0.0-1.0); NEUTROPHILS # (AUTO) 3.7 10^3/uL (1.5-6.6); NEUTROPHILS % (AUTO) 64.2 %; PLT - PLATELET COUNT 57 10^3/uL (130-450); RED BLOOD COUNT 2.75 10^6/uL (4.70-6.10); RED CELL DISTRIBUTION WIDTH 13.9 % (12.0-15.0); WHITE BLOOD COUNT 5.8 x10^3/uL (4.8-10.8)
[2020-11-30 12:07] LABS: ALBUMIN 2.4 g/dL (3.2-5.5); ALBUMIN/GLOBULIN RATIO 0.9 (1.0-2.2); BILIRUBIN,TOTAL 0.9 mg/dL (0.2-1.0); CREATININE 1.5 mg/dL (0.6-1.2); TOTAL PROTEIN 5.1 g/dL (6.7-8.2)
== END 2020-11-30 23:59 | disposition home or self-care (01) ==
LOC: LAB.R 08:00
PROVIDERS: ATTEND Internal Medicine
DX: E11.22 Type 2 diabetes mellitus with diabetic chronic kidney disease (principal); I50.33 Acute on chronic diastolic (congestive) heart failure
CPT/HCPCS: 80053; 85025

== ENCOUNTER 2020-12-01 15:06 | Outpatient (CLI) | payer MEDICARE, OTHER | END 2020-12-01 15:07 | disposition critical access hospital (66) | LOC: EMS 15:06 | PROVIDERS: ATTEND Surgery | DX: R53.1 Weakness (principal) | CPT/HCPCS: A0425; A0429 ==

== ENCOUNTER 2020-12-01 15:14 | Emergency (ER) | payer MEDICARE, OTHER ==
--- NOTE | 2020-12-01 15:56 | ED Physician Documentation ---
History of Present Illness - Stated complaint Stated Complaint: ABNORMAL LABS - Chief complaint Chief Complaint: General - Additonal information Additional information: 85-year-old male is brought into the emergency department via ambulance for evaluation of progressive weakness and concerns of anemia. This gentleman had a recent hospitalization for heart failure and atrial fibrillation. He was discharged from the hospital on the eighth of this month. At the time the recommendation was for [place] [facility] placement but the family declined. In speaking on the phone with the patient's and his granddaughter they report that since discharge home he has been progressively weak, unable to stand they are concerned that he may have had strokes and they also report a lump or swelling in his abdomen that is gotten larger since being discharged home. They report that his primary care provider Dr. Figueredo wanted him to come to the emergency department for a blood transfusion as his hemoglobin was 8.5 yesterday. They deny that he has had black or bloody stools. The patient does have some confusion but denies chest pain abdominal pain or shortness of breath for me. At baseline he is on 2 to 3 L nasal cannula. At the end of last discharge she was noted to have significant anasarca. He did have his medications optimized. He was also referred to cardiac rehab however it was noted that he had generalized weakness and deconditioning. Review of Systems Constitutional: reports: Reviewed and negative Throat: reports: Reviewed and negative Cardiac: reports: Reviewed and negative Respiratory: reports: Reviewed and negative GI: reports: Abdominal Swelling. denies: Abdominal Pain, Hematemesis, Bloody / black stool : reports: Reviewed and negative Skin: reports: Abrasion (s) (multiple area of ecchymosi) Neurologic: reports: Generalized weakness. denies: Focal weakness PD PAST MEDICAL HISTORY - Past Medical History Cardiovascular: Congestive heart failure, Hypertension, High cholesterol, [place], Atrial fibrillation, Valve disorder Respiratory: Pneumonia Endocrine/Autoimmune: Type 2 diabetes GI: Diverticulitis, Other : Renal insuffiency HEENT: Chronic vision loss, Chronic hearing loss Psych: Depression Musculoskeletal: Osteoarthritis, Osteoporosis, Chronic back pain Derm: None - Past Surgical History Past Surgical History: Yes General: Cholecystectomy, Bowel surgery Ortho: Knee replacement, Spine surgery, Other - Present Medications Home Medications: Ambulatory Orders Medication Instructions Recorded Confirmed polyethylene glycoL 3350 [Miralax] 17 g PO DAILY PRN 05/06/14 12/01/20 Pantoprazole [Protonix] 40 mg PO DAILY 02/02/15 12/01/20 Ferrous Gluconate 324 mg PO BIDWM 04/04/17 12/01/20 Morphine ER 15 mg PO BID 04/04/17 12/01/20 Ondansetron Odt [Zofran Odt] 4 mg PO TID PRN 04/04/17 12/01/20 Potassium Chloride 10 meq PO DAILY 08/08/17 12/01/20 Fluticasone [Flonase] 1 spray RAMIN BID 07/12/18 12/01/20 oxyCODONE/ACET 5/325 [Percocet 5 2 tab PO Q6H PRN 07/12/18 12/01/20 mg/325 mg] Digoxin 125 mcg PO DAILY 03/02/20 12/01/20 Mupirocin 2% Oint [Bactroban 2% 1 applic TOP BID 03/02/20 12/01/20 Oint] Levothyroxine [Synthroid] 88 mcg PO QDAC #10 tablet 03/05/20 12/01/20 Aspirin EC [Ecotrin] 81 mg PO DAILY 11/16/20 12/01/20 Azelastine HCl 2 sprays RAMIN BID 11/16/20 12/01/20 Furosemide [Lasix] 80 mg PO DAILY 11/16/20 12/01/20 Metoprolol Tartrate [Lopressor] 12.5 mg PO BID 11/16/20 12/01/20 Tamsulosin [Flomax] 2 cap PO DAILY 11/16/20 12/01/20 Phenyleph/Pramoxin/Glycr/W.pet 1 appful TOP PRN PRN 11/17/20 12/01/20 [Preparation H Cream] - Allergies Allergies/Adverse Reactions: Allergies Allergy/AdvReac Type Severity Reaction Status Date / Time clonidine Allergy Unknown Verified 12/01/20 15:34 diltiazem Allergy Unknown Verified 12/01/20 15:34 - Social History Does the pt smoke?: No Smoking Status: Never smoker Does the pt drink ETOH?: Yes Does the pt have substance abuse?: No - Immunizations Immunizations are current?: No Immunizations: TDAP >10years/unknown - POLST Patient has POLST: Yes POLST Status: Full Code PD ED PE EXPANDED - General General: Alert, No acute distress - Cardiac Cardiac: Irregularly irregular, Murmur Present, Radial strong equal, Pedal strong equal, Cap refill < 2 sec - Respiratory Respiratory: Clear to ausultation handy. No: Distress, Labored - Abdomen Abdomen: Normal Bowel sounds. No: Tender to palpation, Pulsatile - Derm Derm: Normal color, Bruising (Extensive bruising of the) - Extremities Extremities: Normal, Pedal edema bilateral (Anasarca noted with compression stockings on bilateral lower extremities.), Pedal Pulses Present - Neuro Neuro: Confused, CNII-XII intact, Normal speech - GCS Eye Opening: Spontaneous Motor: Obeys Commands Verbal: Confused Total: 14 Results - Vitals Vitals: Vital Signs - 24 hr 12/01/20 12/01/20 12/01/20 15:23 16:58 17:52 Temperature 36.1 C L Heart Rate 100 81 88 Respiratory 18 16 25 H Rate Blood Pressure 119/76 109/64 124/82 H O2 Saturation 100 100 100 12/01/20 12/01/20 12/01/20 19:28 20:28 21:21 Temperature 36.9 C 36.5 C Heart Rate 91 98 98 Respiratory 17 19 14 Rate Blood Pressure 114/75 140/91 H 142/84 H O2 Saturation 94 100 100 12/01/20 12/01/20 22:19 23:02 Temperature 36.2 C L Heart Rate 95 97 Respiratory 13 19 Rate Blood Pressure 145/88 H 135/90 H O2 Saturation 100 100 Oxygen O2 Source [] Room air O2 Source [] Room air O2 Source Nasal cannula - EKG (time done) 1611 Rate: Rate (enter#) (76) Rhythm: Atrial fibrillation Grant: LAD Intervals: Normal MS Ischemia: Q waves, Non specific changes Compare to prior EKG: Unchanged from prior EKG Computer interpretation: Agree with computer - Labs Labs: Laboratory Tests 12/01/20 12/01/20 12/01/20 16:04 16:04 16:31 WBC 5.9 RBC 2.72 L Hgb 8.4 L Hct 25.8 L MCV 94.9 H MCH 30.9 MCHC 32.6 RDW 14.4 Plt Count 72 L MPV TNP Neut # (Auto) 3.8 Lymph # (Auto) 1.3 L [place] # (Auto) 0.6 Eos # (Auto) 0.1 Baso # (Auto) 0.0 Absolute Nucleated RBC 0.00 Nucleated RBC % 0.0 PT 11.9 INR 1.1 Sodium 130 L Potassium 4.7 Chloride 84 L Carbon Dioxide 32 Anion Gap 14.0 H BUN 53 H Creatinine 1.6 H Estimated GFR (MDRD) 41 L Glucose 125 H Calcium 8.5 Total Bilirubin 0.8 AST 16 ALT 15 Alkaline Phosphatase 177 H Total Protein 5.8 L Albumin 2.6 L Globulin 3.2 Albumin/Globulin Ratio 0.8 L Lipase 21 L Urine Color Urine Clarity Urine pH Ur Specific [place] Urine Protein Urine Glucose (UA) Urine Ketones Urine Occult Blood Urine Nitrite Urine Bilirubin Urine Urobilinogen Ur Leukocyte Esterase Ur Microscopic Review Urine Culture Comments Nasal Adenovirus (PCR) Nasal B. parapertussis DNA (PCR) Nasal Coronavir 229E PCR Nasal Coronavir HKU1 PCR Nasal Coronavir NL63 PCR Nasal Coronavir OC43 PCR Nasal Enterovir/Rhinovir PCR Nasal Influenza B PCR Nasal Influenza A PCR Nasal Parainfluen 1 PCR Nasal Parainfluen 2 PCR Nasal Parainfluen 3 PCR Nasal Parainfluen 4 PCR Nasal RSV (PCR) Nasal B.pertussis DNA PCR Nasal C.pneumoniae (PCR) Ramin Human Metapneumo PCR Nasal M.pneumoniae (PCR) Nasal SARS-CoV-2 (PCR) Blood Type Antibody Screen 12/01/20 12/01/20 12/01/20 16:31 17:44 19:58 WBC RBC Hgb Hct MCV MCH MCHC RDW Plt Count MPV Neut # (Auto) Lymph # (Auto) [place] # (Auto) Eos # (Auto) Baso # (Auto) Absolute Nucleated RBC Nucleated RBC % PT INR Sodium Potassium Chloride Carbon Dioxide Anion Gap BUN Creatinine Estimated GFR (MDRD) Glucose Calcium Total Bilirubin AST ALT Alkaline Phosphatase Total Protein Albumin Globulin Albumin/Globulin Ratio Lipase Urine Color YELLOW Urine Clarity CLEAR Urine pH 6.0 Ur Specific [place] <=1.005 Urine Protein NEGATIVE Urine Glucose (UA) NEGATIVE Urine Ketones NEGATIVE Urine Occult Blood NEGATIVE Urine Nitrite NEGATIVE Urine Bilirubin NEGATIVE Urine Urobilinogen 1 (NORMAL) Ur Leukocyte Esterase NEGATIVE Ur Microscopic Review NOT INDICATED Urine Culture Comments NOT INDICATED Nasal Adenovirus (PCR) NOT DETECTED Nasal B. parapertussis DNA (PCR) NOT DETECTED Nasal Coronavir 229E PCR NOT DETECTED Nasal Coronavir HKU1 PCR NOT DETECTED Nasal Coronavir NL63 PCR NOT DETECTED Nasal Coronavir OC43 PCR NOT DETECTED Nasal Enterovir/Rhinovir PCR NOT DETECTED Nasal Influenza B PCR NOT DETECTED Nasal Influenza A PCR NOT DETECTED Nasal Parainfluen 1 PCR NOT DETECTED Nasal Parainfluen 2 PCR NOT DETECTED Nasal Parainfluen 3 PCR NOT DETECTED Nasal Parainfluen 4 PCR NOT DETECTED Nasal RSV (PCR) NOT DETECTED Nasal B.pertussis DNA PCR NOT DETECTED Nasal C.pneumoniae (PCR) NOT DETECTED Ramin Human Metapneumo PCR NOT DETECTED Nasal M.pneumoniae (PCR) NOT DETECTED Nasal SARS-CoV-2 (PCR) NOT DETECTED Blood Type A POSITIVE Antibody Screen NEGATIVE - Rads (name of study) CXR Radiology: Final report received (Poor inspiratory effort as above however there is felt to be development of minimal to mid right effusion with superimposed areas of atelectasis versus early developing pneumonia) CT head Radiology: Final report received (No acute intracranial process. Opacified left middle ear and left mastoid air cells concerning for otitis media with mastoiditis.) CT chest Radiology: Final report received (Small loculated right pleural effusion with suggestion of adjacent pleural thickening. There is adjacent compressive atelectasis on the right lung base as well as the right middle lobe. Consolidation likely related to atelectasis.) abd/pelvis Radiology: Final report received (Loculated appearance of right pleural effusion. Age-indeterminate but favored to be acute or subacute compression fracture of T12 with mild paravertebral stranding at L1.) PD MEDICAL DECISION MAKING - ED course Complexity details: reviewed results, re-evaluated patient, considered differential, d/w patient, d/w family ED course: 85-year-old male is brought to the emergency department for evaluation of generalized weakness. His reports that his primary care provider wanted him to pain a blood transfusion for hemoglobin of 8.5. This gentleman does have a history of heart failure and was recently hospitalized for this. Since being discharged home the patient has been progressively weak without with increasing difficulty standing at home with his and daughter. It should be noted that he is generally debilitated and the family declined [place] [facility] after last hospitalization. Here on imaging a CT scan shows no acute focal abnormalities. The CT of the abdomen and chest x-ray do suggest a loculated pleural effusion. However there is no leukocytosis or fevers. The differential for this pleural effusion remains an infectious etiology versus heart failure versus possible cancer. I discussed with our on-call surgeon Dr. Carter and because the patient is not hypoxic or labored of breath he does not feel that the effusion needs to be drained at this time. In addition, he preferes not to attempt drainage of pleural effusions that may be empyema. However in discussion with our hospitalist Dr. Lewis the loculated effusion likely needs to be drained and because Dr. Carter does not feel the need is present at this time and he is hesitant to drain empyemas the recommendation is to seek transfer to a hospital with CT surgery availability. 1900: I have spoken with the patient's and regarding lab findings and CT results. I discussed that an emergent blood transfusion is not indicated at this time for the anemia of 8.5. The more worrisome finding is the loculated pleural effusion. I discussed that our surgeon here is not comfortable draining the effusion as there is a possibility it may be an empyema therefore we are looking to transfer the patient 1920: We will attempt to speak with CT surgery at [facility] for bed availability and possibility of transfer. [facility] reports as full but have put is on a waiting list. We will reach out to [facility] for [facility]. 0: I have spoken with [facility] transfer center. The excepting CT surgeon Dr. Moyer is unfortunately not able to take a consult as he is currently in a double lung transplant. He reports that he could not discuss the consult until about 10 or 11 tomorrow morning. We will attempt to see if [facility] is able to see this patient in transfer. I have discussed this with the patient's on the phone. We will repeat a chest x-ray in the morning as well as his labs. Patient has been allowed to eat overnight but will be n.p.o. at midnight. Patient is signed out to my nocturnal colleague Dr. Ramey if [facility] have CT surgery available. I have also again discussed this case with our hospitalist Dr. Haider. We are unable to admit this patient to the hospital as our surgeon Dr. Carter is not likely to drain a loculated pleural effusion if there is any concern it may be an empyema. Departure - Departure Clinical Impression: Pleural effusion, Generalized weakness T12 compression fracture Qualifiers: Encounter type: initial encounter Qualified Code(s): S22.080A - Wedge compression fracture of T11-T12 vertebra, initial encounter for closed fracture Anemia Qualifiers: Anemia type: unspecified type Qualified Code(s): D64.9 - Anemia, unspecified Atrial fibrillation Qualifiers: Atrial fibrillation type: unspecified Qualified Code(s): I48.91 - Unspecified atrial fibrillation
[2020-12-01 16:13] LABS: BASOPHILS % (AUTO) 0.5 %; EOSINOPHILS # (AUTO) 0.1 10^3/uL (0.0-0.7); EOSINOPHILS % (AUTO) 1.4 %; HGB - HEMOGLOBIN 8.4 g/dL (14.0-18.0); LYMPHOCYTES # (AUTO) 1.3 10^3/uL (1.5-3.5); LYMPHOCYTES % (AUTO) 22.8 %; MEAN CORPUSCULAR HEMOGLOBIN 30.9 pg (27.0-31.0); MEAN CORPUSCULAR HGB CONC 32.6 g/dL (32.0-36.0); MEAN CORPUSCULAR VOLUME 94.9 fL (80.0-94.0); MONOCYTES # (AUTO) 0.6 10^3/uL (0.0-1.0); MONOCYTES % (AUTO) 9.7 %; NEUTROPHILS # (AUTO) 3.8 10^3/uL (1.5-6.6); NEUTROPHILS % (AUTO) 65.1 %; PLT - PLATELET COUNT 72 10^3/uL (130-450); RED BLOOD COUNT 2.72 10^6/uL (4.70-6.10); RED CELL DISTRIBUTION WIDTH 14.4 % (12.0-15.0); WHITE BLOOD COUNT 5.9 x10^3/uL (4.8-10.8)
[2020-12-01 16:30] LABS: INR 1.1 (0.8-1.2); PT - PROTHROMBIN TIME 11.9 secs (9.9-12.6)
--- NOTE | 2020-12-01 16:38 | XRAY Report ---
PROCEDURE: Chest 1 View X-Ray INDICATIONS: chest pain TECHNIQUE: One view of the chest was acquired. COMPARISON: Chest x-ray 12/01/2020 FINDINGS: Surgical changes and devices: None. Lungs and pleura: There is unchanged elevation of the right hemidiaphragm. Patchy opacities are noted within the right lung. Poor inspiratory effort is noted. There is blunting of the costophrenic angle , new compared to prior exam. Mediastinum: Mediastinal contours appear normal. Heart size is enlarged. Bones and chest wall: No suspicious bony lesions. Overlying soft tissues appear unremarkable. IMPRESSION: Poor inspiratory effort as above. However, there is felt to be development of minimal to mild right e ffusion with superimposed areas of atelectasis versus early developing pneumonia. Reviewed by: Celina Garland MD on 12/01/2020 4:36 PM PST Approved by: Celina Garland MD on 12/01/2020 4:36 PM PST Station ID: [id number]
[2020-12-01 17:00] LABS: ALBUMIN 2.6 g/dL (3.2-5.5); ALBUMIN/GLOBULIN RATIO 0.8 (1.0-2.2); BILIRUBIN,TOTAL 0.8 mg/dL (0.2-1.0); CALCIUM 8.5 mg/dL (8.5-10.3); CREATININE 1.6 mg/dL (0.6-1.2); TOTAL PROTEIN 5.8 g/dL (6.7-8.2)
[2020-12-01 17:52] LABS: BILIRUBIN,URINE NEGATIVE (NEGATIVE); GLUCOSE, URINE (UA) NEGATIVE (NEGATIVE); KETONES,URINE (UA) NEGATIVE (NEGATIVE); LEUKOCYTE ESTERASE, URINE NEGATIVE (NEGATIVE); NITRITE,URINE NEGATIVE (NEGATIVE); OCCULT BLOOD,URINE NEGATIVE (NEGATIVE); PROTEIN,URINE NEGATIVE (NEGATIVE); UROBILINOGEN,URINE 1 (NORMAL) E.U./dL (NORMAL)
[2020-12-01 17:59] LABS: CLARITY,URINE CLEAR (CLEAR)
--- NOTE | 2020-12-01 18:05 | CT Report ---
PROCEDURE: HEAD WO INDICATIONS: fall at home TECHNIQUE: Noncontrast 4.5 mm thick angled axial sections acquired from the foramen magnum to the vertex. For r adiation dose reduction, the following was used: automated exposure control, adjustment of mA and/or kV according to patient size. COMPARISON: 05/06/2014 FINDINGS: Image quality: Excellent. CSF spaces: Basal cisterns are patent. No extra-axial fluid collections. The ventricles are symmet lucia in size and shape. Brain: No intracranial bleeds or masses. There is cerebral volume loss for age, with resultant vent ricular and sulcal prominence. There are periventricular and deep white matter chronic small vessel ischemic changes. Small chronic left parietal infarct. There is intracranial internal carotid artery and vertebral artery atherosclerosis. Skull and face: Calvarium and visualized facial bones appear intact, without suspicious lesions. Sinuses: Visualized sinuses are clear. Left mastoid air cells and left middle ear are completely opa cified. Right mastoid air cells and right middle ear are clear. IMPRESSION: 1. No acute intracranial disease process. 2. Opacified left middle ear and left mastoid air cells concerning for otitis media with mastoiditis. Reviewed by: Delia Rodriguez MD, PhD on 12/01/2020 5:03 PM [place] Approved by: Delia Rodriguez MD, PhD on 12/01/2020 5:03 PM [facility] Station ID: [id number]
--- NOTE | 2020-12-01 18:30 | CT Report ---
PROCEDURE: Abdomen/Pelvis W INDICATIONS: anemia CONTRAST: IV CONTRAST: Optiray 320 ml: 100 PO CONTRAST: *NO PO CONTRAST TECHNIQUE: After the administration of weight appropriate dose of intravenous contrast, 5 mm thick sections acqu ired from the diaphragms to the symphysis. 5 mm thick coronal and sagittal reformats were acquired. For radiation dose reduction, the following was used: automated exposure control, adjustment of mA and/or kV according to patient size. COMPARISON: The listed comparison study is not available for review secondary to technical issues. FINDINGS: Image quality: Limited by patient motion artifact and significant beam hardening artifact from lumbar fusion hardware.. ABDOMEN: Lung bases: Mildly loculated right pleural effusion with thickened surrounding pleura. Heart size is normal. Solid organs: Liver and spleen are normal in size and enhancement. There is a hypodense lesion adjac ent to the gallbladder fossa possibly representing the decompressed gallbladder versus a hepatic cyst . Biliary system is non dilated. Pancreas is atrophied with diffusely scattered coarse calcification s. This may represent sequela of chronic pancreatitis. No adrenal nodules. Kidneys demonstrate norm al size and enhancement, without hydronephrosis. Partially exophytic 1.6 cm inferior left renal hypod ensity. Subcentimeter right renal hypodensities are too small to accurately characterize. Peritoneum and bowel: Bowel loops demonstrate normal wall thickness and caliber. Moderate fecal janis d seen throughout the colon. Several loops of fluid-filled bowel are seen throughout the abdomen with out abnormal wall thickening. No evidence for obstruction. Scattered colonic diverticulosis without a cute diverticulitis. No free fluid or air. Nodes and vessels: No retroperitoneal or mesenteric adenopathy by size criteria. Aorta and inferior vena cava are normal in size. Scattered atherosclerotic calcifications of the abdominal aorta and i liac vessels without aneurysmal dilatation. Miscellaneous: No ventral hernias. PELVIS: Genitourinary: Bladder wall thickness is normal. Prostate radiation seeds are noted. Miscellaneous: No inguinal hernias or adenopathy. Bones: No suspicious bony lesions. Status post lumbar fusion from L2 through S1 with age-indetermina te compression fracture of the T12 vertebral body. This is favored to represent acute to subacute fra cture given perivertebral soft tissue stranding at L1. Moderate multilevel spondylosis of the imaged spine. No suspicious osseous lesions. IMPRESSION: 1. Loculated appearance of right pleural effusion with mild thickening of the surrounding pleura. Tristen valadez may be secondary to an infectious/inflammatory process with neoplasm not excluded. 2. Age-indeterminate but favored to be acute or subacute compression fracture of T12 with mild parave rtebral stranding at L1. 3. No suspicious adenopathy identified. 4. Numerous fluid-filled loops of small bowel without wall thickening or dilatation is nonspecific an d may represent enteritis. 5. Multiple incompletely characterized bilateral renal hypodensities likely representing cysts. How er, recommend outpatient evaluation with multi phase CT or MRI using renal mass protocol. 6. Atherosclerosis. 7. Colonic diverticulosis without acute diverticulitis. Reviewed by: Zac Fontenot MD on 12/01/2020 6:29 PM PST Approved by: Zac Fontenot MD on 12/01/2020 6:29 PM PST Station ID: [id number]
[2020-12-01] MEDS ORDERED: HYDROmorphone 1 MG/ML CARPUJECT IVP STA (18:48)
[2020-12-01] MEDS ORDERED: ACETAMINOPHEN 325 MG TABLET PO STA (20:37)
[2020-12-01 21:05] LABS: C. PNEUMONIAE- RESP PCR PANEL NOT DETECTED
--- NOTE | 2020-12-01 21:07 | CT Report ---
PROCEDURE: CHEST WO INDICATIONS: SOB, pleural effusion TECHNIQUE: Noncontrast 5 mm thick sections acquired from the pulmonary apices to the posterior costophrenic angl es. 7 mm thick coronal and sagittal MIP reformats were then acquired. For radiation dose reduction, the following was used: automated exposure control, adjustment of mA and/or kV according to patient size. COMPARISON: Chest radiograph dated earlier same day FINDINGS: Lungs and pleura: Small, loculated right pleural effusion with suggestion of adjacent pleural thicke andrew. There is adjacent compressive atelectasis and medial right basilar consolidation. Mild left bas ilar atelectasis. No septal thickening or nodularity. There is atelectasis of the right middle lobe. No pneumothorax. Central and peripheral airways are patent and normal in caliber. Mediastinum: Heart size is prominent. No pericardial effusion. No mediastinal adenopathy by size c riteria. Thoracic aorta and central pulmonary arteries are normal in size. Extensive atheroscleroti c calcifications of the coronary arteries and thoracic aorta. No evidence for aneurysmal dilatation. There is a tortuous course of the thoracic aorta. Esophagus is normal in caliber. No hiatal hernia. Bones and chest wall: No suspicious bony lesions. No vertebral body compression fractures. No axil yusef or supraclavicular adenopathy by size criteria. The thyroid is normal in size. Moderate eventr ation of the right hemidiaphragm. Abdomen: Visualized upper abdominal solid organs and bowel loops are stable in appearance compared t o CT of the abdomen and pelvis obtained from earlier same day. Please see separate report for details . IMPRESSION: 1. Small, loculated right pleural effusion with suggestion of adjacent pleural thickening. There is a djacent compressive atelectasis of the right lung base as well as the right middle lobe. Consolidatio n likely related to atelectasis although concurrent airspace disease or neoplastic process not comple tely excluded. Short interval follow-up CT is recommended. 2. Otherwise, no other acute cardiopulmonary abnormalities identified. 3. Atherosclerotic vascular disease. 4. Borderline cardiomegaly without evidence for pulmonary edema. Reviewed by: Zac Fontenot MD on 12/01/2020 9:05 PM PST Approved by: Zac Fontenot MD on 12/01/2020 9:05 PM PST Station ID: [id number]
--- NOTE | 2020-12-02 02:45 | ED Physician Documentation ---
ED Addendum - Addendum Addendum: 12/02/20 02:41 Received sign out from AMBERLY Cloud; please see her note for detailed H+P as well as ED course up until the time of sign out. I contacted [facility] transfer center and was initially put in touch with the hospitalist, was advised to d/w CT surgeon first (which was my plan but was not communicated to transfer center). I then heard from CT surgeon at [facility]; he says that if concern is empyema that I should d/w thoracic surgeon. I then d/w thoracic surgeon at [facility]. He recommends general surgeon place chest tube and then patient can be held until we hear back from [facility]/. I reiterated to thoracic surgeon that [facility] general surgeon had already informed my colleague YVONNE Cloud that he was not comfortable with placement of chest tube if concern is empyema, but thoracic surgeon has no alternative recommendations and says transfer to [facility] would not be accepted to thoracic surgeon's service 12/02/20 09:18 care of patient turned over to Dr. Knapp at end of my shift pending disposition
[2020-12-02] MEDS ORDERED: oxyCODONE 5 MG TABLET PO STA ×2 (06:20→12:31)
[2020-12-02 08:18] LABS: BASOPHILS % (AUTO) 0.3 %; EOSINOPHILS % (AUTO) 0.6 %; LYMPHOCYTES # (AUTO) 1.4 10^3/uL (1.5-3.5); MEAN CORPUSCULAR HEMOGLOBIN 31.3 pg (27.0-31.0); MEAN CORPUSCULAR VOLUME 94.8 fL (80.0-94.0); MONOCYTES # (AUTO) 0.6 10^3/uL (0.0-1.0); MONOCYTES % (AUTO) 9.2 %; NEUTROPHILS # (AUTO) 4.3 10^3/uL (1.5-6.6); NEUTROPHILS % (AUTO) 67.4 %; PLT - PLATELET COUNT 68 10^3/uL (130-450); RED BLOOD COUNT 2.88 10^6/uL (4.70-6.10); RED CELL DISTRIBUTION WIDTH 13.8 % (12.0-15.0); WHITE BLOOD COUNT 6.3 x10^3/uL (4.8-10.8)
[2020-12-02 08:40] LABS: ALBUMIN 2.6 g/dL (3.2-5.5); ALBUMIN/GLOBULIN RATIO 0.9 (1.0-2.2); ALKALINE PHOSPHATASE 174 IU/L (42-121); ALT ALANINE AMINOTRANSFERASE 12 IU/L (10-60); AST ASPARTATE AMINOTRANSFERASE 18 IU/L (10-42); BILIRUBIN,TOTAL 0.9 mg/dL (0.2-1.0); BUN - BLOOD UREA NITROGEN 52 mg/dL (6-20); CALCIUM 8.2 mg/dL (8.5-10.3); CARBON DIOXIDE - CO2 32 mmol/L (21-32); CHLORIDE 86 mmol/L (101-111); CREATININE 1.4 mg/dL (0.6-1.2); GLUCOSE 127 mg/dL (70-100); TOTAL PROTEIN 5.6 g/dL (6.7-8.2)
[2020-12-02 08:58] LABS: LIPASE < 10 U/L (22-51)
[2020-12-02] MEDS ORDERED: METOPROLOL TARTRATE 50 MG TABLET PO STA (09:18)
[2020-12-02] MEDS ORDERED: TAMSULOSIN 0.4 MG CAPSULE PO STA (09:19)
[2020-12-02] MEDS ORDERED: DIGOXIN 125 MCG TABLET PO STA (09:20)
[2020-12-02] MEDS ORDERED: PANTOPRAZOLE 40 MG TABLET PO STA (09:21)
[2020-12-02] MEDS ORDERED: MORPHINE ER 15 MG TABLET PO STA (09:21)
[2020-12-02] MEDS ORDERED: FUROSEMIDE 20 MG TABLET PO STA (09:22)
[2020-12-02] MEDS ORDERED: POTASSIUM CHLORIDE 10 MEQ CAPSULE PO STA (09:22)
[2020-12-02] MEDS ORDERED: FERROUS GLUCONATE 324 MG TABLET PO SCH (12:00)
[2020-12-02] MEDS ORDERED: LEVOTHYROXINE 88 MCG TABLET PO SCH (12:00)
[2020-12-02 12:52] VITALS: BP 129/78
[2020-12-02] MEDS ORDERED: MORPHINE ER 15 MG TABLET PO SCH (21:00)
[2020-12-02] MEDS ORDERED: METOPROLOL TARTRATE 50 MG TABLET PO SCH (21:00)
[2020-12-03] MEDS ORDERED: TAMSULOSIN 0.4 MG CAPSULE PO SCH (09:00)
== END 2020-12-02 13:30 | disposition short-term general hospital (02) ==
LOC: EDUNIT# → EDBD → SUPCPDRO 15:14 → ED 15:14
DX: J90 Pleural effusion, not elsewhere classified (principal); R53.1 Weakness; D64.9 Anemia, unspecified; S22.080A Wedge compression fracture of T11-T12 vertebra, initial encounter for closed fracture; X58.XXXA Exposure to other specified factors, initial encounter; I48.91 Unspecified atrial fibrillation; I11.0 Hypertensive heart disease with heart failure; I50.9 Heart failure, unspecified; Z20.822 Contact with and (suspected) exposure to COVID-19; E11.9 Type 2 diabetes mellitus without complications; Z79.82 Long term (current) use of aspirin
CPT/HCPCS: 36415; 70450; 71045; 71250; 74177; 80053; 81003; 83690; 85025; 85610; 86850; 86900; 86901; 87631; 93005; 96374; 99284; 99285; A9270; J1170; 0202U; 81001; 87086

== ENCOUNTER 2020-12-02 13:34 | Outpatient (CLI) | payer MEDICARE, OTHER | END 2020-12-02 13:35 | disposition short-term general hospital (02) | LOC: EMS 13:34 | PROVIDERS: ATTEND Surgery | DX: J90 Pleural effusion, not elsewhere classified (principal); R60.1 Generalized edema; I50.9 Heart failure, unspecified; J44.9 Chronic obstructive pulmonary disease, unspecified; I48.91 Unspecified atrial fibrillation; Z74.01 Bed confinement status | CPT/HCPCS: A0425; A0426 ==

== ENCOUNTER 2020-12-30 22:24 | Outpatient (CLI) | payer MEDICARE, OTHER | END 2020-12-30 22:25 | disposition critical access hospital (66) | LOC: EMS 22:24 | PROVIDERS: ATTEND Emergency Medicine | DX: R06.00 Dyspnea, unspecified (principal) | CPT/HCPCS: A0425; A0429 ==

== ENCOUNTER 2020-12-30 22:31 | Inpatient (IN) | payer MEDICARE, OTHER ==
[2020-12-30] MEDS ORDERED: SODIUM CHLORIDE 0.9% 1,000 ML IV STA (23:37)
[2020-12-31 00:16] LABS: BASOPHILS % (AUTO) 0.3 %; EOSINOPHILS % (AUTO) 0.1 %; HGB - HEMOGLOBIN 9.3 g/dL (14.0-18.0); LYMPHOCYTES # (AUTO) 1.7 10^3/uL (1.5-3.5); LYMPHOCYTES % (AUTO) 19.3 %; MEAN CORPUSCULAR HGB CONC 33.1 g/dL (32.0-36.0); MEAN CORPUSCULAR VOLUME 93.7 fL (80.0-94.0); MEAN PLATELET VOLUME 14.6 fL (7.4-11.4); MONOCYTES # (AUTO) 0.6 10^3/uL (0.0-1.0); MONOCYTES % (AUTO) 7.1 %; NEUTROPHILS # (AUTO) 6.3 10^3/uL (1.5-6.6); NEUTROPHILS % (AUTO) 72.5 %; PLT - PLATELET COUNT 50 10^3/uL (130-450); RED CELL DISTRIBUTION WIDTH 14.3 % (12.0-15.0); WHITE BLOOD COUNT 8.7 x10^3/uL (4.8-10.8)
[2020-12-31 00:36] LABS: ALBUMIN 2.6 g/dL (3.2-5.5); ALBUMIN/GLOBULIN RATIO 0.8 (1.0-2.2); BILIRUBIN,TOTAL 1.1 mg/dL (0.2-1.0); CALCIUM 8.5 mg/dL (8.5-10.3); CREATININE 1.3 mg/dL (0.6-1.2); MAGNESIUM 1.6 mg/dL (1.7-2.8); TOTAL PROTEIN 5.7 g/dL (6.7-8.2)
[2020-12-31 00:50] LABS: DIGOXIN 0.7 ng/mL
--- NOTE | 2020-12-31 00:58 | ED Physician Documentation ---
PD HPI DYSPNEA - Stated complaint Stated Complaint: SOA - Chief complaint Chief Complaint: Resp - History obtained from History obtained from: Patient, Family (), EMS - History of Present Illness Timing - onset: How many days ago (4) Timing - onset during: Rest, Light activity Timing - details: Gradual onset, Other (The history of congestive failure and chronic A. fib who was recently hospitalized in [facility]. He had his Lasix dose decreased and his aspirin stopped. states increased weakness and confusion with poor appetite and intake over the last 4 days progressively worse.) Inciting event(s): No: URI ( denies him having fever, cough.) Improved by: Rest, Sitting up Worsened by: Exertion, Laying flat Similar symptoms before: Diagnosis (CHF, chronic atrial fib, effusion, edema, anemia, weakness. Has had low sodium previously but not as low as current.) Recently seen: Clinic (had labs at Dr. Quigley office 12/24 showing Hgb 8.8 and platelets 25. Sodium was 128.), Emergency Dept, Admitted (transferred from our ED to [facility] 12/02/20 for weakness, CHF, edema, and with concern of right effusion (Surgeon did not want to do thoracentesis if concerned about epyema). and discharge record from [facility] state thoracentesis done and no treatment for infection. Dx of CHF, edema.), Other (discharge sheets from [facility] show stopping of ASA, decreasing of furosemide.) Review of Systems Constitutional: denies: Fever Nose: denies: Rhinorrhea / runny nose, Congestion Throat: denies: Sore throat Cardiac: reports: Pedal edema (and swelling of hands as well). denies: Chest pain / pressure, Calf pain Respiratory: reports: Dyspnea. denies: Cough GI: reports: Nausea, Other (less oral intake for 4 days, with darker urine.). denies: Abdominal Pain, Vomiting, Diarrhea : reports: Incontinent. denies: Dysuria Skin: denies: Rash Neurologic: reports: Generalized weakness, Confused (for the past 4 days, worsening, per .). denies: Near syncope, Headache PD PAST MEDICAL HISTORY - Past Medical History Past Medical History: Yes Cardiovascular: Congestive heart failure, Hypertension, High cholesterol, OR, Atrial fibrillation, Valve disorder Respiratory: Pneumonia Endocrine/Autoimmune: Type 2 diabetes GI: Diverticulitis, Other : Renal insuffiency HEENT: Chronic vision loss, Chronic hearing loss Psych: Depression Musculoskeletal: Osteoarthritis, Osteoporosis, Chronic back pain Derm: None - Past Surgical History Past Surgical History: Yes General: Cholecystectomy, Bowel surgery Ortho: Knee replacement, Spine surgery, Other - Present Medications Home Medications: Ambulatory Orders Medication Instructions Recorded Confirmed polyethylene glycoL 3350 [Miralax] 17 g PO DAILY PRN 05/06/14 12/30/20 Pantoprazole [Protonix] 40 mg PO DAILY 02/02/15 12/30/20 Ferrous Gluconate 324 mg PO BIDWM 04/04/17 12/30/20 Morphine ER [Morphine Sulfate ER] 15 mg PO TID 04/04/17 12/30/20 Ondansetron Odt [Zofran Odt] 4 mg PO TID PRN 04/04/17 12/30/20 Potassium Chloride 10 meq PO DAILY 08/08/17 12/30/20 Fluticasone [Flonase] 1 spray RAMIN BID 07/12/18 12/30/20 oxyCODONE/ACET 5/325 [Percocet 5 2 tab PO Q4HR PRN 07/12/18 12/30/20 mg/325 mg] Digoxin 62.5 mcg PO DAILY 03/02/20 12/30/20 Mupirocin 2% Oint [Bactroban 2% 1 applic TOP BID 03/02/20 12/30/20 Oint] Levothyroxine [Synthroid] 88 mcg PO QDAC #10 tablet 03/05/20 12/30/20 Azelastine HCl 2 sprays RAMIN BID 11/16/20 12/30/20 Furosemide [Lasix] 40 mg PO DAILY 11/16/20 12/30/20 Metoprolol Tartrate [Lopressor] 12.5 mg PO BID 11/16/20 12/30/20 Tamsulosin [Flomax] 2 cap PO DAILY 11/16/20 12/30/20 Phenyleph/Pramoxin/Glycr/W.pet 1 appful TOP PRN PRN 11/17/20 12/30/20 [Preparation H Cream] - Allergies Allergies/Adverse Reactions: Allergies Allergy/AdvReac Type Severity Reaction Status Date / Time clonidine Allergy Unknown Verified 12/30/20 22:43 diltiazem Allergy Unknown Verified 12/30/20 22:43 - Social History Does the pt smoke?: No Smoking Status: Never smoker Does the pt drink ETOH?: Yes Does the pt have substance abuse?: No - Immunizations Immunizations are current?: No Immunizations: TDAP >10years/unknown - POLST Patient has POLST: Yes POLST Status: Full Code PD ED PE NORMAL - Vitals Vital signs reviewed: Yes (97-98% on his baseline nc 2 lpm. Initial BP low at 90s systolic. ) - General General: Well developed/nourished. No: Alert and oriented X 3 (person and place, is sluggish answering questions.) - Neck Neck: Supple, no meningeal sign, No adenopathy - Cardiac Cardiac: No: RRR (irregular with mild tachycardia about 90-110. monitor showing atrial fib. ) - Respiratory Respiratory: No respiratory distress, Other (decreased sounds right. Fine crackles at both sides lower lungs. No wheezing. ) - Abdomen Abdomen: Soft, Non tender - Male Male : Deferred - Rectal Rectal: Deferred - Back Back: No CVA TTP - Derm Derm: Warm and dry. No: Normal color (pallor) - Extremities Extremities: No tenderness to palpate, Normal ROM s pain, No calf tenderness / cord, Other (2+ edema in legs up to knees, and in both hands/wrists. ) - Neuro Neuro: No motor deficit (general weakness but no unilateral weakness. ), Other (oriented to person and somewhat to place, knew it was hospital. ) Results - Vitals Vitals: Vital Signs - 24 hr 12/30/20 12/30/20 12/31/20 22:38 22:42 00:33 Temperature 36.5 C 36.5 C 36.5 C Heart Rate 93 93 107 H Respiratory 16 16 12 Rate Blood Pressure 107/81 H 107/81 H 131/76 H O2 Saturation 97 97 98 Oxygen O2 Source [Without Activity] Room air O2 Source [With Activity] Room air O2 Source Nasal cannula Oxygen Flow Rate 4 - EKG (time done) 23:43 Rate: Rate (enter#) (119) Rhythm: Atrial fibrillation Intervals: Wide QRS QRS: Poor R wave progression Ischemia: Normal ST segments, Non specific changes Compare to prior EKG: Changed from prior EKG (similar to telemetry strips 11/15/20. ) - Labs Labs: Laboratory Tests 12/30/20 12/30/20 12/30/20 00:07 00:07 00:07 WBC 8.7 RBC 3.00 L Hgb 9.3 L Hct 28.1 L MCV 93.7 MCH 31.0 MCHC 33.1 RDW 14.3 Plt Count 50 L MPV 14.6 H Neut # (Auto) 6.3 Lymph # (Auto) 1.7 Webb # (Auto) 0.6 Eos # (Auto) 0.0 Baso # (Auto) 0.0 Absolute Nucleated RBC 0.00 Nucleated RBC % 0.0 Sodium 118 L* Potassium 5.7 H Chloride 76 L* Carbon Dioxide 30 Anion Gap 12.0 BUN 69 H Creatinine 1.3 H Estimated GFR (MDRD) 52 L Glucose 115 H Lactic Acid Calcium 8.5 Magnesium 1.6 L Total Bilirubin 1.1 H AST 21 ALT 16 Alkaline Phosphatase 176 H Troponin I High Sens B-Natriuretic Peptide 332 H Total Protein 5.7 L Albumin 2.6 L Globulin 3.1 Albumin/Globulin Ratio 0.8 L Lipase 18 L Urine Color Urine Clarity Urine pH Ur Specific [place] Urine Protein Urine Glucose (UA) Urine Ketones Urine Occult Blood Urine Nitrite Urine Bilirubin Urine Urobilinogen Ur Leukocyte Esterase Ur Microscopic Review Urine Culture Comments Last Dose Date Last Dose Time Digoxin 12/30/20 12/30/20 12/30/20 00:07 00:07 00:07 WBC RBC Hgb Hct MCV MCH MCHC RDW Plt Count MPV Neut # (Auto) Lymph # (Auto) Webb # (Auto) Eos # (Auto) Baso # (Auto) Absolute Nucleated RBC Nucleated RBC % Sodium Potassium Chloride Carbon Dioxide Anion Gap BUN Creatinine Estimated GFR (MDRD) Glucose Lactic Acid 1.1 Calcium Magnesium Total Bilirubin AST ALT Alkaline Phosphatase Troponin I High Sens 22.8 H* B-Natriuretic Peptide Total Protein Albumin Globulin Albumin/Globulin Ratio Lipase Urine Color Urine Clarity Urine pH Ur Specific [place] Urine Protein Urine Glucose (UA) Urine Ketones Urine Occult Blood Urine Nitrite Urine Bilirubin Urine Urobilinogen Ur Leukocyte Esterase Ur Microscopic Review Urine Culture Comments Last Dose Date 12/30/2020 Last Dose Time UNKNOWN Digoxin 0.7 12/31/20 01:07 WBC RBC Hgb Hct MCV MCH MCHC RDW Plt Count MPV Neut # (Auto) Lymph # (Auto) Webb # (Auto) Eos # (Auto) Baso # (Auto) Absolute Nucleated RBC Nucleated RBC % Sodium Potassium Chloride Carbon Dioxide Anion Gap BUN Creatinine Estimated GFR (MDRD) Glucose Lactic Acid Calcium Magnesium Total Bilirubin AST ALT Alkaline Phosphatase Troponin I High Sens B-Natriuretic Peptide Total Protein Albumin Globulin Albumin/Globulin Ratio Lipase Urine Color YELLOW Urine Clarity CLEAR Urine pH 5.5 Ur Specific [place] 1.010 Urine Protein NEGATIVE Urine Glucose (UA) NEGATIVE Urine Ketones NEGATIVE Urine Occult Blood NEGATIVE Urine Nitrite NEGATIVE Urine Bilirubin NEGATIVE Urine Urobilinogen 0.2 (NORMAL) Ur Leukocyte Esterase NEGATIVE Ur Microscopic Review NOT INDICATED Urine Culture Comments NOT INDICATED Last Dose Date Last Dose Time Digoxin - Rads (name of study) head CT Radiology: Prelim report reviewed (some artifact, no bleeding), See rad report chest xray Radiology: Prelim report reviewed (large right effusion. atelectasis vs infiltrate on right. ), See rad report PD MEDICAL DECISION MAKING - ED course Complexity details: reviewed results (low sodium of 118. anemia not transfusable. Other labs good enough. ), re-evaluated patient, considered differential (seems metabolic with general weakness and edema, poor intake. However does have low platelets, so can get CT to ensure to subdural/etc. ), d/w patient, d/w family () Departure - Departure Disposition: 66 [facility] DC/Xfer Clinical Impression: Weakness, Hyponatremia, Confusion, Generalized edema CHF (congestive heart failure) Qualifiers: Heart failure type: unspecified Heart failure chronicity: acute on chronic Qualified Code(s): I50.9 - Heart failure, unspecified Atrial fibrillation Qualifiers: Atrial fibrillation type: longstanding persistent Qualified Code(s): I48.11 - Longstanding persistent atrial fibrillation Condition: Stable Record reviewed to determine appropriate education?: Yes
[2020-12-31] MEDS ORDERED: FUROSEMIDE 40 MG/4 ML VIAL IVP STA (01:05)
[2020-12-31 01:14] LABS: BILIRUBIN,URINE NEGATIVE (NEGATIVE); GLUCOSE, URINE (UA) NEGATIVE (NEGATIVE); KETONES,URINE (UA) NEGATIVE (NEGATIVE); LEUKOCYTE ESTERASE, URINE NEGATIVE (NEGATIVE); NITRITE,URINE NEGATIVE (NEGATIVE); OCCULT BLOOD,URINE NEGATIVE (NEGATIVE); PH,URINE 5.5 PH (5.0-7.5); PROTEIN,URINE NEGATIVE (NEGATIVE); UROBILINOGEN,URINE 0.2 (NORMAL) E.U./dL (NORMAL)
[2020-12-31 01:16] LABS: CLARITY,URINE CLEAR (CLEAR)
[2020-12-31] MEDS ORDERED: ONDANSETRON 4 MG/2 ML VIAL IVP PRN (01:33)
[2020-12-31] MEDS ORDERED: ONDANSETRON ODT 4 MG TABLET TL PRN (01:33)
[2020-12-31] MEDS ORDERED: oxyCODONE 5 MG TABLET PO PRN ×3 (01:33→13:32)
--- NOTE | 2020-12-31 02:09 | HISTORY & PHYSICAL EXAMINATION ---
Chief Complaint - Chief Complaint Chief Complaint: weakness, confusion and can't get up to walk History of Present Illness - Admitted From Admitted From:: home via EMS - History Obtained From Records Reviewed: [facility] History obtained from: , Dr. May Exam Limitations: patient is weak, confused "what's going on" - History of Present Illness HPI Comment/Other: This unfortunate gentleman has a history of congestive heart failure chronic A. fib and was hospitalized with us November 15 November 19 and then again with Deloris shen at [place] December 01. The patient is not a very good historian. When he was seen by us November 15 he was found to have weakness, falling, confusion. His sodium level was 123 with anasarca. We treated him as congestive heart failure with fluid overload. And he work with physical therapy and occupational therapy to help with this weakness. He was sent home on 2 L nasal cannula to saturate him at 95%. Did he be discharged to group home facility for rehab and he declined. As such he was sent home with home health. He then returned here December 01 because he got weak again. No recorded falls. She noticed that he was dragging his left leg. But was again declining with p.o. intake, and weakness. He was unable to stand. And his hemoglobin was 8.5. He was found to have a loculated pleural effusion. He was hypoxic, symptomatic with that, and he needed a probable chest tube placement but our surgeon was not comfortable with that and as such we asked him to be transferred to higher level of care. After numerous phone calls to [facility], he was eventually transferred to [facility]. We are awaiting medical records from [facility]. His , who provides the history, stated that, while he was there, she never really got a phone call from anyone and never knew what happened. The only phone call she got with the day he was to be discharged when they asked her to pick them up. They describe him as having a vertebral body fracture in the thoracic spine. He would need to wear a brace for the next 90 days. That he would need to be careful at home. But they made no mention of the loculated pleural effusion and to her recollection they did nothing for it. For the first 10 days or so that he was home he seemed to be recovering. He was eating acceptably. Ambulating with his wheelchair and walker downstairs. He uses a lift to get to the bottom of the stairs and up to the bedroom. In the upstairs landing he has a another walker that he uses. He has been wearing his brace. She gives him his medications and he has been taking his medications. He had blood work done December 24 by his primary care provider, and his hemoglobin was 8.8 and sodium was 129. Then shortly after than blood draw, about 4-5 days ago he started having less and less appetite. Has not been eating or drinking very much. There was no fever, chills, cough. No new abdominal pain. No urgency, frequency that was new. He already has prostate problems and he always has the urge to urinate. But there is no dysuria with this, no flank pain. She denies blood in urine, blood in stool. There is no diarrhea. He just "started getting weak again". Tonight he had made it to the dining room table and was sitting there. Did not eat very much. He uses a wheelchair to scoot in and out from sitting at the table because a regular chair is too hard for him to lift and move. Using a walker he left his wheelchair to get to the lift at the bottom of the stairs. She noticed that he barely made it but insisted on getting to the left. He got up to lift. Feeling suspicious she went upstairs to watch him. He seemed to be losing his balance and was weak. She wanted him to go to bed but he insisted on going to the bathroom. He was able to get to the toilet. Is about 125 foot walk to the bathroom from the head of the stairs. He almost collapsed a few feet from the toilet and she was holding onto them. She managed to support him to get to the toilet where he went to the bathroom. But when they got up to try and get back to bed, he just could not make it. As such they called EMS. EMS described him as having a 78% O2 sat. It took 4 L to get them above 90%. He now returns with recurrence of his weakness, fatigue, edema, poor appetite. He is getting increasingly confused and he cannot ambulate.His temperature is 36.5. Heart rate is 93 and irregular. Blood pressure 107/81. Respirations are 16 and is 97% saturated with his nasal cannula. Requiring 2 L. He is 92.7 kg. He is a confused, fatigued elderly gentleman but is alert and oriented x3. Very sluggish in answering questions. Voice is low, hoarse. He has an irregular heart rate with mild tachycardia about 110. No respiratory distress with decreased breath sounds on the right. Fine crackles both lower lungs. A nontender abdomen. 2+ edema in his legs, and both hands and wrists. He is a generalized motor deficit from severe weakness. But no focal findings. His sodium was 118. Potassium 5.7. BUN 69, creatinine 1.3. Glucose 115. Lactic acid 1.1. Magnesium 1.6. Troponin 22.8. BNP 332. White cell count 8.7, hemoglobin 9.3. Urinalysis is negative for any infection. Dig dose of 0.7. Preliminary CT of the head has no acute findings. He has persistent opacification of the left middle ear cavity and mastoid air cells indicating possible mastoiditis and otitis. His chest x-ray has a moderate sized right pleural effusion that is even worse than the December 01 study. On top of that he is a new opacity that may be secondary to edema, atelectasis, or infection. History - Past Medical History Cardiovascular: reports: Congestive heart failure, Hypertension, High cholesterol, MS, Atrial fibrillation, Valve disorder Respiratory: reports: Pneumonia Neuro: reports: Dementia Endocrine/Autoimmune: reports: Type 2 diabetes (I controlled for a few years now. Has not needed any Lantus since 2014.) GI: reports: Diverticulitis, Other (January and February 2015 ileus due to "chronic constipation". Eventually hospitalized with bowel obstruction and at [facility] for over 2 months that year recovering.) : reports: Renal insuffiency HEENT: reports: Chronic vision loss, Chronic hearing loss Psych: reports: Depression Musculoskeletal: reports: Osteoarthritis, Osteoporosis, Chronic back pain (With multiple back surgeries. Resulted in opioid use for over a decade now.) Derm: reports: None MRSA Hx?: No - Past Surgical History General: reports: Cholecystectomy, Bowel surgery Ortho: reports: Knee replacement, Spine surgery, Other - Family & Social History Family History Comment/Other: Family history is non-contributory Living arrangement: At home Living Situation: With spouse/s.o. Social History Notes: The patient was born in [place], [place]. He moved to [facility] with his and they now live in [place]. They have been for 40 years. They have 5 children. They spend their glover in [facility] however this is become more and more difficult for them to do and they are cutting back on the amount of time they spent in [place]. The patient does not smoke, he rarely drinks alcohol but he does use marijuana at night to help with pain and to help him sleep.Occasionally one of their granddaughter stays with them. She is a traveling hospice nurse. When [place] She has mentioned in passing that it may be time to start discussing end-of-life care for him. - Substance History Use: Uses substance without health or social issues: NONE Abuse: Recurrent use of substance despite neg consequences: NONE Dependence: Experiences withdrawal or developed tolerances: NONE - POLST Patient has POLST: Yes POLST Status: DNR (While he wants everything done for active intervention, he does not want to be intubated, or receive chest compressions or cardioversion if his heart has stopped or he has stopped breathing.) Meds/Allgy - Home Medications Home Medications: Ambulatory Orders Medication Instructions Recorded Confirmed polyethylene glycoL 3350 [Miralax] 17 g PO DAILY PRN 05/06/14 12/30/20 Pantoprazole [Protonix] 40 mg PO DAILY 02/02/15 12/30/20 Ferrous Gluconate 324 mg PO BIDWM 04/04/17 12/30/20 Morphine ER [Morphine Sulfate ER] 15 mg PO TID 04/04/17 12/30/20 Ondansetron Odt [Zofran Odt] 4 mg PO TID PRN 04/04/17 12/30/20 Potassium Chloride 10 meq PO DAILY 08/08/17 12/30/20 Fluticasone [Flonase] 1 spray RAMIN BID 07/12/18 12/30/20 oxyCODONE/ACET 5/325 [Percocet 5 2 tab PO Q4HR PRN 07/12/18 12/30/20 mg/325 mg] Digoxin 62.5 mcg PO DAILY 03/02/20 12/30/20 Mupirocin 2% Oint [Bactroban 2% 1 applic TOP BID 03/02/20 12/30/20 Oint] Levothyroxine [Synthroid] 88 mcg PO QDAC #10 tablet 03/05/20 12/30/20 Azelastine HCl 2 sprays RAMIN BID 11/16/20 12/30/20 Furosemide [Lasix] 40 mg PO DAILY 11/16/20 12/30/20 Metoprolol Tartrate [Lopressor] 12.5 mg PO BID 11/16/20 12/30/20 Tamsulosin [Flomax] 2 cap PO DAILY 11/16/20 12/30/20 Phenyleph/Pramoxin/Glycr/W.pet 1 appful TOP PRN PRN 11/17/20 12/30/20 [Preparation H Cream] - Allergies Allergies/Adverse Reactions: Allergies Allergy/AdvReac Type Severity Reaction Status Date / Time clonidine Allergy Unknown Verified 12/30/20 22:43 diltiazem Allergy Unknown Verified 12/30/20 22:43 Review of Systems - Constitutional Constitutional: reports: Weight gain (Weights November 19 was 75.5. December 01 74.8. Today stated at 92.7 kg.), Other (Overall failing. Just getting more more weak with less episodes of good days.) - Ears, Nose & Throat Ears, Nose & Throat: reports: Other (He is hard of hearing, chronically nasally obstructed. Nothing has changed. No sore throat, ear pain or fevers.) - Cardiovascular Cariovascular: reports: Irregular heart rate, Edema, Lightheadedness, Exertional dyspnea, Decr. exercise tolerance, Other (The decreased exercise tolerance has m arkedly shifted downward since the fall 2019.Last echocardiogram November 16, 2020 had an ejection fraction of 60 to 65%. Mild to moderate primary mitral regurgitation. This echo was compared to February 2020 and April 2018. His ejection fraction over the years is). denies: Palpitations, Chest pain - Respiratory Respiratory: reports: Cough (Weak and nonproductive). denies: Hemoptysis, Orthopnea - Gastrointestinal Gastrointestinal: reports: Constipation. denies: Abdominal pain, Abdominal distention, Diarrhea, Change in bowel habits, Nausea, Vomiting - Genitourinary Genitourinary: reports: Frequency, Urgency, Nocturia - Musculoskeletal Musculoskeletal: reports: Back pain (Chronic for years.), Muscle aches, Joint pain - Integumentary Integumentary: reports: Other (Had a skin breakdown over his T-spine since early November. She thinks is where his vertebral prominence just rubs against the sheets on his bed. It is not healing and getting worse. The home health nurse from 2 days ago put cream and a bandage on it but she would like it looked at.). denies: Rash - Neurological Neurological: reports: General weakness, Memory problems, Incoordination. de nies: Focal weakness - Psychiatric Psychiatric: denies: Depression, Anxiety, Suicidal - Endocrine Endocrine: denies: Polyuria, Polydypsia, Polyphagia - Hematologic/Lymphatic Hematologic/Lymphatic: reports: Anemia (Has been present for years now. No good reason provided why), Bruising - Other Findings Other Findings: He has been using a walker for over 5 to 6 years now. When he leaves the house and has to go shopping he will use an electric cart. The last time he was able to leave the house and manipulate a cart successfully to shop was going to [place] in February 2020. Since that time is gone steadily downhill with these multiple hospitalizations, severe weakness. On the ground floor of his house uses a wheelchair when he cannot get too far. He also has a walker on the ground floor, and in the upstairs area. They have a lift that takes him from the ground floor to the top floor so he does not climb stairs. While he is able to get himself into the shower, his is the one to make sure that he is clean, and rinsed off. He needs help with that. He needs help with dressing. He is able to feed himself but she has to do the cooking. He is not been able to drive for years. Exam - Vital Signs Reviewed Vital Signs: Yes Vital Signs: Vital Signs x48h Temp Pulse Resp BP Pulse Ox 12/31/20 01:52 36.5 C 102 H 14 116/71 98 12/31/20 00:33 36.5 C 107 H 12 131/76 H 98 12/30/20 22:42 36.5 C 93 16 107/81 H 97 12/30/20 22:38 36.5 C 93 16 107/81 H 97 - Physical Exam General Appearance: positive: No acute distress, Lethargic, Other (Elderly gentleman, laying on his back, covered with copious sheets to keep him warm, eyes open as he stares at the ceiling and he turned to look at me and goes "what is going on". is at the bedside.) Eyes Bilateral: positive: PERRL, EOMI ENT: positive: Dry mucous membranes Neck: positive: No JVD. negative: Stiff neck, Carotid bruit Respiratory: positive: No respiratory distress, Rales (Bilateral lower lung inman.), Rhonchi (1 scattered tubular rhonchi right mid and right lower lung field.) Cardiovascular: positive: Irregularly irregular, Tachycardia, Systolic murmur, Other (PMI is hard and knocking and nondisplaced over his left chest). negative: Gallop/S4, Friction rub Abdomen: positive: Non-tender, No organomegaly, Nml bowel sounds, No distention Skin: positive: Warm, Dry, Pallor, Other (Pressure ulcer mid T-spine over bony prominence of vertebral body) Extremities: positive: Non-tender, Full ROM, Pedal edema (2+ edema from the knees on down, 1+ edema of the thighs to the groin. Enlarged scrotum. 1+ edema of sacrum and buttock. 1+ edema of the forearms in his hands.) Neurologic/Psychiatric: positive: CN's nml (2-12), Motor nml (And that it is nonfocal. But moderate to severe generalized weakness. He cannot even roll over in bed, he cannot sit up.), Disoriented to place, Disoriented to time, Weakness, Slurred/abnml speech (Slow, hoarse. Barely audible.) Conclusion/Plan - Problem List (1) Generalized weakness Conclusion/Plan: Multifactorial causes in this unfortunate gentleman. He seems to be back into acute on chronic congestive heart failure with diffuse anasarca and edema. This is associated with a low sodium of 118, he is hypoxic, and continues to have an enlarging pleural effusion. I would suspect that on top of that he is also not been eating very much. Plan: Start to tease out which 1 of these things is causing him the most trouble. Unfortunately facet pleural effusion again, we still cannot take care of it here. I will try and figure out how much each problem is contributing to his overall status. Inpatient stay. We anticipate 2 to 3 days until we can see if we can improve his CHF. And improve his sodium. (2) Hyponatremia Conclusion/Plan: Due to fluid overload and fluid retention. Plan: No seizures. While he is lethargic and obtunded, I do not think he is symptomatic enough to require hypertonic saline. We will start Lasix, restrict fluids, check BMP daily. (3) Acute exacerbation of CHF (congestive heart failure) Conclusion/Plan: His ejection fraction is preserved. As such the diagnosis is acute on chronic heart failure with preserved ejection fraction. Diastolic heart failure is not noted on his echo. He does have moderate pulmonary hypertension, valvular heart disease, and I will resume Lasix. At home he is on Lasix 40 p.o. daily, and we will put him on 40 mg IV twice daily. He is also on digoxin, most likely for rate control, not inotropic use. He is not on an MARLENA inhibitor or ARB.BNP is not severely elevated. Considering the amount of anasarca this gentleman has, I would think that his ejection fraction would be much worse. So I suspect that his acute exacerbation with his severe anasarca may not be due to only cardiac component. Qualifiers: Qualified Code(s): I50.813 - Acute on chronic right heart failure (4) Chronic pain Conclusion/Plan: In a patient has had multiple back surgeries, and a recent T-spine vertebral compression fracture. The says that his pain medicines have been recently changed by his primary care provider and he is now on MS Contin 3 times a day. Also allowed to have oxycodone up to 6 times a day. Over the decades, sure this patient has developed some tolerance. He has not had any of his pain medicine since 6 PM and it is now 2 AM. Resume his home medications. Use morphine as needed initially until we can catch up with his chronic use of medicines. Qualifiers: Chronic pain type: chronic pain syndrome Qualified Code(s): G89.4 - Chronic pain syndrome (5) Pleural effusion Conclusion/Plan: The pleural effusion appears to be worsening. To try and tease out why a loculated pleural effusion did not get addressed. The is not clear either. We will get records from [facility]. When I reviewed the records from [facility], they did in fact do a thoracentesis. He also had a pigtail catheter placed and that was removed January 07. I think this is a typo error and it was removed December 07. It is transudate of. Cytology negative for malignancy. Culture from December 03 -. Will repeat CT scan of chest to assess since it has increased in size on CXR. (6) Chronic anemia Conclusion/Plan: He may have a combination of anemia of chronic disease, and in the past his iron studies have been normal. He is not iron deficient. B12 levels have been elevated at over 4000 when high normal is 914. TSH has been normal. Does he have some component of bone marrow dyscrasia or bone marrow suppression?. The is concerned that he may need a transfusion. I have explained to her that a hemoglobin of 9.3 (today's labs) is not low enough to need a transfusion. She protest and says that Dr. Quigley states he needs one, but I explained to her that he does not know today's labs. We do not transfuse unless he is below 7. (7) Acute on chronic kidney failure Conclusion/Plan: In a gentleman who has prostatism. We will make sure that he is not retaining urine with a full bladder by bladder scanning. If he is he will need a Hurst catheter. Qualifiers: Acute renal failure type: unspecified Chronic kidney disease stage: stage 3 (moderate) (8) Pressure ulcer, back, upper Conclusion/Plan: Due to compression against bony prominence of T-spine. Not necessarily over his T-spine vertebral compression fracture. We will have nursing take pictures of the wound, and start appropriate wound care. (9) Atrial fibrillation Conclusion/Plan: He is rate controlled. He is not on anticoagulation. We will continue the metoprolol and digoxin. Qualifiers: Atrial fibrillation type: longstanding persistent Qualified Code(s): I48.11 - Longstanding persistent atrial fibrillation (10) Thrombocytopenia Conclusion/Plan: He started developing thrombocytopenia in February of last year. It has been slowly and steadily worsening. Today is the lowest has been at 50,000. He has been in and out of the hospital a few times and he does get Lovenox for DVT prophylaxis, but his platelets should rebound once that stops and he goes home. In review of his medication list I am not seeing anything that would give you thrombocytopenia. He is not febrile, so as such I do not think TTP of such longstanding duration would be the issue. Possibility of ITP. However in combination with a chronic anemia and thrombocytopenia, bone marrow dyscrasia is again considered. At [facility], they did not start him on steroids even though they wondered if he had ITP. Aspirin was discontinued due to thrombocytopenia. (11) Mastoiditis Conclusion/Plan: The CT description indicates that this might be a cause of an infection but He does not have a fever, he does not have an elevated white cell count. The CT does not indicate that he is eroding into his facial nerve, semicircular canal, or petrous tip of the temporal bone. As such at this time I am going to hold off on antibiotics. Qualifiers: Laterality: left Qualified Code(s): H70.92 - Unspecified mastoiditis, left ear (12) T12 compression fracture Conclusion/Plan: They feel that this was due to the fall that he had on e. Neurosurgery was consulted at [facility] and they recommended nonoperative management given his baseline performance status and high risk for morbidity. Physical therapy and Occupational Therapy again recommended group home facility placement for rehab for this patient but the and the patient were adamant that he will not go to a SNF. As such they were sent home with home health and was continued in a TLSO until directed otherwise. The states is good to be 90 days Qualifiers: Encounter type: subsequent encounter (13) Do not resuscitate status Conclusion/Plan: Up until his admission to [facility] this gentleman has been a full code. Palliative care went over the case with he and his with that stay. By the end of his stay he is a DO NOT RESUSCITATE. reiterates that he is a DO NOT RESUSCITATE. Advance care planning discussion held tonight under separate dictation. I would also recommend that he be seen by palliative care in the outpatient setting. - Lab Results Lab results reviewed: Yes Fish Bones: 12/30/20 00:07 12/30/20 00:07 - Diagnostic Imaging Results Diagnostic Imaging Results: positive: Final report reviewed Core Measures - Anticipated LOS I expect patient to be DC'd or transferred within 96 hours.: Yes - DVT/VTE - Prophylaxis VTE/DVT Device ordered at admit?: Yes
[2020-12-31] MEDS ORDERED: oxyCODONE/ACET 5/325 Prepack 4 PO PRN (02:40)
[2020-12-31] MEDS ORDERED: MORPHINE 2 MG/ML CARPUJECT IVP PRN (02:41)
[2020-12-31 02:45] LABS: C. PNEUMONIAE- RESP PCR PANEL NOT DETECTED
[2020-12-31] MEDS: SODIUM CHLORIDE FLUSH 0.9% 10 ML SYRINGE IVP PRN (03:23)
--- NOTE | 2020-12-31 03:40 | ADVANCE CARE PLANNING NOTE ---
Advance Care Planning - Planning Encounter Date: 12/31/20 Time: 02:00 Purpose: establish code status Parties in Attendance: , patient Decisional Capacity of the Patient: Patient is confused, very weak, unable to participate - Diagnosis for Encounter (1) Generalized weakness Summary: This gentleman was described as being "last normal, in February 2020. He has been gradually fading for unclear reasons with regards to falls, edema, chronic anemia. He was admitted for congestive heart failure, hyponatremia in early November. Discharge. Then seen in the emergency room December 01 with loculated pleural effusion with transfer to [facility]. Not clear what transcribed there. Discharge and came home. Did well for a few days but then failure to thrive recurrence. Falling, not eating. Has developed a pressure ulcer in his back. - Encounter Subjective/Patient's Story: The speaks for him. She states that he wants to live. Even though he does not want to be resuscitated with CPR, intubation, cardioversion, he wants all treatment offered to him so that he can always continue to return to home. She supports him in this idea. She describes a life where they use a Seng lift, wheelchairs, walkers to piece together care for him at home. She does this by herself. They do have a granddaughter who is a traveling nurse that works with different hospice agencies in [facility]. In between contracts she stays with them [place] on [place] and helps as well. She describes him his being "stable" until February 2020. Since that time she describes an overall general decline. She cannot put her finger on it. Most recently has been fluid retention in a loculated pleural effusion and a T-spine fracture that has brought him down since November of this year. Objective/Medical Story: This unfortunate gentleman has a history of congestive heart failure chronic A. fib and was hospitalized with us November 15 November 19 and then again with [facility] at [place] December 01. The patient is not a very good historian. When he was seen by us November 15 he was found to have weakness, falling, confusion. His sodium level was 123 with anasarca. We treated him as congestive heart failure with fluid overload. And he work with physical therapy and occupational therapy to help with this weakness. He was sent home on 2 L nasal cannula to saturate him at 95%. Did he be discharged to [facility] facility for rehab and he declined. As such he was sent home with home health. He then returned here December 01 because he got weak again. No recorded falls. She noticed that he was dragging his left leg. But was again declining with p.o. intake, and weakness. He was unable to stand. And his hemoglobin was 8.5. He was found to have a loculated pleural effusion. He was hypoxic, symptomatic with that, and he needed a probable chest tube placement but our surgeon was not comfortable with that and as such we asked him to be transferred to higher level of care. After numerous phone calls to [facility], he was eventually transferred to [facility]. We are awaiting medical records from [facility]. His , who provides the history, stated that, while he was there, she never really got a phone call from anyone and never knew what happened. The only phone call she got with the day he was to be discharged when they asked her to pick them up. They describe him as having a vertebral body fracture in the thoracic spine. He would need to wear a brace for the next 90 days. That he would need to be careful at home. But they made no mention of the loculated pleural effusion and to her recollection they did nothing for it. For the first 10 days or so that he was home he seemed to be recovering. He was eating acceptably. Ambulating with his wheelchair and walker downstairs. He uses a lift to get to the bottom of the stairs and up to the bedroom. In the upstairs landing he has a another walker that he uses. He has been wearing his brace. She gives him his medications and he has been taking his medications. He had blood work done December 24 by his primary care provider, and his hemoglobin was 8.8 and sodium was 129. Then shortly after than blood draw, about 4-5 days ago he started having less and less appetite. Has not been eating or drinking very much. There was no fever, chills, cough. No new abdominal pain. No urgency, frequency that was new. He already has prostate problems and he always has the urge to urinate. But there is no dysuria with this, no flank pain. She denies blood in urine, blood in stool. There is no diarrhea. He just "started getting weak again". Tonight he had made it to the dining room table and was sitting there. Did not eat very much. He uses a wheelchair to scoot in and out from sitting at the table because a regular chair is too hard for him to lift and move. Using a walker he left his wheelchair to get to the lift at the bottom of the stairs. She noticed that he barely made it but insisted on getting to the left. He got up to lift. Feeling suspicious she went upstairs to watch him. He seemed to be losing his balance and was weak. She wanted him to go to bed but he insisted on going to the bathroom. He was able to get to the toilet. Is about 125 foot walk to the bathroom from the head of the stairs. He almost collapsed a few feet from the toilet and she was holding onto them. She managed to support him to get to the toilet where he went to the bathroom. But when they got up to try and get back to bed, he just could not make it. As such they called EMS. EMS described him as having a 78% O2 sat. It took 4 L to get them above 90%. He now returns with recurrence of his weakness, fatigue, edema, poor appetite. He is getting increasingly confused and he cannot ambulate.His temperature is 36.5. Heart rate is 93 and irregular. Blood pressure 107/81. Respirations are 16 and is 97% saturated with his nasal cannula. Requiring 2 L. He is 92.7 kg. He is a confused, fatigued elderly gentleman but is alert and oriented x3. Very sluggish in answering questions. Voice is low, hoarse. He has an irregular heart rate with mild tachycardia about 110. No respiratory distress with decreased breath sounds on the right. Fine crackles both lower lungs. A nonte nder abdomen. 2+ edema in his legs, and both hands and wrists. He is a generalized motor deficit from severe weakness. But no focal findings. His sodium was 118. Potassium 5.7. BUN 69, creatinine 1.3. Glucose 115. Lactic acid 1.1. Magnesium 1.6. Troponin 22.8. BNP 332. White cell count 8.7, hemoglobin 9.3. Urinalysis is negative for any infection. Dig dose of 0.7. Preliminary CT of the head has no acute findings. He has persistent opacification of the left middle ear cavity and mastoid air cells indicating possible mastoiditis and otitis. His chest x-ray has a moderate sized right pleural effusion that is even worse than the December 01 study. On top of that he is a new opacity that may be secondary to edema, atelectasis, or infection. History - Past Medical History Cardiovascular: reports: Congestive heart failure, Hypertension, High cholesterol, [place], Atrial fibrillation, Valve disorder Respiratory: reports: Pneumonia Neuro: reports: Dementia Endocrine/Autoimmune: reports: Type 2 diabetes (I controlled for a few years now. Has not needed any Lantus since 2014.) GI: reports: Diverticulitis, Other (January and February 2015 ileus due to "chronic constipation". Eventually hospitalized with bowel obstruction and at [facility] for over 2 months that year recovering.) : reports: Renal insuffiency HEENT: reports: Chronic vision loss, Chronic hearing loss Psych: reports: Depression Musculoskeletal: reports: Osteoarthritis, Osteoporosis, Chronic back pain (With multiple back surgeries. Resulted in opioid use for over a decade now.) Derm: reports: None MRSA Hx?: No - Past Surgical History General: reports: Cholecystectomy, Bowel surgery Goals of Care: 1. To treat his current illness and get him back home. She wants to take care of him and she does not want him in rehab for [facility] facility. 2. To get to the bottom of the pleural effusion that is plaguing him so much 3. To control his pain. He is needing increasing doses of morphine to control his back pain and vertebral compression fracture Plan: At this time we have identified multiple issues of anasarca, weakness/fatigue and failure to thrive, chronic anemia and thrombocytopenia that have not been explained, a loculated pleural effusion that has not been treated, mild congestive heart failure, chronic pain syndrome. All of those will be individually addressed and treated during his stay. I have asked her to talk to her granddaughter. Maybe when he gets home, have a conversation about palliative care model of care and when to transition for possible hospice. Code Status: Do Not Attempt Resuscitation
[2020-12-31] MEDS ORDERED: MORPHINE ER 15 MG TABLET PO SCH ×2 (06:00→14:00)
[2020-12-31] MEDS ORDERED: FUROSEMIDE 40 MG/4 ML VIAL IVP SCH ×2 (06:00→11:47)
[2020-12-31] MEDS: LEVOTHYROXINE 88 MCG TABLET PO SCH (07:38)
--- NOTE | 2020-12-31 07:50 | CT Report ---
PROCEDURE: HEAD WO INDICATIONS: confused today TECHNIQUE: Noncontrast 4.5 mm thick angled axial sections acquired from the foramen magnum to the vertex. For r adiation dose reduction, the following was used: automated exposure control, adjustment of mA and/or kV according to patient size. COMPARISON: CT head without contrast, 12/01/2020. FINDINGS: Image quality: There are motion artifacts. CSF spaces: Basal cisterns are patent. No extra-axial fluid collections. Ventricles are normal in size and shape. Brain: No midline shift. No intracranial masses or hemorrhage. Mild cerebral volume loss and periv entricular white matter chronic small vessel treatment changes. Iqbal-white matter interface is normal . Skull and face: Calvarium and visualized facial bones are intact, without suspicious lesions. Sinuses: Visualized sinuses are clear. The left mastoids are ossified. IMPRESSION: 1. No acute intracranial metastatic disease. 2. Persistent opacification of the left middle ear left mastoids. Recommend clinical correlation for otitis media and mastoiditis. No significant discrepancy with the preliminary interpretation. Reviewed by: Triny Clifford MD on 12/31/2020 7:49 AM PST Approved by: Triny Clifford MD on 12/31/2020 7:49 AM PST Station ID: [id number]
--- NOTE | 2020-12-31 08:20 | XRAY Report ---
PROCEDURE: Chest 1 View X-Ray INDICATIONS: chest pain TECHNIQUE: One view of the chest was acquired. COMPARISON: 12/01/2020 FINDINGS: Surgical changes and devices: None. Moderate pleural effusion which appears increased since the prior study. There is also increased righ t lung opacity suggestive of edema versus atelectasis or pneumonia. No pneumothorax Mediastinum: Mediastinal contours appear normal. Heart size is normal. Bones and chest wall: No suspicious bony lesions. Overlying soft tissues appear unremarkable. IMPRESSION: Right lung and basilar opacity suggesting moderate pleural effusion and possible aspiration/atelectas is, edema or pneumonia, increased since prior study. If there is persistent clinical diagnostic uncer tainty, recommend short interval follow-up chest radiographs after treatment for further assessment. Findings are concordant with the preliminary study interpretation provided at the time of the study. Reviewed by: Denzel Sinha MD on 12/31/2020 8:19 AM PST Approved by: Denzel Sinha MD on 12/31/2020 8:19 AM PST Station ID: [id number]
[2020-12-31] MEDS: DIGOXIN 125 MCG TABLET PO SCH (08:52)
[2020-12-31] MEDS: FERROUS GLUCONATE 324 MG TABLET PO SCH ×2 (08:52→17:29)
[2020-12-31] MEDS: SODIUM CHLORIDE FLUSH 0.9% 10 ML SYRINGE IVP SCH ×2 (08:58→17:29)
[2020-12-31] MEDS ORDERED: METOPROLOL TARTRATE 25 MG TABLET PO SCH ×3 (09:00→21:00)
[2020-12-31] MEDS ORDERED: TAMSULOSIN 0.4 MG CAPSULE PO SCH (09:00)
[2020-12-31] MEDS ORDERED: MAGNESIUM SULFATE 1 GM in SODIUM CHLORIDE 0.9% 50 ML IV ONE (09:02)
[2020-12-31] MEDS ORDERED: SODIUM POLYSTYRENE SULFONATE 15 GM/60 ML BOTTLE PO ONE (09:03)
[2020-12-31] MEDS: ACETAMINOPHEN 325 MG TABLET PO PRN ×2 (09:04→21:41)
[2020-12-31] MEDS: PUMP INH SCH ×2 (10:02→21:37)
[2020-12-31] MEDS: AZELASTINE HCL 137 MCG/0.137 ML INH SCH ×2 (10:02→21:37)
--- NOTE | 2020-12-31 10:07 | CT Report ---
PROCEDURE: CHEST WO INDICATIONS: pleural effusion TECHNIQUE: Noncontrast 5 mm thick sections acquired from the pulmonary apices to the posterior costophrenic angl es. 7 mm thick coronal and sagittal MIP reformats were then acquired. For radiation dose reduction, the following was used: automated exposure control, adjustment of mA and/or kV according to patient size. COMPARISON: 12/01/2020 CT chest without contrast, 09/15/2016 CT abdomen and pelvis with contrast. FINDINGS: Image quality: Excellent. Lungs and pleura: There is significant chronic elevation of the right hemidiaphragm. There is interva l collapse of most of the right lung is most recent prior study. There is underlying chronic right ba silar atelectasis. There is significant interval increase in the amount of right pleural fluid presen t, a moderate amount of fluid. There is a small left pleural effusion with left basilar atelectasis. Mediastinum: Cardiomegaly, with left ventricular and left atrial enlargement. No pericardial effusion . Dense coronary artery atherosclerotic calcifications. No mediastinal adenopathy by size criteria. Thoracic aorta and central pulmonary arteries are normal in size. Esophagus is normal in caliber. N o hiatal hernia. Bones and chest wall: No suspicious bony lesions. The significantly comminuted T12 compression fract ure with a significantly displaced left inferior anterior fracture fragment and at least moderate baldo tebral body height loss and mild posterior retropulsion is stable, likely subacute. Lumbar fusion shila dware noted at the lowest 2 image levels, L2 and L3. No axillary or supraclavicular adenopathy by siz e criteria. Thyroid is unremarkable., Abdomen: There is a small amount of free upper abdominal fluid. There is a unchanged right lobe liver cyst. There are extensive pancreatic calcifications consistent with chronic pancreatitis. IMPRESSION: 1. Chronic significant elevation of right hemidiaphragm. There is associated chronic right basilar co llapse. 2. Significant interval increase in atelectasis of the right lung, subtotal. 3. Significant interval increase in right pleural effusion, moderate. 4. Interval development of small left pleural effusion with left basilar atelectasis. 5. Advanced coronary artery disease. 6. Left ventricular and left atrial enlargement. 7. Mild upper abdominal ascites. 8. Chronic pancreatitis. 9. Comminuted subacute T12 compression fracture. Reviewed by: Wilber Stone MD on 12/31/2020 10:05 AM PST Approved by: Wilber Stone MD on 12/31/2020 10:05 AM PST Station ID: [id number]
[2020-12-31] MEDS: FLUTICASONE NASAL SPRAY NAS SCH ×2 (10:10→21:22)
[2020-12-31] MEDS ORDERED: SODIUM CHLORIDE 0.9% 500 ML IV ONE (11:51)
[2020-12-31] MEDS ORDERED: NALOXONE 0.4 MG/ML VIAL IVP ONE (12:02)
[2020-12-31 12:32] LABS: ABG BASE EXCESS 8.7 mmol/L (-2.0-3.0); ABG HCO3 35.4 mmol/L (22.0-26.0); ABG PH 7.37 (7.35-7.45); ABG TCO2 37.3 MMOL/L (21.0-29.0)
[2020-12-31 12:35] LABS: ABG OXYGEN SATURATION 79 % (94-98); ABG PCO2 63 mmHg (34-45); ABG PO2 45 mmHg (80-100)
--- NOTE | 2020-12-31 13:17 | XRAY Report ---
PROCEDURE: Chest 1 View X-Ray INDICATIONS: SOB TECHNIQUE: One view of the chest was acquired. COMPARISON: Chest x-ray one view, 12/27/2020. Chest CT without contrast, 12/31/2020 FINDINGS: Surgical changes and devices: None. Lungs and pleura: There is a moderate to large sized right effusion. No pneumothorax. Mild perihilar infiltrates. Mediastinum: Mediastinal contours appear normal. Heart size is increased. Bones and chest wall: No suspicious bony lesions. Overlying soft tissues appear unremarkable. IMPRESSION: 1. Moderate to large sized right pleural effusion. 2. Mild cardiomegaly and perihilar infiltrates suggesting CHF. Reviewed by: Triny Clifford MD on 12/31/2020 1:16 PM PST Approved by: Triny Clifford MD on 12/31/2020 1:16 PM PST Station ID: [id number]
--- NOTE | 2020-12-31 13:30 | PROVIDER PROGRESS NOTE ---
Hospitalist Cross-cover Note - Cross-Cover Note Cross-Cover Note: nurse and RT report pt has SBP is 88 and RR is 9. pt is aroused but significant lethargic. Discussed the care goal with pt's at the bedside. pt's confirmed pt is DNR/DNI, but want to treat pt as we can. We will followup pt's 's wish. his also agreed if pt is not response to the treatment, she agreed to do comfortable measure only status. Pt was given opiates for his CT scan, pt had T12 compression fracture and had significant pain. pt was given once Narcan, and 500 IV NS bolus. Then pt wake up very quickly and his SBP up to 120. But pt now complain of difficult of breathing. ABGs show low PO2 at 45, PCO2 63. pt was given Oxyomask of 6 liter of O2, order CXR and check troponin as well. CXR is pending, we will determine if give once lasix, then continue regular bid IV lasix. Because pt is very difficult to be draw blood by lab for test and insert IV, PICC is order. pt's report pt had couple times of PICC before.
[2020-12-31] MEDS ORDERED: MORPHINE ER 15 MG TABLET PO PRN (18:23)
[2021-01-01] MEDS: SODIUM CHLORIDE FLUSH 0.9% 10 ML SYRINGE IVP SCH ×3 (00:37→17:15)
[2021-01-01] MEDS: KETOROLAC 15 MG/ML VIAL IVP PRN ×2 (00:37→06:54)
[2021-01-01] MEDS: ACETAMINOPHEN 325 MG TABLET PO PRN (03:46)
[2021-01-01] MEDS ORDERED: FUROSEMIDE 40 MG/4 ML VIAL IVP SCH (06:00)
[2021-01-01] MEDS: LEVOTHYROXINE 88 MCG TABLET PO SCH (06:54)
[2021-01-01] MEDS: FERROUS GLUCONATE 324 MG TABLET PO SCH (08:32)
[2021-01-01] MEDS: DIGOXIN 125 MCG TABLET PO SCH (08:32)
[2021-01-01] MEDS: FLUTICASONE NASAL SPRAY NAS SCH ×2 (08:35→21:08)
[2021-01-01] MEDS: AZELASTINE HCL 137 MCG/0.137 ML INH SCH ×2 (08:39→21:08)
[2021-01-01] MEDS: PUMP INH SCH ×2 (08:39→21:08)
[2021-01-01] MEDS ORDERED: MORPHINE ER 15 MG TABLET PO PRN (08:56)
--- NOTE | 2021-01-01 08:57 | PROVIDER PROGRESS NOTE ---
Subjective - Prog Note Date Prog Note Date: 01/01/21 - Subjective Subjective: Patient reports feeling okay this morning. Still feels a little short of breath. Complains of chronic back pain. When asked if he prefers staying the hospital to get treatment or to go home he states that he would rather go home. His confirms that her granddaughter did contact hospice yesterday evening and hospice did call me this morning. Current Medications - Current Medications Current Medications: Active Medications Acetaminophen (Acetaminophen 325 Mg Tablet) 650 mg PO Q4HR PRN PRN Reason: Pain 1 to 4 Last Admin: 01/01/21 03:46 Dose: 650 mg Documented by: Digoxin (Digoxin 125 Mcg Tablet) 62.5 mcg PO DAILY [facility] Last Admin: 01/01/21 08:32 Dose: 62.5 mcg Documented by: Ferrous Gluconate (Ferrous Gluconate 324 Mg Tablet) 324 mg PO BIDWM [facility] Last Admin: 01/01/21 08:32 Dose: 324 mg Documented by: Fluticasone Propionate (Fluticasone Nasal [place]) 1 sprays RAMIN BID [facility] Last Admin: 01/01/21 08:35 Dose: 1 mcg Documented by: Ketorolac Tromethamine (Ketorolac 15 Mg/Ml Vial) 15 mg IVP Q6HR PRN PRN Reason: PAIN Stop: 01/05/21 23:58 Last Admin: 01/01/21 06:54 Dose: 15 mg Documented by: Levothyroxine Sodium (Levothyroxine 88 Mcg Tablet) 88 mcg PO QDAC [facility] Last Admin: 01/01/21 06:54 Dose: 88 mcg Documented by: Morphine Sulfate (Morphine Kristina 10 Mg/0.5 Ml Oral Syringe) 5 mg PO Q2HR PRN PRN Reason: PAIN Non-Formulary Medication (Azelastine Hcl [Azelastine Hcl]) 2 sprays INH BID [facility] Last Admin: 01/01/21 08:39 Dose: Not Given Documented by: Ondansetron HCl (Ondansetron Odt 4 Mg Tablet) 4 mg TL Q6HR PRN PRN Reason: Nausea / Vomiting Ondansetron HCl (Ondansetron 4 Mg/2 Ml Vial) 4 mg IVP Q6HR PRN PRN Reason: Nausea / Vomiting Oxycodone HCl (Oxycodone 5 Mg Tablet) 5 mg PO Q4HR PRN PRN Reason: PAIN Sodium Chloride (Sodium Chloride Flush 0.9% 10 Ml Syringe) 10 ml IVP PRN PRN PRN Reason: NEEDED PER PROVIDER ORDERS Last Admin: 12/31/20 03:23 Dose: 10 ml Documented by: Sodium Chloride (Sodium Chloride Flush 0.9% 10 Ml Syringe) 10 ml IVP 010 0,0900,1700 JULES Last Admin: 01/01/21 08:36 Dose: 10 ml Documented by: polyethylene glycoL [id number] [Miralax] 17 g PO DAILY PRN 05/06/14 Pantoprazole [Protonix] 40 mg PO DAILY 02/02/15 Ferrous Gluconate 324 mg PO BIDWM 04/04/17 Morphine ER [Morphine Sulfate ER] 15 mg PO TID 04/04/17 Ondansetron Odt [Zofran Odt] 4 mg PO TID PRN 04/04/17 Potassium Chloride 10 meq PO DAILY 08/08/17 Fluticasone [Flonase] 1 spray RAMIN BID 07/12/18 oxyCODONE/ACET 5/325 [Percocet 5 mg/325 mg] 2 tab PO Q4HR PRN 07/12/18 Digoxin 62.5 mcg PO DAILY 03/02/20 Mupirocin 2% Oint [Bactroban 2% Oint] 1 applic TOP BID 03/02/20 Azelastine HCl 2 sprays RAMIN BID 11/16/20 Furosemide [Lasix] 40 mg PO DAILY 11/16/20 Metoprolol Tartrate [Lopressor] 12.5 mg PO BID 11/16/20 Tamsulosin [Flomax] 2 cap PO DAILY 11/16/20 Phenyleph/Pramoxin/Glycr/W.pet [Preparation H Cream] 1 appful TOP PRN PRN 11/17/20 Objective - Vital Signs/Intake & Output Reviewed Vital Signs: Yes Vital Signs: Vital Signs x48h Temp Pulse Resp BP Pulse Ox 01/01/21 08:09 36.6 C 83 15 108/78 100 01/01/21 03:51 36.6 C 115 H 16 99/60 99 Intake & Output: Intake & Output 12/29/20 12/30/20 12/31/20 01/01/21 23:59 23:59 23:59 23:59 Intake Total 2052 240 Output Total 670 150 Balance 1382 90 - Objective General Appearance: positive: No acute distress, Alert, Other (Although he appears comfortable, he does look ill and fatigued.) Eyes Bilateral: positive: Normal inspection, Conjunctivae nml ENT: positive: ENT inspection nml Neck: positive: Nml inspection Respiratory: positive: No respiratory distress, Other (He appears comfortable. He has diminished breath sounds in the right base and has faint crackles in the left lung field) Cardiovascular: positive: Irregularly irregular. negative: Tachycardia, Systolic murmur Skin: positive: Warm, Dry Extremities: positive: Pedal edema (+2 pitting edema in all 4 extremities consistent with anasarca.) Neurologic/Psychiatric: positive: Disoriented to time. negative: Disoriented to person, Disoriented to place - Lab Results Fish Bones: 12/30/20 00:07 12/30/20 00:07 Other Labs: Lab Results x24hrs 12/31/20 Range/Units 12:17 Bld Gas Analysis Time 1217 Sample Site RIGHT RADIAL ABG pH 7.37 (7.35-7.45) ABG pCO2 63 H* (34-45) mmHg ABG pO2 45 L* (80-100) mmHg ABG HCO3 35.4 H (22.0-26.0) mmol/L ABG Total CO2 37.3 H (21.0-29.0) MMOL/L ABG O2 Saturation 79 L* (94-98) % ABG Base Excess 8.7 H (-2.0-3.0) mmol/L Ruddy Test NOT APPLICABLE O2 Delivery Device NASAL CANNULA O2 Liters/Min 24.00 LPM ABX Reporting Has patient been on IV antibiotics over the past 48 hours?: No Assessment/Plan - Problem List (1) Acute on chronic respiratory failure with hypoxia Impression: This is secondary to acute on chronic diastolic heart failure and a recurrent right pleural effusion. A decision was made yesterday to hold off on aggressive treatment with the plan to discharge the patient home to hospice. He currently appears comfortable and we are not diuresing him further given his soft blood pressures. We will continue with submental oxygen for goal saturation greater than 88%. He is normally on 2 L of oxygen at baseline and he is currently saturating 100% on 6 L of oxygen. We will look to titrate this down today as tolerated. We will continue with Roxanol as needed for pain and dyspnea. The plan is to discharge the patient home tomorrow on hospice as he prefers. (2) Acute on chronic diastolic heart failure Impression: This is the cause of the is acute on chronic respiratory failure with hypoxia. We are no longer diuresing him given his soft blood pressures and the focus is now on comfort. (3) Recurrent right pleural effusion Impression: This is also contributing to his acute on chronic respiratory failure with hypoxia. Given the focus is now on comfort, we will not be obtaining a thoracentesis. This is due to the fact that this would be somewhat risky given his thrombocytopenia. (4) Atrial fibrillation Impression: Currently rate controlled. We will continue with daily digoxin but hold off on metoprolol given the soft blood pressure. Qualifiers: Atrial fibrillation type: longstanding persistent Qualified Code(s): I48.11 - Longstanding persistent atrial fibrillation (5) Hyponatremia Impression: He presented with hyponatremia likely due to hypervolemic hyponatremia. His sodium was 118. We have been unable to recheck this as she is a difficult stick and the plan was to place a PICC line but this was canceled as family decided to focus on his comfort. We are no longer checking labs. (6) Thrombocytopenia Impression: This is chronic and stable. The etiology of this is not clear although this could be ITP. Given he is changing to comfort care, we will not be checking labs or working this up further. (7) Chronic anemia Impression: He has anemia of chronic disease. We will no longer be checking labs and given he will be going home on hospice tomorrow, will discontinue iron supplementation. (8) Hypothyroidism Impression: We will continue his Synthroid. (9) Do not resuscitate status Impression: Family and patient have made it clear that he is a DNR and the focus at this point in time is his comfort.
[2021-01-01] MEDS ORDERED: TAMSULOSIN 0.4 MG CAPSULE PO SCH (09:00)
[2021-01-01] MEDS: MORPHINE SOL 10 MG/0.5 ML ORAL SYRINGE PO PRN ×3 (10:41→21:07)
[2021-01-01] MEDS ORDERED: ZINC OXIDE 20% OINT 30 GM TUBE TOP PRN (14:41)
--- NOTE | 2021-01-01 16:52 | Discharge Plan ---
Discharge Plan Problem Reviewed?: Yes Disposition: 50 Hospice/Home DC/Xfer Condition: Poor Prescriptions: Morphine Oral Soln [Roxanol] 5 mg PO Q2HR PRN #10 ml PRN Reason: Pain Ondansetron Odt [Zofran Odt] 4 mg PO Q6HR PRN #14 tab PRN Reason: Nausea / Vomiting Diet: Regular Activity Restrictions: Activity as Tolerated Health Concerns: You were admitted to the hospital because of difficulty breathing. You were found to have recurrent fluid in your right lung as well as low sodium levels due to too much fluid in your body. This was likely due to worsening of your heart failure. Despite giving you water pills, your breathing did not improve and your blood pressure has been on the lower end. You and your family have decided to focus on your comfort rather than to pursue further aggressive treatment. This was discussed with hospice and they will be seeing you at home once you are discharged. Plan of Treatment: You will be discharged with morphine to take as needed for pain or difficulty breathing. We have also continued some of your home medications that can help provide you with some comfort. Care Goals: The goal is to focus on your comfort near end-of-life. Assessment: Patient and family expressed understanding of the treatment plan. Additional Instructions or Follow Up instructions: Please follow-up with hospice. No Smoking: If you smoke, Please STOP! Call for help. Follow-up with: Delvin Quigley MD [Primary Care Provider] -
[2021-01-01] MEDS: SODIUM CHLORIDE FLUSH 0.9% 10 ML SYRINGE IVP PRN (18:07)
[2021-01-02] MEDS: LEVOTHYROXINE 88 MCG TABLET PO SCH (06:40)
[2021-01-02] MEDS: AZELASTINE HCL 137 MCG/0.137 ML INH SCH (08:49)
[2021-01-02] MEDS: PUMP INH SCH (08:49)
[2021-01-02] MEDS: SODIUM CHLORIDE FLUSH 0.9% 10 ML SYRINGE IVP SCH ×2 (09:09)
[2021-01-02] MEDS: DIGOXIN 125 MCG TABLET PO SCH (09:09)
[2021-01-02] MEDS: FLUTICASONE NASAL SPRAY NAS SCH (09:12)
[2021-01-02] MEDS: MORPHINE SOL 10 MG/0.5 ML ORAL SYRINGE PO PRN ×2 (10:13→14:35)
--- NOTE | 2021-01-02 12:00 | DISCHARGE SUMMARY ---
Discharge Summary Admit Date: 12/31/20 Discharge Date: 01/02/21 Discharging Provider: Sammy Last Primary Care Provider: Delvin Quigley Code Status: Do Not Attempt Resuscitation Condition at Discharge: Poor Discharge Disposition: 50 Hospice/Home DC/Xfer - DIAGNOSES Admission Diagnoses: Generalized weakness Hyponatremia Acute exacerbation of CHF Chronic pain Pleural effusion Chronic anemia Acute on chronic kidney failure Pressure ulcer, upper back Atrial fibrillation Thrombocytopenia Mastoiditis T12 compression fracture DO NOT RESUSCITATE status Discharge Diagnoses with Status of Each Condition: Acute on chronic respiratory failure with hypoxia - ongoing. Acute on chronic diastolic heart failure - ongoing. Recurrent right pleural effusion - stable. Atrial fibrillation - stable. Hyponatremia - ongoing Thrombocytopenia - stable. Chronic anemia - stable. DO NOT RESUSCITATE status - HPI History of Present Illness: H&P per Dr. Haider: This unfortunate gentleman has a history of congestive heart failure chronic A. fib and was hospitalized with November 15 November 19 and then again with [facility] December 01. The patient is not a very good historian. When he was seen by November 15 he was found to have weakness, falling, confusion. His sodium level was 123 with anasarca. We treated him as congestive heart failure with fluid overload. And he work with physical therapy and occupational therapy to help with this weakness. He was sent home on 2 L nasal cannula to saturate him at 95%. Did he be discharged to longterm facility for rehab and he declined. As such he was sent home with home health. He then returned here December 01 because he got weak again. No recorded falls. She noticed that he was dragging his left leg. But was again declining with p.o. intake, and weakness. He was unable to stand. And his hemoglobin was 8.5. He was found to have a loculated pleural effusion. He was hypoxic, symptomatic with that, and he needed a probable chest tube placement but our surgeon was not comfortable with that and as such we asked him to be transferred to higher level of care. After numerous phone calls to [facility], he was eventually transferred to [facility]. We are awaiting medical records from [facility]. His , who provides the history, stated that, while he was there, she never really got a phone call from anyone and never knew what happened. The only phone call she got with the day he was to be discharged when they asked her to pick them up. They describe him as having a vertebral body fracture in the thoracic spine. He would need to wear a brace for the next 90 days. That he would need to be careful at home. But they made no mention of the loculated pleural effusion and to her recollection they did nothing for it. For the first 10 days or so that he was home he seemed to be recovering. He was eating acceptably. Ambulating with his wheelchair and walker downstairs. He uses a lift to get to the bottom of the stairs and up to the bedroom. In the upstairs landing he has a another walker that he uses. He has been wearing his brace. She gives him his medications and he has been taking his medications. He had blood work done December 24 by his primary care provider, and his hemoglobin was 8.8 and sodium was 129. Then shortly after than blood draw, about 4-5 days ago he started having less and less appetite. Has not been eating or drinking very much. There was no fever, chills, cough. No new abdomi nal pain. No urgency, frequency that was new. He already has prostate problems and he always has the urge to urinate. But there is no dysuria with this, no flank pain. She denies blood in urine, blood in stool. There is no diarrhea. He just "started getting weak again". Tonight he had made it to the dining room table and was sitting there. Did not eat very much. He uses a wheelchair to sc oot in and out from sitting at the table because a regular chair is too hard for him to lift and move. Using a walker he left his wheelchair to get to the lift at the bottom of the stairs. She noticed that he barely made it but insisted on getting to the left. He got up to lift. Feeling suspicious she went upstairs to watch him. He seemed to be losing his balance and was weak. She wanted him to go to bed but he insisted on going to the bathroom. He was able to get to the toilet. Is about 125 foot walk to the bathroom from the head of the stairs. He almost collapsed a few feet from the toilet and she was holding onto them. She managed to support him to get to the toilet where he went to the bathroom. But when they got up to try and get back to bed, he just could not make it. As such they called EMS. EMS described him as having a 78% O2 sat. It took 4 L to get them above 90%. He now returns with recurrence of his weakness, fatigue, edema, poor appetite. He is getting increasingly confused and he cannot ambulate.His temperature is 36.5. Heart rate is 93 and irregular. Blood pressure 107/81. Respirations are 16 and is 97% saturated with his nasal cannula. Requiring 2 L. He is 92.7 kg. He is a confused, fatigued elderly gentleman but is alert and oriented x3. Very sluggish in answering questions. Voice is low, hoarse. He has an irregular heart rate with mild tachycardia about 110. No respiratory distress with decreased breath sounds on the right. Fine crackles both lower lungs. A nontender abdomen. 2+ edema in his legs, and both hands and wrists. He is a generalized motor deficit from severe weakness. But no focal findings. His sodium was 118. Potassium 5.7. BUN 69, creatinine 1.3. Glucose 115. Lactic acid 1.1. Magnesium 1.6. Troponin 22.8. BNP 332. White cell count 8.7, hemoglobin 9.3. Urinalysis is negative for any infection. Dig dose of 0.7. Preliminary CT of the head has no acute findings. He has persistent opacification of the left middle ear cavity and mastoid air cells indicating possible mastoiditis and otitis. His chest x-ray has a moderate sized right pleural effusion that is even worse than the December 01 study. On top of that he is a new opacity that may be secondary to edema, atelectasis, or infection. - CONSULTS | PROCEDURES Consultations: Social Work, Hospice - HOSPITAL COURSE Hospital Course: He was admitted for acute on chronic diastolic heart failure as well as hyponatremia and recurrent right pleural effusion. He was treated with IV Lasix initially but due to soft blood pressures this limited our ability to diurese him. He was also a very difficult stick and it was difficult to obtain labs on this gentleman. A decision was made to place a PICC line after he was admitted for frequent lab draws. Unfortunately, he became hypotensive with systolic in the 80s and less responsive. It was felt his unresponsiveness was due to the opiates he had received and he was given Narcan with improvement in his mentation. His blood pressures remained soft with systolics in the 90s to low 100s. Decision was made by him and his at that time to hold off on a PICC line and to observe how the patient does over next 24 hours as there was concern that he was rapidly declining. Given a PICC line was not placed, we could not obtain further labs to assess his hyponatremia. We also held off on further diuresis given his hypotension. The following day his blood pressures remained soft but he was mentating well for the most part. He appeared lethargic and fatigued but was able to breast-feed in a conversation. I received a phone call on hospital day 2 from hospice stating that the patient's granddaughter had contacted him the prior night and the family had decided to go home on hospice. This could not be done until 02 January but the family had made it clear at this point in time that the focus was comfort. We then treated his dyspnea and pain with morphine as needed. We did not diurese him any further and did not obtain further labs. On the day of discharge, the asked the patient multiple times whether he wants to go home on hospice or stay here for further treatment including diuresis to help with his anasarca. I also asked the patient this question and he kept stating that he wants to go home to be with his , daughters, and dog. A Hurst catheter was placed prior to discharge as the patient stated he felt difficulty urinating and requested a catheter. He was discharged home this afternoon in a relatively poor condition. He was conversing but appeared quite lethargic and fatigued. Hospice will be admitting him this afternoon at 3:30 PM. I did provide him with a prescription for morphine to take as needed. - ALLERGIES Allergies/Adverse Reactions: Allergies Allergy/AdvReac Type Severity Reaction Status Date / Time clonidine Allergy Unknown Verified 12/30/20 22:43 diltiazem Allergy Unknown Verified 12/30/20 22:43 - MEDICATIONS Home Medications: Ambulatory Orders Medication Instructions Recorded Confirmed Digoxin 62.5 mcg PO DAILY 03/02/20 12/30/20 Levothyroxine [Synthroid] 88 mcg PO QDAC #10 tablet 03/05/20 12/30/20 Morphine Oral Soln [Roxanol] 5 mg PO Q2HR PRN #10 ml 01/02/21 Ondansetron Odt [Zofran Odt] 4 mg PO Q6HR PRN #14 tab 01/02/21 - PHYSICAL EXAM AT DISCHARGE General Appearance: positive: No acute distress, Lethargic (He is lethargic but able to converse albeit in short sentences.) Eyes Bilateral: positive: Normal inspection ENT: positive: ENT inspection nml, Other (Nasal cannula in place.) Neck: positive: Nml inspection Respiratory: positive: No respiratory distress, Other (Sounds diminished bilaterally. Faint crackles noted in the left lung.) Cardiovascular: positive: Irregularly irregular. negative: Tachycardia, Systolic murmur Abdomen: positive: Non-tender, No distention. negative: Tenderness Skin: positive: Warm, Dry Extremities: positive: Pedal edema (1 to +2 pitting edema in all 4 extremities consistent with anasarca.) Neurologic/Psychiatric: negative: Disoriented to person, Disoriented to place Physical Exam Other/Comments: Vital Signs - 24 hr 01/01/21 01/02/21 01/02/21 20:33 00:30 05:30 Temperature 36.5 C 36.3 C L Heart Rate [ 102 H 113 H 114 H Brachial] Respiratory 16 16 15 Rate Blood Pressure 117/69 113/67 95/62 [Right Brachial artery] O2 Saturation 98 94 100 01/02/21 01/02/21 08:25 13:00 Temperature 36.1 C L 36.5 C Heart Rate [ 99 89 Brachial] Respiratory 16 17 Rate Blood Pressure 98/65 110/71 [Right Brachial artery] O2 Saturation 100 100 Oxygen O2 Source [Without Activity] Room air O2 Source [With Activity] Room air O2 Source Nasal cannula Oxygen Flow Rate 4 - LABS Result Diagrams: 12/30/20 00:07 12/30/20 00:07 - DIAGNOSTIC IMAGING Diagnostic Imaging Results Comments: Chest CT without contrast showed chronic significant elevation of right hemidiaphragm. There is associated chronic right basilar collapse. Significant interval increase in atelectasis of the right lung, subtotal. Significant int erval increase in right pleural effusion, moderate. Interval development of small left pleural effusion with left basilar atelectasis. Advanced coronary artery disease. Left ventricular and left atrial enlargement. Mild upper abdominal ascites. Chronic pancreatitis. Comminuted subacute T12 compression fracture. - FOLLOW UP Follow Up: He will be admitted under the hospice service this afternoon. - TIME SPENT Time Spent in Discharge (Minutes): 34
[2021-01-02 14:53] VITALS: BP 110/71
== END 2021-01-02 15:32 | disposition hospice, home (50) | DRG 291 ==
LOC: EDUNIT# → EDBD → ED 22:31 → MS2 12-31 01:33
PROVIDERS: ADMIT Specialist; ATTEND Internal Medicine
DX: I13.0 Hypertensive heart and chronic kidney disease with heart failure and stage 1 through stage 4 chronic kidney disease, or unspecified chronic kidney disease (principal); I11.0 Hypertensive heart disease with heart failure; I50.9 Heart failure, unspecified; I50.33 Acute on chronic diastolic (congestive) heart failure; R41.0 Disorientation, unspecified; D64.9 Anemia, unspecified; J96.21 Acute and chronic respiratory failure with hypoxia; E11.9 Type 2 diabetes mellitus without complications; I38 Endocarditis, valve unspecified; E87.1 Hypo-osmolality and hyponatremia; I48.11 Longstanding persistent atrial fibrillation; D69.6 Thrombocytopenia, unspecified; N18.9 Chronic kidney disease, unspecified; E11.22 Type 2 diabetes mellitus with diabetic chronic kidney disease; D63.8 Anemia in other chronic diseases classified elsewhere; Z87.891 Personal history of nicotine dependence; H70.92 Unspecified mastoiditis, left ear; H66.92 Otitis media, unspecified, left ear; R33.9 Retention of urine, unspecified; I34.0 Nonrheumatic mitral (valve) insufficiency; E78.00 Pure hypercholesterolemia, unspecified; Z74.09 Other reduced mobility; S22.089D Unspecified fracture of T11-T12 vertebra, subsequent encounter for fracture with routine healing; W19.XXXD Unspecified fall, subsequent encounter; E03.9 Hypothyroidism, unspecified; L89.109 Pressure ulcer of unspecified part of back, unspecified stage; G89.29 Other chronic pain; M54.9 Dorsalgia, unspecified; M81.0 Age-related osteoporosis without current pathological fracture; M19.90 Unspecified osteoarthritis, unspecified site; H54.7 Unspecified visual loss; H91.90 Unspecified hearing loss, unspecified ear; K59.00 Constipation, unspecified; N40.1 Benign prostatic hyperplasia with lower urinary tract symptoms; R35.0 Frequency of micturition; R39.15 Urgency of urination; R35.1 Nocturia; Z66 Do not resuscitate; Z51.5 Encounter for palliative care; Z20.822 Contact with and (suspected) exposure to COVID-19; Z99.81 Dependence on supplemental oxygen; Z79.891 Long term (current) use of opiate analgesic; Z79.899 Other long term (current) drug therapy; I25.2 Old myocardial infarction; Z87.01 Personal history of pneumonia (recurrent); Z91.81 History of falling; Z72.89 Other problems related to lifestyle
CPT/HCPCS: 36415; 36600; 70450; 71045; 71250; 80053; 80162; 81003; 82803; 83605; 83690; 83735; 83880; 84484; 85025; 87631; 93005; 96361; 96374; 99284; 99285; A9270; J7040; 0202U; 80048; 81001; 84100; 87086

== ENCOUNTER 2021-01-02 15:30 | Outpatient (CLI) | payer MEDICARE, OTHER | END 2021-01-02 15:31 | disposition home or self-care (01) | LOC: EMS 15:30 | DX: G93.41 Metabolic encephalopathy (principal); R53.1 Weakness; E87.1 Hypo-osmolality and hyponatremia | CPT/HCPCS: A0425; A0428 ==